=== PATIENT | female | born 1940 | race Caucasian/White ===

== ENCOUNTER 2021-10-11 12:22 | Outpatient (CLI) | payer MEDICARE, BC, SELFPAY ==
--- NOTE | 2021-10-11 | CRLHL7_ITS ---
For Patients: As a result of the Century Cures Act, medical imaging exams and procedure reports are released immediately into your electronic medical record. You may view this report before your referring provider. If you have questions, please contact your health care provider. DATE: 10/11/2021. CLINICAL HISTORY: Concern for cerebral aneurysm. TECHNIQUE: Standard helical CT image acquisition through the neck was performed after intravenous contrast bolus enhancement. Multiplanar reconstructed images were performed and interpreted. COMPARISON: None available. FINDINGS: The origins of the great vessels from the aortic arch are patent. The origins of the right and left vertebral arteries are patent. The common carotid arteries are patent. Mild (<50%) atherosclerotic stenoses at the origin of and just distal to the bulb of the proximal right ICA, by NASCET criteria. Atherosclerotic plaque involves the left carotid bifurcation and extends into the carotid bulb but without resulting luminal stenosis by NASCET criteria. The more distal cervical segments of the internal carotid arteries are patent. The cervical segments of the vertebral arteries are patent. IMPRESSION: Mild (<50%) atherosclerotic stenoses at the origin of and just distal to the bulb of the proximal right ICA, by NASCET criteria. Please note that all CT scans at this facility use dose modulation, iterative reconstruction, and/or weight-based dosing when appropriate to reduce radiation dose to as low as reasonably achievable. Dictated by Byron Gutiérrez MD @ 10/12/2021 11:32:38 AM (Electronically Signed)
[2021-10-11 12:58] LABS: Creatinine* 1.5 mg/dL (0.5-1.5); Estimated Glomerular Filt Rate 34 ml/min
== END 2021-10-11 12:23 | disposition home or self-care (01) ==
LOC: CT 12:23
PROVIDERS: PCP Family Medicine; Visit Provider Radiology Neuroradiology
DX: I67.1 Cerebral aneurysm, nonruptured (principal); I66.3 Occlusion and stenosis of cerebellar arteries
CPT/HCPCS: 36415; 70496; 82565; Q9967

== ENCOUNTER 2021-11-15 09:30 | Observation (INO) | payer MEDICARE, BC, SELFPAY ==
[2021-11-15] VITALS (15 sets, daily range): BP systolic 71–151; BP diastolic 46–99; PULSE 49–147; RESP 12–20; TEMP 36.5–36.8; O2SAT 95–98; BMI 27.6; BMI 27.7
--- NOTE | 2021-11-15 10:00 | ED.GENADULT ---
HPI - General Adult General Time Seen by Provider: 10:00 Date Seen: 11/15/21 Chief complaint: Arrhythmia/Palpitations Stated complaint: Afib Time Seen by Provider: 11/15/21 10:00 Source: patient, RN notes reviewed and other (Received phone call prior to patient arrival from Dr. Malave) Mode of arrival: ambulatory Limitations: no limitations History of Present Illness HPI narrative: Patient is an 81-year-old female accompanied by her daughter to the ER for referral from clinic for atrial fibrillation with rapid ventricular response. Dr. Malave was seen this patient in followup today., a routine follow-up of chronic disease management. She was found to be in atrial fibrillation with RVR, pulse in the 140s, EKG sent with showing atrial fibrillation with RVR, 140 beats per minute. Also showed nonspecific ST segment changes. Patient felt a little dizzy this morning but did not feel a fast heart rate. She has chronic shortness of breath but there is nothing new or worse with this. She has not been sick. She is not feeling worsening shortness of breath, no chest pain, no sense of palpitations. She has suffered from chronic dizziness and chronic dyspnea on exertion. She did have a ZIO patch monitor about a month ago per report, actual report is here in dated 08/20/2021. It was 13 day monitor, sinus rhythm 37-115 beats per minute. PSVT, multiple brief 2 short runs longest 15-1/2 seconds. There was no atrial fibrillation seen. She also had a chest CT in March 2021 showing COPD/emphysema, normal PFTs in June of 2021. She has reportedly had a recent negative stress echo. She had an MRA/MRI related to her dizziness and was found to have an aneurysm versus infundibulum, head CT angio with vascular and they are monitoring. Further details not known. She is not feeling dizzy right now. Her daughter wants to know if we were going to cardiovert her and have reviewed with her that it would be contraindicated unless it is emergent and she is not emergent right now. We reviewed that since she has no idea how long she has been in this rhythm it increases the risk for thromboembolic events with stroke with cardioversion. 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 Ascending aortic aneurysm Carotid artery aneurysm Chronic kidney disease, stage 3 COPD (chronic obstructive pulmonary disease) Diastolic congestive heart failure Emphysema lung History of bladder cancer History of breast cancer History of colon cancer History of small bowel obstruction History of smoking 30 or more pack years Mild cognitive impairment Paroxysmal supraventricular tachycardia Pulmonary nodules Surgical History H/O total cystectomy History of colectomy History of ileal conduit History of urostomy Family History Daughter Diabetes High blood pressure Sister Stroke Social History (Updated 11/15/21 @ 15:26 by Eladio Hardin MD) Smoking Status: Former smoker What tobacco products do you use: cigarettes Years smoked: 30 Smoking quit date/years: >15 years ago Do you use any of these nicotine containing products: None Second hand tobacco smoke exposure: Yes How often do you have a drink containing alcohol: 4 or more times a week How many standard drinks containing alcohol do you have on a typical day: 1 or 2 How often do you have six or more drinks on one occasion: Never AUDIT-C Alcohol total score: 4 Non-prescribed substance use: denies use service: No Exam Const: Vital Signs, click to edit/add: Vital Signs - 24 hr 11/15/21 09:50 Pulse Rate [Right Apical] 147 H Respiratory Rate 20 Blood Pressure [Ri ght Upper Arm] 113/99 H Pulse Oximetry 96 Oxygen Delivery Me thod Room Air Documenting provider has reviewed patient's vital signs: yes Common normals: no apparent distress, average body habitus, oriented x3, no limitations, healthy appearing and alert General appearance: cooperative, comfortable and well kempt HENMT: Common normals: normocephalic, head/scalp atraumatic, hearing grossly normal bilaterally, external ears normal, nasal mucous membranes and turbinates normal, moist oral mucous membranes, oropharynx normal, dentition normal and gingiva normal Head and scalp: normocephalic and atraumatic Nose: nasal mucous membranes and turbinates normal External ear: external ears normal Eye: Common normals: PERRL, EOMs intact bilaterally, conjunctivae normal and no scleral icterus Conjunctiva: conjunctiva(e) normal Pupil: PERRL Neck & C-Spine: Common normals: full ROM, no lymphadenopathy, supple, no meningeal signs, no JVD and thyroid normal Thyroid: thyroid normal Chest: Common normals: inspection of chest normal and palpation of chest normal Resp: Common normals: normal respiratory effort, no retractions, no use of accessory muscles and clear to auscultation bilaterally Auscultation: clear to auscultation bilaterally Cardio: Common normals: no JVD Rate: tachycardic Rhythm: abnormal rhythm irregularly irregular GI: Common normals: Normal to inspection, nondistended, normoactive bowel sounds present (Does have urostomy), soft to palpation, non-tender, no hepatosplenomegaly and no masses Palpation: soft and no hepatosplenomegaly Extremity: Common normals: normal to inspection, full ROM, normal capillary refill, no joint enlargement, no clubbing, cyanosis or edema, no calf tenderness and no pedal edema Neuro: Common normals: oriented x3 Sensorium/orientation: alert Meningeal signs: no meningeal signs Psych: Appearance: well kempt Course Course Hospital Course: Will have her on cardiac monitoring, pulse oximetry. Will initiate a 250 mL normal saline bolus and see how she responds to 2.5 mg IV metoprolol. We will be getting a portable chest x-ray, do COVID screening as she is likely going to need hospitalization. We have reviewed the need for rate control as well as likely anticoagulation. Will do her chads calculation. We discuss complications of untreated atrial fibrillation with tachycardia induced cardiomyopathy, congestive heart failure, other complications of stroke risk and and the need for possible anticoagulation. First we need to work on rate control. She is currently asymptomatic. We will see how she tolerates the rate control medicines IV with her blood pressure. Reevaluation(s) Reevaluation #1: Nursing staff reported to me that patient converted on her own. They will be getting an update EKG. I would still like labs to be drawn, portable chest x-ray. Still need to calculate her chads Vasc score, review anticoagulation need for her. Need to consider low-dose suppressive beta mayuri as well. Time: 10:17 Consultations Consultation #1: Spoke with Dr. Carpio the on-call Cardiology through [facility]. He shares my concerns with her low resting heart tone and the low rate of 37 noted on her recent cardiac monitoring. He did recommend starting Eliquis 5 mg b.i.d.. Note her chads Vasc score is 3. She had a recent creatinine in their records that was 1.4. Note are chemistry analyzer is currently down. He did agree with starting a rate control with metoprolol XL 25 mg and titrating up as tolerated. He also wanted her started on antiarrhythmic as he felt she had had a recent enough ischemic evaluation. He recommended the flecainide be started at 50 mg twice a day. She would need to monitor her pulse. Have an EKG rechecked in 3 days. If her pulse dropped below 50 year she felt dizzy or lightheaded the medicine would need to be stopped and alternate things such as consideration for pacemaker, possibly consideration for ablation could be entertained. He states her last echo was a year ago and he did 1 and updated echo as well. He favored her coming into the hospital for initiation of these medications. I am waiting to hear from her hospitalist if they will consider her. Time: 11:26 Vital Signs Vital signs: Initial Vital Signs Temperature Source Temporal Artery Scan 11/15/21 09:50 Pulse Rate 147 H 11/15/21 09:50 Pulse Rhythm 11/15/21 09:50 Respiratory Rate 20 11/15/21 09:50 Blood Pressure 113/99 H 11/15/21 09:50 Blood Pressure Mean 103 11/15/21 09:50 Blood Pressure Position Supine 11/15/21 09:50 Pulse Oximetry 96 11/15/21 09:50 Oxygen Delivery Method 11/15/21 09:50 Vital Signs Pulse Rate 147 H 11/15/21 09:50 Respiratory Rate 20 11/15/21 09:50 Blood Pressure 113/99 H 11/15/21 09:50 Pulse Oximetry 96 11/15/21 09:50 Oxygen Delivery Method 11/15/21 09:50 Temperature 97.7 F 11/15/21 13:45 Pulse Rate 50 L 11/15/21 14:50 Respiratory Rate 16 11/15/21 13:45 Blood Pressure 113/99 H 11/15/21 09:50 Pulse Oximetry 98 11/15/21 13:45 Oxygen Delivery Method 11/15/21 13:45 Medical Decision Making Lab Data Lab results reviewed: Yes I reviewed the patient's lab results Labs: Lab Results 11/15/21 11/15/21 Range/Units 10:35 11:50 WBC 8.14 (4.50-11.00) K/uL RBC 4.10 (4.00-5.20) m/uL Hgb 12.9 (12.0-16.0) gm/dL Hct 39.8 (33.0-51.0) % MCV 97 (80-100) fL MCH 32 (26-34) pg MCHC 32 (32-36) gm/dL RDW Coeff of Gayle 12.9 (11.5-15.5) % Plt Count 220 (140-440) K/uL Neut % (Auto) 81.2 H (42.0-72.0) % Lymph % (Auto) 6.6 L (20-44) % [place] % (Auto) 11.8 H (0.0-11.0) % Eos % (Auto) 0.2 (0.0-7.0) % Baso % (Auto) 0.1 (0.0-3.0) % Neut # (Auto) 6.60 (1.7-7.0) K/uL Lymph # (Auto) 0.50 L (0.90-2.90) K/uL [place] # (Auto) 1.00 H (0.00-0.90) K/UL Eos # (Auto) 0.02 (0.00-0.50) K/uL Baso # (Auto) 0.01 (0.00-0.30) K/uL Abs Immat Gran (auto) 0.01 (0.00-0.30) K/uL SARS-CoV-2 (PCR) Negative SARS-CoV-2 (Negative) Imaging Data Chest x-ray: Attestation: I have reviewed the pertinent imaging results. Radiologist's impression: Patient: WILD HAY Facility:[facility] Patient ID:?[id number] Site Patient ID:?[id number] Site :?[id number] Study:?XRay Chest PORTABLE 1 VIEW-11/15/2021 11:11:05 AM Ordering Physician:YADIEL Final Report: Indication: AFib with rapid ventricular rate Comparison: Single view chest 05/05/2021 Technique: Single AP view chest Findings: There is hyperinflation and chronic interstitial change. There are mildly increased interstitial markings likely representing minimal pulmonary vascular congestion. There is no dense consolidation, effusion or pneumothorax. The cardiac silhouette is mildly prominent with a tortuous thoracic aorta. The bony thorax is grossly intact. Impression: Hyperinflation and chronic interstitial changes with mildly increased interstitial markings likely representing minimal pulmonary vascular congestion. Dictated by Chucho Penn MD @ 11/15/2021 11:49:34 AM (Electronic Signature) ECG Data Attestation: I personally reviewed and interpreted this ECG as follows: (Atrial fibrillation with rapid ventricular response, 136 beats per minute. Nonspecific ST segment abnormality.) Prior ECG tracings: available for review (From clinic today) Interpretation: Follow-up EKG at 10:20 a.m. showing sinus rhythm, 60 beats per minute, no acute pathology. Critical Care Time Critical Care Time Critical Care Time: No Discharge Plan Discharge Clinical Impression: Paroxysmal atrial fibrillation with rapid ventricular response
--- NOTE | 2021-11-15 10:11 | XR_ITS ---
Final Report Patient: WILD HAY Facility:?[facility] Patient ID:?[id number] Site Patient ID:?[id number] Site :?[id number] Study:?XRay Chest PORTABLE 1 VIEW-11/15/2021 11:11:05 AM Ordering Physician:YADIEL Final Report: Indication: AFib with rapid ventricular rate Comparison: Single view chest 05/05/2021 Technique: Single AP view chest Findings: There is hyperinflation and chronic interstitial change. There are mildly increased interstitial markings likely representing minimal pulmonary vascular congestion. There is no dense consolidation, effusion or pneumothorax. The cardiac silhouette is mildly prominent with a tortuous thoracic aorta. The bony thorax is grossly intact. Impression: Hyperinflation and chronic interstitial changes with mildly increased interstitial markings likely representing minimal pulmonary vascular congestion. Dictated by Chucho Penn MD @ 11/15/2021 11:49:34 AM (Electronic Signature)
--- NOTE | 2021-11-15 10:25 | ED.NURSE ---
converted to nsr on monitor. is feeling better. 12 lead was repeated.
[2021-11-15 10:49] LABS: Basophils Absolute Auto 0.01 K/uL (0.00-0.30); Basophils Percent Auto 0.1 % (0.0-3.0); Eosinophils Absolute Auto 0.02 K/uL (0.00-0.50); Eosinophils Percent Auto 0.2 % (0.0-7.0); Hematocrit 39.8 % (33.0-51.0); Hemoglobin* 12.9 gm/dL (12.0-16.0); Immature Granulocytes Abs Auto 0.01 K/uL (0.00-0.30); Lymphocytes Percent Auto 6.6 % (20-44); Mean Corpuscular HGB Conc 32 gm/dL (32-36); Mean Corpuscular Hemoglobin 32 pg (26-34); Mean Corpuscular Volume 97 fL (80-100); Monocytes Percent Auto 11.8 % (0.0-11.0); Neutrophils Percent Auto 81.2 % (42.0-72.0); Platelet Count* 220 K/uL (140-440); RDW Coefficient of Variation % 12.9 % (11.5-15.5); White Blood Count* 8.14 K/uL (4.50-11.00)
[2021-11-15 10:52] LABS: Slide Review Reflex No
[2021-11-15] MEDS: APIXABAN 5 MG TABLET PO ×2 (12:49→21:02)
[2021-11-15] MEDS: FLECAINIDE ACETATE 50 MG TABLET PO ×2 (12:49→21:02)
[2021-11-15 13:00] LABS: SARS PCR* Negative SARS-CoV-2 (Negative)
[2021-11-15] MEDS: METOPROLOL SUCCINATE (XL) 25 MG TAB PO (13:01)
--- NOTE | 2021-11-15 13:10 | ED.NURSE ---
report was given to bull garcia.
--- NOTE | 2021-11-15 14:54 | P.IMHP_ITS ---
Hospitalist- H&P: HPI History of Present Illness Time Seen by Provider: 12:15 Date Seen: 11/15/21 Chief complaint: Elevated heartrate Narrative: Rosa M Jones is a 81 year old woman referred to the [facility] Emergency Department when she was found to have atrial fibrillation with rapid ventricular response without symptoms when she was in the outpatient clinic today for routine follow-up. Not on a negative chronotropic agent. Not anticoagulated. Is on a baby aspirin once daily. Currently denies any chest heaviness, pressure, tightness, or pain. Denies cough, dyspnea at rest, paroxysmal nocturnal dyspnea, orthopnea. Has baseline dyspnea with exertion. Denies orthostasis, lightheadedness, syncope, near- syncope, presyncope. Denies palpitations or fluttering. Denies lower extremity edema. Stress echo done this past spring was negative. Stress Lexiscan test this past September was negative. Normal pulmonary function tests June 2021. CT scan of chest March 2021 demonstrating COPD and emphysema. Zio patch August 2021 demonstrated sinus rhythm with multiple brief short runs of paroxysmal supraventricular tachycardia, longest of 15 seconds at 108 beats. Patient spontaneously converted to sinus rhythm in the emergency department. D iscussion by emergency department physician and infrastructure manager undertaken. Supervising Law Enforcement Analyst recommended admission to observation, initiation of metoprolol succinate extended release 25 mg daily, initiation of apixaban anticoagulation 5 mg twice daily, initiation of flecainide 50 mg twice daily, monitor in hospital overnight, telemetry cardiac monitoring, repeat electrocardiogram in the morning to assess QT prolongation possibility, and if doing well discharge tomorrow with follow-up in the outpatient setting early next week with the electrocardiogram to again assess for possible QT prolongation. Review of Systems Status of ROS: Reports: 10 or more systems reviewed and unremarkable except as noted in History and below Narrative: Lives independently. Has children or supportive. Requiring more support from children due to cognitive impairment. No recent illness. Denies fevers, rigors, diaphoresis. Manages her ileal conduit. No diarrhea or constipation. Denies any rashes of any sort. No recent trauma or injury. No recent travel. To the best of her knowledge she has not had COVID recently. Has received a total of 4 Pfizer COVID vaccinations. Up-to-date on other immunizations as well. Has not had any recent focal motor neurologic deficits. Denies myalgias a rthralgias or swollen joints. Denies any weight gain or weight loss. Denies night sweats. Denies polyuria, polydipsia, polyphagia. Denies cold intolerance. Drinks up to 1 beer daily. No prior alcohol withdrawals. No other street or recreational drugs. Thirty-four pack-year history of smoking, quit 1991. 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 Ascending aortic aneurysm Carotid artery aneurysm Chronic kidney disease, stage 3 COPD (chronic obstructive pulmonary disease) Diastolic congestive heart failure Emphysema lung History of bladder cancer History of breast cancer History of colon cancer History of small bowel obstruction History of smoking 30 or more pack years Mild cognitive impairment Paroxysmal supraventricular tachycardia Pulmonary nodules Surgical History H/O total cystectomy History of colectomy History of ileal conduit History of urostomy Family History Daughter Diabetes High blood pressure Sister Stroke Social History Smoking Status: Former smoker What tobacco products do you use: cigarettes Years smoked: 30 Smoking quit date/years: >15 years ago Do you use any of these nicotine containing products: None Second hand tobacco smoke exposure: Yes How often do you have a drink containing alcohol: 4 or more times a week How many standard drinks containing alcohol do you have on a typical day: 1 or 2 How often do you have six or more drinks on one occasion: Never AUDIT-C Alcohol total score: 4 Non-prescribed substance use: denies use service: No Meds Home Medications and Allergies Home Medications Medication Instructions Recorded Confirmed Type escitalopram oxalate 10 mg tablet 10 mg PO DAILY 11/15/21 11/15/21 History rosuvastatin 10 mg tablet 10 mg PO HS 11/15/21 11/15/21 History Home Medication Comments: Aspirin 81 mg daily. Allergies Allergy/AdvReac Type Severity Reaction Status Date / Time No Known Drug Allergies Allergy Verified 11/15/21 09:50 Exam Narrative: Exam Narrative: No acute distress. Appears comfortable. Normal sinus rhythm, rate of 60 beats per minute. Systolic blood pressures in the 110's. Respirations comfortable, 12-16 breaths per minute. Alert, oriented to self, place, time. In part oriented to situation. Does require multiple explanations. Cooperative, friendly. No JVD, hepatojugular reflux, or carotid bruits. Lungs are clear to auscultation, without wheezing, rhonchi, or rales. Chest wall excursions are full. Heart tones with regular rhythm, normal S1-S2, no murmur, gallop, or rub. Abdomen with active bowel sounds, soft, nontender. Extremities without edema. Cranial nerves 3-12 grossly intact. No focal motor neurologic deficits. Independent transfer, station, and gait. No tremor, asterixis, or ataxia. When visiting with patient and her daughter, Kelsea, it is apparent that the patient does not recall some recent details. This is not new. Const: Vital Signs, click to edit/add: Vital Signs - 24 hr 11/15/21 09:50 11/15/21 13:44 11/15/21 13:45 Temperature 97.7 F Pulse Rate 60 Pulse Rate [Right Apical] 147 H Respiratory Rate 20 16 Blood Pressure [Ri ght Upper Arm] 113/99 H Pulse Oximetry 96 98 Oxygen Delivery Me thod Room Air Room Air Documenting provider has reviewed patient's vital signs: yes Hospitalist - H&P: Result Labs Labs: Short CBC 11/15/21 Range/Units 10:35 WBC 8.14 (4.50-11.00) K/uL Hgb 12.9 (12.0-16.0) gm/dL Hct 39.8 (33.0-51.0) % Plt Count 220 (140-440) K/uL ECG Attestation: I personally reviewed and interpreted this ECG as follows: ECG interpretation date: 11/15/21 ECG interpretation time: 12:30 Prior ECG tracings: not available for review Interpretation: Atrial fibrillation with rapid ventricular response, rate 140 bpm, no ischemic changes. Imaging Chest x-ray: Attestation: I have reviewed the pertinent imaging results. Radiologist's impression: My interpretation is that the lungs are super inflated, without obvious infiltrates. Mild cardiomegaly without evidence of active heart failure. Assessment and Plan Assessment and plan (1) Paroxysmal atrial fibrillation with rapid ventricular response: Problem comment: CHADSVASC score 3 Status: Acute (2) Diastolic congestive heart failure: Problem comment: asymptomatic L to R shunt, ECHO 2019 Status: Acute (3) COPD (chronic obstructive pulmonary disease): Problem comment: Per CT scan of the chest March 2021. Normal pulmonary function studies June 2021. Status: Acute (4) Paroxysmal supraventricular tachycardia: Problem comment: Zio patch, 08/20/2021 Status: Acute (5) Mild cognitive impairment: Status: Acute Plan 1. Reviewed impression with patient and her daughter, Kelsea. Answered their questions to their satisfaction, including risks and benefits of new medications. 2. They are agreeable to above stated recommendations per cardiology: start apixaban, start low dose metoprolol succinate, start flecainide 50 mg po bid, monitor on telemetry overnight, reassess QT interval tomorrow morning, recheck ECHO, if stable tomorrow then discharge home with outpatient follow-up sakina next week with pre-visit ECG to assess for QT prolongation, and follow-up with cardiology. 3. Reduce dose of escitalopram due to increased risk of QT prolongation with flecainide. 4. Stop her daily use of aspirin while initiating apixaban anticoagulation therapy. 5. Patient and family are agreeable to above stated plans and recommendations.
--- NOTE | 2021-11-15 15:22 | W.PC.EDHO ---
Primary Language: Yoruba Preferred Language: Yoruba Orientation Status: [] Alert & Oriented [] Slight Confusion [] Known Dx Dementia Transfers By: [] Assist of 1 [] Assist of 2 [] Lift Active Medications Generic Name Dose Route Start Last Admin Trade Name Freq PRN Reason Stop Dose Admin Apixaban 5 mg 11/15/21 11:55 11/15/21 12:49 Apixaban 5 Mg Tablet PO 5 mg BID WILLIAM Administration Flecainide Acetate 50 mg 11/15/21 11:55 11/15/21 12:49 Flecainide Acetate 50 Mg Tablet PO 50 mg BID WILLIAM Administration Discontinued Medications Generic Name Dose Route Start Last Admin Trade Name Freq PRN Reason Stop Dose Admin Sodium Chloride 250 mls @ 250 mls/hr 11/15/21 10:11 11/15/21 14:04 0.9 % Sodium Chloride 250 Ml IV 11/15/21 11:10 Not Given .Q1H ONE Metoprolol Succinate 25 mg 11/15/21 11:50 11/15/21 13:01 Metoprolol Succinate (Xl) 25 Mg Tab PO 11/15/21 11:51 25 mg ONCE ONE Administration Metoprolol Tartrate 2.5 mg 11/15/21 10:11 11/15/21 14:05 Metoprolol Tartrate 1 Mg/Ml Inj IVP 11/15/21 10:12 Not Given ONCE ONE Description of Symptoms ED Triage Present Problem was at the clinic for follow up and was noted to Description have a fib with rvr. she does admit to having an incident last night before she retired to bed. I noticed a little something in my chest. went to bed and then this am noticed that she felt dizzy. was sent here from [facility]. was able to ambulate to ed room. is here with her [id number]- radha bauer. ED Triage Date of Onset of 11/14/21 Symptoms Female History Patient No IV Insertion/Site Date of IV Line Insertion [ 11/15/21 Left Wrist] IV Catheter Gauge [Left Wrist] 24 Oxygen Administration Pulse Oximetry 98 Pulse Oximetry 96 Oxygen Delivery Method Room Air Oxygen Delivery Method Room Air Cardiac Monitoring EKG Rhythm Sinus Bradycardia EKG Rhythm Normal Sinus Rhythm
[2021-11-15 16:32] LABS: Albumin* 4.1 g/dL (3.3-5.0); Chloride* 100 mmol/L (96-114); Potassium* 5.1 mmol/L (3.6-5.1); Sodium* 135 mmol/L (135-149)
[2021-11-15 16:34] LABS: Aspartate Amino Transferase* 34 U/L (12-35); Bilirubin Total* 0.7 mg/dL (0.1-1.5); Carbon Dioxide* 29 mmol/L (20-32); Creatinine* 1.6 mg/dL (0.5-1.5); Est. Creatinine Clearance* 21.07; Estimated Glomerular Filt Rate 32 ml/min
[2021-11-15 16:35] LABS: Alanine Aminotransferase* 20 U/L (4-35); Alkaline Phosphatase* 70 U/L (40-150); Blood Urea Nitrogen* 26 mg/dL (7-30); Calcium* 9.1 mg/dL (8.4-10.6); Glucose* 110 mg/dL (60-115); Total Protein* 6.9 g/dL (6.0-8.3)
[2021-11-15 16:36] LABS: Magnesium* 2.1 mg/dL (1.5-2.6); NT Pro B Type NatriureticPept* 3680 PG/mL (0-450)
[2021-11-15 16:39] LABS: Troponin I* 0.05 ng/mL (0.01-0.04)
[2021-11-15 17:40] LABS: TSH With Reflex to FT4* 0.127 uIU/mL (0.270-4.200)
--- NOTE | 2021-11-15 19:18 | PC.NURSE ---
End of shift-- Very pleasant and cooperative, alert and oriented patient. Pt is bradycardic and at times hypotensive this shift with HR 49-50 and B/P as low as 79/46 and MD was notified. Eupneic and afebrile. SPO2 maintained >90% on RA. She denied any pain. Telemetry shows sinus bradycardia. LS CTA. BS+ x4 and pt denied nausea. Urostomy is patent and pt has voided 300ml since her arrival. Daughters at bedside and appear loving and supportive.
[2021-11-15] MEDS: ROSUVASTATIN CALCIUM 10 MG TABLET PO (21:02)
[2021-11-15 23:31] LABS: Free T4 Free Thyroxine* 1.15 ng/dL (0.70-1.85)
[2021-11-16] VITALS (7 sets, daily range): BP systolic 126–148; BP diastolic 62–88; PULSE 45–54; RESP 14–18; TEMP 36.6–36.8; O2SAT 95–96
--- NOTE | 2021-11-16 05:05 | PC.NURSE ---
SHIFT NOTE -: Pt A&O. Pt denies pain, SOB, CP, and N/V. Up SBA to BR. HR 40's to 50's NSR to SA. Afebrile. Oxygen saturations >90% on room air. Pt's BP's on the softer side last evening, but improved this AM, pt denies dizziness or lightheadedness with ambulation. Urostomy bag patent, pt independent with ostomy cares. Pt's daughter stayed the night.
[2021-11-16 07:19] LABS: Creatinine* 1.6 mg/dL (0.5-1.5); Est. Creatinine Clearance* 21.07; Estimated Glomerular Filt Rate 32 ml/min
[2021-11-16] MEDS: METOPROLOL SUCCINATE (XL) 25 MG TAB 12.5 MG PO (09:37)
[2021-11-16] MEDS: APIXABAN 5 MG TABLET PO (09:37)
[2021-11-16] MEDS: FLECAINIDE ACETATE 50 MG TABLET PO (09:37)
[2021-11-16] MEDS: ESCITALOPRAM 10 MG TABLET 5 MG PO (09:38)
--- NOTE | 2021-11-16 14:51 | PC.NURSE ---
Discharge: Patient pleasant and cooperative. Up independently in room, tolerating regular diet. Vitals stable, HR in 50's, denies chest pain or SOB. Discharge instructions given to patient and daughter, new medications and follow ups reviewed, questions answered as needed. Patient discharged @ 1448, ambulated to front entrance with daughter, discharged to own home.
--- NOTE | 2021-11-16 15:34 | PM.DS1 ---
DS: Providers Provider Time Seen by Provider: 12:00 Date Seen: 11/16/21 Date of admission: 11/15/21 13:11 Primary care physician: Teressa Malave DO Admitting Clinician: Eladio Hardin MD Attending Physician on discharge: Eladio Hardin MD Date of Discharge: 11/16/21 DS: Diagnosis Discharge Diagnosis (1) Paroxysmal atrial fibrillation with rapid ventricular response: Status: Acute Problem details: CHADSVASC score 3 (2) Paroxysmal supraventricular tachycardia: Status: Acute Problem details: Zio patch, 08/20/2021 (3) Tricuspid valve insufficiency: Status: Acute Problem details: mild-moderate, ECHO 11/15/2021 (4) COPD (chronic obstructive pulmonary disease): Status: Acute Problem details: Per CT scan of the chest March 2021. Normal pulmonary function studies June 2021. (5) Diastolic congestive heart failure: Status: Acute Problem details: asymptomatic L to R shunt, ECHO 2019 (6) Mild cognitive impairment: Status: Acute (7) Chronic kidney disease, stage 3b: Status: Acute Problem details: Creatinine 1.6, EGFR 30, 11/16/2021 DS: Summary Hospital Course Hospital Course: Rosa M Jones is a 81 year old woman referred to the [facility] Emergency Department when she was found to have atrial fibrillation with rapid ventricular response without symptoms when she was in the outpatient clinic today for routine follow-up.? Not on a negative chronotropic agent.? Not anticoagulated.? Is on a baby aspirin once daily. Currently denies any chest heaviness, pressure, tightness, or pain.? Denies cough, dyspnea at rest, paroxysmal nocturnal dyspnea, orthopnea.? Has baseline dyspnea with exertion.? Denies orthostasis, lightheadedness, syncope, near-syncope, presyncope.? Denies palpitations or fluttering.? Denies lower extremity edema. Stress echo done this past spring was negative.? Stress Lexiscan test this past September was negative.? Normal pulmonary function tests June 2021.? CT scan of chest March 2021 demonstrating COPD and emphysema.? Zio patch August 2021 demonstrated sinus rhythm with multiple brief short runs of paroxysmal supraventricular tachycardia, longest of 15 seconds at 108 beats. Patient spontaneously converted to sinus rhythm in the emergency department, after 250 mL of normal saline plus 2.5 mg of IV metoprolol administered.? Discussion by emergency department physician and information technology consultant undertaken.? Beading Machine Operator recommended admission to observation, initiation of metoprolol succinate extended release 25 mg daily, initiation of apixaban anticoagulation 5 mg twice daily, initiation of flecainide 50 mg twice daily, monitor in hospital overnight, telemetry cardiac monitoring, repeat electrocardiogram in the morning to assess QT prolongation possibility, and if doing well discharge tomorrow with follow-up in the outpatient setting early next week with the electrocardiogram to again assess for possible QT prolongation. When patient 1st arrived on the floor, after the metoprolol succinate 25 mg plus the flecainide 50 mg were administered, orthostatic blood pressures and pulses were obtained. In supine position blood pressure 90/54, heart rate 49. In sitting position blood pressure 82/52 with a heart rate of 50. Upon standing blood pressure 71/46 with heart rate of 53. She had no complaints of orthostasis. Patient's blood pressure improved throughout hospital stay. Patient's heart rate remained around 50 throughout the remainder of the hospital stay. On telemetry assessment patient had no additional paroxysms of atrial fibrillation, supraventricular tachycardia, or any other dysrhythmia. Electrocardiogram on date of discharge demonstrated a QTC of 440 milliseconds. Admission QTC was 420 milliseconds. Patient tolerating increased activities. Prior to discharge we repeated orthostatic blood pressures and pulses. In supine position blood pressure 134/72, heart rate 49. On sitting blood pressure 131/74 with a heart rate of 51. Upon standing blood pressure 126/62 with a heart rate of 54. No complaints of orthostasis. Upon discharge metoprolol succinate dose was decreased to 12.5 mg daily given patient's relative hypotension when she was administered 25 mg the day prior. We continue with the flecainide 50 mg twice daily, dosed appropriately for her decreased renal function with an EGFR of 30.. Patient is appropriately on apixaban at a dose to reflect her kidney function, 2.5 mg twice daily. Status at Discharge Overall status at discharge: patient is back to baseline Time Spent with Patient Time attestation: Total time spent providing and/or coordinating discharge services: Time spent: Greater than 30 minutes Exam Narrative: Exam Narrative: No acute distress.? Appears comfortable. Normal sinus rhythm, rate of 50 beats per minute.? Systolic blood pressures in the 110's.? Respirations comfortable, 12-16 breaths per minute. Alert, oriented to self, place, time.? In part oriented to situation.? Does require multiple explanations. Cooperative, friendly. No JVD, hepatojugular reflux, or carotid bruits. Lungs are clear to auscultation, without wheezing, rhonchi, or rales.? Chest wall excursions are full. Heart tones with regular rhythm, normal S1-S2, no murmur, gallop, or rub.? Abdomen with active bowel sounds, soft, nontender.? Extremities without edema.? Cranial nerves 3-12 grossly intact.? No focal motor neurologic deficits. Independent transfer, station, and gait.? No tremor, asterixis, or ataxia. When visiting with patient and her daughter, Dora, it is apparent that the patient does not recall some recent details.? This is not new. Const: Vital Signs, click to edit/add: Vital Signs - 24 hr 11/15/21 16:37 11/15/21 17:03 11/15/21 19:00 Temperature 98 F Pulse Rate Pulse Rate [Right Radial] Pulse Rate [orthos tatic lying Right Brachial] 49 L Pulse Rate [orthos tatic sitting Righ t Radial] 50 L Pulse Rate [orthos tatic standing Rig ht Radial] 53 L Respiratory Rate 16 18 Blood Pressure [Ri ght Arm] 94/68 Blood Pressure [or thostatic lying Ri ght Arm] 90/54 L Blood Pressure [or thostatic sitting Right Arm] 82/52 L Blood Pressure [or thostatic standing Right Arm] 71/46 L Pulse Oximetry 98 95 Oxygen Delivery Me thod Room Air Room Air 11/15/21 23:00 11/15/21 23:00 11/16/21 00:46 Temperature 98.3 F Pulse Rate 45 L Pulse Rate [Right Radial] 52 L Pulse Rate [orthos tatic lying Right Brachial] Pulse Rate [orthos tatic sitting Righ t Radial] Pulse Rate [orthos tatic standing Rig ht Radial] Respiratory Rate 18 18 Blood Pressure [Ri ght Arm] 89/56 L Blood Pressure [or thostatic lying Ri ght Arm] Blood Pressure [or thostatic sitting Right Arm] Blood Pressure [or thostatic standing Right Arm] Pulse Oximetry 96 Oxygen Delivery Me thod Room Air 11/16/21 04:45 11/16/21 07:44 11/16/21 07:46 Temperature 97.9 F 98.2 F Pulse Rate Pulse Rate [Right Radial] 52 L 50 L 50 L Pulse Rate [orthos tatic lying Right Brachial] Pulse Rate [orthos tatic sitting Righ t Radial] Pulse Rate [orthos tatic standing Rig ht Radial] Respiratory Rate 18 14 Blood Pressure [Ri ght Arm] 136/88 148/77 H Blood Pressure [or thostatic lying Ri ght Arm] Blood Pressure [or thostatic sitting Right Arm] Blood Pressure [or thostatic standing Right Arm] Pulse Oximetry 95 95 Oxygen Delivery Me thod Room Air Room Air 11/16/21 08:01 11/16/21 11:00 11/16/21 11:28 Temperature 97.8 F Pulse Rate 50 L Pulse Rate [Right Radial] 49 L Pulse Rate [orthos tatic lying Right Brachial] 54 L Pulse Rate [orthos tatic sitting Righ t Radial] 51 L Pulse Rate [orthos tatic standing Rig ht Radial] 49 L Respiratory Rate 16 Blood Pressure [Ri ght Arm] 131/74 Blood Pressure [or thostatic lying Ri ght Arm] 126/62 Blood Pressure [or thostatic sitting Right Arm] 131/74 Blood Pressure [or thostatic standing Right Arm] 134/72 Pulse Oximetry 96 Oxygen Delivery Me thod Room Air Documenting provider has reviewed patient's vital signs: yes DS: Data Data Completed and Pending Labs on day of discharge: Labs from last 24 hours 11/16/21 11/15/21 11/15/21 05:50 10:35 10:35 Sodium Potassium Chloride Carbon Dioxide BUN Creatinine 1.6 H Estimated Creat Clear 21.07 Estimated GFR 32 Glucose Calcium Magnesium Total Bilirubin AST ALT Alkaline Phosphatase Troponin I NT-Pro-B Natriuret Pep Total Protein Albumin TSH 0.127 L Free T4 1.15 11/15/21 10:35 Sodium 135 Potassium 5.1 Chloride 100 Carbon Dioxide 29 BUN 26 Creatinine 1.6 H Estimated Creat Clear 21.07 Estimated GFR 32 Glucose 110 Calcium 9.1 Magnesium 2.1 Total Bilirubin 0.7 AST 34 ALT 20 Alkaline Phosphatase 70 Troponin I 0.05 H NT-Pro-B Natriuret Pep 3680 H Total Protein 6.9 Albumin 4.1 TSH Free T4 Imaging Echo: Radiologist's impression: Normal left ventricular chamber size, moderately increased left ventricular wall thickness, normal global systolic function, calculated ejection fraction of 68%. Right ventricular chamber size not well visualized, with global systolic right ventricular function normal. Estimated right ventricular systolic pressure is 22 mmHg plus the right atrial pressure. Normal left atrial size. No aortic stenosis and trivial aortic regurgitation. Trace mitral regurgitation without mitral stenosis. Normal tricuspid valve, but with mild to moderate tricuspid regurgitation. Trace pulmonary regurgitation. Dilated inferior vena cava with respiratory variation less than 50%. Ascending aorta is dilated at a maximum diameter of 3.9 cm. No pericardial effusion. Discharge Plan Discharge Disposition: Home, Self-Care Date of Admission: 11/15/21 13:11 Attending Provider on Discharge: Eladio Hardin Primary Care Provider: Teressa Malave Condition: Improved Anticipated Discharge Date/Time: 11/16/21 15:00 Discharge Medications: New escitalopram oxalate 10 mg Tablet 5 mg PO DAILY 30 Days Qty: 15 1RF apixaban 2.5 mg tablet 2.5 mg PO BID Qty: 60 2RF flecainide 50 mg Tablet 50 mg PO BID Qty: 60 0RF metoprolol succinate 25 mg Tablet Extended Release 24 Hr 12.5 mg PO DAILY Qty: 15 1RF Continued rosuvastatin 10 mg tablet 10 mg PO HS Label Comments: TAKE ONE TABLET BY MOUTH ONE TIME DAILY AT BEDTIME Discontinued escitalopram oxalate 10 mg tablet 10 mg PO DAILY Label Comments: TAKE ONE TABLET BY MOUTH EVERY DAY IN THE MORNING. Discharge Orders: Discharge Order (Routine); Ordered 11/16/21 Ordered By: Eladio Hardin Patient Education: Metoprolol (By mouth), Flecainide (By mouth), Escitalopram (By mouth), Apixaban (By mouth), A-fib (Atrial Fibrillation) (GEN), Safe Use of Anticoagulants (GEN) Activity Restrictions/Additional Instructions: 1. Obtain medical alert bracelet or necklace indicating you take the anti-coagulant medication Apixaban (Eliquis); 2. Follow-up with Dr. Malave on Friday, 20 November 2021, with pre-visit electrocardiogram (ECG), renal function panel, and Flecainide trough level; 3. Cardiology appointment in 1-2 weeks, regarding paroxysmal atrial fibrillation. Activity Level: Activity as Tolerated Activity Detail: Minimize high risk fall or impact activities. Discharge Diet: Regular Follow Up Appointments: Teressa Malave DO [Primary Care Provider] - 11/20/21 8:45 am (Paroxysmal atrial fibrillation, newly started on metoprolol succinate 12.5 mg daily, apixaban 2.5 mg twice daily, and flecainide 50 mg twice daily. Also, reduced dose of escitalopran from 10 mg daily to 5 mg daily (to reduce risk of QT prolongation with flecainide). Needs pre-visit ECG to assess QTc interval (QTc 440 msec on discharge from hospital), renal function panel, and flecainide trough level. Patient overwhelmed by medication adjustments, but family supportive.) Forms: [employer] Info Instructions
== END 2021-11-16 14:48 | disposition home or self-care (01) ==
LOC: ED 10:29 → MEDSURG 13:12
PROVIDERS: Admitting Provider Internal Medicine; Emergency Provider Family Medicine; PCP Family Medicine; Visit Provider Internal Medicine
DX: I48.0 Paroxysmal atrial fibrillation (principal); J44.9 Chronic obstructive pulmonary disease, unspecified; I50.30 Unspecified diastolic (congestive) heart failure; I47.1 Supraventricular tachycardia; I07.1 Rheumatic tricuspid insufficiency; G31.84 Mild cognitive impairment of uncertain or unknown etiology; N18.32 Chronic kidney disease, stage 3b; R06.02 Shortness of breath; Z87.891 Personal history of nicotine dependence; Z79.82 Long term (current) use of aspirin; Z85.3 Personal history of malignant neoplasm of breast; Z85.038 Personal history of other malignant neoplasm of large intestine; Z85.51 Personal history of malignant neoplasm of bladder; R06.00 Dyspnea, unspecified
CPT/HCPCS: 36415; 71045; 80053; 82565; 83735; 83880; 84439; 84443; 84484; 85025; 87635; 93005; 93306; 99284; 99285; G0378; A9270

== ENCOUNTER 2021-12-12 12:22 | Emergency (ER) | payer MEDICARE, BC, SELFPAY ==
[2021-12-12 12:35] VITALS: BP 103/58; PULSE 104; RESP 16; TEMP 36.7; O2SAT 99; BMI 26.9
[2021-12-12 13:00] VITALS: BP 136/70; PULSE 48; RESP 16; O2SAT 97
--- NOTE | 2021-12-12 13:01 | CRLHL7_ITS ---
For Patients: As a result of the Cures Act, medical imaging exams and procedure reports are released immediately into your electronic medical record. You may view this report before your referring provider. If you have questions, please contact your health care provider. INDICATION: Shortness of breath. TECHNIQUE: Chest 1 views. COMPARISON: Chest x-ray from 11/15/2021. FINDINGS: Lungs: Clear lungs. No consolidation. Pleura: No pleural effusion or pneumothorax. Heart and Mediastinum: The cardiomediastinal silhouette is enlarged. The vessels are unremarkable. Bones: Unremarkable. IMPRESSION: No acute cardiopulmonary disease. Dictated by Ezequiel Honeycutt MD @ 12/12/2021 1:36:50 PM (Electronically Signed)
--- NOTE | 2021-12-12 13:04 | CRLHL7_ITS ---
For Patients: As a result of the Century Cures Act, medical imaging exams and procedure reports are released immediately into your electronic medical record. You may view this report before your referring provider. If you have questions, please contact your health care provider. INDICATION: Epigastric pain. TECHNIQUE: Ultrasound abdomen limited. Sonographic images of the right upper quadrant were obtained using chopra-scale and color Doppler images. COMPARISON: None. FINDINGS: Liver: Normal in size and echotexture. No suspicious masses. No intrahepatic biliary dilation. Gallbladder: Contracted and not well seen. Normal wall thickness. No pericholecystic fluid. Common bile duct: 5 mm. Pancreas: Unremarkable. Right kidney: Normal in size. Normal echotexture and cortex. No suspicious masses, stones, or hydronephrosis. Simple right renal cyst. Vasculature: Proximal abdominal aorta and IVC are unremarkable. IMPRESSION: Unremarkable right upper quadrant ultrasound. Dictated by Ezequiel Honeycutt MD @ 12/12/2021 1:56:47 PM (Electronically Signed)
[2021-12-12 13:24] LABS: Basophils Absolute Auto 0.02 K/uL (0.00-0.30); Basophils Percent Auto 0.3 % (0.0-3.0); Eosinophils Absolute Auto 0.05 K/uL (0.00-0.50); Eosinophils Percent Auto 0.8 % (0.0-7.0); Hematocrit 36.3 % (33.0-51.0); Hemoglobin* 11.9 gm/dL (12.0-16.0); Immature Granulocytes Abs Auto 0.01 K/uL (0.00-0.30); Lymphocytes Percent Auto 12.9 % (20-44); Mean Corpuscular HGB Conc 33 gm/dL (32-36); Mean Corpuscular Hemoglobin 32 pg (26-34); Mean Corpuscular Volume 98 fL (80-100); Monocytes Percent Auto 13.4 % (0.0-11.0); Neutrophils Percent Auto 72.4 % (42.0-72.0); Platelet Count* 195 K/uL (140-440); Red Blood Count 3.71 m/uL (4.00-5.20); White Blood Count* 6.21 K/uL (4.50-11.00)
[2021-12-12 13:24] LABS: Troponin, Point-of-Care* 0.01 ng/ml (0.01-0.04)
[2021-12-12 13:29] LABS: Slide Review Reflex No
[2021-12-12 13:30] VITALS: BP 147/70; PULSE 47; RESP 16; O2SAT 97
[2021-12-12 13:35] LABS: Albumin* 4.1 g/dL (3.3-5.0); Chloride* 100 mmol/L (96-114); Sodium* 133 mmol/L (135-149)
[2021-12-12 13:36] LABS: Potassium* 4.6 mmol/L (3.6-5.1)
[2021-12-12 13:38] LABS: Alanine Aminotransferase* 18 U/L (4-35); Alkaline Phosphatase* 60 U/L (40-150); Aspartate Amino Transferase* 28 U/L (12-35); Bilirubin Direct* 0.1 mg/dL (0.0-0.5); Bilirubin Total* 0.5 mg/dL (0.1-1.5); Blood Urea Nitrogen* 32 mg/dL (7-30); Carbon Dioxide* 26 mmol/L (20-32); Glucose* 106 mg/dL (60-115); Lipase* 279 U/L (23-300); Total Protein* 6.7 g/dL (6.0-8.3)
[2021-12-12 13:39] LABS: Calcium* 9.2 mg/dL (8.4-10.6)
[2021-12-12 13:41] LABS: D Dimer Quantitative* 0.47 ug/ml (0.00-0.50)
[2021-12-12 13:53] LABS: C Reactive Protein* < 0.5 mg/dL (0.5-1.0)
[2021-12-12 13:54] LABS: Creatinine* 1.7 mg/dL (0.5-1.5); Est. Creatinine Clearance* 19.83; Estimated Glomerular Filt Rate 30 ml/min
--- NOTE | 2021-12-12 13:57 | ED.NURSE ---
Emptied urostomy for 200cc.
--- NOTE | 2021-12-12 13:57 | ED.GENADULT ---
HPI - General Adult General Date Seen: 12/12/21 Chief complaint: Chest Pain Stated complaint: chest pain Time Seen by Provider: 12/12/21 12:36 Source: patient History of Present Illness HPI narrative: Patient is an 81 year old woman here for evaluation of chest pain. She tells me she had chest pain earlier this month, and was admitted to the hospital. Review of her records shows that was actually an admission for AFib with rapid ventricular response and according to the records she actually denied chest pain at that time. She did have an echo which was relatively unremarkable. I also note her records that she had 2 stress tests earlier this year the most recent in September, which were negative. At any rate, she says that she has had pain like this before, multiple times, but it has never been quite this bad and has never lasted this long. She says previously would last under a minute but today it was lasting several minutes at a time and was persisting over and over for several hours. She says she woke up at 2:00 a.m. and had some pain at that time but it went away. She woke up at her usual time of 5 or 530 in the morning and then had more pain started up. It was burning and across her chest, moderate in intensity, without other radiation. Not associated with shortness of breath, nausea, vomiting, diaphoresis, palpitations, lightheadedness or fainting. She said it would last several minutes, go away and then come back. She called the clinic and was advised to come in which she did at noon or so. By the time she got here pain had completely resolved. She now feels fine. Related Data Home Medications Medication Instructions Recorded Confirmed rosuvastatin 10 mg tablet 10 mg PO HS 11/15/21 12/12/21 Previous Rx's Medication Instructions Recorded apixaban 2.5 mg tablet 2.5 mg PO BID #60 tabs 11/16/21 escitalopram oxalate 10 mg tablet 5 mg PO DAILY 30 days #15 tabs 11/16/21 flecainide 50 mg tablet 50 mg PO BID #60 tabs 11/16/21 metoprolol succinate 25 mg 12.5 mg PO DAILY #15 tabs 11/16/21 tablet,extended release 24 hr Allergies Allergy/AdvReac Type Severity Reaction Status Date / Time No Known Drug Allergies Allergy Verified 12/12/21 12:43 Review of Systems Status of ROS: Reports: 10 or more systems reviewed and unremarkable except as noted in History and below [facility] Medical History 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 Ascending aortic aneurysm Carotid artery aneurysm Chronic kidney disease, stage 3 Chronic kidney disease, stage 3b COPD (chronic obstructive pulmonary disease) Diastolic congestive heart failure Emphysema lung History of bladder cancer History of breast cancer History of colon cancer History of small bowel obstruction History of smoking 30 or more pack years Mild cognitive impairment Paroxysmal supraventricular tachycardia Pulmonary nodules Surgical History H/O total cystectomy History of back surgery History of colectomy History of ileal conduit History of urostomy Family History Daughter Diabetes High blood pressure Sister Stroke Social History Highest level of school completed/degree received: some college, no degree Smoking Status: Former smoker What tobacco products do you use: cigarettes Years smoked: 30 Smoking quit date/years: >15 years ago Do you use any of these nicotine containing products: None Second hand tobacco smoke exposure: No How often do you have a drink containing alcohol: 4 or more times a week Alcohol type: beer How many standard drinks containing alcohol do you have on a typical day: 1 or 2 How often do you have six or more drinks on one occasion: Never AUDIT-C Alcohol total score: 4 Non-prescribed substance use: denies use Caffeine: Yes (6 cups) service: No Exam Narrative: Exam Narrative: Vital signs as noted above. In general, an alert, well-appearing patient. Head: Normocephalic, atraumatic. Eyes: Pupils are equal reactive. Extraocular movements are full. Conjunctivae are normal. ENT: Mucous membranes are moist. Throat is normal. Neck: Supple without lymphadenopathy. Heart: Regular rate and rhythm. No murmur or rub. Lungs: Clear bilaterally. No increased work of breathing, crackles or wheezes. Abdomen: Soft and nontender. No organomegaly. Extremities: Well perfused. No edema. No calf tenderness. Pulses intact. Neurologic: Patient is alert and oriented to person and place. Speech is fluent. Face is symmetric. Moves all extremities equally. Affect: Normal. Skin: Warm and dry. Well perfused. Const: Vital Signs, click to edit/add: Vital Signs - 24 hr 12/12/21 12:35 12/12/21 14:00 12/12/21 13:30 Temperature 98.1 F Pulse Rate [Right Pulse Oximeter] 104 H 49 L 47 L Respiratory Rate 16 16 16 Blood Pressure [Ri ght Upper Arm] 103/58 L 156/80 H 147/70 H Pulse Oximetry 99 97 97 Oxygen Delivery Me thod Room Air Room Air Room Air 12/12/21 13:00 12/12/21 15:00 12/12/21 15:30 Temperature Pulse Rate [Right Pulse Oximeter] 48 L 43 L 49 L Respiratory Rate 16 16 16 Blood Pressure [Ri ght Upper Arm] 136/70 163/79 H 172/84 H Pulse Oximetry 97 99 98 Oxygen Delivery Me thod Room Air Room Air Course Course Hospital Course: On arrival, her 1st EKG shows normal sinus rhythm ventricular rate of 49, but I note that her initial pulse was 104. We did have an EKG at that time but I wonder she was in atrial fibrillation when she got here. Her medical records say that she did not have any chest pain when she was here with atrial fibrillation earlier in the month, but perhaps that was not entirely accurate. It does seem that her memory is a little bit fuzzy. I wonder she was having atrial fibrillation and some chest pain this morning. An initial troponin is negative. I did do a right upper quadrant ultrasound just to make sure that none of this was related to possible biliary colic and this is read by Radiology as negative. A chest x-ray by my review is normal, final radiology report is likewise normal. She does have a known ascending aortic aneurysm at 3.9 cm, so not particularly large. Vasculature look stable on chest x-ray. D-dimer is normal. LFTs are normal, lipase is 279. CBC shows a normal white blood cell count, hemoglobin is 11.9. BUN is 32, creatinine is 1.7. This is in line with previous. Currently there is no evidence of acute coronary syndrome. D-dimer is negative, I think likelihood of PE is quite low given absence of pleuritic pain, shortness of breath, or other pulmonary complaints. I think dissection is also quite low particularly given absence of hypertension or persistent symptoms. Her lungs sound clear today, she does not complain of anything that makes me suspicious of a COPD exacerbation. She does not have signs or symptoms of pneumonia, chest x-ray is negative for pneumothorax or other acute pulmonary findings. I am going to do a 2nd troponin but my suspicion for coronary artery disease as a cause of this is relatively low given to negative stress test this year. Gastritis or peptic ulcer disease is a possibility, but given that her symptoms ended at the same time as her tachycardia abruptly ended, again I do wonder about atrial fibrillation. She is appropriately anticoagulated. Will recommend primary care follow-up assuming 2nd troponin is negative. Second troponin is negative. We talked about the possibility of this pain being related to about of atrial fibrillation, and discussed checking for possible atrial fibrillation either with checking her pulse or using a device such as a Fitbit or Apple watch in the future if she has chest pain again. Recommend primary care follow-up as outlined above. Return at any time to the emergency department for severe pain, lightheadedness or fainting, fast heart rate, or other new symptoms. Vital Signs Vital signs: Initial Vital Signs Temperature 98.1 F 12/12/21 12:35 Temperature Source Temporal Artery Scan 12/12/21 12:35 Pulse Rate 104 H 12/12/21 12:35 Pulse Rhythm 12/12/21 12:35 Respiratory Rate 16 12/12/21 12:35 Blood Pressure 103/58 L 12/12/21 12:35 Blood Pressure Mean 73 12/12/21 12:35 Blood Pressure Position Sitting 12/12/21 12:35 Pulse Oximetry 99 12/12/21 12:35 Oxygen Delivery Method 12/12/21 12:35 Vital Signs Temperature 98.1 F 12/12/21 12:35 Pulse Rate 104 H 12/12/21 12:35 Respiratory Rate 16 12/12/21 12:35 Blood Pressure 103/58 L 12/12/21 12:35 Pulse Oximetry 99 12/12/21 12:35 Oxygen Delivery Method 12/12/21 12:35 Temperature 98.1 F 12/12/21 12:35 Pulse Rate 49 L 12/12/21 15:30 Respiratory Rate 16 12/12/21 15:30 Blood Pressure 172/84 H 12/12/21 15:30 Pulse Oximetry 98 12/12/21 15:30 Oxygen Delivery Method 12/12/21 15:30 Medical Decision Making Lab Data Labs: Lab Results 12/12/21 12/12/21 12/12/21 Range/Units 12:50 13:12 13:12 WBC 6.21 (4.50-11.00) K/uL RBC 3.71 L (4.00-5.20) m/uL Hgb 11.9 L (12.0-16.0) gm/dL Hct 36.3 (33.0-51.0) % MCV 98 (80-100) fL MCH 32 (26-34) pg MCHC 33 (32-36) gm/dL RDW Coeff of Gayle 13.0 (11.5-15.5) % Plt Count 195 (140-440) K/uL Neut % (Auto) 72.4 H (42.0-72.0) % Lymph % (Auto) 12.9 L (20-44) % Waldo % (Auto) 13.4 H (0.0-11.0) % Eos % (Auto) 0.8 (0.0-7.0) % Baso % (Auto) 0.3 (0.0-3.0) % Neut # (Auto) 4.50 (1.7-7.0) K/uL Lymph # (Auto) 0.80 L (0.90-2.90) K/uL Waldo # (Auto) 0.80 (0.00-0.90) K/UL Eos # (Auto) 0.05 (0.00-0.50) K/uL Baso # (Auto) 0.02 (0.00-0.30) K/uL Abs Immat Gran (auto) 0.01 (0.00-0.30) K/uL D-Dimer Quant (PE/DVT) 0.47 (0.00-0.50) ug/ml Sodium (135-149) mmol/L Potassium (3.6-5.1) mmol/L Chloride (96-114) mmol/L Carbon Dioxide (20-32) mmol/L BUN (7-30) mg/dL Creatinine (0.5-1.5) mg/dL Estimated Creat Clear Estimated GFR ml/min Glucose (60-115) mg/dL Calcium (8.4-10.6) mg/dL Total Bilirubin (0.1-1.5) mg/dL Direct Bilirubin (0.0-0.5) mg/dL AST (12-35) U/L ALT (4-35) U/L Alkaline Phosphatase (40-150) U/L C-Reactive Protein (0.5-1.0) mg/dL Total Protein (6.0-8.3) g/dL Albumin (3.3-5.0) g/dL Lipase (23-300) U/L POC Troponin I 0.01 (0.01-0.04) ng/ml 12/12/21 12/12/21 Range/Units 13:12 15:15 WBC (4.50-11.00) K/uL RBC (4.00-5.20) m/uL Hgb (12.0-16.0) gm/dL Hct (33.0-51.0) % MCV (80-100) fL MCH (26-34) pg MCHC (32-36) gm/dL RDW Coeff of Gayle (11.5-15.5) % Plt Count (140-440) K/uL Neut % (Auto) (42.0-72.0) % Lymph % (Auto) (20-44) % Waldo % (Auto) (0.0-11.0) % Eos % (Auto) (0.0-7.0) % Baso % (Auto) (0.0-3.0) % Neut # (Auto) (1.7-7.0) K/uL Lymph # (Auto) (0.90-2.90) K/uL Waldo # (Auto) (0.00-0.90) K/UL Eos # (Auto) (0.00-0.50) K/uL Baso # (Auto) (0.00-0.30) K/uL Abs Immat Gran (auto) (0.00-0.30) K/uL D-Dimer Quant (PE/DVT) (0.00-0.50) ug/ml Sodium 133 L (135-149) mmol/L Potassium 4.6 (3.6-5.1) mmol/L Chloride 100 (96-114) mmol/L Carbon Dioxide 26 (20-32) mmol/L BUN 32 H (7-30) mg/dL Creatinine 1.7 H (0.5-1.5) mg/dL Estimated Creat Clear 19.83 Estimated GFR 30 ml/min Glucose 106 (60-115) mg/dL Calcium 9.2 (8.4-10.6) mg/dL Total Bilirubin 0.5 (0.1-1.5) mg/dL Direct Bilirubin 0.1 (0.0-0.5) mg/dL AST 28 (12-35) U/L ALT 18 (4-35) U/L Alkaline Phosphatase 60 (40-150) U/L C-Reactive Protein < 0.5 L (0.5-1.0) mg/dL Total Protein 6.7 (6.0-8.3) g/dL Albumin 4.1 (3.3-5.0) g/dL Lipase 279 (23-300) U/L POC Troponin I 0.01 (0.01-0.04) ng/ml Discharge Plan Discharge Clinical Impression: History of atrial fibrillation, Chest pain Patient Disposition: Home, Self-Care Condition: Improved Instructions: Chest Pain (DC) Additional Instructions: Follow-up with Dr. Malave in the next week. If you have further chest pain, check to see if your an atrial fibrillation at the time. If you have rapid heartbeat, severe pain, fainting or other new symptoms, return to the ER. Prescriptions: No Action rosuvastatin 10 mg tablet 10 mg PO HS Label Comments: TAKE ONE TABLET BY MOUTH ONE TIME DAILY AT BEDTIME escitalopram oxalate 10 mg Tablet 5 mg PO DAILY 30 Days Qty: 15 1RF apixaban 2.5 mg tablet 2.5 mg PO BID Qty: 60 2RF flecainide 50 mg Tablet 50 mg PO BID Qty: 60 0RF metoprolol succinate 25 mg Tablet Extended Release 24 Hr 12.5 mg PO DAILY Qty: 15 1RF Follow Up/Referrals: Teressa Malave DO [Primary Care Provider] - Stand Alone Forms: [employer] Info Instructions
[2021-12-12 14:00] VITALS: BP 156/80; PULSE 49; RESP 16; O2SAT 97
[2021-12-12 15:00] VITALS: BP 163/79; PULSE 43; RESP 16; O2SAT 99
[2021-12-12 15:30] VITALS: BP 172/84; PULSE 49; RESP 16; O2SAT 98
[2021-12-12 15:33] LABS: Troponin, Point-of-Care* 0.01 ng/ml (0.01-0.04)
--- NOTE | 2021-12-12 15:50 | ED.NURSE ---
Patient was discharged. Discharge instructions reviewed and understood by patient. Left ambulatory.
== END 2021-12-12 15:51 | disposition home or self-care (01) ==
PROVIDERS: Emergency Provider Emergency Medicine; PCP Family Medicine
DX: R07.9 Chest pain, unspecified (principal)
CPT/HCPCS: 36415; 71045; 76705; 80048; 80076; 83690; 84484; 85025; 85379; 86140; 93005; 99284; 99285

== ENCOUNTER 2022-05-22 11:00 | Emergency (ER) | payer MEDICARE, BC, SELFPAY ==
[2022-05-22] VITALS (24 sets, daily range): BP systolic 157–176; BP diastolic 72–86; PULSE 45–51; RESP 20; TEMP 36.2; O2SAT 94–99; BMI 27.9
--- NOTE | 2022-05-22 11:20 | ED.GENADULT ---
HPI - General Adult General Time Seen by Provider: 11:20 Date Seen: 05/22/22 Chief complaint: Arrhythmia/Palpitations Stated complaint: chest pain Time Seen by Provider: 05/22/22 11:10 Source: patient, family (Here with her sister) and RN notes reviewed Mode of arrival: ambulatory Limitations: no limitations History of Present Illness HPI narrative: Patient is an 81-year-old female coming into the ER with episodic anterior chest pain. She has had 3 episodes this morning. The 1st 1 was after she got out of the car at the grocery store, about 830 this morning, ended up stopping to rest by the grocery store entrance and went away. She had 2 subsequent spells at home while sitting. It is a sharp type chest pain, she feels it anteriorly in the chest between her breasts, does not radiate into the neck or back. There is no sense of palpitations, arrhythmia or change in breathing. Baseline she does have some shortness of breath and occasional cough and sneeze but has not been ill. No fevers chills. She states the hairspring assembler put her on a water pill recently. She does have known chronic kidney disease, tricuspid valve insufficiency, history of paroxysmal atrial fibrillation with rapid ventricular response and I believe an ascending aortic aneurysm. She does not think that that is due to be checked until August. She is asymptomatic at this time, has no pain. Baseline she states her heart rate is usually around 49 when she goes to the hairspring assembler, at home she feels it is often in the 60s. She has never had a prior heart attack, there is no family history of heart attacks but her mom and a sister both have had strokes. Related Data Home Medications Medication Instructions Recorded Confirmed rosuvastatin 10 mg tablet 10 mg PO HS 11/15/21 05/22/22 furosemide 20 mg tablet 20 mg PO DAILY 05/22/22 05/22/22 warfarin 2 mg tablet 2 mg PO DAILY 05/22/22 05/22/22 Previous Rx's Medication Instructions Recorded escitalopram oxalate 10 mg tablet 5 mg PO DAILY 30 days #15 tabs 11/16/21 flecainide 50 mg tablet 50 mg PO BID #60 tabs 11/16/21 metoprolol succinate 25 mg 12.5 mg PO DAILY #15 tabs 11/16/21 tablet,extended release 24 hr Allergies Allergy/AdvReac Type Severity Reaction Status Date / Time No Known Drug Allergies Allergy Verified 12/12/21 12:43 Review of Systems Status of ROS: Reports: 10 or more systems reviewed and unremarkable except as noted in History and below [facility] Medical History 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 Ascending aortic aneurysm Carotid artery aneurysm Chronic kidney disease, stage 3 Chronic kidney disease, stage 3b COPD (chronic obstructive pulmonary disease) Diastolic congestive heart failure Emphysema lung History of bladder cancer History of breast cancer History of colon cancer History of small bowel obstruction History of smoking 30 or more pack years Mild cognitive impairment Paroxysmal supraventricular tachycardia Pulmonary nodules Surgical History H/O total cystectomy History of back surgery History of colectomy History of ileal conduit History of urostomy Family History Daughter Diabetes High blood pressure Sister Stroke Social History Highest level of school completed/degree received: some college, no degree Smoking Status: Former smoker What tobacco products do you use: cigarettes Years smoked: 30 Smoking quit date/years: >15 years ago Do you use any of these nicotine containing products: None Second hand tobacco smoke exposure: No How often do you have a drink containing alcohol: 4 or more times a week Alcohol type: beer How many standard drinks containing alcohol do you have on a typical day: 1 or 2 How often do you have six or more drinks on one occasion: Never AUDIT-C Alcohol total score: 4 Non-prescribed substance use: denies use Caffeine: Yes (6 cups) service: No Exam Const: Vital Signs, click to edit/add: Vital Signs - 24 hr 05/22/22 11:04 05/22/22 11:09 05/22/22 11:10 Temperature 97.1 F L Pulse Rate 51 L 49 L Pulse Rate [Pulse Oximeter] 50 L Respiratory Rate 20 Blood Pressure 176/86 H Blood Pressure [Le ft Upper Arm] 176/86 H Pulse Oximetry 98 96 97 Oxygen Delivery Me thod Room Air 05/22/22 11:13 05/22/22 11:15 05/22/22 11:30 Temperature Pulse Rate 48 L 47 L 46 L Pulse Rate [Pulse Oximeter] Respiratory Rate Blood Pressure 176/80 H Blood Pressure [Le ft Upper Arm] Pulse Oximetry 97 98 97 Oxygen Delivery Me thod 05/22/22 11:32 05/22/22 11:48 05/22/22 12:00 Temperature Pulse Rate 46 L 47 L 46 L Pulse Rate [Pulse Oximeter] Respiratory Rate Blood Pressure 159/72 H Blood Pressure [Le ft Upper Arm] Pulse Oximetry 96 99 99 Oxygen Delivery Me thod 05/22/22 12:02 05/22/22 12:03 05/22/22 12:15 Temperature Pulse Rate 47 L 47 L 47 L Pulse Rate [Pulse Oximeter] Respiratory Rate Blood Pressure 157/76 H Blood Pressure [Le ft Upper Arm] Pulse Oximetry 99 99 98 Oxygen Delivery Me thod 05/22/22 12:30 05/22/22 12:32 05/22/22 12:45 Temperature Pulse Rate 45 L 45 L 48 L Pulse Rate [Pulse Oximeter] Respiratory Rate Blood Pressure 166/74 H Blood Pressure [Le ft Upper Arm] Pulse Oximetry 98 96 99 Oxygen Delivery Me thod 05/22/22 13:00 05/22/22 13:02 Temperature Pulse Rate 50 L 47 L Pulse Rate [Pulse Oximeter] Respiratory Rate Blood Pressure 174/75 H Blood Pressure [Le ft Upper Arm] Pulse Oximetry 96 98 Oxygen Delivery Me thod Documenting provider has reviewed patient's vital signs: yes Common normals: no apparent distress, average body habitus, oriented x3, no limitations, healthy appearing, alert and well nourished General appearance: cooperative, comfortable, well kempt and well developed HENMT: Common normals: normocephalic, head/scalp atraumatic, hearing grossly normal bilaterally, external ears normal, nasal mucous membranes and turbinates normal, moist oral mucous membranes, oropharynx normal and dentition normal Head and scalp: normocephalic and atraumatic Nose: nasal mucous membranes and turbinates normal External ear: external ears normal Eye: Common normals: PERRL, EOMs intact bilaterally, conjunctivae normal and no scleral icterus Conjunctiva: conjunctiva(e) normal Pupil: PERRL Neck & C-Spine: Common normals: full ROM, no lymphadenopathy, supple, no meningeal signs, no JVD and thyroid normal Thyroid: thyroid normal Chest: Common normals: inspection of chest normal and palpation of chest normal Resp: Common normals: normal respiratory effort, no retractions, no use of accessory muscles and clear to auscultation bilaterally Effort & inspection: able to speak in complete sentences Auscultation: clear to auscultation bilaterally Cardio: Common normals: no JVD, regular rhythm, S1 normal heart sound, S2 normal heart sound, no gallops, no clicks, no murmurs and no rub Rate: bradycardic Rhythm: regular rhythm Heart sounds: S1 normal and S2 normal GI: Common normals: Normal to inspection, nondistended, normoactive bowel sounds present, soft to palpation, non-tender, no hepatosplenomegaly and no masses Palpation: soft and no hepatosplenomegaly Extremity: Common normals: normal to inspection, full ROM, no calf tenderness and no pedal edema Neuro: Common normals: oriented x3, moves all extremities and no focal motor deficits Sensorium/orientation: alert Meningeal signs: no meningeal signs Speech: speech normal Psych: Appearance: well kempt Course Course Hospital Course: Will have patient on cardiac monitoring and pulse oximetry. Will start with a portable chest x-ray and a full complement of labs. Her initial EKG showing no ischemia but is bradycardic. Need to consider complications of her aortic aneurysm, ischemic heart disease. This does not sound like it is pulmonary in nature but she does have some underlying lung disease. She understands we may need to image with chest CT. She will let us know if the pain returns, at this time she is asymptomatic. Will see if I can get her last cardiology note review as well. Reevaluation(s) Reevaluation #1: Patient had return of pain, by the time EKG obtained at 12:22, pain gone. This EKG shows sinus bradycardia, 46 beats per minute. No acute ischemic change, unchanged from prior EKG. Time: 12:18 Reevaluation #2: Patient's granddaughter is now present, reviewed with both patient and her granddaughter my conversation with the hairspring assembler and her normal 2nd cardiac enzyme. She is wondering if her symptoms might be anxiety. Reviewed with her that it is always a possibility but do advise her to follow up in clinic with both her primary and her hairspring assembler. Time: 13:58 Consultations Consultation #1: Have spoken with Dr. Aaron from cardiology at [facility]. He agrees with follow-up 2nd troponin. He believes this to be non anginal, no concern for PE or dissection with her normal D-dimer. If her 2nd troponin is negative, he would not recommend any further cardiac studies, did not recommend doing stress testing. He stated that she could follow-up with Dr. Brunner her hairspring assembler at a later date. She had called in on May 09 talking about sharp chest pain and he had re-initiated her metoprolol. Time: 13:11 Vital Signs Vital signs: Initial Vital Signs Temperature 97.1 F L 05/22/22 11:04 Temperature Source Temporal Artery Scan 05/22/22 11:04 Pulse Rate 50 L 05/22/22 11:04 Respiratory Rate 20 05/22/22 11:04 Blood Pressure 176/86 H 05/22/22 11:04 Blood Pressure Mean 116 05/22/22 11:04 Blood Pressure Position Semi-Fowlers 05/22/22 11:04 Pulse Oximetry 98 05/22/22 11:04 Oxygen Delivery Method 05/22/22 11:04 Vital Signs Temperature 97.1 F L 05/22/22 11:04 Pulse Rate 50 L 05/22/22 11:04 Respiratory Rate 20 05/22/22 11:04 Blood Pressure 176/86 H 05/22/22 11:04 Pulse Oximetry 98 05/22/22 11:04 Oxygen Delivery Method 05/22/22 11:04 Temperature 97.1 F L 05/22/22 11:04 Pulse Rate 47 L 05/22/22 13:02 Respiratory Rate 20 05/22/22 11:04 Blood Pressure 174/75 H 05/22/22 13:02 Pulse Oximetry 98 05/22/22 13:02 Oxygen Delivery Method 05/22/22 11:04 Medical Decision Making Lab Data Lab results reviewed: Yes I reviewed the patient's lab results Labs: Lab Results 05/22/22 05/22/22 05/22/22 Range/Units 11:35 11:35 11:35 WBC 4.99 (4.50-11.00) K/uL RBC 3.57 L (4.00-5.20) m/uL Hgb 11.3 L (12.0-16.0) gm/dL Hct 35.3 (33.0-51.0) % MCV 99 (80-100) fL MCH 32 (26-34) pg MCHC 32 (32-36) gm/dL RDW Coeff of Gayle 13.0 (11.5-15.5) % Plt Count 172 (140-440) K/uL Neut % (Auto) 68.4 (42.0-72.0) % Lymph % (Auto) 14.6 L (20-44) % [place] % (Auto) 16.0 H (0.0-11.0) % Eos % (Auto) 0.6 (0.0-7.0) % Baso % (Auto) 0.2 (0.0-3.0) % Neut # (Auto) 3.41 (1.7-7.0) K/uL Lymph # (Auto) 0.70 L (0.90-2.90) K/uL [place] # (Auto) 0.80 (0.00-0.90) K/UL Eos # (Auto) 0.03 (0.00-0.50) K/uL Baso # (Auto) 0.01 (0.00-0.30) K/uL INR 1.42 H (0.91-1.10) D-Dimer Quant (PE/DVT) 0.27 (0.00-0.50) ug/ml Sodium 133 L (135-149) mmol/L Potassium 4.6 (3.6-5.1) mmol/L Chloride 103 (96-114) mmol/L Carbon Dioxide 27 (20-32) mmol/L BUN 29 (7-30) mg/dL Creatinine 1.7 H (0.5-1.5) mg/dL Estimated Creat Clear 19.83 Estimated GFR 30 ml/min Glucose 106 (60-115) mg/dL Calcium 8.8 (8.4-10.6) mg/dL Magnesium 2.1 (1.5-2.6) mg/dL Total Bilirubin 0.6 (0.1-1.5) mg/dL AST 31 (12-35) U/L ALT 22 (4-35) U/L Alkaline Phosphatase 53 (40-150) U/L C-Reactive Protein < 0.5 L (0.5-1.0) mg/dL NT-Pro-B Natriuret Pep 1540 pg/mL Total Protein 6.7 (6.0-8.3) g/dL Albumin 3.9 (3.3-5.0) g/dL Lipase 256 (23-300) U/L POC Troponin I (0.01-0.04) ng/ml 05/22/22 05/22/22 Range/Units 11:35 13:35 WBC (4.50-11.00) K/uL RBC (4.00-5.20) m/uL Hgb (12.0-16.0) gm/dL Hct (33.0-51.0) % MCV (80-100) fL MCH (26-34) pg MCHC (32-36) gm/dL RDW Coeff of Gayle (11.5-15.5) % Plt Count (140-440) K/uL Neut % (Auto) (42.0-72.0) % Lymph % (Auto) (20-44) % [place] % (Auto) (0.0-11.0) % Eos % (Auto) (0.0-7.0) % Baso % (Auto) (0.0-3.0) % Neut # (Auto) (1.7-7.0) K/uL Lymph # (Auto) (0.90-2.90) K/uL [place] # (Auto) (0.00-0.90) K/UL Eos # (Auto) (0.00-0.50) K/uL Baso # (Auto) (0.00-0.30) K/uL INR (0.91-1.10) D-Dimer Quant (PE/DVT) (0.00-0.50) ug/ml Sodium (135-149) mmol/L Potassium (3.6-5.1) mmol/L Chloride (96-114) mmol/L Carbon Dioxide (20-32) mmol/L BUN (7-30) mg/dL Creatinine (0.5-1.5) mg/dL Estimated Creat Clear Estimated GFR ml/min Glucose (60-115) mg/dL Calcium (8.4-10.6) mg/dL Magnesium (1.5-2.6) mg/dL Total Bilirubin (0.1-1.5) mg/dL AST (12-35) U/L ALT (4-35) U/L Alkaline Phosphatase (40-150) U/L C-Reactive Protein (0.5-1.0) mg/dL NT-Pro-B Natriuret Pep pg/mL Total Protein (6.0-8.3) g/dL Albumin (3.3-5.0) g/dL Lipase (23-300) U/L POC Troponin I 0.01 0.01 (0.01-0.04) ng/ml Imaging Data Chest x-ray: Attestation: I have reviewed the pertinent imaging results. Radiologist's impression: Patient: WILD HAY Facility:?[facility] Patient ID:?[id number] Site Patient ID:?[id number]. Site :?[id number] Study:?XRay Chest Portable-05/22/2022 11:55:33 AM Ordering Physician:Samra Pabon Final Report: INDICATION: Episodic chest pain TECHNIQUE: Chest radiograph 1 view COMPARISON: 04/13/2021, 11/15/2021 FINDINGS: The sensitivity and specificity of the exam are moderately limited by the patient`s body habitus. Mediastinum: The central pulmonary arteries are enlarged and likely due to pulmonary hypertension. Moderate cardiomegaly is noted without interval change. Lung: Both lungs are unremarkable in appearance. No sign of pleural effusion seen. No pneumothorax is identified. Bone and Soft tissue: Unremarkable for age. IMPRESSIONS: 1. Moderate cardiomegaly is noted without interval change. 2. The central pulmonary arteries are enlarged and likely due to pulmonary hypertension. Dictated by William Reeder MD @ 05/22/2022 12:29:37 PM Dictated by: William Reeder MD @ 05/22/2022 12:29:39 (Electronic Signature) ECG Data Attestation: I personally reviewed and interpreted this ECG as follows: (Sinus bradycardia, 49 beats per minute. QT corrected 449 milliseconds. No ischemic change.) Interpretation: Follow-up EKG at 1:22 p.m. showing sinus bradycardia, 45 beats per minute, no ischemia, no change. Critical Care Time Critical Care Time Critical Care Time: No Discharge Plan Discharge Clinical Impression: Intermittent chest pain Patient Disposition: Home, Self-Care Condition: Stable Instructions: Chest Pain (ED), Noncardiac Chest Pain (ED) Additional Instructions: INR was 1.42 today, call your clinic to discuss recommendations for Coumadin dosing. Do recommend contacting your hairspring assembler's office Dr. Brunner and get scheduled for a follow-up visit with him. It is unclear what this chest pain is but it is not felt to be your heart, your aneurysm or any concern for blood clots in your lungs. I would also recommend that you get scheduled with your primary care provider to see if they have any additional inside her recommendations into further workup of this. If you have further concerns, have worsening shortness of breath, failure heart is racing, are becoming significantly dizzy or lightheaded, have other concerns, do recommend re-evaluation in the interim. Activity Level: Activity as Tolerated Prescriptions: No Action rosuvastatin 10 mg tablet 10 mg PO HS Label Comments: TAKE ONE TABLET BY MOUTH ONE TIME DAILY AT BEDTIME escitalopram oxalate 10 mg Tablet 5 mg PO DAILY 30 Days Qty: 15 1RF flecainide 50 mg Tablet 50 mg PO BID Qty: 60 0RF metoprolol succinate 25 mg Tablet Extended Release 24 Hr 12.5 mg PO DAILY Qty: 15 1RF warfarin 2 mg tablet 2 mg PO DAILY furosemide 20 mg tablet 20 mg PO DAILY Follow Up/Referrals: Teressa Malave DO [Primary Care Provider] - Stand Alone Forms: [employer] Medical Info Instructions
--- NOTE | 2022-05-22 11:28 | CRLHL7_ITS ---
For Patients: As a result of the Century Cures Act, medical imaging exams and procedure reports are released immediately into your electronic medical record. You may view this report before your referring provider. If you have questions, please contact your health care provider. INDICATION: Episodic chest pain TECHNIQUE: Chest radiograph 1 view COMPARISON: 04/13/2021, 11/15/2021 FINDINGS: The sensitivity and specificity of the exam are moderately limited by the patient`s body habitus. Mediastinum: The central pulmonary arteries are enlarged and likely due to pulmonary hypertension. Moderate cardiomegaly is noted without interval change. Lung: Both lungs are unremarkable in appearance. No sign of pleural effusion seen. No pneumothorax is identified. Bone and Soft tissue: Unremarkable for age. IMPRESSIONS: 1. Moderate cardiomegaly is noted without interval change. 2. The central pulmonary arteries are enlarged and likely due to pulmonary hypertension. Dictated by William Reeder MD @ 05/22/2022 12:29:37 PM Dictated by: William Reeder MD @ 05/22/2022 12:29:39 (Electronically Signed)
[2022-05-22 11:51] LABS: Basophils Absolute Auto 0.01 K/uL (0.00-0.30); Basophils Percent Auto 0.2 % (0.0-3.0); Eosinophils Absolute Auto 0.03 K/uL (0.00-0.50); Eosinophils Percent Auto 0.6 % (0.0-7.0); Hematocrit 35.3 % (33.0-51.0); Hemoglobin* 11.3 gm/dL (12.0-16.0); Immature Granulocytes Abs Auto 0.01 K/uL (0.00-0.30); Immature Granulocytes Pct Auto 0.2 %; Lymphocytes Percent Auto 14.6 % (20-44); Mean Corpuscular HGB Conc 32 gm/dL (32-36); Mean Corpuscular Hemoglobin 32 pg (26-34); Mean Corpuscular Volume 99 fL (80-100); Neutrophils Absolute Auto 3.41 K/uL (1.7-7.0); Neutrophils Percent Auto 68.4 % (42.0-72.0); Platelet Count* 172 K/uL (140-440); Red Blood Count 3.57 m/uL (4.00-5.20); White Blood Count* 4.99 K/uL (4.50-11.00)
[2022-05-22 11:52] LABS: Slide Review Reflex No
[2022-05-22 11:53] LABS: Troponin, Point-of-Care* 0.01 ng/ml (0.01-0.04)
[2022-05-22 12:07] LABS: INR 1.42 (0.91-1.10); Prothrombin Time 18.1 Seconds
[2022-05-22 12:09] LABS: D Dimer Quantitative* 0.27 ug/ml (0.00-0.50)
[2022-05-22 12:18] LABS: Albumin* 3.9 g/dL (3.3-5.0); Chloride* 103 mmol/L (96-114); Potassium* 4.6 mmol/L (3.6-5.1); Sodium* 133 mmol/L (135-149)
[2022-05-22 12:20] LABS: Bilirubin Total* 0.6 mg/dL (0.1-1.5); Creatinine* 1.7 mg/dL (0.5-1.5); Est. Creatinine Clearance* 19.83; Estimated Glomerular Filt Rate 30 ml/min
[2022-05-22 12:21] LABS: Alanine Aminotransferase* 22 U/L (4-35); Alkaline Phosphatase* 53 U/L (40-150); Aspartate Amino Transferase* 31 U/L (12-35); Blood Urea Nitrogen* 29 mg/dL (7-30); Carbon Dioxide* 27 mmol/L (20-32); Glucose* 106 mg/dL (60-115); Lipase* 256 U/L (23-300); Total Protein* 6.7 g/dL (6.0-8.3)
[2022-05-22 12:22] LABS: Calcium* 8.8 mg/dL (8.4-10.6); Magnesium* 2.1 mg/dL (1.5-2.6)
--- NOTE | 2022-05-22 12:29 | ED.NURSE ---
Pt pushed call button at 1218 stating her chest pain had returned. Repeat EKG performed per Dr. Javier. As this junior copywriter was placing EKG leads back on, pt stated the pain was no longer present. EKG given to Dr. Javier @ approximately 1223.
[2022-05-22 12:31] LABS: C Reactive Protein* < 0.5 mg/dL (0.5-1.0); NT Pro B Type NatriureticPept* 1540 pg/mL
[2022-05-22 13:42] LABS: Troponin, Point-of-Care* 0.01 ng/ml (0.01-0.04)
== END 2022-05-22 14:17 | disposition home or self-care (01) ==
PROVIDERS: Emergency Provider Family Medicine; PCP Family Medicine
DX: R07.9 Chest pain, unspecified (principal)
CPT/HCPCS: 36415; 71045; 80053; 83690; 83735; 83880; 84484; 85025; 85379; 85610; 86140; 93005; 94761; 99284; 99285

== ENCOUNTER 2022-06-05 06:24 | Inpatient (IN) | payer MEDICARE, BC, SELFPAY ==
[2022-06-05] VITALS (21 sets, daily range): BP systolic 108–148; BP diastolic 58–87; PULSE 50–60; RESP 16–18; TEMP 36.1–37.2; O2SAT 94–98
--- NOTE | 2022-06-05 07:01 | CRLHL7_ITS ---
For Patients: As a result of the Century Cures Act, medical imaging exams and procedure reports are released immediately into your electronic medical record. You may view this report before your referring provider. If you have questions, please contact your health care provider. INDICATION: Weakness. TECHNIQUE: Chest 2 views. COMPARISON: 05/22/2022. FINDINGS: Cardiovascular and mediastinum: Heart size and vasculature are normal in caliber and appearance. Lungs and pleural spaces: Lungs are clear. No sign of infiltrate or mass. No sign of pleural effusion. No pneumothorax. Bones and soft tissues: No significant findings. IMPRESSION: No acute findings and no significant changes from the prior exam. Dictated by Brian Webb MD @ 06/05/2022 7:45:02 AM (Electronically Signed)
--- NOTE | 2022-06-05 07:03 | ED_ITS ---
HPI - General Adult General Chief complaint: Weakness <Mahi Santos MD - Last Filed: 06/05/22 08:01> Stated complaint: Fell,leg weakness <Mahi Santos MD - Last Filed: 06/05/22 08:01> Time Seen by Provider: 06/05/22 06:25 <Mahi Santos MD - Last Filed: 06/05/22 08:01> Source: patient and family <Mahi Santos MD - Last Filed: 06/05/22 08:01> Mode of arrival: ambulatory <Mahi Santos MD - Last Filed: 06/05/22 08:01> History of Present Illness HPI narrative: 82-year-old female with notable history of chronic kidney disease, AFib, COPD presents to the emergency department with weakness for the past day and a half. Symptoms started Friday night, legs feel weak. Has continued to take her medications as usual. No chest pain. She does have COPD at baseline but reports no increased shortness of breath. Has fallen twice, no loss of consciousness just legs buckling under her. Denies any back pain, hip pain or leg pain or injury associated with the falls. No fevers, no known illness exposures. She is anticoagulated on Coumadin. No dysuria, no signs of skin infection. The most recent adjustment in her meds was back in March when she reports that the nurse office started her on a water pill. She reports good compliance with her medicines. No pertinent travel. No prior history of similar symptoms. Past medical history notable for AFib, mild cognitive impairment, chronic kidney disease. Home meds reviewed from EMR, confirmed with patient. No known drug allergies. Multiple prior surgeries including colectomy with right-sided colostomy. ROS notable for the generalized symptoms as above, otherwise denies times 12 systems with no localizing symptoms of infection. <Mahi Santos MD - Last Filed: 06/05/22 08:01> Related Data Home medications: Home Medications Medication Instructions Recorded Confirmed rosuvastatin 10 mg tablet 10 mg PO HS 11/15/21 05/22/22 furosemide 20 mg tablet 20 mg PO DAILY 05/22/22 05/22/22 warfarin 2 mg tablet 2 mg PO DAILY 05/22/22 05/22/22 Previous Rx's Medication Instructions Recorded escitalopram oxalate 10 mg tablet 5 mg PO DAILY 30 days #15 tabs 11/16/21 flecainide 50 mg tablet 50 mg PO BID #60 tabs 11/16/21 metoprolol succinate 25 mg 12.5 mg PO DAILY #15 tabs 11/16/21 tablet,extended release 24 hr <Mahi Santos MD - Last Filed: 06/05/22 08:01> Allergies/adverse reactions: Allergies Allergy/AdvReac Type Severity Reaction Status Date / Time No Known Drug Allergies Allergy Verified 12/12/21 12:43 <Mahi Santos MD - Last Filed: 06/05/22 08:01> [facility] Medical History: Medical History 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 Ascending aortic aneurysm Carotid artery aneurysm Chronic kidney disease, stage 3 Chronic kidney disease, stage 3b COPD (chronic obstructive pulmonary disease) Diastolic congestive heart failure Emphysema lung History of bladder cancer History of breast cancer History of colon cancer History of small bowel obstruction History of smoking 30 or more pack years Mild cognitive impairment Paroxysmal supraventricular tachycardia Pulmonary nodules <Mahi Santos MD - Last Filed: 06/05/22 08:01> Surgical History: Surgical History H/O total cystectomy History of back surgery History of colectomy History of ileal conduit History of urostomy <Mahi Santos MD - Last Filed: 06/05/22 08:01> Family History: Family History Daughter Diabetes High blood pressure Sister Stroke <Mahi Santos MD - Last Filed: 06/05/22 08:01> Social History: Social History Highest level of school completed/degree received: some college, no degree Smoking Status: Former smoker What tobacco products do you use: cigarettes Years smoked: 30 Smoking quit date/years: >15 years ago Do you use any of these nicotine containing products: None Second hand tobacco smoke exposure: No How often do you have a drink containing alcohol: 4 or more times a week Alcohol type: beer How many standard drinks containing alcohol do you have on a typical day: 1 or 2 How often do you have six or more drinks on one occasion: Never AUDIT-C Alcohol total score: 4 Non-prescribed substance use: denies use Caffeine: Yes (6 cups) service: No <Mahi Santos MD - Last Filed: 06/05/22 08:01> Exam Const: Vital Signs, click to edit/add: Vital Signs - 24 hr 06/05/22 06:40 06/05/22 07:05 06/05/22 07:06 Temperature 97.0 F L Pulse Rate 55 L 57 L Pulse Rate [Right Pulse Oximeter] 58 L Respiratory Rate 16 Blood Pressure 119/71 Blood Pressure [Le ft Upper Arm] 108/72 Pulse Oximetry 96 95 95 Oxygen Delivery Me thod Room Air 06/05/22 07:17 06/05/22 07:18 06/05/22 07:30 Temperature Pulse Rate 58 L 57 L 55 L Pulse Rate [Right Pulse Oximeter] Respiratory Rate Blood Pressure 146/87 H Blood Pressure [Le ft Upper Arm] Pulse Oximetry 96 95 96 Oxygen Delivery Me thod 06/05/22 07:36 06/05/22 07:45 06/05/22 07:50 Temperature Pulse Rate 53 L 53 L 51 L Pulse Rate [Right Pulse Oximeter] Respiratory Rate Blood Pressure Blood Pressure [Le ft Upper Arm] Pulse Oximetry 98 96 97 Oxygen Delivery Me thod 06/05/22 07:52 06/05/22 08:00 06/05/22 08:02 Temperature Pulse Rate 51 L 52 L 55 L Pulse Rate [Right Pulse Oximeter] Respiratory Rate Blood Pressure 135/69 145/66 H Blood Pressure [Le ft Upper Arm] Pulse Oximetry 96 98 95 Oxygen Delivery Me thod 06/05/22 08:17 Temperature Pulse Rate Pulse Rate [Right Pulse Oximeter] Respiratory Rate Blood Pressure 123/58 L Blood Pressure [Le ft Upper Arm] Pulse Oximetry Oxygen Delivery Me thod <Mahi Santos MD - Last Filed: 06/05/22 08:01> Vital Signs, click to edit/add: Vital Signs - 24 hr 06/05/22 06:40 06/05/22 07:05 06/05/22 07:06 Temperature 97.0 F L Pulse Rate 55 L 57 L Pulse Rate [Right Pulse Oximeter] 58 L Respiratory Rate 16 Blood Pressure 119/71 Blood Pressure [Le ft Upper Arm] 108/72 Pulse Oximetry 96 95 95 Oxygen Delivery Me thod Room Air 06/05/22 07:17 06/05/22 07:18 06/05/22 07:30 Temperature Pulse Rate 58 L 57 L 55 L Pulse Rate [Right Pulse Oximeter] Respiratory Rate Blood Pressure 146/87 H Blood Pressure [Le ft Upper Arm] Pulse Oximetry 96 95 96 Oxygen Delivery Me thod 06/05/22 07:36 06/05/22 07:45 06/05/22 07:50 Temperature Pulse Rate 53 L 53 L 51 L Pulse Rate [Right Pulse Oximeter] Respiratory Rate Blood Pressure Blood Pressure [Le ft Upper Arm] Pulse Oximetry 98 96 97 Oxygen Delivery Me thod 06/05/22 07:52 06/05/22 08:00 06/05/22 08:02 Temperature Pulse Rate 51 L 52 L 55 L Pulse Rate [Right Pulse Oximeter] Respiratory Rate Blood Pressure 135/69 145/66 H Blood Pressure [Le ft Upper Arm] Pulse Oximetry 96 98 95 Oxygen Delivery Me thod 06/05/22 08:17 Temperature Pulse Rate Pulse Rate [Right Pulse Oximeter] Respiratory Rate Blood Pressure 123/58 L Blood Pressure [Le ft Upper Arm] Pulse Oximetry Oxygen Delivery Me thod <Uziel Escobar MD - Last Filed: 06/05/22 08:52> Documenting provider has reviewed patient's vital signs: yes <Mahi Santos MD - Last Filed: 06/05/22 08:01> Common normals: no apparent distress <Mahi Santos MD - Last Filed: 06/05/22 08:01> General appearance: cooperative and well kempt <Mahi Santos MD - Last Filed: 06/05/22 08:01> Other: Fairly good historian but does not know her medications. Appears well nourished and well hydrated. <Mahi Santos MD - Last Filed: 06/05/22 08:01> HENMT: Common normals: normocephalic <Mahi Santos MD - Last Filed: 06/05/22 08:01> Head and scalp: normocephalic <MD Edil Ragland Last Filed: 06/05/22 08:01> Face and sinus: normal facial exam <MD Edil Ragland Last Filed: 06/05/22 08:01> Mouth: oral and palatal mucosa normal <MD Edil Ragland Last Filed: 06/05/22 08:01> Throat: posterior oropharynx normal <MD Edil Ragland Last Filed: 06/05/22 08:01> Eye: General eye: normal appearance of both eyes <MD Edil Ragland Last Filed: 06/05/22 08:01> Neck & C-Spine: Common normals: full ROM and no lymphadenopathy <MD Edil Ragland Last Filed: 06/05/22 08:01> Resp: Common normals: normal respiratory effort, no use of accessory muscles and clear to auscultation bilaterally <MD Edil Ragland Last Filed: 06/05/22 08:01> Effort & inspection: able to speak in complete sentences <MD Edil Ragland Last Filed: 06/05/22 08:01> Auscultation: clear to auscultation bilaterally <MD Edil Ragland Last Filed: 06/05/22 08:01> Cardio: Common normals: regular rate, regular rhythm and peripheral pulses 2+ throughout <MD Edil Ragland Last Filed: 06/05/22 08:01> Rate: regular rate <MD Edil Ragland Last Filed: 06/05/22 08:01> Rhythm: regular rhythm <MD Edil Ragland Last Filed: 06/05/22 08:01> Peripheral pulses: pulses 2+ throughout <MD Edil Ragland Last Filed: 06/05/22 08:01> Other: Systolic murmur noted, 3/6. <MD Edil Ragland Last Filed: 06/05/22 08:01> GI: Common normals: Normal to inspection, nondistended, normoactive bowel sounds present, soft to palpation, non-tender, no hepatosplenomegaly and no masses <Mahi Santos MD - Last Filed: 06/05/22 08:01> Palpation: soft and no hepatosplenomegaly <Mahi Santos MD - Last Filed: 06/05/22 08:01> Back & Pelvis: Common normals: thoracic and lumbar spine normal to inspection <Mahi Santos MD - Last Filed: 06/05/22 08:01> Extremity: Common normals: normal capillary refill and no pedal edema <Mahi Santos MD - Last Filed: 06/05/22 08:01> Neuro: Other: Generalized weakness, nonfocal. Unable to pull herself up from recumbent pos ition to supine with bed rails. <Mahi Santos MD - Last Filed: 06/05/22 08:01> Psych: Appearance: well kempt <Mahi Santos MD - Last Filed: 06/05/22 08:01> Attitude: engaged <MD Edil Ragland Last Filed: 06/05/22 08:01> Activity/motor behavior: appropriate eye contact <MD Edil Ragland Last Filed: 06/05/22 08:01> Insight: fair <MD Edil Ragland Last Filed: 06/05/22 08:01> Judgement: judgment good <Mahi Santos MD - Last Filed: 06/05/22 0 8:01> Skin: Common normals: no rashes or lesions noted <MD Eidl Ragland Last Filed: 06/05/22 08:01> General skin exam: no rashes or lesions noted <MD Edil Ragland Last Filed: 06/05/22 08:01> Course Vital Signs Vital signs: Initial Vital Signs Temperature 97.0 F L 06/05/22 06:40 Temperature Source Temporal Artery Scan 06/05/22 06:40 Pulse Rate 58 L 06/05/22 06:40 Pulse Rhythm 06/05/22 06:40 Respiratory Rate 16 06/05/22 06:40 Blood Pressure 108/72 06/05/22 06:40 Blood Pressure Mean 84 06/05/22 06:40 Blood Pressure Position Semi-Fowlers 06/05/22 06:40 Pulse Oximetry 96 06/05/22 06:40 Oxygen Delivery Method 06/05/22 06:40 Vital Signs Temperature 97.0 F L 06/05/22 06:40 Pulse Rate 58 L 06/05/22 06:40 Respiratory Rate 16 06/05/22 06:40 Blood Pressure 108/72 06/05/22 06:40 Pulse Oximetry 96 06/05/22 06:40 Oxygen Delivery Method 06/05/22 06:40 Temperature 97.0 F L 06/05/22 06:40 Pulse Rate 55 L 06/05/22 08:02 Respiratory Rate 16 06/05/22 06:40 Blood Pressure 123/58 L 06/05/22 08:17 Pulse Oximetry 95 06/05/22 08:02 Oxygen Delivery Method 06/05/22 06:40 <Mahi Santos MD - Last Filed: 06/05/22 08:01> Initial Vital Signs Temperature 97.0 F L 06/05/22 06:40 Temperature Source Temporal Artery Scan 06/05/22 06:40 Pulse Rate 58 L 06/05/22 06:40 Pulse Rhythm 06/05/22 06:40 Respiratory Rate 16 06/05/22 06:40 Blood Pressure 108/72 06/05/22 06:40 Blood Pressure Mean 84 06/05/22 06:40 Blood Pressure Position Semi-Fowlers 06/05/22 06:40 Pulse Oximetry 96 06/05/22 06:40 Oxygen Delivery Method 06/05/22 06:40 Vital Signs Temperature 97.0 F L 06/05/22 06:40 Pulse Rate 58 L 06/05/22 06:40 Respiratory Rate 16 06/05/22 06:40 Blood Pressure 108/72 06/05/22 06:40 Pulse Oximetry 96 06/05/22 06:40 Oxygen Delivery Method 06/05/22 06:40 Temperature 97.0 F L 06/05/22 06:40 Pulse Rate 55 L 06/05/22 08:02 Respiratory Rate 16 06/05/22 06:40 Blood Pressure 123/58 L 06/05/22 08:17 Pulse Oximetry 95 06/05/22 08:02 Oxygen Delivery Method 06/05/22 06:40 <Uziel Escobar MD - Last Filed: 06/05/22 08:52> Medical Decision Making MDM Narrative Medical decision making narrative: Wide differential diagnosis including viral infection, urine infection, sepsis, cardiac abnormality, electrolyte abnormality, dehydration or renal failure. Recommend chest x-ray, EKG, basic labs and swabs. Awaiting results. Update: We continue to await results. Handing over care to my partner, Dr. Escobar. <Mahi Santos MD - Last Filed: 06/05/22 08:01> Wide differential diagnosis including viral infection, urine infection, sepsis, cardiac abnormality, electrolyte abnormality, dehydration or renal failure. Recommend chest x-ray, EKG, basic labs and swabs. Awaiting results. Update: We continue to await results. Handing over care to my partner, Dr. Escobar. Addendum: Please see Sterilely as noted above. Patient's EKG by her report as well as chest x-ray were unremarkable. Patient reports she started water pill for heart failure about 2 months ago, she has had a mild which she feels is a ?viral in a ?type illness. She has not drink much water the last few days or eaten much. Her son is with her and feels she is very ?dehydrated?. Patient does have a dry mouth. The we will give her 500 mL of saline, have a PT assessment. She I know she has had a history of heart failure, but at this point I think she is mildly volume down. Hopefully rehydration and physical therapy assessment be reasonable. Will check lab studies as they return. Patient also has a significant elevated CK at 4000 Plus, as well as a urinary tract infection with many bacteria. She has an elevated procalcitonin. A give her IV Rocephin. I suspect with her chronic kidney failure she should have IV fluids and serial CKs and creatinine levels assessed, will discuss with hospitalist. Hospital team agrees to admit on likely observation status, serial creatinine and CK. Hydration. Await urine culture. Perhaps repeat a procalcitonin. Family is aware and comfortable plan <Uziel Escobar MD - Last Filed: 06/05/22 08:52> Lab Data Lab results reviewed: Yes I reviewed the patient's lab results <Mahi Santos MD - Last Filed: 06/05/22 08:01> Labs: Lab Results 06/05/22 06/05/22 06/05/22 Range/Units 07:01 07:01 07:30 WBC 4.40 L (4.50-11.00) K/uL RBC 3.95 L (4.00-5.20) m/uL Hgb 12.3 (12.0-16.0) gm/dL Hct 37.2 (33.0-51.0) % MCV 94 (80-100) fL MCH 31 (26-34) pg MCHC 33 (32-36) gm/dL RDW Coeff of Gayle 12.7 (11.5-15.5) % Plt Count 111 L (140-440) K/uL Neut % (Auto) 70.3 (42.0-72.0) % Lymph % (Auto) 5.2 L (20-44) % [place] % (Auto) 24.1 H (0.0-11.0) % Eos % (Auto) 0.0 (0.0-7.0) % Baso % (Auto) 0.2 (0.0-3.0) % Neut # (Auto) 3.10 (1.7-7.0) K/uL Lymph # (Auto) 0.20 L (0.90-2.90) K/uL [place] # (Auto) 1.10 H (0.00-0.90) K/UL Eos # (Auto) 0.00 (0.00-0.50) K/uL Baso # (Auto) 0.00 (0.00-0.30) K/uL INR (0.91-1.10) Sodium (135-149) mmol/L Potassium (3.6-5.1) mmol/L Chloride (96-114) mmol/L Carbon Dioxide (20-32) mmol/L BUN (7-30) mg/dL Creatinine (0.5-1.5) mg/dL Estimated GFR ml/min Glucose (60-115) mg/dL Lactate (0.5-1.9) mmol/L Calcium (8.4-10.6) mg/dL Magnesium (1.5-2.6) mg/dL Total Bilirubin (0.1-1.5) mg/dL AST (12-35) U/L ALT (4-35) U/L Alkaline Phosphatase (40-150) U/L Total Creatine Kinase (41-117) U/L Troponin I (0.01-0.04) ng/mL C-Reactive Protein (0.5-1.0) mg/dL NT-Pro-B Natriuret Pep pg/mL Total Protein (6.0-8.3) g/dL Albumin (3.3-5.0) g/dL Procalcitonin (<0.50) ng/mL Urine Color (Yellow) Urine Appearance (Clear) Urine pH (5.0-8.5) Ur Specific [place] (1.000-1.030) Urine Protein (Negative) Urine Glucose (UA) (Negative) Urine Ketones (Negative) Urine Blood (Negative) Urine Nitrite (Negative) Urine Bilirubin (Negative) Urine Urobilinogen (0.2-1.0) Ur Leukocyte Esterase (Negative) Urine RBC (0-2) Urine WBC (0-5) Ur Squamous Epith Cells (None-Few) Urine Bacteria (None) SARS-CoV-2 (PCR) Negative SARS-CoV-2 (Negative) Influenza Type A (PCR) Negative PCR FLU A (Negative) Influenza Type B (PCR) Negative PCR FLU B (Negative) RSV (PCR) Negative PCR RSV (Negative) POC Troponin I 0.04 (0.01-0.04) ng/ml 06/05/22 06/05/22 06/05/22 Range/Units 07:30 07:30 07:30 WBC (4.50-11.00) K/uL RBC (4.00-5.20) m/uL Hgb (12.0-16.0) gm/dL Hct (33.0-51.0) % MCV (80-100) fL MCH (26-34) pg MCHC (32-36) gm/dL RDW Coeff of Gayle (11.5-15.5) % Plt Count (140-440) K/uL Neut % (Auto) (42.0-72.0) % Lymph % (Auto) (20-44) % [place] % (Auto) (0.0-11.0) % Eos % (Auto) (0.0-7.0) % Baso % (Auto) (0.0-3.0) % Neut # (Auto) (1.7-7.0) K/uL Lymph # (Auto) (0.90-2.90) K/uL [place] # (Auto) (0.00-0.90) K/UL Eos # (Auto) (0.00-0.50) K/uL Baso # (Auto) (0.00-0.30) K/uL INR 3.16 H (0.91-1.10) Sodium 128 L (135-149) mmol/L Potassium 3.7 (3.6-5.1) mmol/L Chloride 97 (96-114) mmol/L Carbon Dioxide 23 (20-32) mmol/L BUN 52 H (7-30) mg/dL Creatinine 2.2 H (0.5-1.5) mg/dL Estimated GFR 22 ml/min Glucose 115 (60-115) mg/dL Lactate 1.5 (0.5-1.9) mmol/L Calcium 8.5 (8.4-10.6) mg/dL Magnesium 2.2 (1.5-2.6) mg/dL Total Bilirubin 1.0 (0.1-1.5) mg/dL AST 158 H (12-35) U/L ALT 67 H (4-35) U/L Alkaline Phosphatase 59 (40-150) U/L Total Creatine Kinase 4964 H (41-117) U/L Troponin I 0.03 (0.01-0.04) ng/mL C-Reactive Protein 4.6 H (0.5-1.0) mg/dL NT-Pro-B Natriuret Pep 1070 pg/mL Total Protein 7.0 (6.0-8.3) g/dL Albumin 4.0 (3.3-5.0) g/dL Procalcitonin 2.40 H (<0.50) ng/mL Urine Color (Yellow) Urine Appearance (Clear) Urine pH (5.0-8.5) Ur Specific [place] (1.000-1.030) Urine Protein (Negative) Urine Glucose (UA) (Negative) Urine Ketones (Negative) Urine Blood (Negative) Urine Nitrite (Negative) Urine Bilirubin (Negative) Urine Urobilinogen (0.2-1.0) Ur Leukocyte Esterase (Negative) Urine RBC (0-2) Urine WBC (0-5) Ur Squamous Epith Cells (None-Few) Urine Bacteria (None) SARS-CoV-2 (PCR) (Negative) Influenza Type A (PCR) (Negative) Influenza Type B (PCR) (Negative) RSV (PCR) (Negative) POC Troponin I (0.01-0.04) ng/ml 06/05/22 Range/Units 08:10 WBC (4.50-11.00) K/uL RBC (4.00-5.20) m/uL Hgb (12.0-16.0) gm/dL Hct (33.0-51.0) % MCV (80-100) fL MCH (26-34) pg MCHC (32-36) gm/dL RDW Coeff of Gayle (11.5-15.5) % Plt Count (140-440) K/uL Neut % (Auto) (42.0-72.0) % Lymph % (Auto) (20-44) % [place] % (Auto) (0.0-11.0) % Eos % (Auto) (0.0-7.0) % Baso % (Auto) (0.0-3.0) % Neut # (Auto) (1.7-7.0) K/uL Lymph # (Auto) (0.90-2.90) K/uL [place] # (Auto) (0.00-0.90) K/UL Eos # (Auto) (0.00-0.50) K/uL Baso # (Auto) (0.00-0.30) K/uL INR (0.91-1.10) Sodium (135-149) mmol/L Potassium (3.6-5.1) mmol/L Chloride (96-114) mmol/L Carbon Dioxide (20-32) mmol/L BUN (7-30) mg/dL Creatinine (0.5-1.5) mg/dL Estimated GFR ml/min Glucose (60-115) mg/dL Lactate (0.5-1.9) mmol/L Calcium (8.4-10.6) mg/dL Magnesium (1.5-2.6) mg/dL Total Bilirubin (0.1-1.5) mg/dL AST (12-35) U/L ALT (4-35) U/L Alkaline Phosphatase (40-150) U/L Total Creatine Kinase (41-117) U/L Troponin I (0.01-0.04) ng/mL C-Reactive Protein (0.5-1.0) mg/dL NT-Pro-B Natriuret Pep pg/mL Total Protein (6.0-8.3) g/dL Albumin (3.3-5.0) g/dL Procalcitonin (<0.50) ng/mL Urine Color Yellow (Yellow) Urine Appearance Cloudy A (Clear) Urine pH >= 9.0 H (5.0-8.5) Ur Specific [place] 1.010 (1.000-1.030) Urine Protein 3+ A (Negative) Urine Glucose (UA) Negative (Negative) Urine Ketones Negative (Negative) Urine Blood Trace-intact A (Negative) Urine Nitrite Negative (Negative) Urine Bilirubin Negative (Negative) Urine Urobilinogen 0.2 (0.2-1.0) Ur Leukocyte Esterase 1+ A (Negative) Urine RBC 0-2 (0-2) Urine WBC 0-2 (0-5) Ur Squamous Epith Cells None (None-Few) Urine Bacteria Many A (None) SARS-CoV-2 (PCR) (Negative) Influenza Type A (PCR) (Negative) Influenza Type B (PCR) (Negative) RSV (PCR) (Negative) POC Troponin I (0.01-0.04) ng/ml <Mahi Santos MD - Last Filed: 06/05/22 08:01> Lab Results 06/05/22 06/05/22 06/05/22 Range/Units 07:01 07:01 07:30 WBC 4.40 L (4.50-11.00) K/uL RBC 3.95 L (4.00-5.20) m/uL Hgb 12.3 (12.0-16.0) gm/dL Hct 37.2 (33.0-51.0) % MCV 94 (80-100) fL MCH 31 (26-34) pg MCHC 33 (32-36) gm/dL RDW Coeff of Gayle 12.7 (11.5-15.5) % Plt Count 111 L (140-440) K/uL Neut % (Auto) 70.3 (42.0-72.0) % Lymph % (Auto) 5.2 L (20-44) % [place] % (Auto) 24.1 H (0.0-11.0) % Eos % (Auto) 0.0 (0.0-7.0) % Baso % (Auto) 0.2 (0.0-3.0) % Neut # (Auto) 3.10 (1.7-7.0) K/uL Lymph # (Auto) 0.20 L (0.90-2.90) K/uL [place] # (Auto) 1.10 H (0.00-0.90) K/UL Eos # (Auto) 0.00 (0.00-0.50) K/uL Baso # (Auto) 0.00 (0.00-0.30) K/uL INR (0.91-1.10) Sodium (135-149) mmol/L Potassium (3.6-5.1) mmol/L Chloride (96-114) mmol/L Carbon Dioxide (20-32) mmol/L BUN (7-30) mg/dL Creatinine (0.5-1.5) mg/dL Estimated GFR ml/min Glucose (60-115) mg/dL Lactate (0.5-1.9) mmol/L Calcium (8.4-10.6) mg/dL Magnesium (1.5-2.6) mg/dL Total Bilirubin (0.1-1.5) mg/dL AST (12-35) U/L ALT (4-35) U/L Alkaline Phosphatase (40-150) U/L Total Creatine Kinase (41-117) U/L Troponin I (0.01-0.04) ng/mL C-Reactive Protein (0.5-1.0) mg/dL NT-Pro-B Natriuret Pep pg/mL Total Protein (6.0-8.3) g/dL Albumin (3.3-5.0) g/dL Procalcitonin (<0.50) ng/mL Urine Color (Yellow) Urine Appearance (Clear) Urine pH (5.0-8.5) Ur Specific [place] (1.000-1.030) Urine Protein (Negative) Urine Glucose (UA) (Negative) Urine Ketones (Negative) Urine Blood (Negative) Urine Nitrite (Negative) Urine Bilirubin (Negative) Urine Urobilinogen (0.2-1.0) Ur Leukocyte Esterase (Negative) Urine RBC (0-2) Urine WBC (0-5) Ur Squamous Epith Cells (None-Few) Urine Bacteria (None) SARS-CoV-2 (PCR) Negative SARS-CoV-2 (Negative) Influenza Type A (PCR) Negative PCR FLU A (Negative) Influenza Type B (PCR) Negative PCR FLU B (Negative) RSV (PCR) Negative PCR RSV (Negative) POC Troponin I 0.04 (0.01-0.04) ng/ml 06/05/22 06/05/22 06/05/22 Range/Units 07:30 07:30 07:30 WBC (4.50-11.00) K/uL RBC (4.00-5.20) m/uL Hgb (12.0-16.0) gm/dL Hct (33.0-51.0) % MCV (80-100) fL MCH (26-34) pg MCHC (32-36) gm/dL RDW Coeff of Gayle (11.5-15.5) % Plt Count (140-440) K/uL Neut % (Auto) (42.0-72.0) % Lymph % (Auto) (20-44) % [place] % (Auto) (0.0-11.0) % Eos % (Auto) (0.0-7.0) % Baso % (Auto) (0.0-3.0) % Neut # (Auto) (1.7-7.0) K/uL Lymph # (Auto) (0.90-2.90) K/uL [place] # (Auto) (0.00-0.90) K/UL Eos # (Auto) (0.00-0.50) K/uL Baso # (Auto) (0.00-0.30) K/uL INR 3.16 H (0.91-1.10) Sodium 128 L (135-149) mmol/L Potassium 3.7 (3.6-5.1) mmol/L Chloride 97 (96-114) mmol/L Carbon Dioxide 23 (20-32) mmol/L BUN 52 H (7-30) mg/dL Creatinine 2.2 H (0.5-1.5) mg/dL Estimated GFR 22 ml/min Glucose 115 (60-115) mg/dL Lactate 1.5 (0.5-1.9) mmol/L Calcium 8.5 (8.4-10.6) mg/dL Magnesium 2.2 (1.5-2.6) mg/dL Total Bilirubin 1.0 (0.1-1.5) mg/dL AST 158 H (12-35) U/L ALT 67 H (4-35) U/L Alkaline Phosphatase 59 (40-150) U/L Total Creatine Kinase 4964 H (41-117) U/L Troponin I 0.03 (0.01-0.04) ng/mL C-Reactive Protein 4.6 H (0.5-1.0) mg/dL NT-Pro-B Natriuret Pep 1070 pg/mL Total Protein 7.0 (6.0-8.3) g/dL Albumin 4.0 (3.3-5.0) g/dL Procalcitonin 2.40 H (<0.50) ng/mL Urine Color (Yellow) Urine Appearance (Clear) Urine pH (5.0-8.5) Ur Specific [place] (1.000-1.030) Urine Protein (Negative) Urine Glucose (UA) (Negative) Urine Ketones (Negative) Urine Blood (Negative) Urine Nitrite (Negative) Urine Bilirubin (Negative) Urine Urobilinogen (0.2-1.0) Ur Leukocyte Esterase (Negative) Urine RBC (0-2) Urine WBC (0-5) Ur Squamous Epith Cells (None-Few) Urine Bacteria (None) SARS-CoV-2 (PCR) (Negative) Influenza Type A (PCR) (Negative) Influenza Type B (PCR) (Negative) RSV (PCR) (Negative) POC Troponin I (0.01-0.04) ng/ml 06/05/22 Range/Units 08:10 WBC (4.50-11.00) K/uL RBC (4.00-5.20) m/uL Hgb (12.0-16.0) gm/dL Hct (33.0-51.0) % MCV (80-100) fL MCH (26-34) pg MCHC (32-36) gm/dL RDW Coeff of Gayle (11.5-15.5) % Plt Count (140-440) K/uL Neut % (Auto) (42.0-72.0) % Lymph % (Auto) (20-44) % [place] % (Auto) (0.0-11.0) % Eos % (Auto) (0.0-7.0) % Baso % (Auto) (0.0-3.0) % Neut # (Auto) (1.7-7.0) K/uL Lymph # (Auto) (0.90-2.90) K/uL [place] # (Auto) (0.00-0.90) K/UL Eos # (Auto) (0.00-0.50) K/uL Baso # (Auto) (0.00-0.30) K/uL INR (0.91-1.10) Sodium (135-149) mmol/L Potassium (3.6-5.1) mmol/L Chloride (96-114) mmol/L Carbon Dioxide (20-32) mmol/L BUN (7-30) mg/dL Creatinine (0.5-1.5) mg/dL Estimated GFR ml/min Glucose (60-115) mg/dL Lactate (0.5-1.9) mmol/L Calcium (8.4-10.6) mg/dL Magnesium (1.5-2.6) mg/dL Total Bilirubin (0.1-1.5) mg/dL AST (12-35) U/L ALT (4-35) U/L Alkaline Phosphatase (40-150) U/L Total Creatine Kinase (41-117) U/L Troponin I (0.01-0.04) ng/mL C-Reactive Protein (0.5-1.0) mg/dL NT-Pro-B Natriuret Pep pg/mL Total Protein (6.0-8.3) g/dL Albumin (3.3-5.0) g/dL Procalcitonin (<0.50) ng/mL Urine Color Yellow (Yellow) Urine Appearance Cloudy A (Clear) Urine pH >= 9.0 H (5.0-8.5) Ur Specific [place] 1.010 (1.000-1.030) Urine Protein 3+ A (Negative) Urine Glucose (UA) Negative (Negative) Urine Ketones Negative (Negative) Urine Blood Trace-intact A (Negative) Urine Nitrite Negative (Negative) Urine Bilirubin Negative (Negative) Urine Urobilinogen 0.2 (0.2-1.0) Ur Leukocyte Esterase 1+ A (Negative) Urine RBC 0-2 (0-2) Urine WBC 0-2 (0-5) Ur Squamous Epith Cells None (None-Few) Urine Bacteria Many A (None) SARS-CoV-2 (PCR) (Negative) Influenza Type A (PCR) (Negative) Influenza Type B (PCR) (Negative) RSV (PCR) (Negative) POC Troponin I (0.01-0.04) ng/ml <Uziel Escobar MD - Last Filed: 06/05/22 08:52> ECG Data Attestation: I personally reviewed and interpreted this ECG as follows: <Mahi Santos MD - Last Filed: 06/05/22 08:01> Prior ECG tracings: available for review <Mahi Santos MD - Last Filed: 06/05/22 08:01> Interpretation: Sinus bradycardia, rate [address] or T-wave abnormalities. Normal axis. <Mahi Santos MD - Last Filed: 06/05/22 08:01> Discharge Plan Discharge Clinical Impression: Chronic kidney disease, stage 3b, Rhabdomyolysis, Dehydration <Mahi Santos MD - Last Filed: 06/05/22 08:01> Patient Disposition: Admitted As Inpatient <Mahi Santos MD - Last Filed: 06/05/22 08:01>
[2022-06-05 07:36] LABS: Lactate* 1.5 mmol/L (0.5-1.9)
[2022-06-05 07:38] LABS: Basophils Percent Auto 0.2 % (0.0-3.0); Hematocrit 37.2 % (33.0-51.0); Hemoglobin* 12.3 gm/dL (12.0-16.0); Immature Granulocytes Pct Auto 0.2 %; Lymphocytes Percent Auto 5.2 % (20-44); Mean Corpuscular HGB Conc 33 gm/dL (32-36); Mean Corpuscular Hemoglobin 31 pg (26-34); Mean Corpuscular Volume 94 fL (80-100); Monocytes Percent Auto 24.1 % (0.0-11.0); Neutrophils Percent Auto 70.3 % (42.0-72.0); Platelet Count* 111 K/uL (140-440); RDW Coefficient of Variation % 12.7 % (11.5-15.5); Red Blood Count 3.95 m/uL (4.00-5.20)
[2022-06-05 07:39] LABS: Slide Review Reflex No
[2022-06-05 07:52] LABS: Troponin, Point-of-Care* 0.04 ng/ml (0.01-0.04)
[2022-06-05 07:57] LABS: Appearance Urine Cloudy (Clear); Bilirubin Urine Negative (Negative); Blood Urine Trace-intact (Negative); Color Urine Yellow (Yellow); Glucose Urine Negative (Negative); Ketones Urine Negative (Negative); Leukocyte Esterase Urine 1+ (Negative); Nitrite Urine Negative (Negative); Protein Urine 3+ (Negative); Urobilinogen Urine 0.2 (0.2-1.0)
[2022-06-05 07:59] LABS: Chloride* 97 mmol/L (96-114); Sodium* 128 mmol/L (135-149)
[2022-06-05 08:00] LABS: INR 3.16 (0.91-1.10); Potassium* 3.7 mmol/L (3.6-5.1); Prothrombin Time 33.9 Seconds
[2022-06-05 08:01] LABS: Creatinine* 2.2 mg/dL (0.5-1.5); Estimated Glomerular Filt Rate 22 ml/min
[2022-06-05 08:02] LABS: Alanine Aminotransferase* 67 U/L (4-35); Alkaline Phosphatase* 59 U/L (40-150); Aspartate Amino Transferase* 158 U/L (12-35); Blood Urea Nitrogen* 52 mg/dL (7-30); Carbon Dioxide* 23 mmol/L (20-32)
[2022-06-05 08:03] LABS: Calcium* 8.5 mg/dL (8.4-10.6); Glucose* 115 mg/dL (60-115); Magnesium* 2.2 mg/dL (1.5-2.6)
[2022-06-05 08:05] LABS: C Reactive Protein* 4.6 mg/dL (0.5-1.0)
[2022-06-05 08:16] LABS: PCR FLU A Negative PCR FLU A (Negative); PCR FLU B Negative PCR FLU B (Negative); PCR RSV Negative PCR RSV (Negative)
[2022-06-05 08:16] LABS: Troponin I* 0.03 ng/mL (0.01-0.04)
[2022-06-05 08:18] LABS: NT Pro B Type NatriureticPept* 1070 pg/mL
[2022-06-05 08:21] LABS: SARS PCR* Negative SARS-CoV-2 (Negative)
[2022-06-05 08:21] LABS: pH Urine >= 9.0 (5.0-8.5)
[2022-06-05 08:22] LABS: Bacteria Urine Many; RBC Urine 0-2 (0-2); WBC Urine 0-2 (0-5)
[2022-06-05] MEDS: 0.9 % SODIUM CHLORIDE 500 ML 500 ML IV (08:29)
[2022-06-05 08:35] LABS: Creatine Kinase* 4964 U/L (41-117)
[2022-06-05] MEDS: cefTRIAXone 1 GM in 0.9 % SODIUM CHLORIDE Mini-bag 100 ML IVPB (08:55)
--- NOTE | 2022-06-05 09:12 | ED.NURSE ---
Report given to
--- NOTE | 2022-06-05 09:24 | P.IMHP_ITS ---
Hospitalist- H&P: HPI History of Present Illness Date Seen: 06/05/22 Chief complaint: Fell,leg weakness Narrative: Rosa M Jones is a 82 year old female who presented to the ED this morning after having 2 falls at home in the past 2 days. She fell at home Friday (2 days ago) and again this morning, onto her bottom. Denies palpitations, dizziness, or chest pain prior to the falls; believes they were both mechanical. This morning she was able to get up and call her son to bring her to the ER. ER course and findings: - chest x-ray without acute findings, sinus bradycardia (rate in 50s) on EKG - sodium of 128 (outpatient baseline 135) - creatinine of 2.2 (outpatient baseline 1.4) - AST 158, ALT 67, CK 4900, procalcitonin 2.4 - platelets 111 (210 08/2021) - given dose of Rocephin Rosa M sees Dr. Malave for primary care; Dr. Brunner is [employer] wireman. She recently saw cardiology (March 2022) for symptomatic bradycardia and intermittent exertional dyspnea; at that time, her metoprolol was discontinued and she started 20 mg of Lasix daily. One week after that appointment, she continued to have intermittent chest pain, so her metoprolol was restarted. Past medical history otherwise updated below. 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 Quit smoking in the , drinks 1 beer per day but has not for the past 3-4 days. She has 3 adult children, daughter Shira would be medical decision maker if needed. Requests full code status, has no desire to be on a machine for any period of time. 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 Ascending aortic aneurysm Carotid artery aneurysm Chronic kidney disease, stage 3 Chronic kidney disease, stage 3b COPD (chronic obstructive pulmonary disease) Diastolic congestive heart failure Emphysema lung History of bladder cancer History of breast cancer History of colon cancer History of small bowel obstruction History of smoking 30 or more pack years Mild cognitive impairment Paroxysmal supraventricular tachycardia Pulmonary nodules Surgical History H/O total cystectomy History of back surgery History of colectomy History of ileal conduit History of urostomy Family History Daughter Diabetes High blood pressure Sister Stroke Social History Highest level of school completed/degree received: some college, no degree Smoking Status: Former smoker What tobacco products do you use: cigarettes Years smoked: 30 Smoking quit date/years: >15 years ago Do you use any of these nicotine containing products: None Second hand tobacco smoke exposure: No How often do you have a drink containing alcohol: 4 or more times a week Alcohol type: beer How many standard drinks containing alcohol do you have on a typical day: 1 or 2 How often do you have six or more drinks on one occasion: Never AUDIT-C Alcohol total score: 4 Non-prescribed substance use: denies use Caffeine: Yes (6 cups) service: No Meds Home Medications and Allergies Home Medications Medication Instructions Recorded Confirmed Type rosuvastatin 10 mg tablet 10 mg PO HS 11/15/21 06/05/22 History furosemide 20 mg tablet 20 mg PO DAILY 05/22/22 06/05/22 History warfarin 2 mg tablet 2 mg PO DAILY 05/22/22 06/05/22 History escitalopram oxalate 5 mg tablet 5 mg PO DAILY 06/05/22 06/05/22 History Home Medication Comments: The above list is incomplete, also includes Lexapro 5mg, metoprolol 12.5 mg daily, and flecainide 50 mg b.i.d. Allergies Allergy/AdvReac Type Severity Reaction Status Date / Time No Known Drug Allergies Allergy Verified 12/12/21 12:43 Exam Narrative: Exam Narrative: GEN: Alert and oriented, appears dehydrated but nontoxic. Answering questions appropriately HEENT: Dry mucous membranes, EOMIs bilaterally, no scleral icterus CV: RRR (heart rate in the 50s during my exam), No concerning murmurs, rubs, or gallops R: LCTA bilaterally without concerning wheezing, air movement adequate Ab: no ttp Ext: wwp, no concerning edema Skin: Appears dry, no concerning skin lesions or rashes on exposed skin Neuro: Nonfocal Psych: Appropriate Const: Vital Signs, click to edit/add: Vital Signs - 24 hr 06/05/22 06:40 06/05/22 07:05 06/05/22 07:06 Temperature 97.0 F L Pulse Rate 55 L 57 L Pulse Rate [Right Pulse Oximeter] 58 L Respiratory Rate 16 Blood Pressure 119/71 Blood Pressure [Le ft Upper Arm] 108/72 Pulse Oximetry 96 95 95 [facility] 06/05/22 07:17 06/05/22 07:18 06/05/22 07:30 Temperature Pulse Rate 58 L 57 L 55 L Pulse Rate [Right Pulse Oximeter] Respiratory Rate Blood Pressure 146/87 H Blood Pressure [Le ft Upper Arm] Pulse Oximetry 96 95 96 [facility] 06/05/22 07:36 06/05/22 07:45 06/05/22 07:50 Temperature Pulse Rate 53 L 53 L 51 L Pulse Rate [Right Pulse Oximeter] Respiratory Rate Blood Pressure Blood Pressure [Le ft Upper Arm] Pulse Oximetry 98 96 97 [facility] 06/05/22 07:52 06/05/22 08:00 06/05/22 08:02 Temperature Pulse Rate 51 L 52 L 55 L Pulse Rate [Right Pulse Oximeter] Respiratory Rate Blood Pressure 135/69 145/66 H Blood Pressure [Le ft Upper Arm] Pulse Oximetry 96 98 95 [facility] 06/05/22 08:17 06/05/22 08:34 Temperature Pulse Rate Pulse Rate [Right Pulse Oximeter] Respiratory Rate Blood Pressure 123/58 L 148/65 H Blood Pressure [Le ft Upper Arm] Pulse Oximetry [facility] - H&P: Result Labs Labs: Short CBC 06/05/22 Range/Units 07:30 WBC 4.40 L (4.50-11.00) K/uL Hgb 12.3 (12.0-16.0) gm/dL Hct 37.2 (33.0-51.0) % Plt Count 111 L (140-440) K/uL BMP 06/05/22 07:30 Sodium 128 L Potassium 3.7 Chloride 97 Carbon Dioxide 23 BUN 52 H Creatinine 2.2 H Glucose 115 Calcium 8.5 Cardiac Enzymes 06/05/22 Range/Units 07:30 Total Creatine Kinase 4964 H (41-117) U/L Troponin I 0.03 (0.01-0.04) ng/mL Liver Function 06/05/22 Range/Units 07:30 Total Bilirubin 1.0 (0.1-1.5) mg/dL AST 158 H (12-35) U/L ALT 67 H (4-35) U/L Alkaline Phosphatase 59 (40-150) U/L Albumin 4.0 (3.3-5.0) g/dL Urine 06/05/22 Range/Units 08:10 Urine Color Yellow (Yellow) Urine Appearance Cloudy A (Clear) Urine pH >= 9.0 H (5.0-8.5) Ur Specific [place] 1.010 (1.000-1.030) Urine Protein 3+ A (Negative) Urine Glucose (UA) Negative (Negative) Assessment and Plan Assessment and plan (1) Falls: Problem comment: - mechanical vs related to acute illness (hasn't been feeling well with decreased appetite for a few days prior to admission) - fell onto bottom prior to admission; will obtain CT of pelvis to evaluate for any acute fractures - PT/OT referrals Status: Acute (2) Hyponatremia: Problem comment: - likely related to acute illness, in addition to increased free water intake and poor po intake over the past 3-4 days - IVFs, follow sodium; may need fluid restriction pending sodium trend (not initiating on admission given evidence of dehydration) Status: Acute (3) Acute kidney injury: Problem comment: - possibly iatrogenic vs prerenal from illness Status: Acute (4) Paroxysmal atrial fibrillation with rapid ventricular response: Problem comment: - currently sinus bradycardia, CHADSVASC score 3, anticoagulated on Coumadin Status: Acute (5) Tricuspid valve insufficiency: Problem comment: - repeat TTE 06/05 TTE 11/15/2021: Final Impressions: 1. Normal left ventricular size, moderately increased wall thickness, normal global systolic function, calculated EF of 68 %. 2. Right ventricular cavity size is not well visualized, global systolic RV function is normal. 3. Normal left atrium size. 4. The aortic valve is sclerotic, no stenosis and trivial regurgitation. 5. The mitral valve is thickened, trace mitral regurgitation. 6. Tricuspid valve is normal. 7. Mild-moderate tricuspid regurgitation. 8. The inferior vena cava is dilated, respiratory size variation less than 50%. 9. The ascending aorta is dilated with a maximal diameter of 3.9 cm. 10. No pericardial effusion. Status: Acute (6) Chronic kidney disease, stage 3b: Problem comment: Creatinine 1.6, EGFR 30, 11/16/2021 Status: Acute (7) Rhabdomyolysis: Problem comment: - CK 4900 on 06/05, + MELVI and elevated LFTs Status: Acute (8) Dehydration: Problem comment: - low dose IVFs, follow electrolytes and renal function, hold Lasix Status: Acute (9) Elevated LFTs: Problem comment: - related to falls, recent illlness vs other underlying process/atypical biliary colic - will obtain CT ab/pelvis to evaluate Status: Acute Plan - per above, plan pending imaging results - Coumadin for ppx
[2022-06-05] MEDS: 0.9 % SODIUM CHLORIDE 1000 ml 1,000 ML 500 ML IV (10:11)
--- NOTE | 2022-06-05 10:30 | CRLHL7_ITS ---
For Patients: As a result of the Century Cures Act, medical imaging exams and procedure reports are released immediately into your electronic medical record. You may view this report before your referring provider. If you have questions, please contact your health care provider. INDICATION: Elevated liver function tests and decreased appetite TECHNIQUE: Axial images were obtained from the diaphragm to the pubic symphysis. Reformats were obtained in the coronal and sagittal plane. IV Contrast: None Oral Contrast: None COMPARISON: Abdomen and pelvis CT 02/15/2019 FINDINGS: Lower chest: Left lower lobe pulmonary nodule measuring 7 millimeters (series 3, image 11). Scattered areas of discoid atelectasis. Prominent coronary atherosclerosis. Liver: Unremarkable. Normal in size and attenuation. No masses. Gallbladder and bile ducts: Contracted gallbladder without pericholecystic inflammation. Spleen: Unremarkable. Normal in size without mass. Pancreas: Unremarkable. No mass or inflammation. Adrenal glands: Unremarkable. No nodules. Kidneys: Bilateral renal scarring with exophytic renal cysts. Largest measures 4.3 centimeters on the right. Vasculature: Atherosclerosis without abdominal aortic aneurysm. GI tract: The stomach is decompressed. The patient is status post right colonic surgery. Small-bowel of is decompressed with a mildly prominent loop at a suture line in the left abdomen which appears similar to the prior exam and is more likely postsurgical. 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 Bones: Mild degenerative disc disease lumbar spine. IMPRESSION: 1. Status post colonic surgery without evidence of obstruction. 2. New left lower lobe pulmonary nodule measuring 7 millimeters. This is indeterminate. 3. 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 Please note that all CT scans at this facility use dose modulation, iterative reconstruction, and/or weight-based dosing when appropriate to reduce radiation dose to as low as reasonably achievable. Dictated by Maximus Somers MD @ 06/05/2022 1:23:51 PM (Electronically Signed)
[2022-06-05 14:27] LABS: Chloride* 101 mmol/L (96-114)
[2022-06-05 14:28] LABS: Potassium* 3.5 mmol/L (3.6-5.1); Sodium* 128 mmol/L (135-149)
[2022-06-05 14:30] LABS: Creatinine* 1.9 mg/dL (0.5-1.5); Estimated Glomerular Filt Rate 26 ml/min
[2022-06-05 14:31] LABS: Blood Urea Nitrogen* 48 mg/dL (7-30); Calcium* 7.8 mg/dL (8.4-10.6); Carbon Dioxide* 24 mmol/L (20-32); Glucose* 118 mg/dL (60-115)
[2022-06-05 14:32] LABS: Prothrombin Time 38.4 Seconds
[2022-06-05 14:43] LABS: Troponin I* 0.03 ng/mL (0.01-0.04)
[2022-06-05 14:49] LABS: Procalcitonin* 1.61 ng/mL (<0.50)
[2022-06-05] MEDS: 0.9 % SODIUM CHLORIDE 1000 ml 1,000 ML 125 ML IV ×2 (16:49→23:53)
[2022-06-05] MEDS: POTASSIUM CHLORIDE 10 MEQ/100 ML PIGGYBACK 100 MEQ IVPB (16:49)
[2022-06-05 18:04] LABS: Creatine Kinase* 3149 U/L (41-117)
--- NOTE | 2022-06-05 19:03 | PC.NURSE ---
Patient admitted to med surge floor today. Patient SBA with transfers. Patient had some urgency incontinence of stool this am and order for cdiff placed. collection pending. Patient vitally stable and on room air. Patient had no c/o pain throughout shift. Patient placed on maintenance fluids and potassium replaced. Patient able to voice concerns. Patient granddaughter came this evening and changed urostomy appliance for patient. Patient lives at home alone with her dog. Patient educated on meds and safety protocols to prevent falls.
[2022-06-05] MEDS: FLECAINIDE ACETATE 50 MG TABLET PO (20:07)
[2022-06-05] MEDS: ROSUVASTATIN CALCIUM 10 MG TABLET PO (20:07)
[2022-06-05 21:27] LABS: C.Difficile Negative (Negative); CDIFFEPI 027 PRESUMPTIVE NEGATIVE (Negative)
[2022-06-06] VITALS (9 sets, daily range): BP systolic 99–138; BP diastolic 59–66; PULSE 51–66; RESP 16–21; TEMP 36.7–37.3; O2SAT 92–95
--- NOTE | 2022-06-06 05:58 | PC.NURSE ---
[id number]: Patient cooperative with cares. A&Ox3. Urostomy draining cloudy urine. SBA. Denies pain. Denies N/V. Afebrile.
[2022-06-06 07:32] LABS: Basophils Percent Auto 0.2 % (0.0-3.0); Hemoglobin* 10.4 gm/dL (12.0-16.0); Immature Granulocytes Pct Auto 0.5 %; Lymphocytes Percent Auto 7.6 % (20-44); Mean Corpuscular HGB Conc 34 gm/dL (32-36); Mean Corpuscular Hemoglobin 32 pg (26-34); Mean Corpuscular Volume 95 fL (80-100); Monocytes Percent Auto 22.1 % (0.0-11.0); Neutrophils Percent Auto 69.6 % (42.0-72.0); Platelet Count* 98 K/uL (140-440); RDW Coefficient of Variation % 12.7 % (11.5-15.5); Red Blood Count 3.28 m/uL (4.00-5.20); White Blood Count* 4.21 K/uL (4.50-11.00)
[2022-06-06 07:46] LABS: Albumin* 2.9 g/dL (3.3-5.0)
[2022-06-06 07:47] LABS: Chloride* 106 mmol/L (96-114); Potassium* 3.2 mmol/L (3.6-5.1); Sodium* 130 mmol/L (135-149)
[2022-06-06 07:49] LABS: Aspartate Amino Transferase* 108 U/L (12-35); Bilirubin Total* 0.6 mg/dL (0.1-1.5); Carbon Dioxide* 20 mmol/L (20-32); Creatinine* 1.5 mg/dL (0.5-1.5); Estimated Glomerular Filt Rate 34 ml/min; Slide Review Reflex No
[2022-06-06 07:50] LABS: Alanine Aminotransferase* 54 U/L (4-35); Alkaline Phosphatase* 48 U/L (40-150); Blood Urea Nitrogen* 32 mg/dL (7-30); Calcium* 7.3 mg/dL (8.4-10.6); Glucose* 99 mg/dL (60-115); Total Protein* 5.5 g/dL (6.0-8.3)
[2022-06-06 08:03] LABS: Procalcitonin* 1.01 ng/mL (<0.50)
[2022-06-06] MEDS: 0.9 % SODIUM CHLORIDE 1000 ml 1,000 ML 125 ML IV (08:22)
[2022-06-06 08:25] LABS: Gamma Glutamyl Transpeptidase* 22 U/L (8-55)
[2022-06-06 08:27] LABS: Acetaminophen* < 10.0 ug/mL (10.0-30.0); Ethanol* < 0.01 % (0.01-0.03)
[2022-06-06] MEDS: METOPROLOL SUCCINATE (XL) 25 MG TAB 12.5 MG PO (09:06)
[2022-06-06] MEDS: FLECAINIDE ACETATE 50 MG TABLET PO ×2 (09:06→20:36)
[2022-06-06 09:19] LABS: Creatine Kinase* 2145 U/L (41-117)
[2022-06-06] MEDS: ESCITALOPRAM 10 MG TABLET 5 MG PO (10:13)
[2022-06-06] MEDS: cefTRIAXone 1 GM in 0.9 % SODIUM CHLORIDE Mini-bag 100 ML IVPB (12:09)
--- NOTE | 2022-06-06 13:09 | PM.IMPN1 ---
Progress Note: A&P Assessment and plan (1) Falls: Problem details: - mechanical vs related to acute illness (hasn't been feeling well with decreased appetite for a few days prior to admission) - fell onto bottom prior to admission; will obtain CT of pelvis to evaluate for any acute fractures - PT/OT referrals Uncertain whether alcohol is contributing factor. I recommended abstinence for now Status: Acute (2) Hyponatremia: Problem details: - likely related to acute illness, in addition to increased free water intake and poor po intake over the past 3-4 days - IVFs, follow sodium; may need fluid restriction pending sodium trend (not initiating on admission given evidence of dehydration) Status: Acute (3) Acute kidney injury: Problem details: Due to dehydration? Rhabdomyolysis? Status: Acute (4) Paroxysmal atrial fibrillation with rapid ventricular response: Problem details: - currently sinus bradycardia, CHADSVASC score 3, anticoagulated on Coumadin Status: Acute (5) Tricuspid valve insufficiency: Problem details: - repeat TTE 06/05 TTE 11/15/2021: Final Impressions: 1. Normal left ventricular size, moderately increased wall thickness, normal global systolic function, calculated EF of 68 %. 2. Right ventricular cavity size is not well visualized, global systolic RV function is normal. 3. Normal left atrium size. 4. The aortic valve is sclerotic, no stenosis and trivial regurgitation. 5. The mitral valve is thickened, trace mitral regurgitation. 6. Tricuspid valve is normal. 7. Mild-moderate tricuspid regurgitation. 8. The inferior vena cava is dilated, respiratory size variation less than 50%. 9. The ascending aorta is dilated with a maximal diameter of 3.9 cm. 10. No pericardial effusion. Status: Acute (6) Chronic kidney disease, stage 3b: Problem details: Creatinine 1.6, EGFR 30, 11/16/2021. Continue IV fluids, monitoring renal function. Status: Acute (7) Rhabdomyolysis: Problem details: - CK 4900 on 06/05, + MELVI and elevated LFTs continue IV fluids. Status: Acute (8) Dehydration: Problem details: - low dose IVFs, follow electrolytes and renal function, hold Lasix Status: Acute (9) Elevated LFTs: Problem details: Concern for alcohol contributing to elevated transaminases. No evidence for biliary disease. Recommend abstinence from alcohol pending resolution of abnormal enzymes. Acetaminophen level is negative on admission Status: Acute (10) Cognitive impairment: Problem details: Attempted to perform [place] today, 06/06/2022. Patient struggled with the very beginning questions and then refused to complete it. May have at least moderate cognitive impairment. Recommend lifter/driver safety evaluation before returning to drive an automobile Status: Acute (11) Alcohol use: Problem details: Patient reports 1 beer per day alcohol consumption. She has several problems that may be worsened by alcohol including cognitive impairment, recurrent falls with impaired balance, elevated transaminases with AST greater than ALT, hyponatremia. Recommend abstinence while these problems are addressed. Status: Acute Plan Continue in hospital for management of abnormal laboratory studies, acute kidney injury, elevated transaminases, elevated inflammatory markers, rhabdomyolysis. For now will continue antibiotics that she received on admission for possible UTI. Pending cultures will make further decisions. Laboratory studies suggest an inflammatory or infectious process going on. Continue to monitor. Time Spent With Patient Total time spent: Total time spent today is 50 minutes, 30 minutes in coordination of care and discussing with other providers and patient ongoing evaluation management of these multiple issues. Subjective Date Seen: 06/06/22 Interval history: 82-year-old female seen in followup of hospitalization for recurrent falls, acute kidney injury, rhabdomyolysis, elevated transaminases, hyponatremia. Cause of these multiple problems was uncertain. Cause of the falls is unclear but patient describes basically acute onset of weakness causing her to falls recently. No apparent syncope or seizure and no injury other than a bruise on her right elbow. Cause the acute kidney injury may be due to rhabdomyolysis. She denies being down on the ground for a long time though acknowledges it may have been up to an hour before someone game to get her. Rhabdomyolysis plus dehydration may be the cause of her acute kidney injury. Uncertain why she has elevated transaminases, AST greater than ALT. No previous history of liver disease. She tells me she does have 1 beer a day. I recommended she stop drinking as this could be a cause of her abnormal liver tests and even if there is another cause for her liver disease alcohol will make her liver disease as well as her recurrent falling down worse. Exam Narrative: Exam Narrative: She is alert and oriented to her circumstances. She tells me she is frustrated because she has not seen a doctor since she was admitted to the hospital. She is unable to give me much detail of recent events. Head is normal. Respirations are clear to auscultation. Cardiovascular: S1, S2, regular rate and rhythm. 1/6 systolic murmur with no gallop or rub. Abdomen: Bowel sounds active. Abdomen is soft without tenderness or mass. Urostomy. Bruise on her right elbow noted. She moves all 4 extremities fairly well. Good peripheral pulses. Const: Vital Signs, click to edit/add: Vital Signs - 24 hr 06/05/22 15:00 06/05/22 15:00 06/05/22 15:00 Temperature Pulse Rate 60 Pulse Rate [Left R adial] 54 L Respiratory Rate 16 16 Blood Pressure [Le ft Arm] Pulse Oximetry 96 Oxygen Delivery Me thod Room Air 06/05/22 15:00 06/05/22 19:45 06/05/22 23:49 Temperature 98.2 F 98.9 F 98.7 F Pulse Rate Pulse Rate [Left R adial] 54 L 59 L 50 L Respiratory Rate 18 18 18 Blood Pressure [Le ft Arm] 142/82 H 124/61 126/66 Pulse Oximetry 97 96 94 Oxygen Delivery Sd thod Room Air Room Air Room Air 06/05/22 23:00 06/05/22 23:00 06/05/22 23:00 Temperature Pulse Rate 58 L Pulse Rate [Left R adial] 50 L Respiratory Rate 18 Blood Pressure [Le ft Arm] Pulse Oximetry 94 Oxygen Delivery Sd thod Room Air 06/06/22 02:20 06/06/22 07:00 06/06/22 07:00 Temperature 98.0 F 99.0 F Pulse Rate Pulse Rate [Left R adial] 59 L 61 Respiratory Rate 20 21 21 Blood Pressure [Le ft Arm] 138/64 99/59 L Pulse Oximetry 95 94 94 [facility] Room Air Room Air 06/06/22 07:00 06/06/22 07:00 06/06/22 11:00 Temperature 99.1 F Pulse Rate 66 Pulse Rate [Left R adial] 61 60 Respiratory Rate 21 21 Blood Pressure [Le ft Arm] 127/66 Pulse Oximetry 94 [facility] Documenting provider has reviewed patient's vital signs: yes Labs Labs: Laboratory Results - last 24 hr 06/05/22 06/05/22 06/05/22 07:30 14:02 20:19 WBC RBC Hgb Hct MCV MCH MCHC RDW Coeff of Gayle Plt Count Neut % (Auto) Lymph % (Auto) [place] % (Auto) Eos % (Auto) Baso % (Auto) Neut # (Auto) Lymph # (Auto) [place] # (Auto) Eos # (Auto) Baso # (Auto) INR 3.70 H Sodium 128 L Potassium 3.5 L Chloride 101 Carbon Dioxide 24 BUN 48 H Creatinine 1.9 H Estimated GFR 26 Glucose 118 H Calcium 7.8 L Total Bilirubin GGT 22 AST ALT Alkaline Phosphatase Total Creatine Kinase 3149 H Troponin I 0.03 Total Protein Albumin Procalcitonin 1.61 H Stl C.difficile Tox PCR Negative Acetaminophen < 10.0 L Ethyl Alcohol < 0.[address] C. diff Tox Epid 027 PRESUMPTIVE NEGATIVE 06/06/22 05:45 WBC 4.21 L RBC 3.28 L Hgb 10.4 L Hct 31.0 L MCV 95 MCH 32 MCHC 34 RDW Coeff of Gayle 12.7 Plt Count 98 L Neut % (Auto) 69.6 Lymph % (Auto) 7.6 L [place] % (Auto) 22.1 H Eos % (Auto) 0.0 Baso % (Auto) 0.2 Neut # (Auto) 2.90 Lymph # (Auto) 0.30 L [place] # (Auto) 0.90 Eos # (Auto) 0.00 Baso # (Auto) 0.00 INR Sodium 130 L Potassium 3.2 L Chloride 106 Carbon Dioxide 20 BUN 32 H Creatinine 1.5 Estimated GFR 34 Glucose 99 Calcium 7.3 L Total Bilirubin 0.6 GGT AST 108 H ALT 54 H Alkaline Phosphatase 48 Total Creatine Kinase 2145 H Troponin I Total Protein 5.5 L Albumin 2.9 L Procalcitonin 1.01 H Stl C.difficile Tox PCR Acetaminophen Ethyl Alcohol St C. diff Tox Epid 027
[2022-06-06] MEDS: POTASSIUM BICARB 25 MEQ EFFERVESCENT TAB PO (14:06)
--- NOTE | 2022-06-06 14:46 | PC.NURSE ---
Nursing Care Hours: [id number] Pt this shift calm and cooperative. Somewhat agitated with POC, pt states Thats what frustrates me! when talking about labs and new medications ordered. Pt believes the numbers in labs have always been elevated and that the medications she is getting are not really needed. pt states sounds like they are just playing guessing games. [employer] Supervisor and pt granddaughter attempt to explain reasons but pt not receptive. When discussing quitting drinking, pt states well that is not going to happen. Pt also suspicious of MOCHA test, stating that how they get you. They just want to give you more pills. Pt alert and oriented otherwise, SB assist. Encouraged to use walker for safety d/t recent fall from weakness, pt refuses. Pt steady and touches wall and counter for extra support. Urostomy draining, pt empties into toilet independently. 1 BM, semi loose. C/o pain on the tailbone where bruise is present. Decreased appetite, refused breakfast and took an Ensure for lunch. Pt refusing SCD but agreeable to TEDS. TEDs not supplied at this time.
[2022-06-06] MEDS: 0.9 % SODIUM CH + KCL 20 mEq/L 1,000 ML 125 ML IV ×2 (16:09→20:35)
--- NOTE | 2022-06-06 19:23 | PC.NURSE ---
Pt calm and cooperative with nsg interventions. She is forgetful. IV site infiltrated Right AC and site discontinued. IV attempts per Erika tavarez RN and Adelita casting house worker w/o success. Jc 75% of her dinner. Pt has many questions about her medications and plan of care here in the hospital. I thought I was going home today. Pt's tele indicates sinus bradycardia with PACs. Report to oncoming shift MADHURI Hanna.
[2022-06-06] MEDS: ROSUVASTATIN CALCIUM 10 MG TABLET PO (20:35)
[2022-06-07 02:30] VITALS: BP 100/55; PULSE 55; RESP 22; TEMP 36.8; O2SAT 90
[2022-06-07] MEDS: 0.9 % SODIUM CH + KCL 20 mEq/L 1,000 ML 125 ML IV (02:50)
--- NOTE | 2022-06-07 05:53 | PC.NURSE ---
[id number]: A&O x3 with confusion. A1/walker/GB. Sinus [place] all shift. Denies pain. Denies N/V. Reports a slight increase in appetite. Snacks offered but refused. Urostomy patent. Afebrile.
[2022-06-07 06:40] LABS: Basophils Percent Auto 0.3 % (0.0-3.0); Hematocrit 28.3 % (33.0-51.0); Hemoglobin* 9.5 gm/dL (12.0-16.0); Immature Granulocytes Pct Auto 0.5 %; Lymphocytes Percent Auto 11.4 % (20-44); Mean Corpuscular HGB Conc 34 gm/dL (32-36); Mean Corpuscular Hemoglobin 32 pg (26-34); Mean Corpuscular Volume 95 fL (80-100); Monocytes Percent Auto 24.9 % (0.0-11.0); Neutrophils Percent Auto 62.9 % (42.0-72.0); Platelet Count* 101 K/uL (140-440); RDW Coefficient of Variation % 12.9 % (11.5-15.5); Red Blood Count 2.99 m/uL (4.00-5.20)
[2022-06-07 06:49] LABS: Slide Review Reflex No
[2022-06-07 07:00] VITALS: BP 137/72; PULSE 52; PULSE 59; RESP 16; TEMP 36.8; O2SAT 91
[2022-06-07 07:09] LABS: Chloride* 111 mmol/L (96-114)
[2022-06-07 07:10] LABS: Albumin* 2.6 g/dL (3.3-5.0); Potassium* 3.9 mmol/L (3.6-5.1); Sodium* 131 mmol/L (135-149)
[2022-06-07 07:12] LABS: Creatinine* 1.4 mg/dL (0.5-1.5); Estimated Glomerular Filt Rate 37 ml/min
[2022-06-07 07:13] LABS: Alanine Aminotransferase* 53 U/L (4-35); Alkaline Phosphatase* 50 U/L (40-150); Aspartate Amino Transferase* 85 U/L (12-35); Bilirubin Direct* 0.3 mg/dL (0.0-0.5); Bilirubin Total* 0.5 mg/dL (0.1-1.5); Blood Urea Nitrogen* 22 mg/dL (7-30); Calcium* 7.2 mg/dL (8.4-10.6); Carbon Dioxide* 18 mmol/L (20-32); Creatine Kinase* 851 U/L (41-117); Glucose* 103 mg/dL (60-115); Total Protein* 5.2 g/dL (6.0-8.3)
[2022-06-07 07:16] LABS: C Reactive Protein* 7.1 mg/dL (0.5-1.0)
[2022-06-07 07:30] VITALS: PULSE 52; RESP 16; O2SAT 91
[2022-06-07] MEDS: METOPROLOL SUCCINATE (XL) 25 MG TAB 12.5 MG PO (08:22)
[2022-06-07] MEDS: FLECAINIDE ACETATE 50 MG TABLET PO (08:22)
[2022-06-07] MEDS: ESCITALOPRAM 10 MG TABLET 5 MG PO (08:23)
[2022-06-07 09:21] LABS: INR 2.03 (0.91-1.10)
[2022-06-07 10:20] VITALS: BP 148/65; PULSE 51; RESP 22; TEMP 36.8
--- NOTE | 2022-06-07 12:15 | PM.DS1 ---
DS: Providers Provider Date Seen: 06/07/22 Date of admission: 06/05/22 09:48 Primary care physician: Teressa Malave DO Admitting Clinician: Chas Montano MD Attending Physician on discharge: Chas Montano MD Date of Discharge: 06/07/22 DS: Diagnosis Discharge Diagnosis (1) Falls: Status: Acute Problem details: Patient had 2 falls prior to admission. These were described as being caused by leg weakness as well as perhaps poor balance. No loss of consciousness. No serious injury. Unable to get up on her own after probable prolonged time on the floor. In the hospital therapy evaluation shows that she is somewhat unsteady on her feet and has some fatigue with activity. She declines consideration of a walker at home. (2) Acute kidney injury: Status: Acute Problem details: Suspected to be due to a combination of rhabdomyolysis and dehydration. Creatinine at discharge is 1.4, baseline. (3) Rhabdomyolysis: Status: Acute Problem details: - CK 4900 on 06/05, MELVI associated with rhabdomyolysis. CK down to 851 on discharge (4) Hyponatremia: Status: Acute Problem details: Hyponatremia thought secondary to acute unspecified illness with decreased oral intake. Resolving with rehydration with normal saline. Sodium 131 at discharge (5) Paroxysmal atrial fibrillation with rapid ventricular response: Status: Acute Problem details: - currently sinus bradycardia, CHADSVASC score 3, anticoagulated on Coumadin. INR 3.7 on admission. No warfarin during hospital stay. INR 2.0 today. Elevated INR secondary to acute unspecified illness and poor oral intake. Resume normal warfarin dose and recheck INR in 4-5 days. (6) Tricuspid valve insufficiency: Status: Acute Problem details: - repeat TTE 06/05 TTE 11/15/2021: Final Impressions: 1. Normal left ventricular size, moderately increased wall thickness, normal global systolic function, calculated EF of 68 %. 2. Right ventricular cavity size is not well visualized, global systolic RV function is normal. 3. Normal left atrium size. 4. The aortic valve is sclerotic, no stenosis and trivial regurgitation. 5. The mitral valve is thickened, trace mitral regurgitation. 6. Tricuspid valve is normal. 7. Mild-moderate tricuspid regurgitation. 8. The inferior vena cava is dilated, respiratory size variation less than 50%. 9. The ascending aorta is dilated with a maximal diameter of 3.9 cm. 10. No pericardial effusion. (7) Dehydration: Status: Acute Problem details: Patient was suspected of having an acute illness causing loss of appetite and dehydration prior to admission. She had no signs or symptoms of acute illness and has had adequate oral intake during her hospital stay. She was treated for a UTI during her hospital stay but urine culture grew mixed Gram-positive kimberly and was thought to be colonization. No other focus of infection was identified or treated during her hospital stay and she reports feeling well on discharge. (8) Elevated LFTs: Status: Acute Problem details: Cause of her elevated transaminases is uncertain. Concern for alcohol contributing to elevated transaminases. She reports drinking only 1 beer per day. No evidence for biliary disease. Recommend abstinence from alcohol pending resolution of abnormal enzymes. Acetaminophen level is negative on admission. (9) Cognitive impairment: Status: Acute Problem details: Attempted to perform Atlantic. Patient struggled with the very beginning questions and then refused to complete it. May have at least moderate cognitive impairment. 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 She is referred to [facility] for outpatient cognitive evaluation and livery car driver safety evaluation. Patient is resistant to any evaluation of cognitive function including livery car driver safety evaluation or cognitive testing. She denies any problem and fears healthcare providers are using these tests as weapons to take away her independence. (10) Alcohol use: Status: Acute Problem details: Patient reports 1 beer per day alcohol consumption. She has several problems that may be worsened by alcohol including cognitive impairment, recurrent falls with impaired balance, elevated transaminases with AST greater than ALT, hyponatremia. Recommend abstinence while these problems are addressed. DS: Summary Hospital Course Hospital Course: 82-year-old female admitted to the hospital after 2 falls at home. Family and patient both indicate that she just was not feeling well that led to weakness and falls. There was not a specific diagnosis of and illness to account for her weakness and she remained clinically without a focus of illness during her hospital stay. On admission however she was found to have acute kidney injury with a creatinine of 2.2 up from a baseline of 1.4. She had an elevated CK and is felt to have rhabdomyolysis from lying on the floor for a long time after her fall. She was treated with IV fluids and her kidney function and CK are returning to normal. She was treated for urinary tract infection but urine culture only showed colonization without a pathogenic bacteria. No other symptoms of illness were identified during hospital stay. She had evaluation by Physical therapy felt she did have some problems with balance. Patient has no interest in assistive device to help with safety in the home. Occupational therapy attempted cognitive assessment with Atlantic but patient refused. She started out the test and struggled to perform and then refused to finish. At the time of discharge she appears to be back to baseline with no symptoms of illness. Ongoing concerns about cognitive function and particularly executive functioning remain. She is recommended to get outpatient cognitive assessment as well as livery car driver safety assessment. These can be done at [facility] with occupational therapy. She indicates she has no interest in this evaluation as she is concerned that these are attempts to restrict her independence. I also advised her to stop drinking alcohol while we reassess her other medical problems. I am concerned that alcohol is making these problems worse if it is not the primary cause for some of these problems such as her transaminitis, falls and poor balance. I discussed our concerns with her son and daughter. Discussed the need for ongoing evaluation to provide the support she needs to maintain maximum independence and safety. Status at Discharge Functional status at discharge: independent ambulation Overall status at discharge: patient is back to baseline Time Spent with Patient Time attestation: Total time spent providing and/or coordinating discharge services: Time spent: Greater than 30 minutes Exam Narrative: Exam Narrative: She is alert and pleasant in no distress. Speech is normal. Breathing is unlabored. She is observed to walk without significant difficulties. Const: Vital Signs, click to edit/add: Vital Signs - 24 hr 06/06/22 15:55 06/06/22 15:55 06/06/22 16:26 Temperature 98.8 F Pulse Rate 53 L Pulse Rate [Left A pical] 51 L Pulse Rate [Left R adial] 51 L Respiratory Rate 16 16 Blood Pressure Blood Pressure [Le ft Arm] 137/63 Pulse Oximetry 92 92 Oxygen Delivery Me thod Room Air Room Air 06/06/22 20:26 06/06/22 22:22 06/06/22 22:25 Temperature 98.9 F Pulse Rate Pulse Rate [Left A pical] 60 Pulse Rate [Left R adial] 51 L Respiratory Rate 20 20 Blood Pressure Blood Pressure [Le ft Arm] 121/65 Pulse Oximetry 95 95 Oxygen Delivery Me thod Room Air Room Air 06/06/22 23:00 06/06/22 23:00 06/07/22 02:30 Temperature 98.3 F Pulse Rate 51 L Pulse Rate [Left A pical] Pulse Rate [Left R adial] 55 L Respiratory Rate 20 22 Blood Pressure Blood Pressure [Le ft Arm] 100/55 L Pulse Oximetry 90 Oxygen Delivery Me thod Room Air 06/07/22 10:20 06/07/22 07:30 06/07/22 07:00 Temperature 98.3 F 98.3 F Pulse Rate 51 L Pulse Rate [Left A pical] Pulse Rate [Left R adial] 59 L Respiratory Rate 22 16 16 Blood Pressure 148/65 H Blood Pressure [Le ft Arm] 137/72 Pulse Oximetry 91 91 Oxygen Delivery Me thod Room Air Room Air 06/07/22 07:00 06/07/22 07:30 Temperature Pulse Rate 52 L Pulse Rate [Left A pical] 52 L Pulse Rate [Left R adial] Respiratory Rate Blood Pressure Blood Pressure [Le ft Arm] Pulse Oximetry Oxygen Delivery Me thod Documenting provider has reviewed patient's vital signs: yes DS: Data Data Completed and Pending Labs on day of discharge: Labs from last 24 hours 06/07/22 06:29 WBC 3.70 L RBC 2.99 L Hgb 9.5 L Hct 28.3 L MCV 95 MCH 32 MCHC 34 RDW Coeff of Gayle 12.9 Plt Count 101 L Neut % (Auto) 62.9 Lymph % (Auto) 11.4 L [place] % (Auto) 24.9 H Eos % (Auto) 0.0 Baso % (Auto) 0.3 Neut # (Auto) 2.30 Lymph # (Auto) 0.40 L [place] # (Auto) 0.90 Eos # (Auto) 0.00 Baso # (Auto) 0.00 INR 2.03 H Sodium 131 L Potassium 3.9 Chloride 111 Carbon Dioxide 18 L BUN 22 Creatinine 1.4 Estimated GFR 37 Glucose 103 Calcium 7.2 L Total Bilirubin 0.5 Direct Bilirubin 0.3 AST 85 H ALT 53 H Alkaline Phosphatase 50 Total Creatine Kinase 851 H C-Reactive Protein 7.1 H Total Protein 5.2 L Albumin 2.6 L Preliminary micro results at discharge 06/05/22 Unknown Urine Culture - Preliminary Urine,Clean Catch > 100,000 COL/ML MIXED GRAM POSITIVE KIMBERLY ISOLATED NO FURTHER WORKUP Imaging CT scan - abdomen: Radiologist's impression: INDICATION: Elevated liver function tests and decreased appetite TECHNIQUE: Axial images were obtained from the diaphragm to the pubic symphysis. Reformats were obtained in the coronal and sagittal plane. IV Contrast: None Oral Contrast: None COMPARISON: Abdomen and pelvis CT 02/15/2019 FINDINGS: Lower chest: Left lower lobe pulmonary nodule measuring 7 millimeters (series 3, image 11). Scattered areas of discoid atelectasis. Prominent coronary atherosclerosis. Liver: Unremarkable. Normal in size and attenuation. No masses. Gallbladder and bile ducts: Contracted gallbladder without pericholecystic inflammation. Spleen: Unremarkable. Normal in size without mass. Pancreas: Unremarkable. No mass or inflammation. Adrenal glands: Unremarkable. No nodules. Kidneys: Bilateral renal scarring with exophytic renal cysts. Largest measures 4.3 centimeters on the right. Vasculature: Atherosclerosis without abdominal aortic aneurysm. GI tract: The stomach is decompressed. The patient is status post right colonic surgery. Small-bowel of is decompressed with a mildly prominent loop at a suture line in the left abdomen which appears similar to the prior exam and is more likely postsurgical. 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 Bones: Mild degenerative disc disease lumbar spine. IMPRESSION: 1. Status post colonic surgery without evidence of obstruction. 2. New left lower lobe pulmonary nodule measuring 7 millimeters. This is indeterminate. 3. 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 Chest x-ray: Radiologist's impression: INDICATION: Weakness. TECHNIQUE: Chest 2 views. COMPARISON: 05/22/2022. FINDINGS: Cardiovascular and mediastinum:? Heart size and vasculature are normal in caliber and appearance.? Lungs and pleural spaces:? Lungs are clear.? No sign of infiltrate or mass. ?No sign of pleural effusion.? No pneumothorax.? Bones and soft tissues:? No significant findings. IMPRESSION: No acute findings and no significant changes from the prior exam. Discharge Plan Discharge Disposition: Home, Self-Care Date of Admission: 06/05/22 09:48 Attending Provider on Discharge: Chas Montano Primary Care Provider: Teressa Malave Condition: Improved Anticipated Discharge Date/Time: 06/07/22 09:39 Discharge Medications: Continued rosuvastatin 10 mg tablet 10 mg PO HS Patient Comments: TAKE ONE TABLET BY MOUTH ONE TIME DAILY AT BEDTIME flecainide 50 mg Tablet 50 mg PO BID Qty: 60 0RF metoprolol succinate 25 mg Tablet Extended Release 24 Hr 12.5 mg PO DAILY Qty: 15 1RF escitalopram oxalate 5 mg tablet 5 mg PO DAILY warfarin 2 mg tablet 2 mg PO DAILY furosemide 20 mg tablet 20 mg PO DAILY Discharge Orders: Discharge Order (Routine); Ordered 06/07/22 Ordered By: Chas Montano Patient Education: Acute Kidney Injury (DC), Hyponatremia (DC), Rhabdomyolysis (DC), Abdominal Pain (DC), Fall Prevention (DC) Additional Instructions: Continue taking warfarin as you did prior to this admission. 2 mg on Friday and 4 mg on Friday. I recommend you go to [facility], occupational therapy for evaluation of livery car driver safety and cognition. I recommend you stop drinking alcohol until you see your doctor next week. Activity Level: Activity as Tolerated and Use Walker Discharge Diet: Regular Follow Up Appointments: Teressa Malave DO [Primary Care Provider] - 06/13/22 1:00 pm (See your doctor in 4-5 days for recheck. He will need lab tests, INR and basic metabolic panel and liver panel in 4 or 5 days) Forms: [employer] Info Instructions
--- NOTE | 2022-06-07 13:58 | PC.NURSE ---
Pt cooperative during shift. Pt one assist with walker. Pt p to chair during shift. Pt to discharge home at 11am. Discharge instructions gone over with Pt and Son.
== END 2022-06-07 11:10 | disposition home or self-care (01) | DRG 683 ==
LOC: ED 08:50 → MEDSURG 09:13
PROVIDERS: Family Medicine; Admitting Provider Family Medicine; Emergency Provider Family Medicine; PCP Family Medicine; Visit Provider Family Medicine
DX: N17.9 Acute kidney failure, unspecified (principal); E87.1 Hypo-osmolality and hyponatremia; M62.82 Rhabdomyolysis; I50.30 Unspecified diastolic (congestive) heart failure; I48.0 Paroxysmal atrial fibrillation; I08.3 Combined rheumatic disorders of mitral, aortic and tricuspid valves; E86.0 Dehydration; G31.84 Mild cognitive impairment of uncertain or unknown etiology; R74.01 Elevation of levels of liver transaminase levels; J44.9 Chronic obstructive pulmonary disease, unspecified; Z79.01 Long term (current) use of anticoagulants; I71.21 Aneurysm of the ascending aorta, without rupture; W19.XXXA Unspecified fall, initial encounter; Z91.81 History of falling; Z85.038 Personal history of other malignant neoplasm of large intestine; Z87.891 Personal history of nicotine dependence; Z85.51 Personal history of malignant neoplasm of bladder; Z85.3 Personal history of malignant neoplasm of breast; N18.32 Chronic kidney disease, stage 3b
CPT/HCPCS: 36415; 71046; 74176; 80048; 80053; 80076; 80143; 81003; 81015; 82077; 82550; 82977; 83605; 83735; 83880; 84145; 84484; 85025; 85610; 86140; 87086; 87186; 87493; 87502; 87634; 87635; 93005; 93306; 97112; 97116; 97161; 97165; 97535; 99285; A9270; J0696; J3480; J7030; J7120

== ENCOUNTER 2022-09-24 15:00 | Outpatient (RCR) | payer MEDICARE, BC, SELFPAY | END 2023-01-22 23:59 | disposition home or self-care (01) | PROVIDERS: PCP Family Medicine; Visit Provider Family Medicine | DX: Z02.4 Encounter for examination for driving license (principal); R29.6 Repeated falls; Z51.89 Encounter for other specified aftercare | CPT/HCPCS: 97165; 97535 ==

== ENCOUNTER 2023-01-23 09:47 | Emergency (ER) | payer MEDICARE, BC, SELFPAY ==
[2023-01-23] VITALS (8 sets, daily range): BP systolic 97–156; BP diastolic 66–77; PULSE 53–57; RESP 12–14; TEMP 36.7; O2SAT 91–100; BMI 28.2
--- NOTE | 2023-01-23 10:18 | CRLHL7_ITS ---
For Patients: As a result of the Cures Act, medical imaging exams and procedure reports are released immediately into your electronic medical record. You may view this report before your referring provider. If you have questions, please contact your health care provider. INDICATION: Syncope, left rib pain TECHNIQUE: Single view chest with AP and oblique views of the left chest COMPARISON: Two view chest June 05, 2022 FINDINGS: There is left basilar airspace opacity likely representing atelectasis, a subtle infiltrate may be difficult to exclude. There is no obvious pneumothorax. The cardiac silhouette is mildly prominent with minimal aortic tortuosity. There [id number] displaced fractures of the lateral 7th, 8th and 9th ribs. The bony thorax is otherwise intact. IMPRESSION: Mild to moderately displaced fractures of the lateral 7th, 8th, and 9th ribs with minimal left basilar atelectasis. No evidence of pneumothorax. No displaced rib fracture is appreciated. If pain and clinical symptoms persist, subtle, non-displaced injuries are not entirely excluded. Dictated by Chucho Penn MD @ 01/23/2023 11:22:58 AM (Electronically Signed)
--- NOTE | 2023-01-23 10:31 | ED.GENADULT ---
HPI - General Adult General Date Seen: 01/23/23 Chief complaint: Rib Pain Stated complaint: Fainted, fell this am--L rib pain Time Seen by Provider: 01/23/23 09:50 Source: patient Mode of arrival: ambulatory Limitations: no limitations History of Present Illness HPI narrative: Patient is an 82-year-old female with a history of AFib on warfarin, high blood pressure presenting to the emergency department for an syncopal episode. She states she was going to the bathroom when she stood up and causing her to pass out. She states she felt lightheaded shortly before this occurred. She does not know if she hit her head but does state her left lateral mid ribs are hurting. Denies any other injuries that she is aware of. Pain is only there when she moves. She sits still she has no pain. This fall was unwitnessed. She does not think she was on the ground very long. She has been able to ambulate since then. She did have a similar symptom a Win 8 months ago. This has been the only 2 times he has passed out in her life she states. She notes she had a brain tumor diagnosed little over a year ago which she has seen Neurology for. Is not on any current chemotherapy. Family is in the room with her in the states she is acting normally. Denies lightheadedness, dizziness, fevers, chills, chest pain, shortness of breath, abdominal pain, headache, vision changes. Related Data Home Medications Medication Instructions Recorded Confirmed rosuvastatin 10 mg tablet 10 mg PO HS 11/15/21 06/05/22 furosemide 20 mg tablet 20 mg PO DAILY 05/22/22 06/05/22 warfarin 2 mg tablet 2 mg PO DAILY 05/22/22 06/05/22 escitalopram oxalate 5 mg tablet 5 mg PO DAILY 06/05/22 06/05/22 Previous Rx's Medication Instructions Recorded flecainide 50 mg tablet 50 mg PO BID #60 tabs 11/16/21 metoprolol succinate 25 mg 12.5 mg (1/2 x 25 mg) PO DAILY #15 11/16/21 tablet,extended release 24 hr tabs Allergies Allergy/AdvReac Type Severity Reaction Status Date / Time No Known Drug Allergies Allergy Verified 12/12/21 12:43 Review of Systems Status of ROS: Reports: 10 or more systems reviewed and unremarkable except as noted in History and below [facility] Medical History Alcohol use ?Z78.9 - Other specified health status (ICD-10) Cognitive impairment ?R41.89 - Other symptoms and signs involving cognitive functions and awareness (ICD-10) Chronic kidney disease, stage 3b ?N18.32 - Chronic kidney disease, stage 3b (ICD-10) 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 - Rheumatic tricuspid insufficiency (ICD-10) Paroxysmal atrial fibrillation with rapid ventricular response ?I48.0 - Paroxysmal atrial fibrillation (ICD-10) Emphysema lung ?J43.9 - Emphysema, unspecified (ICD-10) COPD (chronic obstructive pulmonary disease) ?J44.9 - Chronic obstructive pulmonary disease, unspecified (ICD-10) History of smoking 30 or more pack years ?Z87.891 - Personal history of nicotine dependence (ICD-10) Carotid artery aneurysm ?I72.0 - Aneurysm of carotid artery (ICD-10) Paroxysmal supraventricular tachycardia ?I47.1 - Supraventricular tachycardia (ICD-10) 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.528 - Other complication of incontinent external stoma of urinary tract (ICD-10) Chronic kidney disease, stage 3 ?N18.30 - Chronic kidney disease, stage 3 unspecified (ICD-10) Mild cognitive impairment ?G31.84 - Mild cognitive impairment, so stated (ICD-10) Ascending aortic aneurysm ?I71.2 - Thoracic aortic aneurysm, without rupture (ICD-10) Diastolic congestive heart failure ?I50.30 - Unspecified diastolic (congestive) heart failure (ICD-10) Pulmonary nodules ?R91.8 - Other nonspecific abnormal finding of lung field (ICD-10) History of small bowel obstruction ?Z87.19 - Personal history of other diseases of the digestive system (ICD-10) History of bladder cancer ?Z85.51 - Personal history of malignant neoplasm of bladder (ICD-10) History of breast cancer ?Z85.3 - Personal history of malignant neoplasm of breast (ICD-10) History of colon cancer ?Z85.038 - Personal history of other malignant neoplasm of large intestine (ICD-10) Surgical History History of back surgery ?Z98.890 - Other specified postprocedural states (ICD-10) History of urostomy ?Z98.890 - Other specified postprocedural states (ICD-10) History of ileal conduit ?Z98.890 - Other specified postprocedural states (ICD-10) H/O total cystectomy ?Z90.6 - Acquired absence of other parts of urinary tract (ICD-10) History of colectomy ?Z90.49 - Acquired absence of other specified parts of digestive tract (ICD-10) Family History Daughter Diabetes High blood pressure Sister Stroke Social History Highest level of school completed/degree received: some college, no degree Smoking Status: Former smoker What tobacco products do you use: cigarettes Years smoked: 30 Smoking quit date/years: >15 years ago Do you use any of these nicotine containing products: None Second hand tobacco smoke exposure: No How often do you have a drink containing alcohol: 4 or more times a week Alcohol type: beer How many standard drinks containing alcohol do you have on a typical day: 1 or 2 How often do you have six or more drinks on one occasion: Never AUDIT-C Alcohol total score: 4 Non-prescribed substance use: denies use Caffeine: Yes (6 cups) service: No Exam Narrative: Exam Narrative: Const: Well-nourished, Well-developed, in mild distress Eyes: PERRL, no conjunctival injection, and symmetrical lids HENT: Atraumatic external nose and ears. Moist mucous membranes. Neck: Symmetric, trachea midline, No thyromegaly. CVS: RRR, No murmurs or gallops. Peripheral pulses 2+ and equal in all extremities RESP: Unlabored respiratory effort. Clear to auscultation bilaterally. GI: Nontender/Nondistended, No rebound or guarding. MSK:Extremities w/o deformity, Normal Active ROM, tenderness to palpation noted left lateral ribs around ribs 4 or 5. Skin: Warm, Dry. No rashes or lesions. Neuro: Normal Muscle tone, No focal neurological deficits. Psych: Awake, Alert, & Oriented x3. Appropriate mood and affect. Const: Vital Signs, click to edit/add: Vital Signs - 24 hr 01/23/23 09:55 01/23/23 11:19 Temperature 98.1 F Pulse Rate [Pulse Oximeter] 56 L Pulse Rate [orthos tatic sitting Puls e Oximeter] 54 L Pulse Rate [orthos tatic standing Pul se Oximeter] 57 L Respiratory Rate 14 Blood Pressure [Ri ght Upper Arm] 138/74 Blood Pressure [or thostatic sitting Left Arm] 131/68 Blood Pressure [or thostatic standing Left Arm] 97/77 Pulse Oximetry 98 Oxygen Delivery Me thod Room Air Course Vital Signs Vital signs: Initial Vital Signs Temperature 98.1 F 01/23/23 09:55 Temperature Source Temporal Artery Scan 01/23/23 09:55 Pulse Rate 56 L 01/23/23 09:55 Pulse Rhythm Regular 01/23/23 09:55 Respiratory Rate 14 01/23/23 09:55 Blood Pressure 138/74 01/23/23 09:55 Blood Pressure Mean 95 01/23/23 09:55 Blood Pressure Position Sitting 01/23/23 09:55 Pulse Oximetry 98 01/23/23 09:55 Oxygen Delivery Method Room Air 01/23/23 09:55 Vital Signs Temperature 98.1 F 01/23/23 09:55 Pulse Rate 56 L 01/23/23 09:55 Respiratory Rate 14 01/23/23 09:55 Blood Pressure 138/74 01/23/23 09:55 Pulse Oximetry 98 01/23/23 09:55 Oxygen Delivery Method Room Air 01/23/23 09:55 Temperature 98.1 F 01/23/23 09:55 Pulse Rate 54 L 01/23/23 11:19 Respiratory Rate 14 01/23/23 09:55 Blood Pressure 131/68 01/23/23 11:19 Pulse Oximetry 98 01/23/23 09:55 Oxygen Delivery Method Room Air 01/23/23 09:55 Medications Administered Medications: Discontinued Medications Generic Name Dose Route Start Last Admin Trade Name Freq PRN Reason Stop Dose Admin Sodium Chloride 1,000 mls @ 1,000 mls/hr 01/23/23 11:30 01/23/23 12:23 0.9 % Sodium Chloride 1000 Ml IV 01/23/23 12:29 Infused .Q1H WILLIAM Infusion Medical Decision Making MDM Narrative Medical decision making narrative: Patient is an 82-year-old female presenting to the emergency department after a fall. Patient stood up after using the felt lightheaded and passed out. She states she believes she was on the ground for only a short amount time. Is complaining about left-sided rib pain. Is painful to move at this time. She has not want any pain medications though. Of note she had a similar episode happened a few months ago and last time she had acute kidney injury was admitted. She has not had any other falls since then. She states she previously has been diagnosed with a brain tumor in his seen Neurology. Head CT without contrast was ordered. Did not want to do it with contrast because point of care troponin was elevated. Lab work returns showing no concerning abnormalities. Creatinine kinase some heme mildly elevated 143 this could be normal for her. COVID and flu were negative. INR is at 2.66. I did speak to the patient's [id number] who is an ER nurse and she states that the patient had a brain abnormality seen on imaging 2 years ago. At that time of the not know if it was a mass or aneurysm cannot say exactly what was going on. She had multiple MRIs has been seen Neurology. At this point only way to definitively diagnose her is with 2 invasive procedure and considering her age in not having any symptoms from it and not find it necessary to do this. Chest x-ray returned showing 3 mild to moderately displaced fractures at 7, 8, and 9 on the left consistent with her pain. Initial orthostatic blood pressures were positive but she was asymptomatic throughout this. She was given a L of normal saline. After this her orthostatic blood pressures were recheck. After this she was still mildly positive but not nearly as much as prior. She continues to be asymptomatic. Still has not wanted any pain medication. Her kidney function on the BMP was 1.6 at baseline is 1.4. She is not currently have an MELVI. I spoke to her and her [id number] about admission versus discharge. I explained that if she will need to be admitted via transfer her due to her 3 rib fractures as we are not allowed to keep patient started hurt because we are not a trauma center. Patient is feeling comfortable at this time and they both agreed a few safe for discharge. Patient does note that she only drinks 2 bottles of water a day and some her symptoms might be related to dehydration. I informed her she needs to drink more fluids. I will give her oxycodone for pain management. I informed after close follow-up with the primary care provider. Patient and daughter and are agreeable to this plan. Lab Data Labs: Lab Results 01/23/23 01/23/23 Range/Units 10:50 11:03 WBC 11.12 H (4.50-11.00) K/uL RBC 4.07 (4.00-5.20) m/uL Hgb 12.7 (12.0-16.0) gm/dL Hct 38.9 (33.0-51.0) % MCV 96 (80-100) fL MCH 31 (26-34) pg MCHC 33 (32-36) gm/dL RDW Coeff of Gayle 12.9 (11.5-15.5) % Plt Count 191 (140-440) K/uL Neut % (Auto) 83.0 H (42.0-72.0) % Lymph % (Auto) 4.5 L (20-44) % Morrison % (Auto) 12.1 H (0.0-11.0) % Eos % (Auto) 0.1 (0.0-7.0) % Baso % (Auto) 0.1 (0.0-3.0) % Neut # (Auto) 9.20 H (1.7-7.0) K/uL Lymph # (Auto) 0.50 L (0.90-2.90) K/uL Morrison # (Auto) 1.30 H (0.00-0.90) K/UL Eos # (Auto) 0.00 (0.00-0.50) K/uL Baso # (Auto) 0.00 (0.00-0.30) K/uL Abs Immat Gran (auto) 0.00 (0.00-0.30) K/uL Imm/Tot Granulo (auto) 0.2 % INR 2.66 H (0.91-1.10) Sodium 134 L (135-149) mmol/L Potassium 4.5 (3.6-5.1) mmol/L Chloride 102 (96-114) mmol/L Carbon Dioxide 22 (20-32) mmol/L Anion Gap 10 (7-15) mEq/L BUN 33 H (7-30) mg/dL Creatinine 1.6 H (0.5-1.5) mg/dL Estimated Creat Clear 20.70 Estimated GFR 32 ml/min Glucose 109 (60-115) mg/dL Calcium 9.1 (8.4-10.6) mg/dL Total Bilirubin 1.1 (0.1-1.5) mg/dL AST 42 H (12-35) U/L ALT 24 (4-35) U/L Alkaline Phosphatase 80 (40-150) U/L Total Creatine Kinase 143 H (41-117) U/L Troponin I < 0.01 L (0.01-0.04) ng/mL Total Protein 7.9 (6.0-8.3) g/dL Albumin 4.5 (3.3-5.0) g/dL SARS-CoV-2 (PCR) Negative SARS-CoV-2 (Negative) Influenza Type A (PCR) Negative PCR FLU A (Negative) Influenza Type B (PCR) Negative PCR FLU B (Negative) Lab Acknowledgement Test Added Imaging Data Chest x-ray: Radiologist's impression: Mild to moderately displaced fractures of the lateral 7th, 8th, and 9th ribs with minimal left basilar atelectasis. No evidence of pneumothorax. No displaced rib fracture is appreciated. If pain and clinical symptoms persist, subtle, non-displaced injuries are not entirely excluded. Dictated by Chucho Penn MD @ 01/23/2023 11:22:[address] scan - head: Radiologist's impression: 1. No intracranial bleed or mass effect. 2. Nonspecific white matter disease, likely microangiopathy. Please note that all CT scans at this facility use dose modulation, iterative reconstruction, and/or weight-based dosing when appropriate to reduce radiation dose to as low as reasonably achievable. Dictated by Maximus Somers MD @ 01/23/2023 12:41:01 PM ECG Data Attestation: I personally reviewed and interpreted this ECG as follows: Prior ECG tracings: available for review (06/05/2022) Interpretation: Sinus bradycardia rate 55 beats per minute, normal intervals, normal axis, no ST or T-wave abnormalities. Appears similar to previous EKG on file Discharge Plan Discharge Clinical Impression: Fracture of rib Qualifiers: Encounter type: initial encounter Rib fracture type: multiple ribs Fracture type: closed Laterality: left Qualified Code(s): S22.42XA - Multiple fractures of ribs, left side, initial encounter for closed fracture Syncope Qualifiers: Syncope type: unspecified Qualified Code(s): R55 - Syncope and collapse Patient Disposition: Home, Self-Care Condition: Stable Instructions: Rib Fracture (ED), Syncope (DC) Additional Instructions: Have close follow-up with your primary care provider constitution party rib fractures and syncope. Syncope might be related to dehydration as he did not drink enough water. Also will be given a prescription for oxycodone. Take Tylenol and ibuprofen for pain in use the oxycodone if that is not helping. If you are concerned he can start with half a tablet of oxycodone. Prescriptions: No Action rosuvastatin 10 mg tablet 10 mg PO HS Patient Comments: TAKE ONE TABLET BY MOUTH ONE TIME DAILY AT BEDTIME flecainide 50 mg Tablet 50 mg PO BID Qty: 60 0RF metoprolol succinate 25 mg Tablet Extended Release 24 Hr 12.5 mg PO DAILY Qty: 15 1RF escitalopram oxalate 5 mg tablet 5 mg PO DAILY warfarin 2 mg tablet 2 mg PO DAILY furosemide 20 mg tablet 20 mg PO DAILY Follow Up/Referrals: Teressa Malave DO [Staff Physician] - Stand Alone Forms: View[employer] Info Instructions
[2023-01-23 11:04] LABS: Basophils Percent Auto 0.1 % (0.0-3.0); Eosinophils Percent Auto 0.1 % (0.0-7.0); Hematocrit 38.9 % (33.0-51.0); Hemoglobin* 12.7 gm/dL (12.0-16.0); Immature Granulocytes Pct Auto 0.2 %; Lymphocytes Percent Auto 4.5 % (20-44); Mean Corpuscular HGB Conc 33 gm/dL (32-36); Mean Corpuscular Hemoglobin 31 pg (26-34); Mean Corpuscular Volume 96 fL (80-100); Monocytes Percent Auto 12.1 % (0.0-11.0); Platelet Count* 191 K/uL (140-440); RDW Coefficient of Variation % 12.9 % (11.5-15.5); Red Blood Count 4.07 m/uL (4.00-5.20); White Blood Count* 11.12 K/uL (4.50-11.00)
[2023-01-23 11:09] LABS: Slide Review Reflex No
--- NOTE | 2023-01-23 11:10 | CRLHL7_ITS ---
For Patients: As a result of the Century Cures Act, medical imaging exams and procedure reports are released immediately into your electronic medical record. You may view this report before your referring provider. If you have questions, please contact your health care provider. INDICATION: Syncope, prior brain tumor TECHNIQUE: CT head without contrast. COMPARISON: Head CT 04/29/2021 FINDINGS: CSF spaces: Within normal limits for age. Brain parenchyma: No intracranial bleed or mass effect. Moderate low density in the deep white matter. Calcification in the left caudate nucleus re- demonstrated. Skull base and calvarium: The visualized paranasal sinuses and mastoid air cells demonstrate no acute or significant findings. The visualized orbits are grossly unremarkable. No skull fractures. Atherosclerosis. IMPRESSION: 1. No intracranial bleed or mass effect. 2. Nonspecific white matter disease, likely microangiopathy. Please note that all CT scans at this facility use dose modulation, iterative reconstruction, and/or weight-based dosing when appropriate to reduce radiation dose to as low as reasonably achievable. Dictated by Maximus Somers MD @ 01/23/2023 12:41:01 PM (Electronically Signed)
[2023-01-23 11:20] LABS: Albumin* 4.5 g/dL (3.3-5.0); Chloride* 102 mmol/L (96-114); Potassium* 4.5 mmol/L (3.6-5.1); Sodium* 134 mmol/L (135-149)
[2023-01-23 11:22] LABS: Bilirubin Total* 1.1 mg/dL (0.1-1.5); Creatinine* 1.6 mg/dL (0.5-1.5); Estimated Glomerular Filt Rate 32 ml/min
[2023-01-23 11:23] LABS: Alanine Aminotransferase* 24 U/L (4-35); Alkaline Phosphatase* 80 U/L (40-150); Anion Gap 10 mEq/L (7-15); Aspartate Amino Transferase* 42 U/L (12-35); Blood Urea Nitrogen* 33 mg/dL (7-30); Carbon Dioxide* 22 mmol/L (20-32); Creatine Kinase* 143 U/L (41-117); Glucose* 109 mg/dL (60-115); INR 2.66 (0.91-1.10); Prothrombin Time 30.4 Seconds; Total Protein* 7.9 g/dL (6.0-8.3)
[2023-01-23 11:24] LABS: Calcium* 9.1 mg/dL (8.4-10.6)
[2023-01-23] MEDS: 0.9 % SODIUM CHLORIDE 1000 ml 1,000 ML IV (11:35)
[2023-01-23 11:38] LABS: Troponin I* < 0.01 ng/mL (0.01-0.04)
[2023-01-23 11:41] LABS: PCR FLU A Negative PCR FLU A (Negative); PCR FLU B Negative PCR FLU B (Negative)
[2023-01-23 11:52] LABS: SARS PCR* Negative SARS-CoV-2 (Negative)
--- NOTE | 2023-01-23 13:18 | ED.NURSE ---
Repeat Ortho VS after IVF, obtained by EDT: Sitting BP 143/66 P 53 Standing BP 121/67 P 57
== END 2023-01-23 13:15 | disposition home or self-care (01) ==
PROVIDERS: Emergency Provider Student in an Organized Health Care Education/Training Program
DX: R55 Syncope and collapse (principal); S22.42XA Multiple fractures of ribs, left side, initial encounter for closed fracture; W19.XXXA Unspecified fall, initial encounter
CPT/HCPCS: 36415; 70450; 71101; 80053; 81001; 82550; 84484; 85025; 85610; 87631; 93005; 99283; 99284; 99285; J7030

== ENCOUNTER 2023-03-24 10:28 | Outpatient (CLI) | payer MEDICARE, BC, SELFPAY ==
--- NOTE | 2023-03-24 10:45 | CRLHL7_ITS ---
For Patients: As a result of the Century Cures Act, medical imaging exams and procedure reports are released immediately into your electronic medical record. You may view this report before your referring provider. If you have questions, please contact your health care provider. BILATERAL SCREENING MAMMOGRAM WITH COMPUTER-AIDED DETECTION AND TOMOSYNTHESIS TECHNIQUE: CC and MLO views were obtained. These mammographic images have been obtained using full-field digital technique. These mammographic images were interpreted with the benefit of computer-aided detection. Breast Tomosynthesis was used in this interpretation. COMPARISON FILM: 10/25/20, 10/25/19, 09/15/18. FINDINGS: The breasts are heterogeneously dense, which may obscure small masses IMPRESSION: There is no radiographic evidence for malignancy. ASSESSMENT: BI-RADS Category 2: Benign RECOMMENDATION: Routine screening mammogram in 1 year. A lay language report of this examination will be provided to the patient. Yanick Cortez M.D. Diagnostic/Nuclear Medicine Radiologist [email or web address] CINTIA/Dictated by: Yanick Cortez MD @ 03/25/2023 8:43:00 AM (Electronically Signed)
== END 2023-03-24 10:29 | disposition home or self-care (01) ==
LOC: MAMMO 10:30
PROVIDERS: Visit Provider Family Medicine
DX: Z12.31 Encounter for screening mammogram for malignant neoplasm of breast (principal); R92.2 Inconclusive mammogram
CPT/HCPCS: 77063; 77067

== ENCOUNTER 2024-02-15 14:45 | Emergency (ER) | payer MEDICARE, BC, SELFPAY ==
[2024-02-15 14:49] VITALS: BP 186/94; PULSE 57; RESP 18; TEMP 37; O2SAT 98; BMI 28.7
--- NOTE | 2024-02-15 15:12 | CRLHL7_ITS ---
For Patients: As a result of the Century Cures Act, medical imaging exams and procedure reports are released immediately into your electronic medical record. You may view this report before your referring provider. If you have questions, please contact your health care provider. INDICATION: Shortness of breath. COMPARISON: 06/05/2022. FINDINGS: There is moderate to severe cardiomegaly increased since the prior study. The lungs are essentially clear. The pulmonary vasculature and pleural surfaces appear normal. The bony thorax appears intact. IMPRESSION: Increased cardiomegaly. Dictated by Rohith Baker MD @ 02/15/2024 4:09:25 PM (Electronically Signed)
--- NOTE | 2024-02-15 15:15 | ED.GENADULT ---
HPI - General Adult General Chief complaint: Chest Pain Stated complaint: chest pain on and off Time Seen by Provider: 02/15/24 14:49 Source: patient Mode of arrival: ambulatory Limitations: no limitations History of Present Illness HPI narrative: 83-year-old female presenting today with chest pain and dizziness. Patient states that she was at home getting ready to watch the [employer] game when she was walking from her kitchen to the living room and she felt lightheaded as if she would soon pass out. She therefore sat down on her couch and the symptoms passed within a couple of minutes. She denies any vertiginous symptoms, room was not spinning. She did not feel like she had to throw up. Less than an hour or so later she got up to take her dog outside to use the bathroom. She was standing outside talking to her neighbor when all of a sudden she felt lightheaded again. She then stated that she was going to go back in the house and she felt a central chest pain. She got back in the house step back on the couch and symptoms passed within a few minutes. She states that since then she has felt a chest discomfort that lasted 1-2 minutes 1 other time. When this occurs she does not feel diaphoretic or short of breath. She denies any recent illness. No coughing, fevers or chills. No changes in her appetite. She has been eating normally. She denies any abdominal discomfort. She denies any urinary symptoms. No diarrhea. Patient is currently asymptomatic. She does have history of atrial fibrillation and she is anticoagulated. Looking through patient's chart, it appears that she has had more than 1 syncopal episodes in the past. Latest 1 was about 1 year ago and resulted in rib fractures. Related Data Home Medications ?Medication ?Instructions ?Recorded ?Confirmed rosuvastatin 10 mg tablet 10 mg PO HS 11/15/21 02/15/24 warfarin 2 mg tablet 2 mg PO DAILY 05/22/22 02/15/24 escitalopram oxalate 5 mg tablet 5 mg PO DAILY 06/05/22 02/15/24 Previous Rx's ?Medication ?Instructions ?Recorded flecainide 50 mg tablet 50 mg PO BID #60 tabs 11/16/21 Allergies Allergy/AdvReac Type Severity Reaction Status Date / Time No Known Drug Allergies Allergy Verified 02/15/24 14:55 Review of Systems Status of ROS: Reports: 10 or more systems reviewed and unremarkable except as noted in History and below [facility] Medical History Alcohol use ?Z78.9 - Other specified health status (ICD-10) Cognitive impairment ?R41.89 - Other symptoms and signs involving cognitive functions and awareness (ICD-10) Chronic kidney disease, stage 3b ?N18.32 - Chronic kidney disease, stage 3b (ICD-10) 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 - Rheumatic tricuspid insufficiency (ICD-10) Paroxysmal atrial fibrillation with rapid ventricular response ?I48.0 - Paroxysmal atrial fibrillation (ICD-10) Emphysema lung ?J43.9 - Emphysema, unspecified (ICD-10) COPD (chronic obstructive pulmonary disease) ?J44.9 - Chronic obstructive pulmonary disease, unspecified (ICD-10) History of smoking 30 or more pack years ?Z87.891 - Personal history of nicotine dependence (ICD-10) Carotid artery aneurysm ?I72.0 - Aneurysm of carotid artery (ICD-10) Paroxysmal supraventricular tachycardia ?I47.1 - Supraventricular tachycardia (ICD-10) 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.528 - Other complication of incontinent external stoma of urinary tract (ICD-10) Chronic kidney disease, stage 3 ?N18.30 - Chronic kidney disease, stage 3 unspecified (ICD-10) Mild cognitive impairment ?G31.84 - Mild cognitive impairment, so stated (ICD-10) Ascending aortic aneurysm ?I71.2 - Thoracic aortic aneurysm, without rupture (ICD-10) Diastolic congestive heart failure ?I50.30 - Unspecified diastolic (congestive) heart failure (ICD-10) Pulmonary nodules ?R91.8 - Other nonspecific abnormal finding of lung field (ICD-10) History of small bowel obstruction ?Z87.19 - Personal history of other diseases of the digestive system (ICD-10) History of bladder cancer ?Z85.51 - Personal history of malignant neoplasm of bladder (ICD-10) History of breast cancer ?Z85.3 - Personal history of malignant neoplasm of breast (ICD-10) History of colon cancer ?Z85.038 - Personal history of other malignant neoplasm of large intestine (ICD-10) Surgical History History of back surgery ?Z98.890 - Other specified postprocedural states (ICD-10) History of urostomy ?Z98.890 - Other specified postprocedural states (ICD-10) History of ileal conduit ?Z98.890 - Other specified postprocedural states (ICD-10) H/O total cystectomy ?Z90.6 - Acquired absence of other parts of urinary tract (ICD-10) History of colectomy ?Z90.49 - Acquired absence of other specified parts of digestive tract (ICD-10) Family History Daughter Diabetes High blood pressure Sister Stroke Social History Highest level of school completed/degree received: some college, no degree Smoking Status: Former smoker What tobacco products do you use: cigarettes Years smoked: 30 Smoking quit date/years: >15 years ago Do you use any of these nicotine containing products: None Second hand tobacco smoke exposure: No How often do you have a drink containing alcohol: 4 or more times a week Alcohol type: beer How many standard drinks containing alcohol do you have on a typical day: 1 or 2 How often do you have six or more drinks on one occasion: Never AUDIT-C Alcohol total score: 4 Non-prescribed substance use: denies use Caffeine: Yes (6 cups) service: No Exam Narrative: Exam Narrative: Well-nourished well-developed patient in no acute distress. Alert and oriented x3. Answers questions appropriately but does need to be guided as she is somewhat of a difficult historian. Mood and affect are appropriate. Thoughts are goal oriented and rational. No tangential or magical thinking noted. Patient speaks in full sentences without needing to catch her breath. HEENT: Normocephalic atraumatic. Pupils are equally round reactive to light. Extraocular muscles are intact. Conjunctivae are moist without any icterus noted. Moist mucous membranes. Neck is soft. Cardiovascular: Heart is regular rate and rhythm S1 and S2 are present without any murmurs. Lungs: Clear to auscultation bilaterally no wheezes rhonchi or rales are appreciated. Patient takes deep breaths without any discomfort. Abdomen: Soft and nontender nondistended with normal bowel sounds. No guarding or rebound. Extremities: Bilateral lower extremities are without edema. Skin: Well perfused without any obvious rashes. Scattered ecchymosis of the upper extremities. Const: Vital Signs, click to edit/add: Vital Signs - 24 hr 02/15/24 14:49 02/15/24 18:18 02/15/24 18:20 Temperature 98.6 F Pulse Rate [Right Pulse Oximeter] 57 L 62 60 Respiratory Rate 18 Blood Pressure [Ri ght Upper Arm] 186/94 H 170/72 H 175/84 H Pulse Oximetry 98 Oxygen Delivery Me thod Room Air Course Course ED Course: EKG, read by me, shows sinus bradycardia with a pulse of 56. Chest x-ray, read by me, shows cardiomegaly. CBC shows mild anemia with a hemoglobin of 11.6, normal white cell count. INR is mildly subtherapeutic at 1.77. Normal chemistries and LFTs. Troponin was less than 0.01. CRP is normal. Lipase is minimally elevated at 315. I did request the patient be placed on a manager cardiac, however she did not want await in the exam room and shows instead to spend her time in the waiting room where there were windows. Repeat EKG was unchanged. Repeat troponin was normal. Patient remained asymptomatic while she was in the ER. No evidence of orthostatic hypotension or abnormality. Vital Signs Vital signs: Initial Vital Signs Temperature 98.6 F 02/15/24 14:49 Temperature Source Temporal Artery Scan 02/15/24 14:49 Pulse Rate 57 L 02/15/24 14:49 Pulse Rhythm Regular 02/15/24 14:49 Pulse Strength 3+ Normal 02/15/24 14:49 Respiratory Rate 18 02/15/24 14:49 Blood Pressure 186/94 H 02/15/24 14:49 Blood Pressure Mean 124 H 02/15/24 14:49 Blood Pressure Position Sitting 02/15/24 14:49 Pulse Oximetry 98 02/15/24 14:49 Oxygen Delivery Method Room Air 02/15/24 14:49 Vital Signs Temperature 98.6 F 02/15/24 14:49 Pulse Rate 57 L 02/15/24 14:49 Respiratory Rate 18 02/15/24 14:49 Blood Pressure 186/94 H 02/15/24 14:49 Pulse Oximetry 98 02/15/24 14:49 Oxygen Delivery Method Room Air 02/15/24 14:49 Temperature 98.6 F 02/15/24 14:49 Pulse Rate 60 02/15/24 18:20 Respiratory Rate 18 02/15/24 14:49 Blood Pressure 175/84 H 02/15/24 18:20 Pulse Oximetry 98 02/15/24 14:49 Oxygen Delivery Method Room Air 02/15/24 14:49 Medical Decision Making MDM Narrative Medical decision making narrative: 83-year-old female with episodes of feeling lightheaded, brief, less than 2 minute long episodes of chest pain. Workup today was unremarkable and she remained asymptomatic. Patient does have a history of syncope in the past. We discussed being very careful over the next few days, increasing fluid intake and making sure she is getting plenty of rest. Follow-up with her primary care provider this coming week for recheck. Medical Records Medical records reviewed: Yes I reviewed the patient's medical records Lab Data Labs: Lab Results 02/15/24 02/15/24 02/15/24 Range/Units 15:12 15:25 17:30 WBC 4.95 (4.50-11.00) K/uL RBC 3.67 L (4.00-5.20) m/uL Hgb 11.6 L (12.0-16.0) gm/dL Hct 36.4 (33.0-51.0) % MCV 99 (80-100) fL MCH 32 (26-34) pg MCHC 32 (32-36) gm/dL RDW Coeff of Gayle 12.9 (11.5-15.5) % Plt Count 163 (140-440) K/uL Neut % (Auto) 63.4 (42.0-72.0) % Lymph % (Auto) 17.0 L (20-44) % Haskell % (Auto) 17.0 H (0.0-11.0) % Eos % (Auto) 2.2 (0.0-7.0) % Baso % (Auto) 0.4 (0.0-3.0) % Neut # (Auto) 3.14 (1.7-7.0) K/uL Lymph # (Auto) 0.80 L (0.90-2.90) K/uL Haskell # (Auto) 0.80 (0.00-0.90) K/UL Eos # (Auto) 0.11 (0.00-0.50) K/uL Baso # (Auto) 0.02 (0.00-0.30) K/uL Abs Immat Gran (auto) 0.00 (0.00-0.30) K/uL Imm/Tot Granulo (auto) 0.0 % INR 1.77 H (0.91-1.10) Sodium 135 (135-149) mmol/L Potassium 4.5 (3.6-5.1) mmol/L Chloride 105 (96-114) mmol/L Carbon Dioxide 23 (20-32) mmol/L Anion Gap 7 (7-15) mEq/L BUN 28 (7-30) mg/dL Creatinine 1.4 (0.5-1.5) mg/dL Estimated Creat Clear 23.24 Estimated GFR 37 ml/min Glucose 113 (60-115) mg/dL Lactate 0.9 (0.5-1.9) mmol/L Calcium 9.2 (8.4-10.6) mg/dL Total Bilirubin 0.4 (0.1-1.5) mg/dL Direct Bilirubin 0.1 (0.0-0.5) mg/dL AST 33 (12-35) U/L ALT 19 (4-35) U/L Alkaline Phosphatase 54 (40-150) U/L Troponin I < 0.01 L (0.01-0.04) ng/mL C-Reactive Protein < 0.5 L (0.5-1.0) mg/dL Total Protein 7.0 (6.0-8.3) g/dL Albumin 4.1 (3.3-5.0) g/dL Lipase 315 H (23-300) U/L Ethyl Alcohol < 0.01 L (0.01-0.03) % POC Troponin I 0.01 0.01 (0.01-0.04) ng/ml Imaging Data Chest x-ray: Attestation: I have reviewed the pertinent imaging results. Radiologist's impression: Shortness of breath. COMPARISON: 06/05/2022. FINDINGS: There is moderate to severe cardiomegaly increased since the prior study. The lungs are essentially clear. The pulmonary vasculature and pleural surfaces appear normal. The bony thorax appears intact. IMPRESSION: Increased cardiomegaly. ECG Data Attestation: I personally reviewed and interpreted this ECG as follows: Discharge Plan Discharge Clinical Impression: Dizziness, Atypical chest pain Patient Disposition: Home, Self-Care Condition: Stable Instructions: Chest Pain (ED) Additional Instructions: Your workup today did not reveal any acute cause of your symptoms. Because you do have a history of fainting, I recommend you be very careful over the next few days. Get up from a sitting position very slowly. Make sure you are drinking lots of water, juice or tea. Make sure you are getting plenty of rest and eating nutritious meals. Recommend you follow-up with your primary care provider this coming week for a recheck. Prescriptions: No Action rosuvastatin 10 mg tablet 10 mg PO HS Patient Comments: TAKE ONE TABLET BY MOUTH ONE TIME DAILY AT BEDTIME flecainide 50 mg Tablet 50 mg PO BID Qty: 60 0RF escitalopram oxalate 5 mg tablet 5 mg PO DAILY warfarin 2 mg tablet 2 mg PO DAILY Follow Up/Referrals: Provider,Not a Local [Non-Staff] - Stand Alone Forms: E.M.A.R.[facility]. Info Instructions
[2024-02-15 15:35] LABS: Lactate* 0.9 mmol/L (0.5-1.9)
[2024-02-15 15:38] LABS: Basophils Absolute Auto 0.02 K/uL (0.00-0.30); Basophils Percent Auto 0.4 % (0.0-3.0); Eosinophils Absolute Auto 0.11 K/uL (0.00-0.50); Eosinophils Percent Auto 2.2 % (0.0-7.0); Hematocrit 36.4 % (33.0-51.0); Hemoglobin* 11.6 gm/dL (12.0-16.0); Mean Corpuscular HGB Conc 32 gm/dL (32-36); Mean Corpuscular Hemoglobin 32 pg (26-34); Mean Corpuscular Volume 99 fL (80-100); Neutrophils Absolute Auto 3.14 K/uL (1.7-7.0); Neutrophils Percent Auto 63.4 % (42.0-72.0); Platelet Count* 163 K/uL (140-440); RDW Coefficient of Variation % 12.9 % (11.5-15.5); Red Blood Count 3.67 m/uL (4.00-5.20); White Blood Count* 4.95 K/uL (4.50-11.00)
[2024-02-15 15:39] LABS: Slide Review Reflex No
[2024-02-15 15:44] LABS: Troponin, Point-of-Care* 0.01 ng/ml (0.01-0.04)
[2024-02-15 15:52] LABS: Albumin* 4.1 g/dL (3.3-5.0); Chloride* 105 mmol/L (96-114)
[2024-02-15 15:53] LABS: Potassium* 4.5 mmol/L (3.6-5.1); Sodium* 135 mmol/L (135-149)
[2024-02-15 15:54] LABS: Creatinine* 1.4 mg/dL (0.5-1.5); Est. Creatinine Clearance* 23.24; Estimated Glomerular Filt Rate 37 ml/min
[2024-02-15 15:55] LABS: Alkaline Phosphatase* 54 U/L (40-150); Anion Gap 7 mEq/L (7-15); Aspartate Amino Transferase* 33 U/L (12-35); Bilirubin Direct* 0.1 mg/dL (0.0-0.5); Bilirubin Total* 0.4 mg/dL (0.1-1.5); Blood Urea Nitrogen* 28 mg/dL (7-30); Carbon Dioxide* 23 mmol/L (20-32); Lipase* 315 U/L (23-300)
[2024-02-15 15:56] LABS: Alanine Aminotransferase* 19 U/L (4-35); Calcium* 9.2 mg/dL (8.4-10.6); Glucose* 113 mg/dL (60-115); INR 1.77 (0.91-1.10); Prothrombin Time 21.9 Seconds
[2024-02-15 15:57] LABS: Ethanol* < 0.01 % (0.01-0.03)
[2024-02-15 16:04] LABS: C Reactive Protein* < 0.5 mg/dL (0.5-1.0)
[2024-02-15 16:08] LABS: Troponin I* < 0.01 ng/mL (0.01-0.04)
[2024-02-15 18:10] LABS: Troponin, Point-of-Care* 0.01 ng/ml (0.01-0.04)
[2024-02-15 18:18] VITALS: BP 170/72; PULSE 62
[2024-02-15 18:20] VITALS: BP 175/84; PULSE 60
== END 2024-02-15 18:22 | disposition home or self-care (01) ==
PROVIDERS: Emergency Provider Family Medicine; PCP Family Medicine
DX: R07.9 Chest pain, unspecified (principal)
CPT/HCPCS: 36415; 71046; 80048; 80076; 82077; 83605; 83690; 84484; 85025; 85610; 86140; 93005; 99284

== ENCOUNTER 2024-07-23 10:29 | Emergency (ER) | payer MEDICARE, BC, SELFPAY ==
--- OUTSIDE RECORDS SUMMARY | 2024-07-23 10:31 | XMS_ITS | Clinical Summary ---
Author Organization [facility] Address [address] [place] [id number] Care Team Providers Care Cable Television Installer Name Role Phone Teressa Malave DO Primary Care Provider [phone] Allergies No known active allergies Medications biotin 1 mg cap Take 1 capsule by mouth. 0 9 Active cholecalciferol (VITAMIN D-3) 2,000 unit capsule Take 1 capsule by mouth once daily. 0 0 Active cyanocobalamin (Vitamin B-12) 1,000 mcg tablet Take 1 Tablet (1,000 mcg) by mouth once daily. 90 Tablet 3 2 Active Cizjs-9-SFN-EPA-Fi sh Oil 1,000 mg (120 mg-180 mg) cap Take 1 Capsule (1,000 mg) by mouth. 0 3 Active calcium carb-D3-mag ox-zinc ox (Gabe Mag Zinc Plus D3) 333 mg-133 unit -133 mg-5 mg tab Take by mouth. 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 10 Each 3 3 Active Ostomy Supplies 1 03/24 miscIndications:Ca rcinoma in situ of bladder,Urinary tract artificial opening in place (HC) As directed. Skin barrier CPL E/W 1-03/24 B5 30 Each 3 3 Active ostomy supplies powdIndications:Ca rcinoma in situ of bladder,Urinary tract artificial opening in place (HC) Apply topically to affected area(s). 28.3 g 3 3 Active Urostomy Pouch 2 03/20 (9) miscIndications:Ca rcinoma in situ of bladder,Urinary tract artificial opening in place (HC) As directed. 30 Each 3 3 Active Colostomy Washer (Adapt Barrier Ring) 1 05/30 miscIndications:Ca rcinoma in situ of bladder,Urinary tract artificial opening in place (HC) As directed. Skin barrier ring 03/20-1 05/30 30 Each 3 3 Active miscellaneous medical supply (Blood Pressure Cuff) miscIndications:HT N (hypertension) As directed. Home BP cuff 1 Each 4 Active rosuvastatin (CRESTOR) 10 mg tabletIndications: Hyperlipidemia, unspecified hyperlipidemia type Take 1 Tablet (10 mg) by mouth at bedtime. 90 Tablet 2 4 Active warfarin (COUMADIN) 2 mg tabletIndications: Paroxysmal atrial fibrillation (HC),Anticoagulati on monitoring, INR range 2-3 Take by mouth 3 mg (2 mg x 1.5) every Fri, Lexi, Sat; 2 mg (2 mg x 1) all other days in the evening OR as directed 115 Tablet 5 Active escitalopram oxalate 5 mg tabletIndications: Anxiety Take 1 Tablet (5 mg) by mouth once daily in the morning. 90 Tablet 1 5 Active Active Problems Problem Noted Date Diagnosed Date Prediabetes 04/09/2024 Sinus pause 12/23/2023 Sinus bradycardia 12/23/2023 PAF (paroxysmal atrial fibrillation) 12/23/2023 Pulmonary emphysema 10/09/2023 Overview (10/09/2023): On CT 2021, PFT's 2021 Normal. 2023: no symptoms Brain aneurysm 10/06/2023 Overview (10/06/2023): Follow up MRA brain due September 2026 per last MRA 09/2023 Chronic diastolic heart failure 05/21/2023 Paroxysmal atrial fibrillation 12/17/2021 Anticoagulation monitoring, INR range 2-3 2021 History of creation of ostomy 04/02/2021 CKD (chronic kidney disease) stage 3, GFR 30-59 ml/min 03/01/2019 Overview (03/01/2019): Has seen nephrology - recommended repeat creatinine in August 2019 History of ileal conduit 02/25/2019 Ascending aortic aneurysm 10/15/2018 Overview (10/19/2019): 2018 3.9cm 2019 4.2cm. repeat echocardiogram in 1 year Echocardiogram 2019 = 4.2cm with newly mentioned L to right shunt: referred to cardiology who noted below plan: Mild ascending aortic aneurysm--stable from last year. Recommend annual echo (Cardiology mentioned they will order) L to R atrial shunt--this was mentioned on her echocardiogram this year and has not been mentioned prior. Given she is asymptomatic and has good L and R CV function, there is not a critical need to further evaluate at this time and her age Mild cognitive impairment with memory loss 09/01 Overview (09/23/2022): Evaluation Occupational Therapy evaluation 07/10/2022 John cognitive assessment score is 17/30 Badger Making Test 61 seconds average score 29 when greater than 78 indicates need for further evaluation Part B score 275 seconds with errors deficit indicated when greater than 273 seconds M EDYTA test 1 minute and 52 seconds with 5 errors if 61 seconds or longer then consider cognitive impairment Road long road crash test score 17/3 7 Cognitive performance test score 4.5 normal function 5.6 May be able to speak better then can perform Recommended home assistance with meal planning preparation and driving not recommended arranging alternative transport [facility] Diastolic dysfunction without heart failure 10/2015 Overview (11/23/2015): Echocardiogram 10/2015 Pulmonary nodules 04/25/2015 Overview (04/25/2015): CT 05/11/14 with 2 pulmonary nodules 7.6mm and 4.1mm, per radiology report compared with CT from 10/31/11 and 'no further work up needed' Ileitis 10/31/2011 Small bowel obstruction 10/31/2011 ACP (advance care planning) 10/31/2011 Overview (10/31/2011): Patient has identified Health Care Agent(s): Yes Add Health Care Agents: No Patient has Advance Care Plan Documents (Health Care Directive, POLST): Yes Advance Care Plan Documents: Health Care Directive Patient has identified Specific Treatment Preferences: Yes Specific Treatment Preferences: a.) Code Status: CPR/Attempt Resuscitation Resolved Problems Problem Noted Date Diagnosed Date Resolved Date Chronic obstructive pulmonar y disease, unspecified COPD type 06/13/2022 10/09/2023 Injury of right knee 09/30/2014 017 Hyponatremia 10/31/2011 03/30/2012 Diarrhea 10/31/2011 08/30/2016 Hypokalemia 10/31/2011 03/30/2012 s/p cystectomy/urostomy for bladder ca 06/13/2022 Colon cancer 08/30/2021 Overview (05/19/2014): Colonoscopy 12/2011 polyp repeat in 5 years Colonoscopy 05/2014 normal repeat in 5 years Breast cancer 08/30/2021 Encounters Date Type Department Care Team Description 07/14/2024 8:30 AM CDT Orders Only [facility] [address] [place] [address] [place] 07/14/2024 Anticoagulation (warfarin) [facility] [address] [facility] [place] [address] 1, [place] [facility] Anticoagulation 07/14/2024 Travel 06/16/2024 8:30 AM CDT Orders Only [facility] [address] [facility] [place] [address] Lab, [place] [facility] 06/16/2024 Anticoagulation (warfarin) [facility] [address] [facility] [place] [address] 1, [place] [facility] Anticoagulation 06/16/2024 Travel 05/30/2024 Refill [facility] [address] [place] [address] Teressa Malave, Refill Request (Escitalopram Oxalate) 05/25/2024 Telephone [facility] [address] [place] [address] Teressa Malave DO Anticoagulation (Annual re-enrollment /) 05/19/2024 1:30 PM CONSTRUCTION SUPERVISOR/CARPENTER Orders Only [facility] [address] [facility] [address] Lab[place] [facility] 05/19/2024 Anticoagulation (warfarin) [facility] [address] [place] [address] 1, [place] [facility] Anticoagulation 05/19/2024 Travel 04/28/2024 Refill [facility] [address] [facility] [address] Teressa Malave DO Refill Request (Warfarin) from Last 3 Months Immunizations Immunization Administration Dates Next Due AMB INFLUENZA IIV3 (AGE 65+ YRS) PF (Flu Clinic Only) 12/27/2016 AMB Influenza, IIV3 (Age >=3 years)(Flu Clinic Only) 12/03/2012,01/07/2008 Amb Influenza, Inactivated A IIV4 (Age 65+ Years) Preserv Free 12/02/2019 COVID-19 VACCINE (PFIZER-BIO NTECH 3MCG/0.3ML) 6MO-4YO PF, MDV 07/04/2021 COVID-19 VACCINE SPIKEVAX (M ODERNA 50MCG/0.5ML) 12YO+ PFS 12/08/2023,02/13/2023 COVID-19 vaccine (Pfizer-Bio NTech 30mcg/0.3mL) 12YO+ BIVALENT PF, MDV 02/04/2022 COVID-19 vaccine (Pfizer-Bio NTech 30mcg/0.3mL) 12YO+ MEGAN-SUCROSE PF, MDV 07/04/2021 COVID-19 vaccine (Pfizer-Bio NTech 30mcg/0.3mL) PF, MDV 05/20/2020,04/29/2020 Influenza A (H1N1), Inactivated 03/21/2009 Influenza A (H1N1), Inactiva medina (Age >=3 Years) 03/21/2009 Influenza, High-dose Inactivated 11/23/2015,10/0 03/2014,11/29/2013 Influenza, IIV3 (Age 6-35 mos) 11/28/2010,2009 Influenza, IIV3 (Age >=3 years) 12/17/19 12,11/28/2010,12/07/2009,12/13,01/01/2005,12/29/2003 Influenza, Inactivated AIIV4 (Age 65+ Years) Preserv Free 02/13/2023,11/20/2021,11/27/2020 Influenza, Inactivated IIV3 (Age 65+ Years) Preserv Free 12/08/2023,11/27/2018 Pneumococcal Poly,23-Valent (Pneumovax) 08/29/2015 Pneumococcal conj 13-Valent (Prevnar 13) 08/26/2014 RSV, Recombinant ADJ Reconst ituted (Arexvy 120MCG/0.5mL) 12/14/2023 Td, Preservative Free (age >= 7 Years) 5 Tdap 08/26/2014 Zoster (Zostavax-ZVL, live) 06/16/2011 Family History Medical History Relation Name Comments Diabetes Daughter 1 Hypertension Daughter 2 Stroke Sister 1 Aleshia Relation Name Status Comments Daughter 1 Daughter 2 Sister 1 Aleshia sister Aleshia was 82, of massive stroke per pt Sister 2 Mickie Alive Social History Tobacco Use Types Packs/Day Years Used Date Smoking Tobacco: Former Cigarettes 1 34 0 03/17/1957 - 03/30/1991 Smokeless Tobacco: Never Tobacco Cessation:Counseling Given: Yes Alcohol Use Standard Drinks/Week Comments Yes 7 (1 standard drink = 0.6 oz pur e alcohol) 1 beer per at 3pm PHQ-2 Answer Date Recorded PHQ-2 TOTAL SCORE 1 05/21/2023 Social Connections Answer Date Recorded Do you often feel lonely or isolated from those around you? 0 04/07/2024 Financial Resource Strain Answer Date R ecorded Difficulty of Paying Living Expenses 3 04/07/2024 Difficulty of Paying Living Expenses Not on file 04/07/2024 Food Insecurity Answer Date Recorded Do you worry your food will run out before you are able to buy more? 1 04/07/2024 Transportation Needs Answer Date Record ed Does lack of transportation keep you from medica l appointments? 1 04/07/2024 Does lack of transportation keep you from work, meetings or getting things that you need? 1 04/07/2024 Housing Stability Answer Date Recorded What is your housing situation today? 1 04/07/2024 Utilities Answer Date Recorded Do you have trouble paying f or utilities (for example, heat, electricity, water, phone)? 1 04/07/2024 Comments No Sex and Gender Information Value Date Recorded Sex Assigned at Not on file Legal Sex Female 6:05 AM CONSTRUCTION SUPERVISOR/CARPENTER Gender Identity Not on file Sexual Orientation Not on file Occupation Industry Job Start Date Job End Date retired Not on file Not on file Not on file Obstetrics History Para Term AB IAB SAB Ectopic Multiple Livin g Live Births 3 3 3 0 3 3 Date Outcome GA Total Labor Labor/2nd/3rd Weight Sex Type Anes PTL Loretta A1 A5 Name Clin Term Living Term Living Term Living Last Filed Vital Signs Vital Sign Reading Time Taken Comments Blood Pressure 157/82 04/07/2024 11:38 AM CONSTRUCTION SUPERVISOR/CARPENTER Pulse 57 04/07/2024 11:38 AM CONSTRUCTION SUPERVISOR/CARPENTER Temperature 36.7 C (98.1 F) 09/26/2022 1:48 PM CDT Respiratory Rate 16 01/05/2018 10:06 AM CDT Oxygen Saturation 100% 04/07/2024 11:38 AM CONSTRUCTION SUPERVISOR/CARPENTER Inhaled Oxygen Concentration - - Weight 72 kg (158 lb 12.8 oz) 04/07/2024 11:38 A M CONSTRUCTION SUPERVISOR/CARPENTER Height 157.5 cm (5' 2) 09/12/2023 10:02 AM CDT Body Mass Index 29.04 09/12/2023 10:02 AM CDT Plan of Treatment Upcoming Encounters Date Type Department Care Team (Late st Contact Info) Description 09/08/2024 9:15 AM CDT Orders Only [facility] [address] [place] [address] [place] 10/05/2024 9:00 AM CDT Office Visit [facility] [place] [facility] [address] [place] [address] [place] [address] [address] [facility] [address] [place] [address] Health Maintenance Due Date Last Done Comments Zoster (shingles) series for age 50+ (2 of 3) 08/11/2011 06/16/2011 Medicare Wellness for age 65+ 05/21/2024, 09/14/2019, 09/07/2018, Additional history exists Depression screening for age 12+ 05/22/2024 05/23/2023, 05/22/2023, 05/21/2023, Additional history exists COVID-19 vaccine series ( season) 2024 12/08/2023, 02/13/2023, 02/04/2022, Additional history exists Tetanus booster 08/26/2024 08/26/2014, 08/26/2014 BMI (ht and wt on same day) for age 18+ 09/11/2024 09/12/2023, 05/21/2023, 09/23/2022, Additional history exists Tdap Completed 08/26/2014 Pneumococcal series for age 50+ Completed 6, 08/26/2014 DEXA/DXA scan for age 65+ Completed 06/23/2023, Influenza Vaccine Completed 12/08/2023, , 11/20/2021, Additional history exists RSV vaccine for adults or Completed 12/14/2023 Goals Goal Patient Goal Type Associated Problems Recent Progress Patient-Stated? Author BLOOD PRESSURE - Maintains BP less than 130/80 Blood Pressure No Aditya Durand BLOOD PRESSURE - Maintains BP less than 140/90 Blood Pressure No Aditya Durand Procedures Procedure Name Priority Date/Time Associated Diagnosis Comments INR,POCT Routine 07/14/2024 8:26 AM CDT Paroxysmal atrial fibrillation (HC) Anticoagulation monitoring, INR range 2-3 INR,POCT Routine 06/16/2024 8:30 AM CDT Paroxysmal atrial fibrillation (HC) Anticoagulation monitoring, INR range 2-3 INR,POCT Routine 05/19/2024 1:03 PM CONSTRUCTION SUPERVISOR/CARPENTER Paroxysmal atrial fibrillation (HC) Anticoagulation monitoring, INR range 2-3 XR DXA BONE DENSITY 2 SITES AXIAL AND 1 SITE PERIPHERAL Routine 06/23/2023 11:39 AM CDT Osteopenia, unspecified location Other specified disorders of bone density and structure, other site from Last 3 Months or Most Recently Relevant to Health Maintenance Results * (ABNORMAL) INR - POCT [09850.2] - Standing Order (07/14/2024 8:26 AM CDT) Only the most recent of3 resultswithin the time period is included. INR 2.0(H) ratio [facility] Comment: INRs >2.9 may be falsely elevated in patients receiving either unfractionated Heparin or Low Molecular Weight Heparin. Follow up testing in a hospital laboratory may be helpful if clinically indicated. INR results of > or = 5.0 should be verified using the standard venipuncture procedure. Reference Range 0.9-1.1 Moderate-intensity Warfarin Therapy 2.0-3.0 Higher-intensity Warfarin Therapy 3.0-4.0 PROTHROMBIN TIMEP 23.7(H) 10.5 - 13.1 sec [facility] Comment: Point of care fingerstick Prothrombin Time/INR results may vary from venous Prothrombin Time/INR methodologies. Any results exhibiting inconsistency with the patient's clinical status should be repeated using a venous Prothrombin Time/INR method. Blood BLOOD SPECIMEN / Unknown 07/14/2024 8:26 AM CDT 07/14/2024 8:27 AM CDT Teressa Malave DO LABORATORY Final Resu lt [facility] [address] [place] [address], [facility] [address] [place] [address] * (ABNORMAL) XR DXA BONE DENSITY 2 SITES AXIAL AND 1 SITE PERIPHERAL (06/23/2023 11:39 AM CDT) Anatomical Region Laterality Modality LUMBAR SPINE Other Impressions 06/24/2023 1:57 PM CDT Osteopenia. RECOMMENDATIONS: The National Osteoporosis Foundation recommends pharmacologic treatment for patients with T-scores of -2.5 or less, patients with prior history of fragility fractures, or patients with 10-year probability of greater than 3% at hips or greater than 20% of suffering major osteoporotic fractures. Recommend continued optimization of calcium and vitamin D intake through dietary means and/or supplementation and regular exercise. Consider pharmacologic therapy for osteopenia with increased fracture risk. Follow-up bone density reading in 2 years if therapy initiated to assess therapeutic efficacy. Tere March PA-C [facility] 06/24/2023 Narrative 06/24/2023 1:57 PM CDT For Patients: Results are automatically released to your [facility] (judo) account once available, in compliance with federal regulations. This means that you may see your results before your provider has had a chance to review them. Please allow 2-3 business days for your provider to comment on the results. XR DXA Bone Mineral Density (BMD) EXAM LOCATION: [address] [address] PATIENT NAME: Rosa M Jones DATE OF : 1940 EXAM DATE: 06/23/2023 REQUESTING PROVIDER: Teressa Malave DO GENDER AT : female HEIGHT: 5' 2.6 (05/21/2023) WEIGHT: 155 lb (05/21/2023) MENOPAUSAL STATUS: Postmenopausal RACE/ETHNICITY: White RISK FACTORS: Smoking (prior) and White Race CURRENT MEDICATION FOR BONE LOSS: NONE INDICATION: Follow-up of existing osteopenia and Post-Menopause COMPARISON DATE(S): 2016 DXA scans are compared to prior studies for a patient only when the two (or more) studies were performed on the same scanner. It is not possible to compare data generated on one scanner to data from another because there are not standards in DXA equipment. This applies even if the two scanners are made by the same car checker. PROCEDURE: Dual-energy x-ray absorptiometry performed with routine technique. Reporting is completed in the form of a T-score. The T-score represents the standard deviation from peak bone mass based on young healthy adult. A Z-score is used for diagnosis in premenopausal women, and for men under the age of 50. FINDINGS: RESULT LUMBAR SPINE L1 - L4 BMD: 0.991 g/cm2 T-Score: - 1.6 Z-Score: + 0.1 Change from prior in 2017: Increase 0.8%. RESULTS FEMUR Left femoral neck BMD: 0.822 g/cm2 T-Score: - 1.6 Z-Score: + 0.7 Change from prior in 2017: Decrease 6.4%. Right femoral neck BMD: 0.853 g/cm2 T-Score: - 1.3 Z-Score: + 0.9 Change from prior in 2017: Decrease 0.5%. Left hip BMD: 0.856 g/cm2 T-Score: - 1.2 Z-Score: + 0.9 Change from prior in 2017: Decrease 7.6%. Right hip BMD: 0.820 g/cm2 T-Score: - 1.5 Z-Score: + 0.7 Change from prior in 2017: Decrease 7.2%. RESULT FOREARM Left Forearm distal radius BMD: 0.557 g/cm2 T-Score: - 1.9 Z-Score: + 1.2 Change from prior: None WHO criteria: Normal: T-score at or above -1 SD Osteopenia: T-score between -1.1 and -2.4 SD Osteoporosis: T-score at or below -2.5 SD FRAX RISK CALCULATION (USED FOR OSTEOPENIA ONLY): 10-year probability of major osteoporotic fracture: 13.8%. 10-year probability of hip fracture: 3.7%. Teressa Malave DO DEXA Final Resu lt from Last 3 Months or Most Recently Relevant to Health Maintenance Insurance MEDICARE PART B HB ONLY [place] MR PB ONLY [place] BL[place] HB ONLY Advance Directives * Full Code (Latest Code Status on File) Date Activated Date Inactivated Comments 10/31/2011 8:03 PM 11/03/2011 1:04 PM Care Teams Cable Television Installer Relationship Specialty Start Date End Date Teressa [place]ave [place] [address] PCP - General Family Practice 03/02/19
[2024-07-23 10:32] VITALS: BP 125/73; PULSE 59; RESP 18; TEMP -12.3; TEMP 9.8; O2SAT 97; BMI 28.7
--- NOTE | 2024-07-23 11:08 | CRLHL7_ITS ---
For Patients: As a result of the Century Cures Act, medical imaging exams and procedure reports are released immediately into your electronic medical record. You may view this report before your referring provider. If you have questions, please contact your health care provider. INDICATION: Paresthesias. TECHNIQUE: CT head without contrast. COMPARISON: CT brain January 23, 2023 FINDINGS: No acute intracranial infarct or hemorrhage. No abnormal extra-axial fluid collection. Redemonstration of calcification in the basal ganglia. No midline shift. Moderate chronic microvascular angiopathy. Generalized parenchymal atrophy. Skull base and calvarium: The visualized paranasal sinuses and mastoid air cells demonstrate no acute or significant findings. The visualized orbits are grossly unremarkable. No skull fractures. IMPRESSION: Chronic changes without acute intracranial abnormality. Please note that all CT scans at this facility use dose modulation, iterative reconstruction, and/or weight-based dosing when appropriate to reduce radiation dose to as low as reasonably achievable. Dictated by Santos Olguin MD @ 07/23/2024 12:05:42 PM (Electronically Signed)
--- NOTE | 2024-07-23 11:08 | ED.CHESTPAIN ---
HPI - Chest Pain General Chief Complaint: Chest Pain Stated Complaint: chest pain- numbness on fingers Time Seen by Provider: 07/23/24 10:50 History of Present Illness HPI narrative: This 84-year-old female comes in reporting a brief episode of tingling in her right hand and foot and also some chest pain. This occurred while she was sitting in a chair prior to arrival today. The symptoms lasted for few minutes. She states that she came back from a normal walk that she takes and while sitting there these symptoms happened refill E. they completely resolved and she states that she now feels normal in every way. She does have a history of atrial fibrillation and is taking Coumadin. She arrives here with normal vital signs. Related Data Home Medications ?Medication ?Instructions ?Recorded ?Confirmed rosuvastatin 10 mg tablet 10 mg PO HS 11/15/21 07/23/24 warfarin 2 mg tablet 2 mg PO DAILY 05/22/22 07/23/24 escitalopram oxalate 5 mg tablet 5 mg PO DAILY 06/05/22 07/23/24 Previous Rx's ?Medication ?Instructions ?Recorded flecainide 50 mg tablet 50 mg PO BID #60 tabs 11/16/21 Allergies Allergy/AdvReac Type Severity Reaction Status Date / Time No Known Drug Allergies Allergy Verified 07/23/24 10:39 Review of Systems Status of ROS Reports: 10 or more systems reviewed and unremarkable except as noted in History and below Narrative Constitutional: No fevers, no weight gain or loss. Eyes: No discharge. No vision changes. HENT: No congestion, no sore throat, no ear pain. Cardiovascular: No chest pain, no palpitations. Respiratory: No shortness of breath, no wheezes, no cough. Gastrointestinal: No abdominal pain, no vomiting, no diarrhea. Genitourinary: No dysuria, no hematuria. Musculoskeletal: Normal range of motion. Skin: No rashes, no pruritis. Neurological: No dizziness, weakness, speech change. Tingling sensation briefly in her right hand and leg. Endo/Heme/Allergies: No bruising or bleeding. No polydipsia. Pysch: no suicidality, no anxiety, no insomnia. All other systems reviewed and are negative. 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 - Rheumatic tricuspid insufficiency (ICD-10) Paroxysmal atrial fibrillation with rapid ventricular response ?I48.0 - Paroxysmal atrial fibrillation (ICD-10) Emphysema lung ?J43.9 - Emphysema, unspecified (ICD-10) COPD (chronic obstructive pulmonary disease) ?J44.9 - Chronic obstructive pulmonary disease, unspecified (ICD-10) History of smoking 30 or more pack years ?Z87.891 - Personal history of nicotine dependence (ICD-10) Carotid artery aneurysm ?I72.0 - Aneurysm of carotid artery (ICD-10) Paroxysmal supraventricular tachycardia ?I47.1 - Supraventricular tachycardia (ICD-10) 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.528 - Other complication of incontinent external stoma of urinary tract (ICD-10) Chronic kidney disease, stage 3 ?N18.30 - Chronic kidney disease, stage 3 unspecified (ICD-10) Mild cognitive impairment ?G31.84 - Mild cognitive impairment, so stated (ICD-10) Ascending aortic aneurysm ?I71.2 - Thoracic aortic aneurysm, without rupture (ICD-10) Diastolic congestive heart failure ?I50.30 - Unspecified diastolic (congestive) heart failure (ICD-10) Pulmonary nodules ?R91.8 - Other nonspecific abnormal finding of lung field (ICD-10) History of small bowel obstruction ?Z87.19 - Personal history of other diseases of the digestive system (ICD-10) History of bladder cancer ?Z85.51 - Personal history of malignant neoplasm of bladder (ICD-10) History of breast cancer ?Z85.3 - Personal history of malignant neoplasm of breast (ICD-10) History of colon cancer ?Z85.038 - Personal history of other malignant neoplasm of large intestine (ICD-10) Surgical History History of back surgery ?Z98.890 - Other specified postprocedural states (ICD-10) History of urostomy ?Z98.890 - Other specified postprocedural states (ICD-10) History of ileal conduit ?Z98.890 - Other specified postprocedural states (ICD-10) H/O total cystectomy ?Z90.6 - Acquired absence of other parts of urinary tract (ICD-10) History of colectomy ?Z90.49 - Acquired absence of other specified parts of digestive tract (ICD-10) Family History Daughter Diabetes High blood pressure Sister Stroke Social History Highest level of school completed/degree received: some college, no degree Smoking Status: Former smoker What tobacco products do you use: cigarettes Years smoked: 30 Smoking quit date/years: >15 years ago Do you use any of these nicotine containing products: None Second hand tobacco smoke exposure: No How often do you have a drink containing alcohol: 4 or more times a week Alcohol type: beer How many standard drinks containing alcohol do you have on a typical day: 1 or 2 How often do you have six or more drinks on one occasion: Never AUDIT-C Alcohol total score: 4 Non-prescribed substance use: denies use Caffeine: Yes (6 cups) service: No Exam Narrative Exam Narrative: Constitutional: Well-developed, well-nourished, no acute distress. HEENT: Normocephalic, atraumatic. Neck: Normal range of motion. Nontender. Supple. Heart: Regular. No murmurs. Normal rate. Intact distal pulses. Lungs: Clear to auscultation. No chest discomfort. No wheezes, rhonchi, or rales. Abdomen: Normal bowel sounds. Nontender. No rebound tenderness. Genitalia: Deferred. Back: No midline tenderness. Normal range of motion. Extremities: Normal range of motion. No injury. Skin: Intact. No rash. Warm. No erythema or pallor. Neurologic: No altered sensation. No weakness. Alert and oriented. No facial asymmetry. Tongue is midline. [id number] is normal. No pronator drift. Transverse Abdominal Muscle Surgeon strength is equal bilaterally. Able to raise each leg from the bed. Psychiatric: No suicidality. No anxiety or depression. No insomnia. Nursing notes and vitals signs are reviewed. Const Vital Signs, click to edit/add: Vital Signs - 24 hr 07/23/24 10:32 Temperature 9.8 F L Pulse Rate [Pulse Oximeter] 59 L Respiratory Rate 18 Blood Pressure [Right Upper Arm] 125/73 Pulse Oximetry 97 Oxygen Delivery Method Room Air Course Vital Signs Vital signs: Initial Vital Signs Temperature 9.8 F L 07/23/24 10:32 Temperature Source Temporal Artery Scan 07/23/24 10:32 Pulse Rate 59 L 07/23/24 10:32 Respiratory Rate 18 07/23/24 10:32 Blood Pressure 125/73 07/23/24 10:32 Blood Pressure Mean 90 07/23/24 10:32 Blood Pressure Position Sitting 07/23/24 10:32 Pulse Oximetry 97 07/23/24 10:32 Oxygen Delivery Method Room Air 07/23/24 10:32 Vital Signs Temperature 9.8 F L 07/23/24 10:32 Pulse Rate 59 L 07/23/24 10:32 Respiratory Rate 18 07/23/24 10:32 Blood Pressure 125/73 07/23/24 10:32 Pulse Oximetry 97 07/23/24 10:32 Oxygen Delivery Method Room Air 07/23/24 10:32 Temperature 9.8 F L 07/23/24 10:32 Pulse Rate 59 L 07/23/24 10:32 Respiratory Rate 18 07/23/24 10:32 Blood Pressure 125/73 07/23/24 10:32 Pulse Oximetry 97 07/23/24 10:32 Oxygen Delivery Method Room Air 07/23/24 10:32 MDM - Chest Pain MDM Narrative Medical decision making narrative: This patient comes in reporting a brief episode of tingling in her right hand and right leg and also a bit in her right lip. This resolved rather quickly. She also had some chest discomfort at that time. Her EKG and labs returned with normal findings. Troponin is 0. Her INR today is a bit subtherapeutic at 1.56. However she is in normal sinus rhythm at this time. She does have a rather strong family history of blood clots. Her symptoms today may have been due to a transient ischemic attack. I advised her to take an extra dose of her warfarin 2 mg today and to follow-up with INR clinic for ongoing management. She is okay to be discharged home. I instructed her regarding signs and symptoms that would indicate a need for return and re-evaluation. Lab Data Labs: Lab Results 07/23/24 07/23/24 Range/Units 11:07 11:19 WBC 5.14 (4.50-11.00) K/uL RBC 3.47 L (4.00-5.20) m/uL Hgb 11.0 L (12.0-16.0) gm/dL Hct 34.4 (33.0-51.0) % MCV 99 (80-100) fL MCH 32 (26-34) pg MCHC 32 (32-36) gm/dL RDW Coeff of Gayle 12.7 (11.5-15.5) % Plt Count 151 (140-440) K/uL Neut % (Auto) 67.5 (42.0-72.0) % Lymph % (Auto) 14.4 L (20-44) % [place] % (Auto) 16.1 H (0.0-11.0) % Eos % (Auto) 1.4 (0.0-7.0) % Baso % (Auto) 0.4 (0.0-3.0) % Neut # (Auto) 3.47 (1.7-7.0) K/uL Lymph # (Auto) 0.70 L (0.90-2.90) K/uL [place] # (Auto) 0.80 (0.00-0.90) K/UL Eos # (Auto) 0.07 (0.00-0.50) K/uL Baso # (Auto) 0.02 (0.00-0.30) K/uL Abs Immat Gran (auto) 0.01 (0.00-0.30) K/uL Imm/Tot Granulo (auto) 0.2 % INR 1.56 H (0.91-1.10) Sodium 135 (135-149) mmol/L Potassium 4.5 (3.6-5.1) mmol/L Chloride 99 (96-114) mmol/L Carbon Dioxide 29 (20-32) mmol/L Anion Gap 7 (7-15) mEq/L BUN 30 (7-30) mg/dL Creatinine 1.5 (0.5-1.5) mg/dL Estimated Creat Clear 21.29 Estimated GFR 34 ml/min Glucose 146 H (60-115) mg/dL Calcium 9.0 (8.4-10.6) mg/dL POC Troponin I 0.01 (0.01-0.04) ng/ml Imaging Data CT scan - head: Radiologist's impression: Chronic changes without acute intracranial abnormality. ECG Data Attestation: I personally reviewed and interpreted this ECG as follows: Interpretation: Sinus bradycardia, rate 51 beats per minute. There are no specific ST or T-wave abnormalities. Discharge Plan Discharge Clinical Impression: TIA (transient ischemic attack) Patient Disposition: Home, Self-Care Condition: Stable Additional Instructions: Take an extra a warfarin tablet this evening. Follow up with INR clinic for ongoing management. Return if symptoms are recurrent or worsening. Prescriptions: No Action rosuvastatin 10 mg tablet 10 mg PO HS Patient Comments: TAKE ONE TABLET BY MOUTH ONE TIME DAILY AT BEDTIME flecainide 50 mg Tablet 50 mg PO BID Qty: 60 0RF escitalopram oxalate 5 mg tablet 5 mg PO DAILY warfarin 2 mg tablet 2 mg PO DAILY Follow Up/Referrals: Teressa Malave DO [Primary Care Provider] - Stand Alone Forms: [facility] Info Instructions
[2024-07-23 11:28] LABS: Basophils Absolute Auto 0.02 K/uL (0.00-0.30); Basophils Percent Auto 0.4 % (0.0-3.0); Eosinophils Absolute Auto 0.07 K/uL (0.00-0.50); Eosinophils Percent Auto 1.4 % (0.0-7.0); Hematocrit 34.4 % (33.0-51.0); Immature Granulocytes Abs Auto 0.01 K/uL (0.00-0.30); Immature Granulocytes Pct Auto 0.2 %; Lymphocytes Percent Auto 14.4 % (20-44); Mean Corpuscular HGB Conc 32 gm/dL (32-36); Mean Corpuscular Hemoglobin 32 pg (26-34); Mean Corpuscular Volume 99 fL (80-100); Monocytes Percent Auto 16.1 % (0.0-11.0); Neutrophils Absolute Auto 3.47 K/uL (1.7-7.0); Neutrophils Percent Auto 67.5 % (42.0-72.0); Platelet Count* 151 K/uL (140-440); RDW Coefficient of Variation % 12.7 % (11.5-15.5); Red Blood Count 3.47 m/uL (4.00-5.20); White Blood Count* 5.14 K/uL (4.50-11.00)
[2024-07-23 11:36] LABS: Troponin, Point-of-Care* 0.01 ng/ml (0.01-0.04)
[2024-07-23 11:37] LABS: Slide Review Reflex No
--- OUTSIDE RECORDS SUMMARY | 2024-07-23 11:39 | XMS_ITS | Clinical Summary ---
Author Organization [facility] Address [address] [place] [id number] Care Team Providers Care Community Worker Name Role Phone Teressa Malave DO Primary Care Provider [phone] Allergies No known active allergies Medications biotin 1 mg cap Take 1 capsule by mouth. 0 9 Active cholecalciferol (VITAMIN D-3) 2,000 unit capsule Take 1 capsule by mouth once daily. 0 0 Active cyanocobalamin (Vitamin B-12) 1,000 mcg tablet Take 1 Tablet (1,000 mcg) by mouth once daily. 90 Tablet 3 2 Active Fkrec-3-[id number]-Fi sh Oil 1,000 mg (120 mg-180 mg) [...] 07/10/2022 John cognitive assessment score is 17/30 [place] Making Test 61 seconds average score 29 [...] Description 07/14/2024 8:30 AM CDT Orders Only [facility] [address] [facility] [place] [address] [place] Lab 07/14/2024 Anticoagulation (warfarin) [facility] [address] [place] [address] 1[facility] [place] [facility] Anticoagulation 07/14/2024 Travel 06/16/2024 8:30 AM CDT Orders Only [facility] [address] [place] [address] [place] 06/16/2024 Anticoagulation (warfarin) [facility] [address] [place] [address] 1[place] [facility] Anticoagulation 06/16/2024 Travel 05/30/2024 Refill [facility] [address] [facility] [place] [address] Teressa Malave, Refill Request (Escitalopram Oxalate) 05/25/2024 Telephone [facility] [address] [place] [facility] [place] [address] Teressa Malave DO Anticoagulation (Annual re-enrollment /) 05/19/2024 1:30 PM INSTRUCTIONAL TECHNOLOGY COORDINATOR Orders Only [facility] [address] [facility] [address] [place] 05/19/2024 Anticoagulation (warfarin) [facility] [address] [place] [address] 1, [place] [facility] Anticoagulation 05/19/2024 Travel 04/28/2024 Refill [facility] [address] [facility] [address] Teressa Malave DO Refill Request (Warfarin) from [...] on file Legal Sex Female 6:05 AM INSTRUCTIONAL TECHNOLOGY COORDINATOR Gender Identity Not on file Sexual Orientation [...] Comments Blood Pressure 157/82 04/07/2024 11:38 AM INSTRUCTIONAL TECHNOLOGY COORDINATOR Pulse 57 04/07/2024 11:38 AM INSTRUCTIONAL TECHNOLOGY COORDINATOR Temperature 36.7 C (98.1 F) 09/26/2022 1:48 PM CDT Respiratory Rate 16 01/05/2018 10:06 AM CDT Oxygen Saturation 100% 04/07/2024 11:38 AM INSTRUCTIONAL TECHNOLOGY COORDINATOR Inhaled Oxygen Concentration - - Weight 72 kg (158 lb 12.8 oz) 04/07/2024 11:38 A M INSTRUCTIONAL TECHNOLOGY COORDINATOR Height 157.5 cm (5' 2) 09/12/2023 10:02 AM CDT Body Mass Index 29.04 09/12/2023 10:02 AM CDT Plan of Treatment Upcoming Encounters Date Type Department Care Team (Late st Contact Info) Description 09/08/2024 9:15 AM CDT Orders Only [facility] [address] [place] [address] [place] 10/05/2024 9:00 AM CDT Office Visit [facility] [place] [facility] [address] [place] [address] [place] [address] [address] [facility] [address] [place] [address] Health Maintenance Due Date Last Done Comments [...] range 2-3 INR,POCT Routine 05/19/2024 1:03 PM INSTRUCTIONAL TECHNOLOGY COORDINATOR Paroxysmal atrial fibrillation (HC) Anticoagulation monitoring, INR range 2-3 XR DXA BONE DENSITY 2 SITES AXIAL AND 1 SITE PERIPHERAL Routine 06/23/2023 11:39 AM CDT Osteopenia, unspecified location Other specified disorders of bone density and structure, other site from Last 3 Months or Most Recently Relevant to Health Maintenance Results * (ABNORMAL) INR - POCT [05580.2] - Standing Order (07/14/2024 8:26 AM CDT) Only the most recent of3 resultswithin the time period is included. INR 2.0(H) ratio [facility] Comment: INRs >2.9 may be falsely elevated [...] PROTHROMBIN TIMEP 23.7(H) 10.5 - 13.1 sec [facility] Comment: Point of care fingerstick Prothrombin Time/INR results may vary from venous Prothrombin Time/INR methodologies. Any results exhibiting inconsistency with the patient's clinical status should be repeated using a venous Prothrombin Time/INR method. Blood BLOOD SPECIMEN / Unknown 07/14/2024 8:26 AM CDT 07/14/2024 8:27 AM CDT Teressa Malave DO LABORATORY Final Resu lt [facility] [address] [place] [address], [facility] [address] [place] [address] * (ABNORMAL) XR DXA BONE DENSITY 2 [...] to assess therapeutic efficacy. Tere March PA-C [facility] 06/24/2023 Narrative 06/24/2023 1:57 PM CDT For Patients: Results are automatically released to your [facility] ([employer]) account once available, in compliance with federal regulations. This means that you may see your results before your provider has had a chance to review them. Please allow 2-3 business days for your provider to comment on the results. XR DXA Bone Mineral Density (BMD) EXAM LOCATION: [address] [address] PATIENT NAME: Rosa M Jones DATE OF [...] two scanners are made by the same warp dresser. PROCEDURE: Dual-energy x-ray absorptiometry performed with routine [...] MEDICARE PART B HB ONLY [place]UE [place]OSS [place] BLUE MR PB ONLY [place] BLUE HB ONLY Advance Directives * Full Code (Latest Code Status on File) Date Activated Date Inactivated Comments 10/31/2011 8:03 PM 11/03/2011 1:04 PM Care Teams Community Worker Relationship Specialty Start Date End Date Teressa Malave [place] [address] PCP - General Family Practice 03/02/19
[2024-07-23 11:41] LABS: Chloride* 99 mmol/L (96-114); Potassium* 4.5 mmol/L (3.6-5.1); Sodium* 135 mmol/L (135-149)
[2024-07-23 11:44] LABS: Blood Urea Nitrogen* 30 mg/dL (7-30); Creatinine* 1.5 mg/dL (0.5-1.5); Est. Creatinine Clearance* 21.29; Estimated Glomerular Filt Rate 34 ml/min
[2024-07-23 11:45] LABS: Anion Gap 7 mEq/L (7-15); Carbon Dioxide* 29 mmol/L (20-32); Glucose* 146 mg/dL (60-115); INR 1.56 (0.91-1.10); Prothrombin Time 19.7 Seconds
== END 2024-07-23 12:38 | disposition home or self-care (01) ==
PROVIDERS: Emergency Provider Emergency Medicine Emergency Medical Services; PCP Family Medicine
DX: G45.9 Transient cerebral ischemic attack, unspecified (principal)
CPT/HCPCS: 36415; 70450; 80048; 84484; 85025; 85610; 93005; 99284

== ENCOUNTER 2024-10-20 08:46 | Emergency (ER) | payer MEDICARE, BC, SELFPAY ==
--- OUTSIDE RECORDS SUMMARY | 2024-09-20 09:30 | XMS_ITS | Encounter Summary ---
Author Organization [facility] Address [address] [facility] [address] [place] [address] Care Team Providers Care Front End Developer Name Role Phone Chantale Malaveher Primary Care Provider [phone] Reason for Visit * Reason Comments Follow-up Encounter Details Date Type Department Care Team (Latest Contact Info) Description 09/20/2024 9:30 AM CDT Office Visit [facility] [address] [place] [address] Arturo Riggins MD [address] [place] [address] Chronic kidney disease stage 3B (HCC) (Primary Dx); Paroxysmal atrial fibrillation (HCC); Personal history of bladder cancer Social History Tobacco Use Types Packs/Day Years Used Date Smoking Tobacco: Former Cigarettes 1 34 1 958 - 1991 Smokeless Tobacco: Never Alcohol Use Standard Drinks/Week Comments Yes 7 (1 standard drink = 0.6 oz pur e alcohol) Comments Unknown Sex and Gender Information Value Date Recorded Sex Assigned at Not on file Legal Sex Female 12:53 PM EST Gender Identity Not on file Sexual Orientation Not on file documented as of this encounter Last Filed Vital Signs Vital Sign Reading Time Taken Comments Blood Pressure 158/62 09/20/2024 9:07 AM CDT Pulse 61 09/20/2024 9:07 AM CDT Temperature - - Respiratory Rate - - Oxygen Saturation 93% 09/20/2024 9:07 AM CDT Inhaled Oxygen Concentration - - Weight 71.2 kg (157 lb) 09/20/2024 9:07 AM CDT Height 158.8 cm (5' 2.5) 09/20/2024 9:07 AM CDT Body Mass Index 28.26 09/20/2024 9:07 AM CDT documented in this encounter Patient Instructions * Patient Instructions* Amelia Avila - 09/20/2024 9:30 AM CDT Olimpia, Your kidney function is stable. Just like last year, we will have you back in 1 year with labs before the visit. Dharmesh Riggins MD We will contact you to schedule your 1 year follow up when the schedule becomes available. Labs should be completed 1-2 weeks prior. They will be faxed to [facility] documented in this encounter Progress Notes * Arturo Riggins MD - 09/20/2024 9:30 AM CDT Images from the original note were not included. Patient: Rosa M Jones Date of : 1940 Chart: [id number] PCP: Teressa Malave DO Date of Service: 09/20/2024 Chief Complaint: CKD Stage 3b Subjective: Olimpia is here for follow-up. She is doing well and has no new symptoms. She has stable mild edema in her ankles, thought 2/2 venous insufficiency, likely also CKD contributes. She does not eat out and tries not to use much salt in her cooking. She has edema in her anklesespecially if she is on her feet all day but it is always gone in the morning. She has white coat HTN and she monitors closely at home and is consistently 105- 120/70's by home monitoring with very consistent readings in this range. She is off flecainide and on warfarin for a-fib. She is tolerating this well. 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 Taking? Provider cholecalciferol (VITAMIN D-3 SUPER STRENGTH) 50 MCG (2000 UT) tablet Rajan oRdriguez MD Take 2,000 Units by mouth in the morning. cyanocobalamin (VITAMIN B-12) 1000 MCG tablet Rajan Rodriguez MD Take 1,000 mcg by mouth in the morning. escitalopram (LEXAPRO) 5 MG tablet Rajan Rodriguez MD Take 5 mg by mouth in the morning. Multiple Minerals-Vitamins (Pdidrtr-Uvbzuzbcn-Jmbq-D3) tablet Rajan Rodriguez MD Take 1 tablet by mouth 1 (one) time each day Mclaughlin-3 Fatty Acids (Super Mclaughlin 3 EPA/DHA) 1000 MG capsule Rajan Rodriguez MD Take 1,000 mg by mouth 1 (one) time each day rosuvastatin (CRESTOR) 10 MG tablet Rajan Rodriguez MD Take 10 mg by mouth in the morning. warfarin (COUMADIN) 2 MG tablet Rajan Rodriguez MD Take by mouth 2 mg (2 mg x 1) every Mon, Wed, Fri; 3 mg (2 mg x 1.5) all other days in the evening OR as directed No Known Allergies Physical Exam BP 158/62 (BP Location: Right upper arm, Patient Position: Sitting, BP Cuff Size: Adult) Pulse 61 Ht 5' 2.5 (1.588 m) Wt 157 lb (71.2 kg) SpO2 93% BMI 28.26 kg/m?? CONSTITUTIONAL: appears well today EYES: pupils equal, sclerae not icteric. RESPIRATORY: Clear to auscultation bilaterally, nl effort CARDIOVASCULAR: Regular rate and rhythm, no murmurs. Trace ankle edema only GASTROINTESTINAL: bowel sounds active, not distended PSYCHIATRIC: Alert and pleasant INTEGUMENT: No visible rash on exposed skin MUSCULOSKELETAL: four limbs, no contractures Chemistry and Bone Mineral Lab Units 09/08/24 0810 08/05/23 0908 02/13/23 0938 02/13/23 0000 SODIUM mmol/L 134* 134* 134* 134* POTASSIUM mmol/L 4.2 4.3 4.5 4.5 CHLORIDE mmol/L 104 98 99 99 CO2 mmol/L 22 27 24 24 ANION GAP -- 9 11 -- CALCIUM mg/dL 8.7 9.0 9.2 9.2 PHOSPHORUS mg/dL 3.2 3.5 -- -- GLUCOSE mg/dL 117* 123* 94 94 ALBUMIN g/dL 3.9 4.1 -- -- BUN mg/dL 20 21 25* 25* CREATININE mg/dL 1.59* 1.48* 1.69* 1.69* EGFR mL/min/1.73m2 31* 35* 30* 30* CBC and Iron Studies Lab Units 09/08/24 0810 HEMOGLOBIN g/dL 11.1* Urine Lab Units 02/13/23 0000 PROT/CREAT RATIO UR mg/g creat 0.3* Imaging: CT Urogram 2018, radiology read: IMPRESSION: 1. Postoperative changes from cystectomy with ileal loop diversion. 2. Cortical thinning of both kidneys with bilateral renal cysts. 3. The prominence of right renal pelvis is decreased from the examination of 12/07/2017. 4. Stable 6 mm cyst left lung base seen show Ian. Lasix Renogram 2018, radiology read: IMPRESSION: 1. There are postsurgical changes from the previous cystectomy and ileal diversion. 2. While there is mild prominence of both renal pelves, there is a good response to Lasix administration and there is no evidence of significant obstruction of either kidney. 3. Approximately 52.7 percent of function is in the right kidney and 47.3 percent in the left kidney. Assessment and Plan: 1. CKD Stage 3b: suspect CKD 2/2 chronic reflux from ileal conduit and/or renovascular disease. Cr stable in the 1.5 range at this time with eGFR in the low 30's. -She should avoid NSAID's, which she is -Continue home BP monitoring given elevated in clinic but normal by home monitoring without BP therapy. Her BP cuff was checked previously. Home BP's are controlled. -She prefers only annual labs and visit with me 2. Hx of bladder cancer with cystectomy and ileal conduit in 1998. No frequent UTI's. No obstruction by renogram done [place] [address] Rea. 3. A-fib, on warfarin, off beta mayuri and flecainide as above but rate controlled without. Return in about 1 year (around 09/20/2025) for follow-up with MD. Arturo Riggins MD [facility] documented in this encounter Plan of Treatment Scheduled Orders Name Type Priority Associated Diagnoses Orde r Schedule Renal function panel Lab Routine Chronic kidney disease stage 3B (HCC) Expected: 08/15/2025 (Approximate), Expires: 09/20/2025 Hemoglobin Lab Routine Chronic kidney disease stage 3B (HCC) Expected: 08/15/2025 (Approximate), Expires: 09/20/2025 documented as of this encounter Visit Diagnoses Diagnosis Chronic kidney disease stage 3B (HCC)- Primary Paroxysmal atrial fibrillation (HCC) Personal history of bladder cancer documented in this encounter Care Teams Front End Developer Relationship Specialty Start Date End Date Teressa Malave DO [address] [place] [address] PCP - General Family Medicine 02/13/23 documented as of this encounter
--- OUTSIDE RECORDS SUMMARY | 2024-10-20 08:48 | XMS_ITS | Clinical Summary ---
Author Organization [facility] Address [address] [place] [address] Phone Care Team Providers Care Enterprise Analyst Name Role Phone Frieda Teressa Primary Care Provider [phone] Allergies No known active allergies Medications [place]-3 Fatty Acids (Super [place] 3 EPA/DHA) 1000 MG capsule Take 1,000 mg by mouth 1 (one) time each day 07/23/2022 Active warfarin (COUMADIN) 2 MG tablet Take by mouth 2 mg (2 mg x 1) every Mon, Wed, Fri; 3 mg (2 mg x 1.5) all other days in the evening OR as directed 06/17/2023 Active rosuvastatin (CRESTOR) 10 MG tablet Take 10 mg by mouth in the morning. 06/09/2023 Active cholecalciferol (VITAMIN D-3 SUPER STRENGTH) 50 MCG (2000 UT) tablet Take 2,000 Units by mouth in the morning. 05/06/2019 Active Multiple Minerals-Vitami ns (Calcium-Magnes ium-Zinc-D3) tablet Take 1 tablet by mouth 1 (one) time each day 07/23/2022 Active escitalopram (LEXAPRO) 5 MG tablet Take 5 mg by mouth in the morning. 06/09/2023 Active cyanocobalamin (VITAMIN B-12) 1000 MCG tablet Take 1,000 mcg by mouth in the morning. 07/19/2021 Active Active Problems Problem Noted Date Diagnosed Date Paroxysmal atrial fibrillation 08/21/2023 Personal history of bladder cancer 08/21/2023 Chronic kidney disease stage 3B 03/01/2019 Overview (08/20/2023): Has seen nephrology - recommended repeat creatinine in August 2019 Encounters Date Type Department Care Team Description 09/20/2024 9:30 AM CDT Office Visit [facility] [place] [address] Arturo Riggins MD Chronic kidney disease stage 3B (HCC) (Primary Dx); Paroxysmal atrial fibrillation (HCC); Personal history of bladder cancer 09/13/2024 Office Communication [facility] [place] [address] [place] [phone] Abbie Lemus 09/09/2024 Results Follow-Up [facility] [place] [address] [place] [phone] Joellen Vaughan RN 08/20/2024 Telephone [facility] [place] [address] [place] [address] Kaitlin Wheeler RN 08/20/2024 Orders Only [facility] [place] [address] Arturo Riggins MD Chronic kidney disease stage 3B (HCC) from Last 3 Months Immunizations Immunization Administration Dates Next Due Covid-19, Mrna, Lnp-s, Pf, T ris-sucrose, 3 Mcg/0.3 Ml 07/04/2021 Influenza Vaccine, Quadrivalent, Adjuvanted 01/17,11/20/2021,11/27/2020 Influenza, Trivalent, Adjuvanted 12/08/2023 Moderna Sars-cov-2 (Covid-19 ) Vaccine, Mrna, Clay Protein 12/08/2023,02/13/2023 Pfizer SARS-CoV-2 Bivalent 30 mcg/0.3 mL 022 RSV RECOMBINANT 12/14/2023 Family History Medical History Relation Comments Diabetes Daughter Hypertension Daughter Stroke Sister Relation Status Comments Daughter Sister Social History Tobacco Use Types Packs/Day Years Used Date Smoking Tobacco: Former Cigarettes 1 34 1 958 - 1992 Smokeless Tobacco: Never Tobacco Cessation:Counseling Given: Not Answered Alcohol Use Standard Drinks/Week Comments Yes 7 (1 standard drink = 0.6 oz pur e alcohol) Comments Unknown Sex and Gender Information Value Date Recorded Sex Assigned at Not on file Legal Sex Female 12:53 PM EST Gender Identity Not on file Sexual Orientation Not on file Last Filed Vital Signs Vital Sign Reading [...] Mass Index 28.26 09/20/2024 9:07 AM CDT Plan of Treatment Health Maintenance Due Date Last Done Comments Pneumococcal Vaccine: 50+ Years (1 of 2 - PCV) 1959 Influenza Vaccine (#1) 2024 4, 02/13/2023, 11/20/2021, Additional history exists Hepatitis B Vaccine Aged Out No longe r eligible based on patient's age to complete this topic Procedures Procedure Name Priority Date/Time Associated Diagnosis Comments HEMOGLOBIN Routine 09/08/2024 8:10 AM CDT Chronic kidney disease stage 3B (HCC) RENAL FUNCTION PANEL Routine 09/08/2024 8:10 AM CDT Chronic kidney disease stage 3B (HCC) from Last 3 Months Results * (ABNORMAL) Hemoglobin (09/08/2024 8:10 AM CDT) Hemoglobin 11.1(L) 11.7 - 15.5 g/dL [facility] Blood specimen (specimen) Venous blood / Unknown 09/08/2024 8:10 AM CDT 09/08/2024 8:13 AM CDT Narrative Resulting Agency Comment Performing Organization Information: Site ID: CB Name: Khloe Aparicio Address: [address] [place] [address] Director: Aramis Doherty us Arturo Riggins MD LAB BLOOD ORDERABLES Final Re sult [facility] Khloe Aparicio [address] [place] [address] * (ABNORMAL) Renal function panel (09/08/2024 8:10 AM CDT) Glucose 117(H) 65 - 99 mg/dL [facility] Comment: Fasting reference interval For someone without known diabetes, a glucose value between 100 and 125 mg/dL is consistent with prediabetes and should be confirmed with a follow-up test. BUN 20 7 - 25 mg/dL [facility] Creatinine 1.59(H) 0.60 - 0.95 mg/dL [facility] eGFR CKD-EPI CR 2020 31(L) > OR = 60 mL/min/1.7 3m2 [facility] BUN/Creatinine Ratio 13 6 - 22 (calc) [facility] Sodium 134(L) 135 - 146 mmol/L [facility] Potassium 4.2 3.5 - 5.3 mmol/L [facility] Chloride 104 98 - 110 mmol/L [facility] Bicarbonate (CO2) 22 20 - 32 mmol/L [facility] Calcium 8.7 8.6 - 10.4 mg/dL [facility] Phosphorus 3.2 2.1 - 4.3 mg/dL [facility] Albumin 3.9 3.6 - 5.1 g/dL [facility] Blood specimen (specimen) Venous blood / Unknown 09/08/2024 8:10 AM CDT 09/08/2024 8:13 AM CDT Narrative Resulting Agency Comment Performing Organization Information: Site ID: CB Name: [facility] Apar[facility] Address: [address] [place] [phone] Director: Aramis Doherty us Arturo Riggins MD LAB BLOOD ORDERABLES Final Re sult [facility] [address] [place] [address] from Last 3 Months Insurance [facility] [place] [address] Care Teams Enterprise Analyst Relationship Specialty Start Date End Date Teressa Malave DO [address] [place], [place] [id number] PCP - General Family Medicine 02/13/23
--- OUTSIDE RECORDS SUMMARY | 2024-10-20 08:48 | XMS_ITS | Encounter Summary ---
Author Organization [facility] Address [address] [place] [address] Care Team Providers Care Rn Psych Name Role Phone Teressa Malave DO Primary Care Provider [phone] Encounter Details Date Type Department Care Team (Late st Contact Info) Description 09/09/2024 Results Follow-Up [facility] [place] [address] [place] [address] Joellen Vaughan, MADHURI [address] [place] [address] Social History Tobacco Use Types Packs/Day Years Used Date Smoking Tobacco: Former Cigarettes 1 34 1 958 - 1992 Smokeless Tobacco: Never Alcohol Use Standard Drinks/Week Comments Yes 7 (1 standard drink = 0.6 oz pur e alcohol) Comments Unknown Sex and Gender Information Value Date Recorded Sex Assigned at Not on file Legal Sex Female 12:53 PM EST Gender Identity Not on file Sexual Orientation Not on file documented as of this encounter Plan of Treatment Not on file documented as of this encounter Visit Diagnoses Not on filedocumented in this encounter Care Teams Rn Psych Relationship Specialty Start Date End Date Teress[place] [address] PCP - General Family Medicine 02/13/23 documented as of this encounter
--- OUTSIDE RECORDS SUMMARY | 2024-10-20 08:48 | XMS_ITS | Encounter Summary ---
Author Organization [facility] [place] Address [address] [place] [address] Care Team Providers Care Broadcast Maintenance Technician Name Role Phone Teressa Malave Primary Care Provider [phone] Encounter Details Date Type Department Care Team (Late st Contact Info) Description 09/13/2024 Office Communication [facility] [place] [address] [place] [address] Abbie Lemus [address] [place] [address] Social History Tobacco Use Types Packs/Day Years [...] on file documented as of this encounter Miscellaneous Notes * Telephone Encounter - Abbie Lemus - 09/13/2024 10:09 AM CDT Pt. is aware of appt. time and has had labs done, requests no further confirmation texts please documented in this encounter Plan of Treatment Not on file documented as of this encounter Visit Diagnoses Not on filedocumented in this encounter Care Teams Broadcast Maintenance Technician Relationship Specialty Start Date End Date Teressa Malave DO [address] [place] [address] PCP - General Family Medicine 02/13/23 documented as of this encounter
--- OUTSIDE RECORDS SUMMARY | 2024-10-20 08:49 | XMS_ITS | Clinical Summary ---
Author Organization [facility] Address [address] [place] [address] Care Team Providers Care Human Performance Technologist Name Role Phone Teressa Malave DO Primary Care Provider [phone] Allergies No known active allergies Medications biotin 1 mg cap Take 1 capsule by mouth. 0 9 Active cholecalciferol (VITAMIN D-3) 2,000 unit capsule Take 1 capsule by mouth once daily. 0 0 Active cyanocobalamin (Vitamin B-12) 1,000 mcg tablet Take 1 Tablet (1,000 mcg) by mouth once daily. 90 Tablet 3 2 Active Drapj-4-CVQ-EPA-Fi sh Oil 1,000 mg (120 mg-180 mg) [...] Home BP cuff 1 Each 4 Active escitalopram oxalate 5 mg tabletIndications: Anxiety Take 1 Tablet (5 mg) by mouth once daily in the morning. 90 Tablet 1 5 Active warfarin 2 mg tabletIndications: Paroxysmal atrial fibrillation (HC),Anticoagulati on monitoring, INR range 2-3 Take by mouth 2 mg (2 mg x 1) every Mon, Wed, Fri; 3 mg (2 mg x 1.5) all other days in the evening OR as directed 120 Tablet 5 Active rosuvastatin 10 mg tabletIndications: Hyperlipidemia, unspecified hyperlipidemia type TAKE ONE TABLET BY MOUTH ONE TIME DAILY AT BEDTIME 90 Tablet 3 5 Active Active Problems Problem Noted Date [...] Overview (09/23/2022): Evaluation Occupational Therapy evaluation 07/10/2022 [place] cognitive assessment score is 17/30 [place] Making Test 61 seconds average score 29 [...] Encounters Date Type Department Care Team Description 10/20/2024 Nurse Triage [facility] [address] [place] [address] Teressa Malave, Blood In Urine 10/05/2024 9:00 AM CDT Office Visit [facility] [address] [place] [address] Carissa Moran PA Follow Up (Follow up PAF ) 10/05/2024 Travel 09/20/2024 Telephone [facility] [address] [place] [address] Teressa Malave DO Mouth/Lip Problem (Canker sores) 09/12/2024 Refill [facility] [address] [place] [address] Mariano Brunner MD Refill Request (Rosuvastatin) 09/08/2024 9:15 AM CDT Orders Only [address] [address] Lab, [place] [facility] 09/08/2024 Anticoagulation (warfarin) [facility] [address] [place] [address] Nurse, [facility] Anticoag Anticoagulation (Lab only/) 09/08/2024 Travel 08/15/2024 Refill [facility] [address] [place] [address] Teressa Malave DO Refill Request (Warfarin) 08/04/2024 10:15 AM CDT Orders Only [facility] [address] [place] [address] [facility] [place] [facility] 08/04/2024 Anticoagulation (warfarin) [facility] [address] [place] [address] 1, [facility] Anticoagulation 08/04/2024 Travel 07/23/2024 Orders Only [facility] Scanner 1 scan: (1-Ord) [facility], CT HEAD/BRAIN, 07/23/2024 07/23/2024 Anticoagulation (warfarin) [facility] [address] [place] [address] 1, [place] [facility] Anticoagulation (Outside Result ) from Last 3 Months Immunizations Immunization Administration [...] on file Legal Sex Female 6:05 AM FREIGHT COORDINATOR Gender Identity Not on file Sexual [...] Sign Reading Time Taken Comments Blood Pressure 139/65 10/05/2024 9:09 AM CDT Pulse 57 10/05/2024 9:09 AM CDT Temperature 36.7 C (98.1 F) 09/26/2022 1:48 PM CDT Respiratory Rate 16 01/05/2018 10:06 AM CDT Oxygen Saturation 96% 10/05/2024 9:09 AM CDT Inhaled Oxygen Concentration - - Weight 72.3 kg (159 lb 6.4 oz) 10/05/2024 9:09 A M CDT Height 157.5 cm (5' 2) 09/12/2023 10:02 AM CDT Body Mass Index 29.15 09/12/2023 10:02 AM CDT Plan of Treatment Health Maintenance Due Date Last Done Comments Zoster (shingles) series for age 50+ (2 of 3) 08/11/2011 06/16/2011 Medicare Wellness for age 65+ 05/21/2024 05/21/2023, 09/14/2019, 09/07/2018, Additional history exists Depression screening for age 12+ 05/22/2024 05/23/2023, 05/22/2023, 05/21/2023, Additional history exists COVID-19 vaccine series ( season) 2024 12/08/2023, 02/13/2023, 02/04/2022, Additional history exists Tetanus booster 08/26/2024 08/26/2014, 08/26/2014 BMI (ht and wt on same day) for age 18+ 09/11/2024 09/12/2023, 05/21/2023, 09/23/2022, Additional history exists Influenza Vaccine (#1) 2024 , 02/13/2023, 11/20/2021, Additional history exists Pneumococcal series for age 50+ Completed 08/29/2015, 08/26/2014 DEXA/DXA scan for age 65+ Completed 06/23/2023, RSV vaccine for adults or Completed 12/14/2023 Hepatitis B series for 19+ Aged Out N o longer eligible based on patient's age to complete this topic Goals Goal Patient Goal Type Associated Problems Recent Progress Patient-Stated? Author BLOOD PRESSURE - Maintains BP less than 130/80 Blood Pressure No Aditya Durand BLOOD PRESSURE - Maintains BP less than 140/90 Blood Pressure No Aditya Durand Procedures Procedure Name Priority Date/Time Associated Diagnosis Comments PROTIME-INR Routine 09/08/2024 9:12 AM CDT Paroxysmal atrial fibrillation (HC) Anticoagulation monitoring, INR range 2-3 INR,POCT Routine 08/04/2024 10:32 AM CDT Paroxysmal atrial fibrillation (HC) Anticoagulation monitoring, INR range 2-3 INR,POCT Routine 07/23/2024 SCAN-CT INTERPRETATION 12:00 AM CDT XR DXA BONE DENSITY 2 SITES AXIAL AND 1 SITE PERIPHERAL Routine 06/23/2023 11:39 AM CDT Osteopenia, unspecified location Other specified disorders of bone density and structure, other site from Last 3 Months or Most Recently Relevant to Health Maintenance Results * (ABNORMAL) PROTIME-INR [79723.0] - Standing Order (09/08/2024 9:12 AM CDT) INR 2.1(H) <1.3 09/08/2024 1:28 PM CDT [facility] PROTIME 23.8(H) 10.6 - 12.4 sec 09/08/2024 1:28 PM CDT [facility] Blood BLOOD SPECIMEN / Unknown [facility] / Unknown 09/08/2024 9:12 AM CDT 09/08/2024 9:12 AM CDT Narrative [facility] - 09/08/2024 1:28 PM CDT Therapeutic Range 2.0-3.0 for most anticoagulated patients 2.5-3.5 or 4.0 for high risk patients The INR is only used for patients on stable oral anticoagulant therapy. It makes no significant contribution to the diagnosis or treatment of patients whose Protime is prolonged for other reasons. INR results are increased when heparin levels exceed 1.0 U/mL, which corresponds to an aPTT >125 seconds if the patient is on UFH. us Teressa Malave DO HEMATOLOGY Final Resu lt [facility] [address] [place] [address], [place] * (ABNORMAL) INR - POCT [[id number]] - Standing Order (08/04/2024 10:32 AM CDT) Only the most recent of2 resultswithin the time period is included. INR 2.0(H) ratio [facility] Comment: INRs >2.9 may be falsely elevated in patients receiving either unfractionated Heparin or Low Molecular Weight Heparin. Follow up testing in a hospital laboratory may be helpful if clinically indicated. INR results of > or = 5.0 should be verified using the standard venipuncture procedure. Reference Range 0.9-1.1 Moderate-intensity Warfarin Therapy 2.0-3.0 Higher-intensity Warfarin Therapy 3.0-4.0 PROTHROMBIN TIMEP 23.4(H) 10.5 - 13.1 sec [facility] Comment: Point of care fingerstick Prothrombin Time/INR results may vary from venous Prothrombin Time/INR methodologies. Any results exhibiting inconsistency with the patient's clinical status should be repeated using a venous Prothrombin Time/INR method. Blood BLOOD SPECIMEN / Unknown 08/04/2024 10:32 AM CDT 08/04/2024 10:32 AM CDT Teressa Malave DO LABORATORY Final Resu lt [facility] [address] [place] [address], [facility] [address] [place] [address] * SCAN-CT INTERPRETATION (07/23/2024 12:00 AM CDT) Anatomical Region Laterality Modality Other us Scanner OTHER Final Result * (ABNORMAL) XR DXA BONE DENSITY 2 [...] to assess therapeutic efficacy. Tere March PA-C [facility] 06/24/2023 Narrative 06/24/2023 1:57 PM CDT For Patients: Results are automatically released to your [employer] account once available, in compliance with federal regulations. This means that you may see your results before your provider has had a chance to review them. Please allow 2-3 business days for your provider to comment on the results. XR DXA Bone Mineral Density (BMD) EXAM LOCATION: [facility] [address] [facility] [address] PATIENT NAME: Rosa M Jones DATE OF [...] two scanners are made by the same insurance agent. PROCEDURE: Dual-energy x-ray absorptiometry performed with routine [...] MEDICARE PART B [place] ONLY [place] [id number] Advance Directives * Full Code (Latest Code Status on File) Date Activated Date Inactivated Comments 10/31/2011 8:03 PM 11/03/2011 1:04 PM Care Teams Human Performance Technologist Relationship Specialty Start Date End Date Teressa Malave DO [address] [place] [address] PCP - General Family Practice 03/02/19
--- OUTSIDE RECORDS SUMMARY | 2024-10-20 08:49 | XMS_ITS | Encounter Summary ---
Author Organization [facility] Address [address] [place] [address] Care Team Providers Care Reforestation Worker Name Role Phone Teressa Malave Primary Care Provider [phone] Encounter Details Date Type Department Care Team (Late st Contact Info) Description 08/20/2024 Orders Only [facility] [address] [place], [place] [address] [place] [address] Arturo Riggins MD [address] [place] [address] Chronic kidney disease stage 3B (HCC) Social History Tobacco Use Types Packs/Day Years [...] on file documented as of this encounter Procedures Procedure Name Priority Date/Time Associated Diagnosis Comments HEMOGLOBIN Routine 09/08/2024 8:10 AM CDT Chronic kidney disease stage 3B (HCC) RENAL FUNCTION PANEL Routine 09/08/2024 8:10 AM CDT Chronic kidney disease stage 3B (HCC) documented in this encounter Results * (ABNORMAL) Hemoglobin (09/08/2024 8:10 AM CDT) Hemoglobin 11.1(L) 11.7 - 15.5 g/dL [facility] Blood specimen (specimen) Venous blood / Unknown 09/08/2024 8:10 AM CDT 09/08/2024 8:13 AM CDT Narrative Resulting Agency Comment Performing Organization Information: Site ID: CB Name: Lenka Aparicio Address: [address] [place] [phone] Director: Aramis Doherty us Arturo Riggins MD LAB BLOOD ORDERABLES Final Re sult [facility] Lenka Aparicio [address] [place] [phone] * (ABNORMAL) Renal function panel (09/08/2024 8:10 AM CDT) Pathologist [facility] Glucose 117(H) 65 - 99 mg/dL [facility] [...] Performing Organization Information: Site ID: CB Name: [facility] Address: [address] [place] [phone] Director: Aramis Doherty us Arturo Riggins MD LAB BLOOD ORDERABLES Final Re sult [facility] [address] documented in this encounter Visit Diagnoses Diagnosis Chronic kidney disease stage 3B (HCC) documented in this encounter Care Teams Reforestation Worker Relationship Specialty Start Date End Date Teressa [place] [address] PCP - General Family Medicine 02/13/23 documented as of this encounter
[2024-10-20 09:09] VITALS: BP 123/69; PULSE 55; RESP 16; TEMP 36.7; O2SAT 94; BMI 29.3
--- NOTE | 2024-10-20 09:13 | ED.FEMALEGU ---
HPI - Female Genitourinary General Time Seen by Provider: 09:13 Date Seen: 10/20/24 Chief complaint: Urogenital Problems, Female Stated complaint: bleeding in urine Time Seen by Provider: 10/20/24 09:13 Source: patient and RN notes reviewed Mode of arrival: ambulatory Limitations: no limitations History of Present Illness HPI Narrative: This 84-year-old female is coming in with hematuria noted in her urostomy bag this morning. She notes before bed when she emptied her urostomy bag there was no blood in it. It is bloody this morning. She is not aware of any trauma. She does have history of bladder cancer for which she has the urostomy. She has also had a history of breast cancer and colon cancer. She is anticoagulated with Coumadin for atrial fibrillation. She was due for an INR today. She notes no abdominal pain, no fevers or chills. She has a history of cognitive impairment, chronic kidney disease stage IIIB. She has a remote history of smoking. She has not had a history of kidney stones nor are they aware of any family history of kidney stones. Related Data Home Medications ?Medication ?Instructions ?Recorded ?Confirmed rosuvastatin 10 mg tablet 10 mg PO HS 11/15/21 07/23/24 warfarin 2 mg tablet 2 mg PO DAILY 05/22/22 07/23/24 escitalopram oxalate 5 mg tablet 5 mg PO DAILY 06/05/22 07/23/24 Previous Rx's ?Medication ?Instructions ?Recorded flecainide 50 mg tablet 50 mg PO BID #60 tabs 11/16/21 cefdinir 300 mg capsule 300 mg PO BID #14 caps 10/20/24 Allergies Allergy/AdvReac Type Severity Reaction Status Date / Time No Known Drug Allergies Allergy Verified 07/23/24 10:39 Review of Systems Status of ROS: Reports: 6 or more systems reviewed and unremarkable except as noted in History and below [facility] Medical History Alcohol use ?Z78.9 - Other specified health status (ICD-10) Cognitive impairment ?R41.89 - Other symptoms and signs involving cognitive functions and awareness (ICD-10) Chronic kidney disease, stage 3b ?N18.32 - Chronic kidney disease, stage 3b (ICD-10) 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 - Rheumatic tricuspid insufficiency (ICD-10) Paroxysmal atrial fibrillation with rapid ventricular response ?I48.0 - Paroxysmal atrial fibrillation (ICD-10) Emphysema lung ?J43.9 - Emphysema, unspecified (ICD-10) COPD (chronic obstructive pulmonary disease) ?J44.9 - Chronic obstructive pulmonary disease, unspecified (ICD-10) History of smoking 30 or more pack years ?Z87.891 - Personal history of nicotine dependence (ICD-10) Carotid artery aneurysm ?I72.0 - Aneurysm of carotid artery (ICD-10) Paroxysmal supraventricular tachycardia ?I47.1 - Supraventricular tachycardia (ICD-10) 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.528 - Other complication of incontinent external stoma of urinary tract (ICD-10) Chronic kidney disease, stage 3 ?N18.30 - Chronic kidney disease, stage 3 unspecified (ICD-10) Mild cognitive impairment ?G31.84 - Mild cognitive impairment, so stated (ICD-10) Ascending aortic aneurysm ?I71.2 - Thoracic aortic aneurysm, without rupture (ICD-10) Diastolic congestive heart failure ?I50.30 - Unspecified diastolic (congestive) heart failure (ICD-10) Pulmonary nodules ?R91.8 - Other nonspecific abnormal finding of lung field (ICD-10) History of small bowel obstruction ?Z87.19 - Personal history of other diseases of the digestive system (ICD-10) History of bladder cancer ?Z85.51 - Personal history of malignant neoplasm of bladder (ICD-10) History of breast cancer ?Z85.3 - Personal history of malignant neoplasm of breast (ICD-10) History of colon cancer ?Z85.038 - Personal history of other malignant neoplasm of large intestine (ICD-10) Surgical History History of back surgery ?Z98.890 - Other specified postprocedural states (ICD-10) History of urostomy ?Z98.890 - Other specified postprocedural states (ICD-10) History of ileal conduit ?Z98.890 - Other specified postprocedural states (ICD-10) H/O total cystectomy ?Z90.6 - Acquired absence of other parts of urinary tract (ICD-10) History of colectomy ?Z90.49 - Acquired absence of other specified parts of digestive tract (ICD-10) Family History Daughter Diabetes High blood pressure Sister Stroke Social History Highest level of school completed/degree received: some college, no degree Smoking Status: Former smoker What tobacco products do you use: cigarettes Years smoked: 30 Smoking quit date/years: >15 years ago Do you use any of these nicotine containing products: None Second hand tobacco smoke exposure: No How often do you have a drink containing alcohol: 4 or more times a week Alcohol type: beer How many standard drinks containing alcohol do you have on a typical day: 1 or 2 How often do you have six or more drinks on one occasion: Never AUDIT-C Alcohol total score: 4 Non-prescribed substance use: denies use Caffeine: Yes (6 cups) service: No Exam Const: Vital Signs, click to edit/add: Vital Signs - 24 hr 10/20/24 09:09 Temperature 98.1 F Pulse Rate [Pulse Oximeter] 55 L Respiratory Rate 16 Blood Pressure [Ri ght Upper Arm] 123/69 Pulse Oximetry 94 Oxygen Delivery Me thod Room Air This 84-year-old female is alert, interactive, no apparent distress. She is well-kept, speech is normal. She has no CVA tenderness, lungs are clear, good air entry, no wheeze or crackles, no tachypnea, no accessory muscle use. CV is somewhat irregular but not fast, do not hear any murmur. Normal S1-S2. Abdomen has a suazo urostomy bag right abdomen, no drainage around it, bag is currently Jaime. Her abdomen is soft, nontender, nondistended, do not feel any organomegaly or masses at this time. No lower extremity edema. Patient is ambulatory into the ED of her own accord. Did see the urine collected by nursing staff from her urostomy bag, grossly bloody. Documenting provider has reviewed patient's vital signs: yes Course Course ED Course: We will look at a noncontrast CT of this patient. She may need to have imaging done with contrast but given her chronic kidney disease, do not want to give her IV contrast if we do not need to. Will look for obstructive uropathy or irritative uropathy such as kidney stones. Given her history of bladder cancer, may need to consider the IV imaging or the three-phase urologic CT scan. The noncontrast imaging wall obviously be done. Will get baseline labs, will include an INR. It is possible she could be supratherapeutic with her INR. Need to consider recurrent urologic lesions as well. Reevaluation(s) Time of Reevaluation #1: 10:30 Reevaluation #1: Reviewed CT findings with patient. She does have a copy of the report to take to discuss with her primary. We reviewed that is recommended for follow-up CT in [address] now. She understands that this is not something I can order out of the ER, her primary can order this if this is the route they decide to go. I certainly would consider the PET CT with her history but will leave them to follow this up outpatient, non emergently. We did discuss that she has got a urinary tract infection. Have sent cefdinir an antibiotic to her pharmacy. If it does come back that she is not covered with this antibiotic based on urine culture, we will make appropriate changes. Given the urinalysis is definitely looking positive for infection, I am not going to do any contrast studies or triple phase urologic workup. That could be considered if she has ongoing issues. Vital Signs Vital signs: Initial Vital Signs Temperature 98.1 F 10/20/24 09:09 Temperature Source Temporal Artery Scan 10/20/24 09:09 Pulse Rate 55 L 10/20/24 09:09 Respiratory Rate 16 10/20/24 09:09 Blood Pressure 123/69 10/20/24 09:09 Blood Pressure Mean 87 10/20/24 09:09 Blood Pressure Position Sitting 10/20/24 09:09 Pulse Oximetry 94 10/20/24 09:09 Oxygen Delivery Method Room Air 10/20/24 09:09 Vital Signs Temperature 98.1 F 10/20/24 09:09 Pulse Rate 55 L 10/20/24 09:09 Respiratory Rate 16 10/20/24 09:09 Blood Pressure 123/69 10/20/24 09:09 Pulse Oximetry 94 10/20/24 09:09 Oxygen Delivery Method Room Air 10/20/24 09:09 Temperature 98.1 F 10/20/24 09:09 Pulse Rate 55 L 10/20/24 09:09 Respiratory Rate 16 08/06/25 09:09 Blood Pressure 123/69 10/20/24 09:09 Pulse Oximetry 94 10/20/24 09:09 Oxygen Delivery Method Room Air 10/20/24 09:09 MDM - Female Genitourinary Lab Data Attestation: I reviewed the patient's lab results. Lab results narrative: In review of prior urine cultures, there is 1 from May of 2022 with pansensitive E coli. Labs: Lab Results 10/20/24 10/20/24 Range/Units 09:15 09:33 WBC 4.99 (4.50-11.00) K/uL RBC 3.61 L (4.00-5.20) m/uL Hgb 11.5 L (12.0-16.0) gm/dL Hct 36.1 (33.0-51.0) % MCV 100 (80-100) fL MCH 32 (26-34) pg MCHC 32 (32-36) gm/dL RDW Coeff of Gayle 12.8 (11.5-15.5) % Plt Count 164 (140-440) K/uL Neut % (Auto) 75.2 H (42.0-72.0) % Lymph % (Auto) 11.6 L (20-44) % Stokes % (Auto) 12.2 H (0.0-11.0) % Eos % (Auto) 0.6 (0.0-7.0) % Baso % (Auto) 0.4 (0.0-3.0) % Neut # (Auto) 3.80 (1.7-7.0) K/uL Lymph # (Auto) 0.60 L (0.90-2.90) K/uL Stokes # (Auto) 0.60 (0.00-0.90) K/UL Eos # (Auto) 0.03 (0.00-0.50) K/uL Baso # (Auto) 0.02 (0.00-0.30) K/uL Abs Immat Gran (auto) 0.00 (0.00-0.30) K/uL Imm/Tot Granulo (auto) 0.0 % INR 1.89 H (0.91-1.10) Sodium 135 (135-149) mmol/L Potassium 3.9 (3.6-5.1) mmol/L Chloride 102 (96-114) mmol/L Carbon Dioxide 27 (20-32) mmol/L Anion Gap 6 L (7-15) mEq/L BUN 23 (7-30) mg/dL Creatinine 1.4 (0.5-1.5) mg/dL Estimated Creat Clear 22.81 Estimated GFR 37 ml/min Glucose 137 H (60-115) mg/dL Calcium 9.0 (8.4-10.6) mg/dL Urine Color Red A (Yellow) Urine Appearance Cloudy A (Clear) Urine pH >= 9.0 H (5.0-8.5) Ur Specific [place] 1.015 (1.000-1.030) Urine Protein 3+ A (Negative) Urine Glucose (UA) Trace A (Negative) Urine Ketones 1+ A (Negative) Urine Blood 3+ A (Negative) Urine Nitrite Positive A (Negative) Urine Bilirubin 3+ A (Negative) Urine Urobilinogen 4.0 A (0.2-1.0) Ur Leukocyte Esterase 3+ A (Negative) Urine RBC >100 A (0-2) Urine WBC 0-2 (0-5) Ur Squamous Epith Cells Few (None-Few) Triple Phos Crystals Moderate A (None) Urine Bacteria Moderate A (None) Imaging Data CT scan - abdomen: Attestation: I have reviewed the pertinent imaging results. Radiologist's impression: Patient: WILD HAY Facility:?[facility] Patient ID:?[id number] Site Patient ID:?[id number]. Site :?[id number] Study:?CT-Abdomen/Pelvis WITHOUT-10/20/2024 9:55:33 AM Ordering Physician:?Jackson Pabon Final Report: INDICATION: Hematuria. History of breast, colon and bladder cancer. TECHNIQUE: Axial images were obtained from the diaphragm to the pubic symphysis. Reformats were obtained in the coronal and sagittal plane. IV Contrast: None Oral Contrast: None COMPARISON: Abdomen and pelvis CT 06/05/2022 FINDINGS: Lower chest: Severe coronary atherosclerosis. 7 millimeter pulmonary nodule left lower lobe appears stable. Area of bronchiectasis in the right lower lobe with new amorphous density measuring 14 millimeters (series 3, image 20). Liver: Unremarkable. Normal in size and attenuation. No masses. Gallbladder and bile ducts: Unremarkable. No stones or inflammation. No biliary dilatation. Spleen: Unremarkable. Normal in size without mass. Pancreas: Unremarkable. No mass or inflammation. Adrenal glands: Unremarkable. No nodules. Kidneys: Bilateral renal cortical thinning with areas of parenchymal scarring with bilateral renal cysts, largest measuring 4.2 centimeters on the right. No hydronephrosis or nephrolithiasis. Vasculature: Atherosclerosis without abdominal aortic aneurysm. GI tract: The stomach is decompressed. Small bowel decompressed. Status post right hemicolectomy. Pelvis: Status post hysterectomy and cystectomy with a right lower quadrant ostomy. Surgical clips in the right inguinal region. Bones: Bilateral hip osteoarthritis. IMPRESSION: 1. No evidence of nephrolithiasis or hydronephrosis. No definite findings to explain the patient`s hematuria for the noncontrast CT technique. 2. Status post right lower quadrant urostomy. 3. Bilateral renal cortical atrophy and renal scarring. Bilateral renal cysts. 4. Status post right hemicolectomy. 5. Stable pulmonary nodule within the left lower lobe with new rounded lesion in the right lower lobe measuring 14 millimeters. This is adjacent to an area of bronchiectasis that was linear scar on the prior examination, however the differential includes progressive scarring/fibrosis versus mass. Consider three-month follow-up chest CT or PET-CT for further evaluation. Please note that all CT scans at this facility use dose modulation, iterative reconstruction, and/or weight-based dosing when appropriate to reduce radiation dose to as low as reasonably achievable. Dictated by Maximus Somers MD @ 10/20/2024 10:04:59 AM (Electronic Signature) Discharge Plan Discharge Clinical Impression: UTI (urinary tract infection) Patient Disposition: Home, Self-Care Condition: Stable Instructions: Urinary Tract Infection in Older Adults (ED) Additional Instructions: Start oral antibiotic as soon as possible and take as prescribed. It is important to complete the antibiotic. Your INR today was 1.89, please let your clinic know this results. They will guide you further on dosing of your warfarin/Coumadin. We will culture the urine, we will let you know if there is any change in antibiotic needed. In the meantime, if you develop fevers, abdominal pain, vomiting with these symptoms, please return to the ER for further evaluation. The blood in your urine should resolve as the urinary tract infection is treated with the antibiotic. Recommend making a follow-up appointment in clinic with your primary care provider. There is a CT imaging finding in the right lower lung that warrants follow-up non emergently. Take this CT report that was provided to you to this appointment. Activity Level: Activity as Tolerated Prescriptions: New cefdinir 300 mg capsule 300 mg PO BID Qty: 14 0RF No Action rosuvastatin 10 mg tablet 10 mg PO HS Patient Comments: TAKE ONE TABLET BY MOUTH ONE TIME DAILY AT BEDTIME flecainide 50 mg Tablet 50 mg PO BID Qty: 60 0RF escitalopram oxalate 5 mg tablet 5 mg PO DAILY warfarin 2 mg tablet 2 mg PO DAILY Follow Up/Referrals: Teressa Malave DO [Primary Care Provider, Family Practice] Stand Alone Forms: [employer] Info Instructions
--- NOTE | 2024-10-20 09:28 | CRLHL7_ITS ---
For Patients: As a result of the 21st Century Cures Act, medical imaging exams and procedure reports are released immediately into your electronic medical record. You may view this report before your referring provider. If you have questions, please contact your health care provider. INDICATION: Hematuria. History of breast, colon and bladder cancer. TECHNIQUE: Axial images were obtained from the diaphragm to the pubic symphysis. Reformats were obtained in the coronal and sagittal plane. IV Contrast: None Oral Contrast: None COMPARISON: Abdomen and pelvis CT 06/05/2022 FINDINGS: Lower chest: Severe coronary atherosclerosis. 7 millimeter pulmonary nodule left lower lobe appears stable. Area of bronchiectasis in the right lower lobe with new amorphous density measuring 14 millimeters (series 3, image 20). Liver: Unremarkable. Normal in size and attenuation. No masses. Gallbladder and bile ducts: Unremarkable. No stones or inflammation. No biliary dilatation. Spleen: Unremarkable. Normal in size without mass. Pancreas: Unremarkable. No mass or inflammation. Adrenal glands: Unremarkable. No nodules. Kidneys: Bilateral renal cortical thinning with areas of parenchymal scarring with bilateral renal cysts, largest measuring 4.2 centimeters on the right. No hydronephrosis or nephrolithiasis. Vasculature: Atherosclerosis without abdominal aortic aneurysm. GI tract: The stomach is decompressed. Small bowel decompressed. Status post right hemicolectomy. Pelvis: Status post hysterectomy and cystectomy with a right lower quadrant ostomy. Surgical clips in the right inguinal region. Bones: Bilateral hip osteoarthritis. IMPRESSION: 1. No evidence of nephrolithiasis or hydronephrosis. No definite findings to explain the patient`s hematuria for the noncontrast CT technique. 2. Status post right lower quadrant urostomy. 3. Bilateral renal cortical atrophy and renal scarring. Bilateral renal cysts. 4. Status post right hemicolectomy. 5. Stable pulmonary nodule within the left lower lobe with new rounded lesion in the right lower lobe measuring 14 millimeters. This is adjacent to an area of bronchiectasis that was linear scar on the prior examination, however the differential includes progressive scarring/fibrosis versus mass. Consider three-month follow-up chest CT or PET-CT for further evaluation. Please note that all CT scans at this facility use dose modulation, iterative reconstruction, and/or weight-based dosing when appropriate to reduce radiation dose to as low as reasonably achievable. Dictated by Maximus Somers MD @ 10/20/2024 10:04:59 AM (Electronically Signed)
[2024-10-20 09:41] LABS: Hematocrit 36.1 % (33.0-51.0); Hemoglobin* 11.5 gm/dL (12.0-16.0); Immature Granulocytes Abs Auto 0.00 K/uL (0.00-0.30); Immature Granulocytes Pct Auto 0.0 %; Mean Corpuscular HGB Conc 32 gm/dL (32-36); Mean Corpuscular Hemoglobin 32 pg (26-34); Mean Corpuscular Volume 100 fL (80-100); RDW Coefficient of Variation % 12.8 % (11.5-15.5); Red Blood Count 3.61 m/uL (4.00-5.20); White Blood Count* 4.99 K/uL (4.50-11.00)
[2024-10-20 09:46] LABS: Lymphocytes Absolute Auto 0.60 K/uL (0.90-2.90); Slide Review Reflex No
[2024-10-20 09:47] LABS: Appearance Urine Cloudy (Clear)
[2024-10-20 10:02] LABS: Chloride* 102 mmol/L (96-114); Potassium* 3.9 mmol/L (3.6-5.1); Sodium* 135 mmol/L (135-149)
[2024-10-20 10:04] LABS: INR 1.89 (0.91-1.10); Prothrombin Time 22.8 Seconds
[2024-10-20 10:05] LABS: Blood Urea Nitrogen* 23 mg/dL (7-30); Creatinine* 1.4 mg/dL (0.5-1.5); Est. Creatinine Clearance* 22.81; Estimated Glomerular Filt Rate 37 ml/min
[2024-10-20 10:06] LABS: Anion Gap 6 mEq/L (7-15); Calcium* 9.0 mg/dL (8.4-10.6); Carbon Dioxide* 27 mmol/L (20-32); Glucose* 137 mg/dL (60-115)
--- NOTE | 2024-10-25 08:43 | ED.GENADULT ---
HPI - General Adult General Date Seen: 10/20/24 Chief complaint: Urogenital Problems, Female Stated complaint: bleeding in urine Time Seen by Provider: 10/20/24 09:13 Source: patient and RN notes reviewed Mode of arrival: ambulatory Limitations: no limitations History of Present Illness HPI narrative: Addendum 10/25/2024. This patient was seen in the ER on 10/20. She was diagnosed with UTI and prescribed cefdinir. Urine culture grew Klebsiella. This is resistant to 1st generation cephalosporin such as cefazolin but sensitive to other cephalosporins including cefepime, ceftazidime, ceftriaxone. No need to change antibiotics. Related Data Home Medications ?Medication ?Instructions ?Recorded ?Confirmed rosuvastatin 10 mg tablet 10 mg PO HS 11/15/21 07/23/24 warfarin 2 mg tablet 2 mg PO DAILY 05/22/22 07/23/24 escitalopram oxalate 5 mg tablet 5 mg PO DAILY 06/05/22 07/23/24 Previous Rx's ?Medication ?Instructions ?Recorded flecainide 50 mg tablet 50 mg PO BID #60 tabs 11/16/21 cefdinir 300 mg capsule 300 mg PO BID #14 caps 10/20/24 Allergies Allergy/AdvReac Type Severity Reaction Status Date / Time No Known Drug Allergies Allergy Verified 07/23/24 10:39 [facility] Medical History Alcohol use ?Z78.9 - Other specified health status (ICD-10) Cognitive impairment ?R41.89 - Other symptoms and signs involving cognitive functions and awareness (ICD-10) Chronic kidney disease, stage 3b ?N18.32 - Chronic kidney disease, stage 3b (ICD-10) 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 - Rheumatic tricuspid insufficiency (ICD-10) Paroxysmal atrial fibrillation with rapid ventricular response ?I48.0 - Paroxysmal atrial fibrillation (ICD-10) Emphysema lung ?J43.9 - Emphysema, unspecified (ICD-10) COPD (chronic obstructive pulmonary disease) ?J44.9 - Chronic obstructive pulmonary disease, unspecified (ICD-10) History of smoking 30 or more pack years ?Z87.891 - Personal history of nicotine dependence (ICD-10) Carotid artery aneurysm ?I72.0 - Aneurysm of carotid artery (ICD-10) Paroxysmal supraventricular tachycardia ?I47.1 - Supraventricular tachycardia (ICD-10) 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.528 - Other complication of incontinent external stoma of urinary tract (ICD-10) Chronic kidney disease, stage 3 ?N18.30 - Chronic kidney disease, stage 3 unspecified (ICD-10) Mild cognitive impairment ?G31.84 - Mild cognitive impairment, so stated (ICD-10) Ascending aortic aneurysm ?I71.2 - Thoracic aortic aneurysm, without rupture (ICD-10) Diastolic congestive heart failure ?I50.30 - Unspecified diastolic (congestive) heart failure (ICD-10) Pulmonary nodules ?R91.8 - Other nonspecific abnormal finding of lung field (ICD-10) History of small bowel obstruction ?Z87.19 - Personal history of other diseases of the digestive system (ICD-10) History of bladder cancer ?Z85.51 - Personal history of malignant neoplasm of bladder (ICD-10) History of breast cancer ?Z85.3 - Personal history of malignant neoplasm of breast (ICD-10) History of colon cancer ?Z85.038 - Personal history of other malignant neoplasm of large intestine (ICD-10) Surgical History History of back surgery ?Z98.890 - Other specified postprocedural states (ICD-10) History of urostomy ?Z98.890 - Other specified postprocedural states (ICD-10) History of ileal conduit ?Z98.890 - Other specified postprocedural states (ICD-10) H/O total cystectomy ?Z90.6 - Acquired absence of other parts of urinary tract (ICD-10) History of colectomy ?Z90.49 - Acquired absence of other specified parts of digestive tract (ICD-10) Family History Daughter Diabetes High blood pressure Sister Stroke Social History Highest level of school completed/degree received: some college, no degree Smoking Status: Former smoker What tobacco products do you use: cigarettes Years smoked: 30 Smoking quit date/years: >15 years ago Do you use any of these nicotine containing products: None Second hand tobacco smoke exposure: No How often do you have a drink containing alcohol: 4 or more times a week Alcohol type: beer How many standard drinks containing alcohol do you have on a typical day: 1 or 2 How often do you have six or more drinks on one occasion: Never AUDIT-C Alcohol total score: 4 Non-prescribed substance use: denies use Caffeine: Yes (6 cups) service: No Course Vital Signs Vital signs: Initial Vital Signs Temperature 98.1 F 10/20/24 09:09 Temperature Source Temporal Artery Scan 10/20/24 09:09 Pulse Rate 55 L 10/20/24 09:09 Respiratory Rate 16 10/20/24 09:09 Blood Pressure 123/69 10/20/24 09:09 Blood Pressure Mean 87 10/20/24 09:09 Blood Pressure Position Sitting 10/20/24 09:09 Pulse Oximetry 94 10/20/24 09:09 Oxygen Delivery Method Room Air 10/20/24 09:09 Vital Signs Temperature 98.1 F 10/20/24 09:09 Pulse Rate 55 L 10/20/24 09:09 Respiratory Rate 16 10/20/24 09:09 Blood Pressure 123/69 10/20/24 09:09 Pulse Oximetry 94 10/20/24 09:09 Oxygen Delivery Method Room Air 10/20/24 09:09 Temperature 98.1 F 10/20/24 09:09 Pulse Rate 55 L 10/20/24 09:09 Respiratory Rate 16 10/20/24 09:09 Blood Pressure 123/69 10/20/24 09:09 Pulse Oximetry 94 10/20/24 09:09 Oxygen Delivery Method Room Air 10/20/24 09:09 Medical Decision Making Lab Data Labs: Lab Results 10/20/24 10/20/24 Range/Units 09:15 09:33 WBC 4.99 (4.50-11.00) K/uL RBC 3.61 L (4.00-5.20) m/uL Hgb 11.5 L (12.0-16.0) gm/dL Hct 36.1 (33.0-51.0) % MCV 100 (80-100) fL MCH 32 (26-34) pg MCHC 32 (32-36) gm/dL RDW Coeff of Gayle 12.8 (11.5-15.5) % Plt Count 164 (140-440) K/uL Neut % (Auto) 75.2 H (42.0-72.0) % Lymph % (Auto) 11.6 L (20-44) % [place] % (Auto) 12.2 H (0.0-11.0) % Eos % (Auto) 0.6 (0.0-7.0) % Baso % (Auto) 0.4 (0.0-3.0) % Neut # (Auto) 3.80 (1.7-7.0) K/uL Lymph # (Auto) 0.60 L (0.90-2.90) K/uL [place] # (Auto) 0.60 (0.00-0.90) K/UL Eos # (Auto) 0.03 (0.00-0.50) K/uL Baso # (Auto) 0.02 (0.00-0.30) K/uL Abs Immat Gran (auto) 0.00 (0.00-0.30) K/uL Imm/Tot Granulo (auto) 0.0 % INR 1.89 H (0.91-1.10) Sodium 135 (135-149) mmol/L Potassium 3.9 (3.6-5.1) mmol/L Chloride 102 (96-114) mmol/L Carbon Dioxide 27 (20-32) mmol/L Anion Gap 6 L (7-15) mEq/L BUN 23 (7-30) mg/dL Creatinine 1.4 (0.5-1.5) mg/dL Estimated Creat Clear 22.81 Estimated GFR 37 ml/min Glucose 137 H (60-115) mg/dL Calcium 9.0 (8.4-10.6) mg/dL Urine Color Red A (Yellow) Urine Appearance Cloudy A (Clear) Urine pH >= 9.0 H (5.0-8.5) Ur Specific [place] 1.015 (1.000-1.030) Urine Protein 3+ A (Negative) Urine Glucose (UA) Trace A (Negative) Urine Ketones 1+ A (Negative) Urine Blood 3+ A (Negative) Urine Nitrite Positive A (Negative) Urine Bilirubin 3+ A (Negative) Urine Urobilinogen 4.0 A (0.2-1.0) Ur Leukocyte Esterase 3+ A (Negative) Urine RBC >100 A (0-2) Urine WBC 0-2 (0-5) Ur Squamous Epith Cells Few (None-Few) Triple Phos Crystals Moderate A (None) Urine Bacteria Moderate A (None) Discharge Plan Discharge Clinical Impression: UTI (urinary tract infection) Qualifiers: Urinary tract infection type: site unspecified Hematuria presence: with hematuria Qualified Code(s): N39.0 - Urinary tract infection, site not specified Patient Disposition: Home, Self-Care Condition: Stable Instructions: Urinary Tract Infection in Older Adults (ED) Additional Instructions: Start oral antibiotic as soon as possible and take as prescribed. It is important to complete the antibiotic. Your INR today was 1.89, please let your clinic know this results. They will guide you further on dosing of your warfarin/Coumadin. We will culture the urine, we will let you know if there is any change in antibiotic needed. In the meantime, if you develop fevers, abdominal pain, vomiting with these symptoms, please return to the ER for further evaluation. The blood in your urine should resolve as the urinary tract infection is treated with the antibiotic. Recommend making a follow-up appointment in clinic with your primary care provider. There is a CT imaging finding in the right lower lung that warrants follow-up non emergently. Take this CT report that was provided to you to this appointment. Activity Level: Activity as Tolerated Prescriptions: New cefdinir 300 mg capsule 300 mg PO BID Qty: 14 0RF No Action rosuvastatin 10 mg tablet 10 mg PO HS Patient Comments: TAKE ONE TABLET BY MOUTH ONE TIME DAILY AT BEDTIME flecainide 50 mg Tablet 50 mg PO BID Qty: 60 0RF escitalopram oxalate 5 mg tablet 5 mg PO DAILY warfarin 2 mg tablet 2 mg PO DAILY Follow Up/Referrals: Teressa Malave DO [Primary Care Provider, Family Practice] Stand Alone Forms: [employer] Info Instructions
== END 2024-10-20 10:38 | disposition home or self-care (01) ==
PROVIDERS: Emergency Provider Family Medicine; PCP Family Medicine
DX: N39.0 Urinary tract infection, site not specified (principal)
CPT/HCPCS: 36415; 74176; 80048; 81001; 85025; 85610; 87086; 99281; 99284

== ENCOUNTER 2024-11-11 15:41 | Outpatient (CLI) | payer MEDICARE, BC, SELFPAY ==
--- NOTE | 2024-11-11 16:00 | CRLHL7_ITS ---
For Patients: As a result of the 21st Century Cures Act, medical imaging exams and procedure reports are released immediately into your electronic medical record. You may view this report before your referring provider. If you have questions, please contact your health care provider. EXAM: FDG PET-CT Skull Base to Thighs CLINICAL INFORMATION: 84-year-old woman with history of lung nodule. History of bladder cancer, breast cancer and colon cancer. PET CT ordered for additional characterization. TECHNIQUE: Radiopharmaceutical: 18F-fluorodeoxyglucose (18F-FDG) Dose: 15.33 milliCurie. Blood glucose: 92 mg/dL. Image acquisition: At approximately 60 minutes following IV tracer administration via a right antecubital vein, positron emission tomography was performed from the skull base through the mid thigh. Non-contrast low-dose helical CT imaging was performed over the same range without breath-hold for attenuation correction of PET images and anatomic correlation; it is neither sufficient, nor should it be substituted for diagnostic purposes. COMPARISON: CT abdomen pelvis 10/20/2024. FINDINGS: Mediastinal blood pool FDG uptake: SUVMax 2.6 (301:85, 202:86) Liver background parenchymal FDG uptake: SUVMax 3.4 (301:123, 202:124) PET Findings: 2.0 x 1.7 cm subsolid lesion in right lower lobe of the lungs, with a faintly FDG avid 1.6 x 1.1 cm solid nodule SUVMax 2.5 (301:115, 202:116), raises concern for a primary lung adenocarcinoma. No focal FDG uptake at a 0.9 x 0.8 cm lung nodule in the left lower lobe SUVMax 1.4 (301:110, 202:111). Postoperative changes from cystectomy with diverting ileal conduit and right lower quadrant ostomy. Prior right hemicolectomy. No associated abnormal focal increased FDG uptake at suture margins. No abnormal FDG avid lymphadenopathy. No abnormal FDG uptake in the visualized skeleton. Linear FDG uptake in the lower esophagus and focal FDG uptake at the gastroesophageal junction, favored to be inflammatory. Tracer uptake elsewhere is physiologic. Non-PET findings: Bilateral lens replacements. Subcentimeter pulmonary nodules, for example measuring up to 0.8 cm at a nodule in the left lower lobe (301:101, 202:102), too small to characterize. Coronary artery calcifications. Atherosclerotic calcifications of the thoracic and abdominal aorta. Non FDG avid 1.3 cm simple fluid density lesion in the right retroareolar breast likely represents a cyst. Bilateral renal cysts. Hysterectomy. Multilevel degenerative changes in the spine. IMPRESSION: 1. A faintly FDG avid 2.0 x 1.7 cm subsolid lung lesion in the right lower lobe of the lungs, containing a 1.6 x 1.1 cm solid nodule which demonstrates the most prominent FDG uptake, raises concern for a primary lung adenocarcinoma. Correlate with tissue sampling pathology. 2. No evidence of FDG avid xiomy or distant metastatic disease. 3. No focal FDG uptake at a 0.9 x 0.8 cm lung nodule in the left lower lobe. No evidence to support a metabolically active high grade lung neoplasm at this site. 4. Postoperative changes from cystectomy with diverting ileal conduit and right lower quadrant ostomy. No evidence of FDG avid locally recurrent neoplasm. 5. Scattered subcentimeter pulmonary nodules without substantial FDG uptake are too small to characterize. 6. Linear FDG uptake in the lower esophagus and focal FDG uptake at the gastroesophageal junction, favored to be inflammatory. Consider correlation with endoscopy. 7. Non FDG avid 1.3 cm simple fluid density lesion in the right retroareolar breast likely represents a cyst. Correlate with dedicated mammogram and ultrasound. Dictated by Chas Varma MD @ 11/13/2024 1:10:31 AM (Electronically Signed)
== END 2024-11-11 15:42 | disposition home or self-care (01) ==
LOC: RAD 15:42
PROVIDERS: PCP Family Medicine; Visit Provider Family Medicine
DX: R93.89 Abnormal findings on diagnostic imaging of other specified body structures (principal); R91.8 Other nonspecific abnormal finding of lung field; N60.01 Solitary cyst of right breast
CPT/HCPCS: 78815; A9552

== ENCOUNTER 2025-01-18 12:09 | Emergency (ER) | payer MEDICARE, BC, SELFPAY ==
--- OUTSIDE RECORDS SUMMARY | 2011-11-01 18:00 | XMS_ITS | Continuity of Care Document ---
Author Organization [facility] Address [address] [address] [place] [address] Phone Care Team Providers Care Negotiations Director Name Role Phone Liya Hope Unavailable Unavaila ble Procedures Procedure Date Subsqt Hosp-da E&m Minr Compl 2 Init Hosp-da E&m Mod Severity 2 Advance Directives Directive Yes / No Effective Date File Name No Information Encounters Encounter Description Practice Location Reason(s) For Visit Diagnoses Date Provider Providers Copied on Encounter Subsqt Hosp-da E&m Minr Compl [facility], [address] [address], [place], [place], [id number], tel:[phone] [facility] No Information 2 Porfirio Nickerson . [address] [place] [address], [id number] , [place]. tel:[phone] Referring Provider: Poli Garcia, [address] [place] [address], [id number]. tel:[phone] Init Hosp-da E&m Mod Severity [facility], [address] [address], [place], [place], [id number], tel:[phone] [facility] No Information 2 Javon Quintana. [address], [id number] , . tel:[phone] Referring Provider: Poli Garcia, [address] [facility] [address], [address]. tel:[phone] Family History Family Member Type Diagnosis Age At Onset No Information Payers Payer name Insurance type Covered republican ID Authoriza tion(s) No Information Social History Type Description Quantity Date Captured Comments Sex Female Smoking Status No Information Chief Complaint And Reason For Visit No Information Reason For Referral Reason For Referral No Information History Of Present Illness Encounter Date Complaint History Of Prese nt Illness No Information Functional Status Date Functional Assessmen t No Information Instructions Date Instruction Additional Infor mation No Information Assessments Type Assessment Date No Information Patient Care Teams Name Effective Dates (start - stop) Status Members No Information
--- OUTSIDE RECORDS SUMMARY | 2011-11-01 18:00 | XMS_ITS | Continuity of Care Document ---
Author Organization [facility] Address [address] [address] [place] [address] Phone Care Team Providers Care Molecular Pathologist Name Role Phone Liya Hope Unavailable Unavaila ble Procedures Procedure Date Subsqt Hosp-da E&m Minr Compl 2 Init Hosp-da E&m Mod Severity 2 Advance Directives Directive Yes / No Effective Date File Name No Information Encounters Encounter Description Practice Location Reason(s) For Visit Diagnoses Date Provider Providers Copied on Encounter Subsqt Hosp-da E&m Minr Compl [facility], [address] [address], [place], [place], [id number], tel:[phone] [facility] No Information 2 Porfirio Nickerson . [address] [place] [address], [id number] , [place]. tel:[phone] Referring Provider: Ploi Garcia, [address] [place] [address], [address]. tel:[phone] Init Hosp-da E&m Mod Severity [facility], [address] [address], [place], [place], [id number], tel:[phone] [facility] No Information 2 Javon Quintana. [address], [id number] , . tel:[phone] Referring Provider: Poli Garcia, [address] [facility] [address], [place], [address]. tel:[phone] Family History Family Member Type Diagnosis Age [...]
--- OUTSIDE RECORDS SUMMARY | 2024-12-27 08:30 | XMS_ITS | Encounter Summary ---
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 [address] [place] [phone] 03/01/2025 12:30 PM SAMPLE PROCESSOR Appointment Department of Radiation Oncology in [place], [place] [address] [place] [phone] Danilo Garvey M.D. 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 No definite concerning activity associated with the right lower lobe lung base nodule. Differential considerations include rounded atelectasis, primary lung nodule benign or malignant and less likely metastasis. 2. No findings concerning for lung cancer metastasis 3. No other findings concerning for recurrent breast, colon or bladder malignancy. Narrative 12/30/2024 9:44 AM CDT EXAM: INTERPRETATION OF OUTSIDE NM PET SCAN dated 11/11/2024. TECHNIQUE: F-18 Fluorodeoxyglucose (FDG) PET/CT scan was performed from the orbits through the thighs with CT fusion imaging for attenuation correction and anatomic coregistration only. COMPARISON: Outside CTs 11/25/2024 and 08/29/2016. INDICATION: Pulmonary nodules with progression in the right lower lobe. Initial treatment strategy. Prior breast cancer, status post lumpectomy and radiation 1991. Prior colon cancer status post right hemicolectomy 1998. Prior bladder cancer status post cystectomy and ileal conduit 1998. FINDINGS: Between 08/29/2016 and 11/25/2024 a 10 mm nodularity in the right lower lobe lung base posterior laterally has developed, reference series 4 image 196 on 11/25/2024. This corresponds to axial image 117 on PET/CT 11/11/2024. There is some mild activity associated with this nodule which is similar to blood pool. It is not clear if the exam was performed with respiratory gating, and the activity in this location may be artifactually low. Differential considerations include rounded atelectasis and a benign or malignant nodule. Findings long-term stability of a non-FDG avid 9 mm nodule in the left lower lobe, axial image 112. Favor this is benign. No concerning findings for breast cancer recurrence. Right hemicolectomy. Cystectomy with ileal conduit. Right renal cyst. Cardiac enlargement. Severe coronary calcifications. Procedure Note Isrrael Fitzgerald M.D., Ph.D. - 12/30/2024 EXAM: INTERPRETATION OF OUTSIDE NM PET SCAN dated 11/11/2024. TECHNIQUE: F-18 Fluorodeoxyglucose (FDG) PET/CT scan was performed fromthe orbits through the thighs with CT fusion imaging for attenuationcorrection and anatomic coregistration only. COMPARISON: Outside CTs 11/25/2024 and 08/29/2016. INDICATION: Pulmonary nodules with progression in the right lower lobe.Initial treatment strategy. Prior breast cancer, status post lumpectomy and radiation 1991. Priorcolon cancer status post right hemicolectomy 1998. Prior bladder cancerstatus post cystectomy and ileal conduit 1998. FINDINGS: Between 08/29/2016 and 11/25/2024 a 10 mm nodularity in the right lower lobelung base posterior laterally has developed, reference series 4 image 196on 11/25/2024. This corresponds to axial image 117 on PET/CT 11/11/2024.There is some mild activity associated with this nodule which is similarto blood pool. It is not clear if the exam was performed with respiratorygating, and the activity in this location may be artifactually low.Differential considerations include rounded atelectasis and a benign ormalignant nodule. Findings long-term stability of a non-FDG avid 9 mm nodule in the leftlower lobe, axial image 112. Favor this is benign. No concerning findings for breast cancer recurrence. Right hemicolectomy.Cystectomy with ileal conduit. Right renal cyst. Cardiac enlargement.Severe coronary calcifications. IMPRESSION: 1. No definite concerning activity associated with the right lower lobelung base nodule. Differential considerations include rounded atelectasis,primary lung nodule benign or malignant and less likely metastasis. 2. No findings concerning for lung cancer metastasis 3. No other findings concerning for recurrent breast, colon or bladdermalignancy. Dominique Latham APRN C.N.P., D.N.P. 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
--- OUTSIDE RECORDS SUMMARY | 2024-12-31 07:45 | XMS_ITS | Encounter Summary ---
Author Organization [facility] Address [address] [place] [id number] Care Team Providers Care Wellness Coordinator Name Role Phone Unavailable Primary Care Provider Unavailabl e Reason for Referral * Outpatient (Routine) - Authorized Specialty Diagnoses / Procedures Referred By Cristopher camacho Referred To Contact Radiation Oncology Diagnoses 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 (HCC) Dominique Latham APRN, C.N.P., D.N.P. [address] [place] [phone] Phone: tel: fax: Danilo Garvey M.D. [address] [place] [place] [phone] Phone: tel: fax: Referral ID Status Reason Start Date Expiration Date V isits Requested Visits Authorized [id number] Authorized 12/31/2024 07/02/2026 [address] chest at [facility] and PFTs - coordinate with SIM * MRI/CAT/PET Scan (Routine) - Authorized Specialty Diagnoses / Procedures Referred By Cristopher camacho Referred To Contact Radiology Diagnoses 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 (HCC) Procedures CT Chest without IV Contrast Dominique Latham APRN, C.N.P., D.N.P. 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 [address] [place] [address] Phone: tel: fax: Referral ID Status Reason Start Date Expiration Date Visits Re quested Visits Authorized [id number] Closed 12/17/2024 03/19/2026 1 1 Encounter Details Date Type Department Care Team (Latest Contact Info) Description 12/31/2024 8:45 AM CDT - 12/31/2024 4:25 PM CDT Hospital Encounter Department of Radiation Oncology in [place], [place] [address] [place] [address] Danilo Garvey M.D. 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 09/07/2018 cholecalciferol (Vitamin D3) 50 mcg (2,000 Unit) tablet Take 2,000 Units by mouth. 05/06/2019 cyanocobalamin (Vitamin B-12) 1,000 mcg tablet Take 1,000 mcg by mouth daily. 07/19/2021 escitalopram (Lexapro) 5 mg tablet Take 5 mg by mouth every morning. 06/05/2022 flecainide (Tambocor) 50 mg tablet Take 50 mg by mouth. 11/16/2021 rosuvastatin (Crestor) 10 mg tablet Take 10 mg by mouth at bedtime. warfarin (Jantoven) 2 mg tablet Take by mouth 3 mg (2 mg x 1.5) every day in the evening OR as directed 05/22/2022 documented as of this encounter Consult Notes * Dominique Latham APRN, C.N.P., D.N.P. - 12/31/2024 9:00 AM CDT SUBJECTIVE REQUESTING PROVIDER Jeffrey Long M.D. REASON FOR CONSULT 1. 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 ([phone]) HISTORY OF PRESENT ILLNESS Mrs. Rosa M Jones is a 84 y.o. female former smoker with presumed early stage NSCLC of the right lower lobe, biopsy inconclusive but suspicious. She presents today for an opinion regarding therole of radiation therapy in the management of her disease. 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 Morris. Malignant Neoplasm Of Colon (HCC) 1997 Initial Diagnosis Colon cancer status post right hemicolectomy 1997 Personal History Of Malignant Neoplasm Of Bladder 1998 Initial Diagnosis Bladder cancer status post cystectomy with ileal conduit formation in 1998 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 (HCC) 10/20/[address] abdomen pelvis performed for hematuria with history of colon, bladder, and breast cancer. Stable pulmonary nodule within the left lower lobe with new rounded lesion in the right lower lobe measuring 14 mm. This is adjacent to an area of bronchiectasis that was linear scar on the prior examination, however the differential includes progressive scarring/fibrosis versus mass. Consider three- month follow-up chest CT or PET-CT for further evaluation 11/11/2024 Critical Imaging PET/CT IMPRESSION: 1. A faintly FDG avid 2.0 x 1.7 cm subsolid lung lesion in the right lower lobe of the lungs, containing a 1.6 x 1.1 cm solid nodule which demonstrates the most prominent FDG uptake, raises concern for a primary lung adenocarcinoma. Correlate with tissue sampling pathology. 2. No evidence of FDG avid xiomy or distant metastatic disease. 3. No focal FDG uptake at a 0.9 x 0.8 cm lung nodule in the left lower lobe. No evidence to supporta metabolically active high grade lung neoplasm at this site. 4. Postoperative changes from cystectomy with diverting ileal conduit and right lower quadrant ostomy. No evidence of FDG avid locally recurrent neoplasm. 5. Scattered subcentimeter pulmonary nodules without substantial FDG uptake are too small to characterize. 6. Linear FDG uptake in the lower esophagus and focal FDG uptake at the gastroesophageal junction, favored to be inflammatory. Consider correlation with endoscopy. 7. Non FDG avid 1.3 cm simple fluid density lesion in the right retroareolar breast likely represents a cyst. Correlate with dedicated mammogram and ultrasound. 11/25/[address] Chest Lungs and pleura: The nodule in the left lower lobe now measures between 8 and 9 millimeters. Previous between 7 and 8 millimeters. Progressive lower lobe scarring is present with bronchiectasis now identified in both lower lobes. Subsegmental of minimal focal consolidation and adjacent bronchiectasis in the right lower lobe nearthe costophrenic sulcus. This is slightly larger and has a slightly nodular component measuring 11 millimeters. 12/03/2024 Biopsy/Pathology A) RIGHT LUNG, LOWER LOBE NODULE, FINE-NEEDLE ASPIRATION AND FORCEPS BIOPSY: 1. Atypical epithelioid cells present on cytology slides 2. Tissue biopsy comprised of alveolated lung parenchyma with fibrotic scarring and chronic inflammation 3. See comment B) LYMPH NODE, STATION 7, SUBCARINAL, ENDOBRONCHIAL ULTRASOUND-GUIDED FINE- NEEDLE ASPIRATION: 1. Negative for malignancy 2. Lymphocytes consistent with sampled lymph node C) LYMPH NODE, STATION 10R, HILAR, ENDOBRONCHIAL ULTRASOUND-GUIDED FINE-NEEDLE ASPIRATION: 1. Negative for malignancy 2. Lymphocytes and histiocytes with carbonaceous pigment, consistent with sampled anthracotic lymphnode D) LYMPH NODE, STATION 11R, INTERLOBAR, ENDOBRONCHIAL ULTRASOUND-GUIDED FINE- NEEDLE ASPIRATION: 1. Negative for malignancy 2. Lymphocytes and histiocytes with carbonaceous pigment, consistent with sampled anthracotic lymphnode Comment A) Clusters of atypical epithelioid cells characterized by nuclear enlargement and mild nuclear pleomorphism are present on the cytology slides. The pathologic differential diagnosis includes a limited sampling of a neoplasm (favored) and reactive atypia. Clinical and radiologic correlation is necessary to determine if additional tissue sampling is warranted. 12/16/[address] Jeffrey Long, Thoracic Surgery. Case discussed at multidisciplinary tumor board. Recommended radiation over surgery due to age and functional status but surgery was potentially an option. PFTs not obtained yet. 12/27/2024 Critical Imaging [facility] interpretation of outside PET-CT IMPRESSION: 1. No definite concerning activity associated with the right lower lobe lung base nodule. Differential considerations include rounded atelectasis, primary lung nodule benign or malignant and less likely metastasis. 2. No findings concerning for lung cancer metastasis 3. No other findings concerning for recurrent breast, colon or bladder malignancy. 01/05/2025 - Radiation Therapy Radiation Therapy Treatment Details (Noted on 12/30/2024) Site: Right Lung Technique: No technique specified Goal: Curative Planned Treatment Start Date: 01/05/2025 INTERVAL HISTORY The patient was seen and examined today with Dr. Garvey. The patient reports feeling well overall. She does experience mild shortness of breath with walkinglong distances. She used to walk a little over a mile but did experience shortness of breath part way through. She is no longer walking that distance. She does feel she would be able to walk a flightof stairs without any issues as long as she isn't carrying anything. She denies any persistent chest pain, pressure, or tightness. She denies cough or hemoptysis. She has not lost any unanticipated weight and denies any swallowing concerns. The patient does have a history of prior radiation treatment to the right breast. The patient denies a history of connective tissue disorders or inflammatory bowel disease. The patient denies any implanted electronic devices. Her ECOG performance status is 0. REVIEW OF SYSTEMS Review of systems was negative except as documented above. PAST MEDICAL HISTORY Medical History[1] PAST SURGICAL HISTORY Surgical History[2] FAMILY HISTORY Family History[3] SOCIAL HISTORY Social History[4] OBJECTIVE BP (!) 164/72 (BP Location: Right arm, Patient Position: Sitting, Cuff Size: Regular) Pulse 60 Temp 36.4 ??C (Temporal) Wt 68.9 kg PHYSICAL EXAM General: Alert and oriented in no apparent distress. Lymph: No palpable cervical, supraclavicular, infraclavicular, or axillary adenopathy. Lungs: Non-labored breathing. Clear to auscultation bilaterally. Heart: Regular rate and rhythm. Normal S1 and S2. ASSESSMENT / PLAN #1 Presumed early stage (cT1b, cN0, cM0) NSCLC of the right lower lobe, biopsy was inconclusive butsuspicious #2 Hx left breast cancer status post lumpectomy and radiation in 1991 #3 Hx colon cancer status post right hemicolectomy 1997 #4 Hx bladder cancer status post cystectomy with ileal conduit formation in 1998 It was a pleasure to meet with Olimpia on her daughters today. I had a discussion with them regarding her lung cancer diagnosis including the staging. We reviewed the oncologic history as detailed above. We also had a detailed discussion regarding the risks, benefits, and alternatives of radiotherapy in this setting. We discussed the recommendation for radiation treatment to the right lower lung in 3 or 5 fractions. We also discussed continued observation. I discussed the logistics as well as the acute and chronic side effects of radiotherapy. The acute side effects may include, but are not limited to, fatigue, shortness of breath, skin irritation, cough, and pain and/or difficulty with swallowing with a rare need for hospitalization. A delayed side effect could include radiation pneumonitis or chest wall pain. Long-term side effects can be rare and may include, but not limited to, heart damage (with left-sided treatment), ulceration or narrowingof the esophagus, broken rib, hemorrhage of a blood vessel that could be fatal, spinal cord damage,chronic shortness of breath or bronchial collapse, chronic chest wall pain, or secondary malignancy. The patient was provided with a written summary of recommendations. Her questions were answered tohis verbalized satisfaction. After discussion, the patient and her daughters verbally stated that she would like to wait on treatment. We will repeat CT chest imaging in 2 months at [facility] in [place] for continued observation. We will have her complete PFTs in that timeframe as well. We will bring her back to review the results and possibly pursue radiation at that time. Patient seen in collaboration with Dr. Garvey, please review his attestation for additional information. The patient was provided with our contact information. She was asked to contact us with questions or concerns. She verbally expressed her understanding of the plan. EDUCATION Ready to learn, no apparent learning barriers were identified; learning preferences include listening. Explained diagnosis and treatment plan; patient expressed understanding of the content. CONSENT Discussed the risks, benefits, alternatives, and the necessity of other members of the healthcare team participating in the procedure. All questions answered. PRIMARY PROVIDER Teressa Malave, DO I personally spent 55 minutes in care of the patient today. Time includes both non face to face andface to face patient care. Signed by: Dominique Latham APRN, C.N.P., D.N.P. 12/31/2024 11:51 AM CDT [facility] Rad[facility] Center [address] [place] [address] [1] Past Medical History: Diagnosis Date Acute Diastolic (Congestive) Heart Failure (HCC) Aneurysm brain Aneurysm Aortic Ascending Without Rupture Atrial Fibrillation Paroxysmal (HCC) Bradycardia Chronic Kidney Disease Conduit Ileal (HCC) PreDiabetes [2] Past Surgical History: Procedure Laterality Date APPENDECTOMY BACK SURGERY CYSTECTOMY WITH ILEAL CONDUIT LUMPECTOMY OF BREAST N/A 05/30/1991 Breast lumpectomy RIGHT COLECTOMY N/A 1997 Right hemicolectomy [3] Family History Problem Relation Name Age of Onset Colon cancer Sister Non-Hodgkin's lymphoma Son [4] Social History Socioeconomic History Marital status: Tobacco Use Smoking status: Former Current packs/day: 0.00 Types: Cigarettes Quit date: 1991 Years since quittin.8 Smokeless tobacco: Never Social Drivers of Health Food Insecurity: No Food Insecurity (04/07/2024) Received from [facility] Food Insecurity Do you worry your food will run out before you are able to buy more?: 1 Transportation Needs: No Transportation Needs (04/07/2024) Received from [facility] Transportation Needs Does lack of transportation keep you from medical appointments?: 1 Does lack of transportation keep you from work, meetings or getting things that you need?: 1 Housing Stability: Low Risk (04/07/2024) Received from [facility] Housing Stability What is your housing situation today?: 1 Cosigned by Danilo Garvey M.D. at 12/31/2024 4:24 PM CDT Associated attestation - Danilo Garvey M.D. - 12/31/2024 4:24 PM CDT RADIATION ONCOLOGY CONSULTATION I saw and evaluated the patient and participated in the martinez portions of the service. I reviewed thedocumentation of Dominique Latham C.N.P. and agree with the findings and plan. Mrs. Rosa M Jones is an 84 y.o. female with stage IA2 (cT1b, cN0, cM0) right lower lobe lungcancer. We are asked by Dr. Long to evaluate the patient for radiotherapy. Her oncologic history is well-detailed in Gianluca Yeison's note. 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 Morris. More recently she had a CT scan of her abdomen and pelvis on October 20, 2024 because of hematuria that revealed a nodule in the left lower lobe that was stable and a new more solid nodule in the rightlower lobe measuring 14 mm. In retrospect this lesion was present on a CT of her abdomen and pelvisfrom June 05, 2022 but was less coalesced and solid at that time. A PET/CT scan on November 11, 2024revealed a faintly FDG avid (SUV max 2.5) 2.0 x 1.7 cm subsolid right lower lobe lung lesion with regina solid 1.6 cm component concerning for primary lung adenocarcinoma. There was no focal FDG uptake (SUV max 1.4) in a 9 mm left lower lobe lung nodule. There was some linear uptake in the lower esophagus and at the GE junction which was thought to be inflammatory. A chest CT scan on November 25, 2024 showed that the left lower lobe nodule measured 8-9 mm whereas previously it had been 7-8 mm and the right lower lobe nodule had adjacent bronchiectasis with the costophrenic sulcus with a nodular component measuring 11 mm. She underwent an EBUS biopsy on December 03, 2024 which returned atypical epithelioid cells from the right lower lobe nodule and negative biopsies from station 7, 10R and 11R. She saw Dr. Long in consultation on December 16, 2024 and her case was discussed at multidisciplinary tumor board with the recommendation for radiotherapy over surgery given her functional status. INTERVAL HISTORY The patient reports currently feeling well. She has some mild dyspnea on exertion with walking longdistances. She denies any chest pain, pressure, cough, or hemoptysis. Her ECOG performance status is 0. OBJECTIVE BP (!) 164/72 (BP Location: Right arm, Patient Position: Sitting, Cuff Size: Regular) Pulse 60 Temp 36.4 ??C (Temporal) Wt 68.9 kg PHYSICAL EXAM General: Patient is awake, alert, and oriented to person, place, and time. No apparent distress. The patient is here today with her daughter in-law Helen who is an RN at the emergency room at [facility] her daughter Dora. DIAGNOSTICS I independently reviewed her imaging and went over all of her recent scans with her and her daughters. I also reviewed her pathology report. 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 I reviewed the NCCN guidelines in formulating my recommendations. I went over these with the patient. I recommend stereotactic body radiation therapy (SBRT)to the right lower lung tumor to a dose of 50 Gy in 5 fractions. SBRT is indicated so as to spare high radiation dose to the adjacent esophagus, heart, lungs, liver and spinal cord. I reviewed the logistics of treatment with her. Ms. Latham discussed the acute and chronic toxicities of treatment. For a complete listing of these, please see her note. After this discussion, I provided the patient with a written summary of my recommendations. Her questions and those of her daughters were answered to their verbalized satisfaction. The patient is reluctant to proceed with radiotherapy. Alternatively, we discussed repeating a chest CT scan in 2 months which will be 3 months from her last CT scan. I explained that the tumor is quite small, so I think waiting will not be detrimental for her overall outcome. We will obtain a CT chest at [facility] in [place] and see her back to go over the results. We will also obtain pulmonary function tests in the interim. My thanks to Drs. Long and Frieda for the opportunity to participate in this patient's care. I have spent 45 minutes caring for this patient including [id number] and [id number]-face time. Signed by: Danilo Garvey M.D. 12/31/24 4:24 PM CDT [facility] Radiation Therapy Center [place] documented in this encounter Miscellaneous Notes * Addendum Note - Erlinda Lopez - 12/31/2024 9:00 AM CDTEncounter addended by: Erlinda Lopez on: 01/03/2025 9:36 AM Actions taken: Letter saved documented in this encounter Plan of Treatment Upcoming Encounters Date Type Department Care Team (Late st Contact Info) Description 03/01/2025 11:30 AM SPRAY MIXER Appointment Department of Radiation Oncology in [address] [phone] Danilo Garvey M.D. [address] [place] [phone] 03/01/2025 12:30 PM SPRAY MIXER Appointment Department of Radiation Oncology in [address] [phone] Danilo Garvey M.D. [address] [place] [phone] Scheduled Orders Name Type Priority Associated Diagnoses Orde r Schedule Pulmonary Function Tests PFT Routine 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 (HCC) Expected: 12/31/2024, Expires: 04/02/2026 CT Chest without IV Contrast Imaging RAD - Routine (most inpatients and all outpatients) 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 (HCC) Expected: 02/24/2025, Expires: 04/02/2026 Scheduled Referrals Name Type Priority Associated Diagnoses Orde r Schedule Radiation Oncology office visit (clinic) Outpatient Referral Routine 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 (HCC) Expected: 02/28/2025, Expires: 04/02/2026 documented as of this encounter Visit Diagnoses Diagnosis 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 (HCC)- Primary documented in this encounter
--- OUTSIDE RECORDS SUMMARY | 2025-01-18 12:12 | XMS_ITS | Encounter Summary ---
Author Organization [facility] Address [address] [place] [id number] Care Team Providers Care Bottle Dealer Name Role Phone Unavailable Primary Care Provider Unavailabl e Encounter Details Date Type Department Care Team (Late st Contact Info) Description 12/27/2024 Orders Only Department of Radiation Oncology in [place], [place] [address] [place] [phone] Dominique Latham APRN, C.N.P., D.N.P. 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 [address] [place] [phone] 03/01/2025 12:30 PM SPOOLING OPERATOR Appointment Department of Radiation Oncology in [place], [place] [address] [place] [address] Daniol Garvey M.D. [address] [place] [address] documented as of this encounter Results * Interpretation of Outside [...] recurrent breast, colon or bladdermalignancy. Dominique Latham APRN, C.N.P., D.N.P. [facility] NM P ROCEDURES Final Result documented in this encounter Visit Diagnoses Diagnosis 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 (HCC)- Primary 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 (HCC) documented in this encounter
--- OUTSIDE RECORDS SUMMARY | 2025-01-18 12:12 | XMS_ITS | Clinical Summary ---
Author Organization [facility] Address [address] [place] [address] Care Team Providers Care Production Operations Engineer Name Role Phone Unavailable Primary Care Provider Unavailabl e Source Comments Patient records contain information from all sites at [facility]. For routine questions regarding patient records, call [phone] during business hours, M-F 8:00 AM - 5:00 PM Central Time. Record requests for emergency care only can be directed to [phone] at any time.[facility] Allergies No known active allergies Medications escitalopram (Lexapro) 5 mg tablet Take 5 mg by mouth every morning. 06/05/2022 Active rosuvastatin (Crestor) 10 mg tablet Take 10 mg by mouth at bedtime. Active warfarin (Jantoven) 2 mg tablet Take by mouth 3 mg (2 mg x 1.5) every day in the evening OR as directed 05/22/2022 Active cyanocobalamin (Vitamin B-12) 1,000 mcg tablet Take 1,000 mcg by mouth daily. 07/19/2021 Active cholecalciferol (Vitamin D3) 50 mcg (2,000 Unit) tablet Take 2,000 Units by mouth. 05/06/2019 Active biotin 1 mg capsule Take 1,000 mcg by mouth. 09/07/2018 Active flecainide (Tambocor) 50 mg tablet Take 50 mg by mouth. 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 Gender Identity Not on file Sexual Orientation Not on file Last Filed Vital Signs Vital Sign Reading Time Taken Comments Blood Pressure 164/72 12/31/2024 8:49 AM CDT Pulse 60 12/31/2024 8:49 AM CDT Temperature 36.4 C (97.6 F) 12/31/2024 8:49 AM CDT Respiratory Rate 20 09/03/2016 1:18 PM CDT Oxygen Saturation - - Inhaled Oxygen Concentration - - Weight 68.9 kg (151 lb 14.4 oz) 12/31/2024 8:49 AM CDT Height - - Body Mass Index - - Plan of Treatment Upcoming Encounters Date Type Department Care Team (Late st Contact Info) Description 03/01/2025 11:30 AM MOTION PICTURE COMMENTATOR Appointment Department of Radiation Oncology in [address] [phone] Danilo Garvey M.D. [address] [place] [phone] 03/01/2025 12:30 PM MOTION PICTURE COMMENTATOR Appointment Department of Radiation Oncology in [place], [place] [address] [place] [address] Danilo Garvey M.D. [address] [place] [phone] Health Maintenance Due Date Last Done Comments Zoster Vaccines (2 of 3) 08/11/2011 06/16/2011 Depression Screening (Annual PHQ-2) 03/17/2024 Fall Risk Screen (Annual) 03/17/2024 DTaP,Tdap,and Td Vaccines (2 - Td or Tdap) 08/26/2024 08/26/2014, 08/26/2014 COVID-19 Vaccine ( season) 2024 12/08/2023, 02/13/2023, 02/04/2022, Additional history exists Influenza Vaccine (#1) 2024 , 02/13/2023, 11/20/2021, Additional history exists Pneumococcal vaccine (50+ years) Completed 08/29/2015, 08/26/2014 RSV vaccine - (32-36 weeks) or 50+ years Completed 12/14/2023 HPV Vaccines Aged Out No longer eligi ble based on patient's age to complete this topic IPV Vaccines Aged Out No longer eligi ble based on patient's age to complete this topic Procedures Procedure Name Priority Date/Time Associated Diagnosis Comments INTERPRETATION OF OUTSIDE NM PET SCAN RAD - Routine (most inpatients and all outpatients) 12/27/2024 9:36 AM CDT 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 Dominique Latham APRN, C.N.P., D.N.P. [facility] [place] ROCED[facility] Final Result * Outside CT Body (11/25/2024 12:00 AM CDT) Only the most recent of2 resultswithin the time period is included. 11/25/2024 3:28 PM CDT Addenda Addendum by [employer], Outside on 11/25/2024 3:27 PM CDT BELOW REPORT RECEIVED BY [facility] ON 12/20/2024 13:58:58 [id number] For Patients: As a result of the Century Cures Act, medical imaging exams and procedure reports are released immediately into your electronic medical record. You may view this report before your referring provider. If you have questions, please contact your health care provider. INDICATION : Pulmonary nodules. TECHNIQUE : CT scan of the chest performed without contrast COMPARISON : CT scan of the chest March 29, 2021. FINDINGS : Heart/mediastinum: Stable heart size with coronary calcification and no mediastinal adenopathy. Lungs and pleura: The nodule in the left lower lobe now measures between 8 and 9 millimeters. Previous between 7 and 8 millimeters. Currently series 4, image 171. Progressive lower lobe scarring is present with bronchiectasis now identified in both lower lobes. Subsegmental of minimal focal consolidation and adjacent bronchiectasis in the right lower lobe near the costophrenic sulcus. This is slightly larger and has a slightly nodular component measuring 11 millimeters. 4/196. Galina fissural nodule in the right upper lobe is unchanged image 143 mild emphysematous changes in the upper lobes with mild peripheral reticular fibrotic markings. Calcified nodule in the left upper lobe. Upper abdomen: No suspicious abnormality. Stable renal cysts. Skeletal: No suspicious abnormality. IMPRESSION : 1. Since the prior exam patient has developed bilateral symmetric lower lobe bronchiectasis. 2. Minimal slow growth of the left lower lobe nodule by approximately 1 millimeter. 3. No new nodules. 4. Underlying mild emphysematous and fibrotic changes. 5. Infectious process such as infectious bronchiolitis or atypical mycobacterial infection could be considered. Please note that all CT scans at this facility use dose modulation, iterative reconstruction, and/or weight-based dosing when appropriate to reduce radiation dose to as low as reasonably achievable. Dictated by Nikhil Almanza MD @ 11/25/2024 3:27:48 PM (Electronically Signed) READ BY Nikhil Almanza RELEASED BY NIKO Addendum by [employer], Outside on 11/25/2024 3:27 PM CDT BELOW REPORT RECEIVED BY [facility] ON 12/20/2024 13:54:26 [id number] For Patients: As a result of the Century Cures Act, medical imaging exams and procedure reports are released immediately into your electronic medical record. You may view this report before your referring provider. If you have questions, please contact your health care provider. INDICATION : Pulmonary nodules. TECHNIQUE : CT scan of the chest performed without contrast COMPARISON : CT scan of the chest March 29, 2021. FINDINGS : Heart/mediastinum: Stable heart size with coronary calcification and no mediastinal adenopathy. Lungs and pleura: The nodule in the left lower lobe now measures between 8 and 9 millimeters. Previous between 7 and 8 millimeters. Currently series 4, image 171. Progressive lower lobe scarring is present with bronchiectasis now identified in both lower lobes. Subsegmental of minimal focal consolidation and adjacent bronchiectasis in the right lower lobe near the costophrenic sulcus. This is slightly larger and has a slightly nodular component measuring 11 millimeters. 4/196. Galina fissural nodule in the right upper lobe is unchanged image 143 mild emphysematous changes in the upper lobes with mild peripheral reticular fibrotic markings. Calcified nodule in the left upper lobe. Upper abdomen: No suspicious abnormality. Stable renal cysts. Skeletal: No suspicious abnormality. IMPRESSION : 1. Since the prior exam patient has developed bilateral symmetric lower lobe bronchiectasis. 2. Minimal slow growth of the left lower lobe nodule by approximately 1 millimeter. 3. No new nodules. 4. Underlying mild emphysematous and fibrotic changes. 5. Infectious process such as infectious bronchiolitis or atypical mycobacterial infection could be considered. Please note that all CT scans at this facility use dose modulation, iterative reconstruction, and/or weight-based dosing when appropriate to reduce radiation dose to as low as reasonably achievable. Dictated by Nikhil Almanza MD @ 11/25/2024 3:27:48 PM (Electronically Signed) READ BY Nikhil Almanza RELEASED BY NIKO Addendum by [employer], Outside on 11/25/2024 3:27 PM CDT BELOW REPORT RECEIVED BY [facility] ON 12/20/2024 13:52:37 [id number] For Patients: As a result of the Century Cures Act, medical imaging exams and procedure reports are released immediately into your electronic medical record. You may view this report before your referring provider. If you have questions, please contact your health care provider. INDICATION : Pulmonary nodules. TECHNIQUE : CT scan of the chest performed without contrast COMPARISON : CT scan of the chest March 29, 2021. FINDINGS : Heart/mediastinum: Stable heart size with coronary calcification and no mediastinal adenopathy. Lungs and pleura: The nodule in the left lower lobe now measures between 8 and 9 millimeters. Previous between 7 and 8 millimeters. Currently series 4, image 171. Progressive lower lobe scarring is present with bronchiectasis now identified in both lower lobes. Subsegmental of minimal focal consolidation and adjacent bronchiectasis in the right lower lobe near the costophrenic sulcus. This is slightly larger and has a slightly nodular component measuring 11 millimeters. 4/196. Galina fissural nodule in the right upper lobe is unchanged image 143 mild emphysematous changes in the upper lobes with mild peripheral reticular fibrotic markings. Calcified nodule in the left upper lobe. Upper abdomen: No suspicious abnormality. Stable renal cysts. Skeletal: No suspicious abnormality. IMPRESSION : 1. Since the prior exam patient has developed bilateral symmetric lower lobe bronchiectasis. 2. Minimal slow growth of the left lower lobe nodule by approximately 1 millimeter. 3. No new nodules. 4. Underlying mild emphysematous and fibrotic changes. 5. Infectious process such as infectious bronchiolitis or atypical mycobacterial infection could be considered. Please note that all CT scans at this facility use dose modulation, iterative reconstruction, and/or weight-based dosing when appropriate to reduce radiation dose to as low as reasonably achievable. Dictated by Nikhil Almanza MD @ 11/25/2024 3:27:48 PM (Electronically Signed) READ BY Nikhil Almanza RELEASED BY NIKO Narrative IMAGING - 12/20/2024 2:15 PM CDT This order has been created and auto-finalized to support the import of outside images. If available, original interpretation can be found on the Media Tab in Chart Review, in Document Viewer, as an image in InfinityView or as an Addendum. If a re-interpretation or overread is required please follow defined workflow. Procedure Note Digital Media, Outside - 12/20/2024 This order has been created and auto-finalized to support the import ofoutside images. If available, original interpretation can be found on theMedia Tab in Chart Review, in Document Viewer, as an image in InfinityViewor as an Addendum. If a re-interpretation or overread is required please follow definedworkflow. us Provider Not In System IM CT PROCEDURES Edited Result - Final IMAGING NA * PET skull to mid thigh-Outside NM Pet (11/11/2024 5:10 PM CDT) Narrative IIMS - 12/20/2024 1:30 PM CDT This order has been created and auto-finalized to support the import of outside images. If available, original interpretation can be found on the Media Tab in Chart Review, in Document Viewer, as an image in InfinityView or as an Addendum. If a re-interpretation or overread is required please follow defined workflow. us Provider Not In System IM NM PROCEDURES Final R esult IIMS NA from Last 3 Months Insurance [facility] MEDICARE
--- OUTSIDE RECORDS SUMMARY | 2025-01-18 12:12 | XMS_ITS | Clinical Summary ---
Author Organization [facility] Address [address] [place] [address] Phone Care Team Providers Care Investigation Clerk Name Role Phone Frieda Teressa Primary Care Provider [phone] Allergies No known active allergies Medications Middleton-3 Fatty Acids (Super Middleton 3 EPA/DHA) 1000 MG capsule Take 1,000 [...] - recommended repeat creatinine in August 2019 Immunizations Immunization Administration Dates Next Due Covid-19, [...] 1 958 - 1991 Smokeless Tobacco: Never Tobacco Cessation:Counseling Given: [...] - PCV) 1959 Influenza Vaccine (#1) 2024 , 02/13/2023, 11/20/2021, Additional history exists Hepatitis B Vaccine Aged Out No longe r eligible based on patient's age to complete this topic Insurance [facility] Medicare Care Teams Investigation Clerk Relationship Specialty Start Date End Date Teressa Malave DO [address] [place] [address] PCP - General Family Medicine 02/13/23
--- OUTSIDE RECORDS SUMMARY | 2025-01-18 12:12 | XMS_ITS | Clinical Summary ---
Author Organization [employer] [facility] Address [facility] [place] [address] Care Team Providers Care Computing Architect Name Role Phone Teressa Malave DO Primary Care Provider [phone] Isabel Ralph RN, BSN Unavailable Unavailab Jeffrey Clemens MD Unavailable [phone] Allergies No known active allergies Medications biotin 1 mg cap Take 1 capsule by mouth. 0 09/08/19 19 Active cholecalciferol (VITAMIN D-3) 2,000 unit capsule Take 1 capsule by mouth once daily. 0 05/06/19 20 Active cyanocobalamin (Vitamin B-12) 1,000 mcg tablet Take 1 Tablet (1,000 mcg) by mouth once daily. 90 Tablet 3 07/20/19 22 Active Jlqrm-0-CEI-EPA-Fi sh Oil 1,000 mg (120 mg-180 mg) cap Take 1 Capsule (1,000 mg) by mouth. 0 07/24/19 23 Active calcium carb-D3-mag ox-zinc ox (Gabe Mag Zinc Plus D3) 333 mg-133 unit -133 mg-5 mg tab Take by mouth. 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 Skin barrier ring 03/20-05/30 30 Each 09/25/19 Active miscellaneous medical supply (Blood Pressure Cuff) miscIndications:HT N (hypertension) As directed. Home BP cuff 1 Each 05/21/19 24 Active rosuvastatin 10 mg tabletIndications: Hyperlipidemia, unspecified hyperlipidemia type TAKE ONE TABLET BY MOUTH ONE TIME DAILY AT BEDTIME 90 Tablet 3 09/14/19 25 Active escitalopram oxalate (LEXAPRO) 5 mg tabletIndications: Anxiety TAKE ONE TABLET BY MOUTH EVERY DAY IN THE MORNING. 90 Tablet 1 12/07/19 25 Active warfarin (COUMADIN) 2 mg tabletIndications: Paroxysmal atrial fibrillation (HC),Anticoagulati on monitoring, INR range 2-3 Take by mouth 2 mg (2 mg x 1) every Fri, Fri; 3 mg (2 mg x 1.5) all other days in the evening OR as directed 01/12/20 25 Active warfarin (COUMADIN) 2 mg tabletIndications: Paroxysmal atrial fibrillation (HC),Anticoagulati on monitoring, INR range 2-3 Take by mouth 3 mg (2 mg x 1.5) every day in the evening OR as directed 12/14/19 25 025 Discontin ued(Reord er (E-cancel not sent)) Active Problems Problem Noted Date Diagnosed Date [...] 07/10/2022 John cognitive assessment score is 17/30 Parks Making Test 61 seconds average score 29 [...] driving not recommended arranging alternative transport [facility] OCCUPATIONAL [facility]ERAPY Diastolic dysfunction without heart failure [...] Encounters Date Type Department Care Team Description 01/13/2025 Telephone [facility] [place] [address] [place] [address] Teressa Malave, error 01/10/2025 10:15 AM CDT Orders Only [facility] [place] [address] [place] [address] Lab, [place] Lab 01/10/2025 Anticoagulation (warfarin) [facility] [place] [address] [place] [address] Nurse, Freddie Anticoag Anticoagulation 01/10/2025 Travel 12/31/2024 Nurse Triage [facility] [place] [address] [place] [address] Teressa Malave DO Low Blood Pressure 12/31/2024 Telephone [facility] [address] [place] [address] Teressa Malave DO Anticoagulation 12/16/2024 4:20 PM CDT Telemedicine [facility] [address] [place] [address] Jeffrey Long MD Follow Up 12/16/2024 Travel 12/14/2024 Orders Only [facility] [address] [address] Jeffrey Long MD <No scans attached> 12/13/2024 10:00 AM CDT Orders Only [facility] [place] [address] [place] [address] Lab, [place] <No scans attached> 12/13/2024 Telephone [facility] [place] [address] [place] [address] Teressa Malave DO Anticoagulation (Dosing ) 12/13/2024 Anticoagulation (warfarin) [facility] [place] [address] [place] [address] Nurse, [facility] Anticoag Anticoagulation 12/13/2024 Travel 12/07/2024 Telephone [facility] [address] [place] [address] Amanda Ramsay RN Results 12/04/2024 Refill [facility] [place] [address] [place] [address] Teressa Malave DO Refill Request (Escitalopram Oxalate) 12/03/2024 2:04 PM CDT Anesthesia Event [facility] [address] [place] [address] Veda Moran MD Kotz, Victoria, CHANDELIER MAKER Student 12/03/2024 1:40 PM CDT - 12/03/2024 3:00 PM CDT Surgery [facility] [address] [place] [address] Jeffrey Long MD flexible bronchoscopy, robotic bronchoscopy with biopsy, 12/03/2024 10:19 AM CDT - 12/03/2024 8:15 PM CDT Hospital Encounter [facility] [address] [place] [address] Jeffrey Long MD Pulmonary nodules Discharge Disposition: Home Self Care 12/02/2024 Travel 12/01/2024 Telephone [facility] [address] [place] [address] Amanda Ramsay RN Surgery Scheduled 12/01/2024 Anticoagulation (warfarin) [facility] [place] [address] [place] [address] Nurse, Freddie Anticoag Anticoagulation 11/30/2024 1:30 PM CDT Office Visit [facility] [place] [address] [place] [address] Teressa Malave DO Preoperative Exam (12/03/24, [place] flexible bronchoscopy, robotic bronchoscopy with biopsy); Diarrhea (Few times daily, 1 month ) 11/30/2024 Travel 11/26/2024 Anticoagulation (warfarin) [facility] [place] [address] [place] [address] Nurse, Freddie Anticoag Anticoagulation (Chart update- Procedure 12/03/2024) 11/26/2024 Telephone [facility] [place] [address] [place] [address] Teressa Malave DO Anticoagulation (Hold) 11/25/2024 2:40 PM CDT Office Visit [facility] [address] [place] [address] Jeffrey Long MD Consult 11/25/2024 1:38 PM CDT - 11/25/2024 11:59 PM CDT Hospital Encounter [facility] [address] [place] [address] Jeffrey Long MD Pulmonary nodules 11/25/2024 Travel 11/24/2024 Telephone [facility] [address] [place] [address] Jeffrey Long MD Appointment Reminder (Left message to return call ) 11/22/2024 10:40 AM CDT Office Visit [facility] [place] [address] [place] [address] Roxi Agudelo PA Diarrhea (2 weeks, on and off, biopsy on ) 11/22/2024 Travel 11/22/2024 Nurse Triage [facility] Central[facility] Nurse Triage Teressa Malave, Diarrhea 11/22/2024 Nurse Triage [facility] Nurse Triage Teressa Malave DO Diarrhea 11/22/2024 Telephone [facility] [place] [address] [place] [address] Teressa Malave DO Diarrhea 11/19/2024 Anticoagulation (warfarin) [facility] [place] [address] [place] [address] NurseFreddie Anticoag Anticoagulation (Chart Update ) 11/18/2024 Telephone [facility] [place] [address] [place] [address] Teressa Malave DO Anticoagulation (procedure) 11/18/2024 Orders Only [facility] [address] [place] [address] Jeffrey Long MD <No scans attached> 11/17/2024 Telephone [facility] [address] [place] [address] Oncology, [facility] Referral (Lung nodules) 11/16/2024 Orders Only [facility] [place] [address] [place] [address] Teressa Malave DO 1 scan: (1-Ord) YUNI, PET SKULL TO MID THIGH, 11/11/2024 11/16/2024 Telephone [facility] [place] [address] [place] [address] Teressa Malave DO Questions (PET Scan) 11/11/2024 Telephone [facility] [place] [address] [place] [address] Teressa Malave, Appointment 11/05/2024 Telephone [facility] [place] [address] [place] [address] Teressa Malave DO Questions 11/05/2024 Refill [facility] [place] [address] [place] [address] Teressa Malave DO Refill Request (Warfarin) 11/03/2024 Telephone [facility] [place] [address] [place] [address] Teressa Malave DO Follow Up 11/01/2024 1:05 PM CDT Office Visit [facility] [place] [address] [place] [address] Teressa Malave DO ER Follow up 11/01/2024 Anticoagulation (warfarin) [facility] [place] [address] [place] [address] Nurse, ronnie Anticoag Anticoagulation 11/01/2024 Travel 10/26/2024 Telephone [facility] [place] [address] [place] [address] Teressa Malave DO Medication Management 10/25/2024 1:30 PM CDT Orders Only [facility] [place] [address] [place] [address] Lab, [place] Lab 10/25/2024 Anticoagulation (warfarin) [facility] [place] [address] [place] [address] Nurse, g Anticoag Anticoagulation 10/25/2024 Travel 10/25/2024 Telephone [facility] [place] [address] [place] [address] Teressa Malave DO Error-please disregard 10/21/2024 Anticoagulation (warfarin) [facility] [place] [address] [place] [address] Nurse, Ahg Anticoag Anticoagulation (Outside lab) 10/20/2024 Orders Only [facility] Scanner 1 scan: (1-Ord) YUNI, URINE CULTURE, 10/20/2024 10/20/2024 Orders Only [facility] Scanner 1 scan: (1-Ord) [facility], URINE CULTURE, 10/20/2024 10/20/2024 Orders Only [facility] Scanner 1 scan: (1-Ord) [facility], ABDOMEN AND PELVIS WO CONTRAST, 10/20/2024 10/20/2024 Nurse Triage [facility] [place] [address] [place] [address] Teressa Malave, Blood In Urine from Last 3 Months Immunizations Immunization Administration [...] (Age >=3 Years) 03/21/2009 Influenza, High-dose Inactivated 11/23/2015,1003/2014,11/29/2013 Influenza, IIV3 (Age 6-35 mos) 11/28/2010,2009 Influenza, [...] isolated from those around you? 0 04/07/2024 Alcohol Use Answer Date Recorded How often do you have a drink containing alcohol ? 3 12/16/2024 How many drinks containing a lcohol do you have on a typical day when you are drinking? 0 12/16/2024 How often do you have five or more drinks on one occasion? 0 12/16/2024 Financial Resource Strain Answer Date R ecorded [...] on file Legal Sex Female 6:05 AM GUM REMOVER Gender Identity Not on file Sexual Orientation [...] Sign Reading Time Taken Comments Blood Pressure 142/70 12/03/2024 6:00 PM CDT Pulse 58 12/03/2024 6:00 PM CDT Temperature 36.1 C (97 F) 12/03/2024 6:00 PM CDT Respiratory Rate 17 12/03/2024 6:00 PM CDT Oxygen Saturation 96% 12/03/2024 6:00 PM CDT Inhaled Oxygen Concentration - - Weight 68.5 kg (151 lb) 12/03/2024 12:09 PM CDT Height 157.5 cm (5' 2) 12/03/2024 12:09 PM CDT Body Mass Index 27.62 12/03/2024 12:09 PM CDT Plan of Treatment Upcoming Encounters Date Type Department Care Team (Late st Contact Info) Description 01/24/2025 10:30 AM GUM REMOVER Orders Only [facility] [place] [address] [place] [address] Lab, [place] 02/15/2025 9:50 AM GUM REMOVER Ancillary Procedure [facility] [place] [address] [place] [address] Health Maintenance Due Date Last Done Comments Zoster (shingles) series for age 50+ (1 of 2) 08/11/2011 06/16/2011 Medicare Wellness for age 65+ 05/21/2024 05/21/2023, 09/14/2019, 09/07/2018, Additional history exists Depression screening for age 12+ 05/22/2024 05/23/2023, 05/22/2023, 05/21/2023, Additional history exists Tetanus booster 08/26/2024 08/26/2014, 08/26/2014 Influenza Vaccine (#1) 2024 , 02/13/2023, 11/20/2021, Additional history exists BMI (ht and wt on same day) for age 18+ 11/30/2025 11/30/2024, 11/25/2024, 09/12/2023, Additional history exists Pneumococcal series for age [...] Priority Date/Time Associated Diagnosis Comments INR,POCT Routine 01/10/2025 10:07 AM CDT Paroxysmal atrial fibrillation (HC) Anticoagulation monitoring, INR range 2-3 INR,POCT Routine 12/13/2024 9:54 AM CDT Paroxysmal atrial fibrillation (HC) Anticoagulation monitoring, INR range 2-3 XR CHEST 1 VIEW PORTABLE STAT 12/03/2024 4:20 PM CDT XR FLUORO BRONCHOSCOPY Routine 12/03/2024 4:07 PM CDT PATH NON INSERTING OPERATOR CYTOLOGY Today 12/03/2024 2:37 PM CDT ENDOTRACHEAL TUBE Routine 12/03/2024 2:2 7 PM CDT BRONCHOSCOPY ENDOBRONCHIAL ULTRASOUND FINE NEEDLE ASPIRATE Class E Urgent: within 7 days 12/03/2024 1:46 PM CDT Pulmonary nodules Case Notes [facility] ROBOTIC ASSISTED BRONCHOSCOPY ION Class E Urgent: within 7 days 12/03/2024 1:46 PM CDT Pulmonary nodules Case Notes [facility] PROTIME-INR Preop 12/03/2024 11:[address] SURGICAL PLANNING CHEST CRYSTAL 12/03/2024 11:25 AM CDT Pulmonary nodules PROTIME-INR Routine 11/30/2024 2:42 PM CDT Paroxysmal atrial fibrillation (HC) Anticoagulation monitoring, INR range 2-3 POTASSIUM Routine 11/30/2024 2:40 PM CDT Pre-op exam CREATININE Routine 11/30/2024 2:40 PM CDT Pre-op exam CT CHEST WO CRYSTAL 11/25/2024 2:05 PM CDT Pulmonary nodules PET CT WHOLE BODY INITIAL TREAT Routine 11/11/2024 12:[address] of the chest Other nonspecific abnormal finding of lung field INR,POCT Routine 11/01/2024 1:51 PM CDT Paroxysmal atrial fibrillation (HC) Anticoagulation monitoring, INR range 2-3 INR,POCT Routine 10/25/2024 1:19 PM CDT Paroxysmal atrial fibrillation (HC) Anticoagulation monitoring, INR range 2-3 SCAN-PATHOLOGY REPORT 10/20/2024 12:00 AM CDT SCAN-PATHOLOGY REPORT 10/20/2024 12:00 AM CDT SCAN-CT INTERPRETATION 10/20/2024 12:00 AM CDT XR DXA BONE DENSITY 2 SITES AXIAL AND 1 SITE PERIPHERAL Routine 06/23/2023 11:39 AM CDT Osteopenia, unspecified location Other specified disorders of bone density and structure, other site from Last 3 Months or Most Recently Relevant to Health Maintenance Results * (ABNORMAL) INR - POCT [77824.2] - Standing Order (01/10/2025 10:07 AM CDT) Only the most recent of4 resultswithin the time period is included. INR 3.6(H) ratio 01/10/2025 10:18 AM CDT [facility] Comment: INRs >2.9 may be falsely elevated in patients receiving either unfractionated Heparin or Low Molecular Weight Heparin. Follow up testing in a hospital laboratory may be helpful if clinically indicated. INR results of > or = 5.0 should be verified using the standard venipuncture procedure. Reference Range 0.9-1.1 Moderate-intensity Warfarin Therapy 2.0-3.0 Higher-intensity Warfarin Therapy 3.0-4.0 PROTHROMBIN TIMEP 42.7(H) 10.5 - 13.1 sec 01/10/2025 10:18 AM CDT [facility] Comment: Point of care fingerstick Prothrombin Time/INR results may vary from venous Prothrombin Time/INR methodologies. Any results exhibiting inconsistency with the patient's clinical status should be repeated using a venous Prothrombin Time/INR method. Blood BLOOD SPECIMEN / Unknown [facility] / Unknown 01/10/2025 10:07 AM CDT 01/10/2025 10:07 AM CDT Teressa Malave DO LABORATORY Final Resu lt [facility] [address] [place] [address], [place] [phone] [facility] [address] [place] [address], [place] [phone] * XR CHEST 1 VIEW PORTABLE (12/03/2024 4:20 PM CDT) Anatomical Region Laterality Modality HEART, THORAX, CHEST Digital Rad iography 12/03/2024 4:52 PM CDT Impressions 12/03/2024 4:52 PM CDT No pneumothorax status post bronchoscopy and biopsy. Dictated by Yanick Cortez MD @ 12/03/2024 4:52:14 PM (Electronically Signed) Narrative 12/03/2024 4:52 PM CDT For Patients: As a result of the Cures Act, medical imaging exams and procedure reports are released immediately into your electronic medical record. You may view this report before your referring provider. If you have questions, please contact your health care provider. INDICATION: Postprocedure. Flexible bronchoscopy with biopsy of a right lower lobe nodule. TECHNIQUE: AP portable upright chest x-ray. COMPARISON: September 13, 2015. FINDINGS: No pneumothorax status post bronchoscopy and biopsy. Nodular basilar infiltrate or atelectasis at the right lung base. Fibrosis or atelectasis at the left lung base. Overall heart size appears enlarged likely due to the portable technique and degree of inspiration. Procedure Note Yanick Cortez MD - 12/03/2024 For Patients: As a result of the Cures Act, medical imagingexams and procedure reports are released immediately into your electronicmedical record. You may view this report before your referring provider.If you have questions, please contact your health care provider. INDICATION: Postprocedure. Flexible bronchoscopy with biopsy of a right lower lobenodule. TECHNIQUE: AP portable upright chest x-ray. COMPARISON: September 13, 2015. FINDINGS: No pneumothorax status post bronchoscopy and biopsy. Nodular basilarinfiltrate or atelectasis at the right lung base. Fibrosis or atelectasisat the left lung base. Overall heart size appears enlarged likely due tothe portable technique and degree of inspiration. IMPRESSION: No pneumothorax status post bronchoscopy and biopsy. Dictated by Yanick Cortez MD @ 12/03/2024 4:52:14 PM (Electronically Signed) us Chioma Amaya MD GENERAL IMAGING Final Result * XR FLUORO BRONCHOSCOPY (12/03/2024 4:07 PM CDT) Anatomical Region Laterality Modality CHEST Other Narrative 12/03/2024 3:07 PM CDT 5 minutes 21 seconds fluoroscopy time was provided. See operative/procedure report for further information. us Jeffrey Long MD FLUOROSCOPY Final R esult * PATH NON INSERTING OPERATOR CYTOLOGY (12/03/2024 2:37 PM CDT) Case Report Medical Cytology Report Case: [id number] Authorizing Provider: Jeffrey Long MD Collected: 12/03/2024 1437 Ordering Location: [facility] Received: 12/03/2024 1608 [facility] Pathologist: Sweta Baker MD Specimens: A) - Right Lower Lobe Lung, Right lower lobe lung nodule; FNA passes: 5, Forceps: 4 B) - Station 7 Subcarinal Lymph Node, FNA passes: 3 C) - Station 10R Hilar Lymph Node, FNA passes: 2 D) - Station 11R Interlobar Lymph Node, FNA passes: 3 12/06/2024 2:17 PM CDT [facility] Final Diagnosis A) RIGHT LUNG, LOWER LOBE NODULE, FINE-NEEDLE ASPIRATION AND FORCEPS BIOPSY: 1. Atypical epithelioid cells present on cytology slides 2. Tissue biopsy comprised of alveolated lung parenchyma with fibrotic scarring and chronic inflammation 3. See comment B) LYMPH NODE, STATION 7, SUBCARINAL, ENDOBRONCHIAL ULTRASOUND-GUIDED FINE-NEEDLE ASPIRATION: 1. Negative for malignancy 2. Lymphocytes consistent with sampled lymph node C) LYMPH NODE, STATION 10R, HILAR, ENDOBRONCHIAL ULTRASOUND-GUIDED FINE-NEEDLE ASPIRATION: 1. Negative for malignancy 2. Lymphocytes and histiocytes with carbonaceous pigment, consistent with sampled anthracotic lymph node D) LYMPH NODE, STATION 11R, INTERLOBAR, ENDOBRONCHIAL ULTRASOUND-GUIDED FINE-NEEDLE ASPIRATION: 1. Negative for malignancy 2. Lymphocytes and histiocytes with carbonaceous pigment, consistent with sampled anthracotic lymph node 12/06/2024 2:17 PM CDT [facility] at 1417 CDT Comment A) Clusters of atypical epithelioid cells characterized by nuclear enlargement and mild nuclear pleomorphism are present on the cytology slides. The pathologic differential diagnosis includes a limited sampling of a neoplasm (favored) and reactive atypia. Clinical and radiologic correlation is necessary to determine if additional tissue sampling is warranted. Agile Scrum Coach slides from A seen in consultation with Dr. Biggs who agrees with atypica cells. 12/06/2024 2:17 PM CDT [facility] Clinical Information 84-year-old female with an enlarging right lower lobe nodule, bilateral lower lobe bronchiectasis. Remote history of breast cancer (1991), colon cancer (1997), bladder cancer (1998). Former heavy smoker. 12/06/2024 2:17 PM CDT [facility] Gross Description A) Received identified as Right lower lobe lung is a fine needle aspiration and forceps biopsy specimen. A3 The forceps biopsy sampling measures 0.1 cm x 0.2 cm in aggregate. The following were received: -7 Air dried slides -2 Formalin vials -1 CytoLyt vial -0 RPMI vials The following were prepared from the specimen submitted: -7 Diff-Quik stained slides -1 Papanicolaou stained ThinPrep slide -2 H&E stained cell block slides A2 Cell block material was removed from the patient and placed directly in formalin at 1510 on 12/03/24 and fixed in formalin at least 6 hours and no more than 72 hours. A3 Cell block material was removed from the patient and placed directly in formalin at 1515 on 12/03/24 and fixed in formalin at least 6 hours and no more than 72 hours. B) Received identified as Station 7 subcarinal lymph node, is a fine needle aspirate specimen. The specimen consists of: -3 Air dried slides -1 CytoLyt vial -0 RPMI vials -1 Formalin vial The following were prepared from the specimen submitted: -3 Diff-Quik stained slides -1 Papanicolaou stained ThinPrep slide -1 H&E stained cell block slide B2 Cell block material was removed from the patient and placed directly in formalin at 1534 on 12/03/24 and fixed in formalin at least 6 hours and no more than 72 hours. C) Received identified as Station 10R hilar lymph node, is a fine needle aspirate specimen. The specimen consists of: -2 Air dried slides -1 CytoLyt vial -0 RPMI vials -1 Formalin vial The following were prepared from the specimen submitted: -2 Diff-Quik stained slides -1 Papanicolaou stained ThinPrep slide -1 H&E stained cell block slide C2 Cell block material was removed from the patient and placed directly in formalin at 1539 on 12/03/24 and fixed in formalin at least 6 hours and no more than 72 hours. D) Received identified as Station 11R interlobar lymph node, is a fine needle aspirate specimen. The specimen consists of: -3 Air dried slides -1 CytoLyt vial -0 RPMI vials -1 Formalin vial The following were prepared from the specimen submitted: -3 Diff-Quik stained slides -1 Papanicolaou stained ThinPrep slide -1 H&E stained cell block slide D2 Cell block material was removed from the patient and placed directly in formalin at 1545 on 12/03/24 and fixed in formalin at least 6 hours and no more than 72 hours. 12/06/2024 2:[address] [facility] Adequacy Assessment A) C.S. assessed adequacy from the air-dried smears at the time of the procedure with an impression of Adequate. B) C.S. assessed adequacy from the air-dried smears at the time of the procedure with an impression of Not Adequate. C-D) C.S. assessed adequacy from the air-dried smears at the time of the procedure with an impression of Adequate. 12/06/2024 2:[address] [facility] Microscopic Description Specimen adequacy: Adequate for interpretation. All slides were reviewed. The microscopic appearance substantiates the diagnosis. TTF-1 immunohistochemical stain performed on blocks A2 and A3 highlight detached pneumocytes. 12/06/2024 2:17 PM CDT [facility] Additional Information Cytology is screened at [facility] - [address], [place] [address] and [facility] - [address] [place] [address] and [facility] - [address] [place] [address] Interpreted at [facility] - [address], [place] [address] Immunohistochemistry controls were reviewed and approved as appropriate by the pathologist during this examination. 12/06/2024 2:17 PM CDT [facility] Aspirate (Right Lower Lobe Lung) 12/03/2024 2:37 PM CDT 12/03/2024 4:08 PM CDT Specimen obtained by aspiration (specimen) (Station 7 Subcarinal Lymph Node) 12/03/2024 3:24 PM CDT 12/03/2024 4:08 PM CDT Specimen obtained by aspiration (specimen) (Station 10R Hilar Lymph Node) 12/03/2024 3:31 PM CDT 12/03/2024 4:08 PM CDT Specimen obtained by aspiration (specimen) (Station 11R Interlobar Lymph Node) 12/03/2024 3:37 PM CDT 12/03/2024 4:08 PM CDT Jeffrey Long MD PATHOLOGY/CYTOLOGY Ashley benedict Result [facility] [address] [place] [phone], * ETT (12/03/2024 2:27 PM CDT) Narrative Nicole Valdes CRNA Student - 12/03/2024 2:27 PM CDT Nicole Valdes CRNA Student 12/03/2024 2:31 PM Procedure: ETT Patient location during procedure: OR ETT Properties Mask Ventilation: easy Final Technique: direct laryngoscopy Type: straight Location: oral Cuffed: yes Tube Size: 8.0 mm Stylet: yes Laryngoscope Blade: Mac Blade Size: 3 Cormack-Lehane Grade View: 2 Insertion Attempts: 2 Placement Verification: auscultation, end tidal CO2 and symmetrical chest wall movement Assessment: pharynx clear, atraumatic and dentition unchanged Secured at: 20 Measured From: teeth Difficulty: 0 (not difficult) Difficulty Comment: anterior glottis and small mouth Failed Technique: direct laryngoscopy Notes: First attempt by BIGG. Second attempt by CHANDELIER MAKER, Grade two view. Dentition and lips untouched. Felice Choi MD ANESTHESIA PX NOTE OR DERABLES Final Result * (ABNORMAL) Protime - INR (12/03/2024 11:53 AM CDT) Only the most recent of2 resultswithin the time period is included. INR 1.1 <1.3 12/03/2024 12:30 PM CDT [facility] PROTIME 13.0(H) 10.6 - 12.4 sec 12/03/2024 12:30 PM CDT [facility] Blood BLOOD SPECIMEN / Unknown Butterfly / Unknown 12/03/2024 11:53 AM CDT 12/03/2024 12:09 PM CDT Narrative [facility] - 12/03/2024 12:30 PM CDT Therapeutic Range 2.0-3.0 for most [...] if the patient is on UFH. us Suzan ROJAS HEMATOLOGY Final Re sult [facility] [address] [place] [address], [place] * CT SURGICAL PLANNING CHEST (12/03/2024 11:25 AM CDT) Anatomical Region Laterality Modality Computed Tomogra phy 12/03/2024 3:00 PM CDT Impressions 12/03/2024 3:00 PM CDT 1. Stable chest with nodules no change from the recent prior exam, see prior report. 2. NAVIGATIONAL PLANNING CT EXAM PRIOR TO NAVIGATIONAL BRONCHOSCOPIC BIOPSY. Please note that all CT scans at this facility use dose modulation, iterative reconstruction, and/or weight-based dosing when appropriate to reduce radiation dose to as low as reasonably achievable. Dictated by Nikhil Almanza MD @ 12/03/2024 3:00:21 PM (Electronically Signed) Narrative 12/03/2024 3:00 PM CDT For Patients: As a result of the 21st Century Cures Act, medical imaging exams and procedure reports are released immediately into your electronic medical record. You may view this report before your referring provider. If you have questions, please contact your health care provider. INDICATION : Navigational bronchoscopy planning. TECHNIQUE : CT scan of the chest performed without contrast Navigational bronchoscopy protocol, ION. COMPARISON : Diagnostic chest CT scan November 25, 2024. FINDINGS : Lungs and pleura: No new consolidation or nodules. Left lower lobe nodule between 8 and 9 millimeters 4/383. Subsegmental consolidation right lower lobe no change. Subpleural multiple tiny clustered micronodules throughout the peripheral and lateral aspect of the right upper lobe. No pleural fluid. Heart/mediastinum: No change with no new adenopathy. Upper abdomen: No change. Renal cysts. Vascular calcifications. Skeletal:No change. No new suspicious abnormality. Procedure Note Nikhil Almanza MD - 12/03/2024 For Patients: As a result of the Cures Act, medical imagingexams and procedure reports are released immediately into your electronicmedical record. You may view this report before your referring provider.If you have questions, please contact your health care provider. INDICATION : Navigational bronchoscopy planning. TECHNIQUE : CT scan of the chest performed without contrast Navigational bronchoscopy protocol, ION. COMPARISON : Diagnostic chest CT scan November 25, 2024. FINDINGS : Lungs and pleura: No new consolidation or nodules. Left lower lobe nodule between 8 and 9millimeters 4/383. Subsegmental consolidation right lower lobe no change. Subpleural multipletiny clustered micronodules throughout the peripheral and lateral aspectof the right upper lobe. No pleural fluid. Heart/mediastinum: No change with no new adenopathy. Upper abdomen: No change. Renal cysts. Vascular calcifications. Skeletal:No change. No new suspicious abnormality. IMPRESSION: 1. Stable chest with nodules no change from the recent prior exam, seeprior report. 2. NAVIGATIONAL PLANNING CT EXAM PRIOR TO NAVIGATIONAL BRONCHOSCOPICBIOPSY. Please note that all CT scans at this facility use dose modulation,iterative reconstruction, and/or weight-based dosing when appropriate toreduce radiation dose to as low as reasonably achievable. Dictated by Nikhil Almanza MD @ 12/03/2024 3:00:21 PM (Electronically Signed) us Jeffrey Long MD CT Final R esult * POTASSIUM (11/30/2024 2:40 PM CDT) POTASSIUM 4.2 3.5 - 5.3 mmol/L 12/01/2024 4:15 AM CDT [facility] Blood BLOOD SPECIMEN / Unknown [facility] / Unknown 11/30/2024 2:40 PM CDT 11/30/2024 2:40 PM CDT Narrative [facility] - 12/01/2024 4:15 AM CDT FASTING:UNKNOWN FASTING: UNKNOWN [facility] Lashay CLARED [employer] CHEMISTRY Final Resu lt Performing Organization Address [facility] de Phone Number [facility] [address] [phone], * (ABNORMAL) CREATININE (11/30/2024 2:40 PM CDT) CREATININE 1.69(H) 0.60 - 0.95 mg/dL 12/01/2024 4:15 AM CDT [facility] EGFR 29(L) > OR = 60 mL/min/1.7 3m2 12/01/2024 4:15 AM CDT [facility] Blood BLOOD SPECIMEN / Unknown [facility] / Unknown 11/30/2024 2:40 PM CDT 11/30/2024 2:40 PM CDT Narrative [facility] - 12/01/2024 4:15 AM CDT FASTING:UNKNOWN FASTING: UNKNOWN [facility] Final Resu Performing Organization Address [facility] de Phone Number [employer] [address] [phone], * CT CHEST WO (11/25/2024 2:05 PM CDT) Anatomical Region Laterality Modality CHEST, THORAX, HEART Computed To mography 11/25/2024 3:27 PM CDT Narrative 11/25/2024 3:27 PM CDT For Patients: As a result of the Cures Act, medical imaging exams and procedure [...] MD @ 11/25/2024 3:27:48 PM (Electronically Signed) Procedure Note Nikhil Almanza MD - 11/25/2024 For Patients: As a result of the Century Cures Act, medical imagingexams and procedure reports are released immediately into your electronicmedical record. You may view this report before your referring provider.If you have questions, please contact your health care provider. INDICATION : Pulmonary nodules. TECHNIQUE : CT scan of the chest performed without contrast COMPARISON : CT scan of the chest March 29, 2021. FINDINGS : Heart/mediastinum: Stable heart size with coronary calcification and nomediastinal adenopathy. Lungs and pleura: The nodule in the left lower lobe now measures between 8 and 9millimeters. Previous between 7 and 8 millimeters. Currently series 4,image 171. Progressive lower lobe scarring is present with bronchiectasis nowidentified in both lower lobes. Subsegmental of minimal focalconsolidation and adjacent bronchiectasis in the right lower lobe near thecostophrenic sulcus. This is slightly larger and has a slightly nodularcomponent measuring 11 millimeters. 4/196. Galina fissural nodule in the right upper lobe is unchanged image 143 mildemphysematous changes in the upper lobes with mild peripheral reticularfibrotic markings. Calcified nodule in the left upper lobe. Upper abdomen: No suspicious abnormality. Stable renal cysts. Skeletal: No suspicious abnormality. IMPRESSION : 1. Since the prior exam patient has developed bilateral symmetric lowerlobe bronchiectasis. 2. Minimal slow growth of the left lower lobe nodule by approximately 1millimeter. 3. No new nodules. 4. Underlying mild emphysematous and fibrotic changes. 5. Infectious process such as infectious bronchiolitis or atypicalmycobacterial infection could be considered. Please note that all CT scans at this facility use dose modulation,iterative reconstruction, and/or weight-based dosing when appropriate toreduce radiation dose to as low as reasonably achievable. Dictated by Nikhil Almanza MD @ 11/25/2024 3:27:48 PM (Electronically Signed) Jeffrey Long MD CT Final R esult * PET CT WHOLE BODY INITIAL TREAT (11/11/2024 12:00 AM CDT) Anatomical Region Laterality Modality Positron Emissio n Tomography (PET) Teressa Malave DO PET Final Resu lt * SCAN-PATHOLOGY REPORT (10/20/2024 12:00 AM CDT) Only the most recent of2 resultswithin the time period is included. us Scanner OTHER Final Result * SCAN-CT INTERPRETATION (10/20/2024 12:00 AM CDT) Anatomical Region Laterality Modality [...] to assess therapeutic efficacy. Tere March PA-C [facility] 06/24/2023 Narrative 06/24/2023 1:57 PM CDT For Patients: Results are automatically released to your [facility] account once available, in compliance with federal regulations. This means that you may see your results before your provider has had a chance to review them. Please allow 2-3 business days for your provider to comment on the results. XR DXA Bone Mineral Density (BMD) EXAM LOCATION: [address] [address] PATIENT NAME: Rosa M Jones DATE OF [...] two scanners are made by the same dental equipment mechanic. PROCEDURE: Dual-energy x-ray absorptiometry performed with routine [...] MEDICARE PART B HB ONLY BLUE [place]OSS [place] BLUE MR PB ONLY BLUE [place]OSS [place] BLUE HB ONLY Advance Directives * Full Code (Latest Code Status on File) Date Activated Date Inactivated Comments 12/03/2024 11:48 AM 12/03/2024 10:15 PM Question Answer Comments Code Status Discussion: Unable to Assess Preferences, Provider to review later * Full Code Date Activated Date Inactivated Comments 10/31/2011 8:03 PM 11/03/2011 1:04 PM Care Teams Computing Architect Relationship Specialty Start Date End Date Teressa Malave DO [address] [place] [address] PCP - General Family Practice 03/02/19 Isabel Ralph, RN, BSN Nurse Navigator - Oncology Registered Nurse 11/18/24 Jeffrey Long MD [address] [address] Surgery - Cardiothoracic 11/25/24
--- OUTSIDE RECORDS SUMMARY | 2025-01-18 12:12 | XMS_ITS | Encounter Summary ---
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 [address] [place] [phone] Phone: tel: fax: [facility] Referral ID Status Reason Start Date Expiration Date V isits Requested Visits Authorized [id number] Authorized 12/30/2024 04/01/2026 1 1 Encounter Details Date Type Department Care Team (Late Contact Info) Description 12/30/2024 Orders Only Department of Radiation Oncology in [address] [phone] Dominique Latham APRN, C.N.P., D.N.P. 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D. [address] [place] [phone] 03/01/2025 12:30 PM TRAY CHECKER Appointment Department of Radiation Oncology in [address] [phone] Danilo Garvey M.D. 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
--- OUTSIDE RECORDS SUMMARY | 2025-01-18 12:13 | XMS_ITS | Encounter Summary ---
Author Organization [facility] Address [address] [place] [address] Phone Care Team Providers Care Sole Stainer Name Role Phone Teressa Malave DO Primary Care Provider [phone] Encounter Details Date Type Department Care Team (Late st Contact Info) Description 08/20/2024 Orders Only [facility] [address] [place] [address] Arturo Riggins MD [address] [place] [address] Chronic kidney disease stage 3B [...] * (ABNORMAL) Hemoglobin (09/08/2024 8:10 AM CDT) Pathologist [facility] Hemoglobin 11.1(L) 11.7 - 15.5 g/dL [facility] Blood specimen (specimen) Venous blood / Unknown 09/08/2024 8:10 AM CDT 09/08/2024 8:13 AM CDT Narrative Resulting Agency Comment Performing Organization Information: Site ID: CB Name: [facility] Address: [address] [place] [phone] Director: Aramis Doherty us Arturo Riggins MD LAB BLOOD ORDERABLES Final Re sult [facility] Lenka Aparicio [address] [place] [phone] * (ABNORMAL) Renal function panel (09/08/2024 8:10 AM CDT) Pathologist [facility] Glucose 117(H) 65 - 99 mg/dL [facility] Comment: Fasting reference interval For someone without [...] Agency Comment Performing Organization Information: Site ID: Name: [facility] Address: [address] [place] [phone] Director: Aramis Doherty us Arturo Riggins MD LAB BLOOD ORDERABLES Final Re sult [facility] [address] [phone] documented in this encounter Visit Diagnoses Diagnosis Chronic kidney disease stage 3B (HCC) documented in this encounter Care Teams Sole Stainer Relationship Specialty Start Date End Date Teressa Malave [place] [address] PCP - General Family Medicine 02/13/23 documented as of this encounter
[2025-01-18 12:23] VITALS: BP 119/64; PULSE 58; RESP 16; TEMP 36.8; O2SAT 94; BMI 28.2
--- NOTE | 2025-01-18 12:33 | ED.GENADULT ---
HPI - General Adult General Chief complaint: Chest Pain Stated complaint: chest pain, left leg pain Time Seen by Provider: 01/18/25 12:32 History of Present Illness HPI narrative: Patient reports sharp chest in chest in med?chest that lasted about 30 minutes. Pain has now lessened. Does reports a similar episode in the past where she was seen in ED. Denies SOB, nausea, or diaphoresis. Also endorse right leg pain that started yesterday. 84-year-old woman presenting to the emergency department with concern of chest pain. He was just sitting there watching TV when had sudden onset of sharp mid low chest pain. Not associated with any shortness of breath or nausea or diaphoresis. Chest pain. Did radiate anywhere although she did seem to have some pain behind her right knee she thinks. Although this has started maybe yesterday. Exacerbated during this chest pain and lingered for a while afterwards. She is now pain-free. She does not recall anything that in the 30 minutes for she is experiencing this chest pain that she could do to make it better or worse. She assumes that it is her atrial fibrillation although no heart rate or sense of palpitations was noted. Related Data Home Medications ?Medication ?Instructions ?Recorded ?Confirmed rosuvastatin 10 mg tablet 10 mg PO HS 11/15/21 01/18/25 warfarin 2 mg tablet 2 mg PO DAILY 05/22/22 01/18/25 escitalopram oxalate 5 mg tablet 5 mg PO DAILY 06/05/22 01/18/25 flecainide 50 mg tablet 50 mg PO ONCE 01/18/25 01/18/25 Previous Rx's ?Medication ?Instructions ?Recorded cefdinir 300 mg capsule 300 mg PO BID #14 caps 10/20/24 Allergies Allergy/AdvReac Type Severity Reaction Status Date / Time No Known Drug Allergies Allergy Verified 01/18/25 12:20 Review of Systems Status of ROS: Reports: 6 or more systems reviewed and unremarkable except as noted in History and below [facility] Medical History Alcohol use ?Z78.9 - Other specified health status (ICD-10) Cognitive impairment ?R41.89 - Other symptoms and signs involving cognitive functions and awareness (ICD-10) Chronic kidney disease, stage 3b ?N18.32 - Chronic kidney disease, stage 3b (ICD-10) 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 - Rheumatic tricuspid insufficiency (ICD-10) Paroxysmal atrial fibrillation with rapid ventricular response ?I48.0 - Paroxysmal atrial fibrillation (ICD-10) Emphysema lung ?J43.9 - Emphysema, unspecified (ICD-10) COPD (chronic obstructive pulmonary disease) ?J44.9 - Chronic obstructive pulmonary disease, unspecified (ICD-10) History of smoking 30 or more pack years ?Z87.891 - Personal history of nicotine dependence (ICD-10) Carotid artery aneurysm ?I72.0 - Aneurysm of carotid artery (ICD-10) Paroxysmal supraventricular tachycardia ?I47.1 - Supraventricular tachycardia (ICD-10) 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.528 - Other complication of incontinent external stoma of urinary tract (ICD-10) Chronic kidney disease, stage 3 ?N18.30 - Chronic kidney disease, stage 3 unspecified (ICD-10) Mild cognitive impairment ?G31.84 - Mild cognitive impairment, so stated (ICD-10) Ascending aortic aneurysm ?I71.2 - Thoracic aortic aneurysm, without rupture (ICD-10) Diastolic congestive heart failure ?I50.30 - Unspecified diastolic (congestive) heart failure (ICD-10) Pulmonary nodules ?R91.8 - Other nonspecific abnormal finding of lung field (ICD-10) History of small bowel obstruction ?Z87.19 - Personal history of other diseases of the digestive system (ICD-10) History of bladder cancer ?Z85.51 - Personal history of malignant neoplasm of bladder (ICD-10) History of breast cancer ?Z85.3 - Personal history of malignant neoplasm of breast (ICD-10) History of colon cancer ?Z85.038 - Personal history of other malignant neoplasm of large intestine (ICD-10) Surgical History History of back surgery ?Z98.890 - Other specified postprocedural states (ICD-10) History of urostomy ?Z98.890 - Other specified postprocedural states (ICD-10) History of ileal conduit ?Z98.890 - Other specified postprocedural states (ICD-10) H/O total cystectomy ?Z90.6 - Acquired absence of other parts of urinary tract (ICD-10) History of colectomy ?Z90.49 - Acquired absence of other specified parts of digestive tract (ICD-10) Family History Daughter Diabetes High blood pressure Sister Stroke Social History Highest level of school completed/degree received: some college, no degree Smoking Status: Former smoker What tobacco products do you use: cigarettes Years smoked: 30 Smoking quit date/years: >15 years ago Do you use any of these nicotine containing products: None Second hand tobacco smoke exposure: No How often do you have a drink containing alcohol: 4 or more times a week Alcohol type: beer How many standard drinks containing alcohol do you have on a typical day: 1 or 2 How often do you have six or more drinks on one occasion: Never AUDIT-C Alcohol total score: 4 Non-prescribed substance use: denies use Caffeine: Yes (6 cups) service: No Exam Narrative: Exam Narrative: Pleasant. NAD. Skin is warm and dry. 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 Getting easily. Lungs are clear. Heart in near bradycardic rate and regular rhythm on auscultation. Abdomen is soft nontender. She is actually tender though in the low mid sternum. This is not the discomfort she was feeling prior. No redness or swelling noted here. Extremities with some superficial varicosities distally. No particular edema. Fullness behind the right knee but not with reproducible pain. Const: Vital Signs, click to edit/add: Vital Signs - 24 hr 01/18/25 12:23 01/18/25 12:38 01/18/25 12:38 Temperature 98.3 F Pulse Rate 54 L 54 L Pulse Rate [Pulse Oximeter] 58 L Respiratory Rate 16 16 16 Blood Pressure 137/65 137/65 Blood Pressure [Ri ght Upper Arm] 119/64 Pulse Oximetry 94 97 97 Oxygen Delivery Me thod Room Air 01/18/25 12:39 01/18/25 12:45 01/18/25 13:00 Temperature Pulse Rate 52 L 50 L Pulse Rate [Pulse Oximeter] Respiratory Rate 16 14 11 L Blood Pressure Blood Pressure [Ri ght Upper Arm] Pulse Oximetry 98 97 Oxygen Delivery Me thod 01/18/25 13:02 Temperature Pulse Rate Pulse Rate [Pulse Oximeter] Respiratory Rate 21 Blood Pressure 140/66 H Blood Pressure [Ri ght Upper Arm] Pulse Oximetry Oxygen Delivery Me thod Documenting provider has reviewed patient's vital signs: yes Course Vital Signs Vital signs: Initial Vital Signs Temperature 98.3 F 01/18/25 12:23 Temperature Source Temporal Artery Scan 01/18/25 12:23 Pulse Rate 58 L 01/18/25 12:23 Respiratory Rate 16 01/18/25 12:23 Blood Pressure 119/64 01/18/25 12:23 Blood Pressure Mean 82 01/18/25 12:23 Pulse Oximetry 94 01/18/25 12:23 Oxygen Delivery Method Room Air 01/18/25 12:23 Vital Signs Temperature 98.3 F 01/18/25 12:23 Pulse Rate 58 L 01/18/25 12:23 Respiratory Rate 16 01/18/25 12:23 Blood Pressure 119/64 01/18/25 12:23 Pulse Oximetry 94 01/18/25 12:23 Oxygen Delivery Method Room Air 01/18/25 12:23 Temperature 98.3 F 01/18/25 12:23 Pulse Rate 50 L 01/18/25 12:45 Respiratory Rate 21 01/18/25 13:02 Blood Pressure 140/66 H 01/18/25 13:02 Pulse Oximetry 97 01/18/25 12:45 Oxygen Delivery Method Room Air 01/18/25 12:23 Medical Decision Making MDM Narrative Medical decision making narrative: Without or symptoms thing unlikely that she had atrial fibrillation causing pain as would probably necessitated a significant tachycardia. May have been arrhythmia. Certainly may have been ischemic cardiovascular event. Valve rupture but without persistent symptoms. Doubtful pulmonary embolus without persistence of symptoms. This leg pain may have represented muscle cramp. Seems like it is less likely be arthritic. Might be a Quintanilla cyst. She does not feel like she needs any treatment for symptoms currently. Monitor on mold yard crane operator. Standard labs. One-view chest x-ray independently reviewed by me does show some mild congestion. Cardiomegaly noted as well looks to have been present prior. No effusion. Labs are generally reassuring. Has been drifting down little bit in sodium today of 132. Does have a history of hyponatremia however. ProBNP is a little elevated at 1490. Do not have recent prior for comparison at this time. I do not see that she is in overt heart failure here today however. Radiology over-read below INDICATION: Midsternal chest pain TECHNIQUE: Chest 1 views. COMPARISON: February 15, 2024 FINDINGS: Tubes and devices: None. Lungs: Lungs are clear. Pulmonary venous congestion. No airspace infiltrates or mass lesions. No sign of infiltrate or mass. Pleura: No pleural effusion. No pneumothorax. Heart: Moderate cardiomegaly similar to previous study with CT ratio 18.4/26.2. Audra and Mediastinum: No enlargement. Bones and soft tissues: No significant findings. IMPRESSION: Stable moderate cardiomegaly with pulmonary venous congestion. Dictated by Mariano Lutz MD @ 01/18/2025 3:16:13 PM Did request an ultrasound of the left leg focus though the knee 1st looking for possible Quintanilla's cyst. Did review findings with variety lathe operator. Confirming 3.3 cm popliteal cyst and knee joint effusion. Indication: Knee and popliteal fossa pain. Technique: Routine color Doppler protocol about the knee Comparison: None. Findings: A popliteal fossa cyst is present measuring 3.3 x 1.3 x 1.2 centimeter. Normal appearance of the popliteal artery and vein. No mass lesions. Fluid collection superior and medial to the knee consistent with a large knee joint effusion measures 3.6 x 2.5 x 2.2 centimeters. Impression: Large knee joint effusion with 3.3 centimeter popliteal cyst. Dictated by Mariano Lutz MD @ 01/18/2025 3:20:25 PM Overall well during time in the emergency department without further event. She was requesting departure from the ER. See patient discharge plan for further discussion Reassuring is some reproducibility of your chest pain to palpation. I do not know what exactly though caused your flare of pain. I have not been able to show that it was any injury to your heart at this point. You do have a cyst in your left knee that might be leaking. This can be contributing to the pain in your knee. I would consider icing your knee a few times daily over the next few days. Otherwise take up to 1000 mg of acetaminophen per dose. If your knee is continuing to bug you after this week, I would follow-up with primary care provider who does more orthopedics or Orthopedics themselves phone number [phone] to be considered for further evaluation and possible treatment of this popliteal cyst and/or knee effusion. Medical Records Medical records reviewed: Yes I reviewed the patient's medical records Lab Data Lab results reviewed: Yes I reviewed the patient's lab results Labs: Lab Results 01/18/25 01/18/25 01/18/25 Range/Units 12:46 13:00 14:47 WBC 5.34 (4.50-11.00) K/uL RBC 3.23 L (4.00-5.20) m/uL Hgb 10.3 L (12.0-16.0) gm/dL Hct 32.4 L (33.0-51.0) % MCV 100 (80-100) fL MCH 32 (26-34) pg MCHC 32 (32-36) gm/dL RDW Coeff of Gayle 13.2 (11.5-15.5) % Plt Count 160 (140-440) K/uL Neut % (Auto) 66.5 (42.0-72.0) % Lymph % (Auto) 15.2 L (20-44) % Sebastian % (Auto) 17.2 H (0.0-11.0) % Eos % (Auto) 0.7 (0.0-7.0) % Baso % (Auto) 0.4 (0.0-3.0) % Neut # (Auto) 3.55 (1.7-7.0) K/uL Lymph # (Auto) 0.80 L (0.90-2.90) K/uL Sebastian # (Auto) 0.90 (0.00-0.90) K/UL Eos # (Auto) 0.04 (0.00-0.50) K/uL Baso # (Auto) 0.02 (0.00-0.30) K/uL Abs Immat Gran (auto) 0.00 (0.00-0.30) K/uL Imm/Tot Granulo (auto) 0.0 % D-Dimer Quant (PE/DVT) < 0.27 (0.00-0.50) ug/ml Sodium 132 L (135-149) mmol/L Potassium 4.2 (3.6-5.1) mmol/L Chloride 103 (96-114) mmol/L Carbon Dioxide 24 (20-32) mmol/L Anion Gap 5 L (7-15) mEq/L BUN 22 (7-30) mg/dL Creatinine 1.4 (0.5-1.5) mg/dL Estimated Creat Clear 22.81 Estimated GFR 37 ml/min Glucose 114 (60-115) mg/dL Calcium 8.8 (8.4-10.6) mg/dL Troponin I < 0.01 (0.01-0.04) ng/mL C-Reactive Protein < 0.5 L (0.5-1.0) mg/dL NT-Pro-B Natriuret Pep 1490 H (See Note) pg/mL POC Troponin I 0.01 0.01 (0.01-0.04) ng/ml ECG Data Attestation: I personally reviewed and interpreted this ECG as follows: (Sinus bradycardia. Rate 50.) Discharge Plan Discharge Clinical Impression: Atypical chest pain, Chest wall pain, Rupture of popliteal cyst Patient Disposition: Home w/ Parent or Adult Condition: Stable Additional Instructions: Reassuring is some reproducibility of your chest pain to palpation. I do not know what exactly though caused your flare of pain. I have not been able to show that it was any injury to your heart at this point. You do have a cyst in your left knee that might be leaking. This can be contributing to the pain in your knee. I would consider icing your knee a few times daily over the next few days. Otherwise take up to 1000 mg of acetaminophen per dose. If your knee is continuing to bug you after this week, I would follow-up with primary care provider who does more orthopedics or Orthopedics themselves phone number [phone] to be considered for further evaluation and possible treatment of this popliteal cyst and/or knee effusion. Prescriptions: No Action rosuvastatin 10 mg tablet 10 mg PO HS Patient Comments: TAKE ONE TABLET BY MOUTH ONE TIME DAILY AT BEDTIME escitalopram oxalate 5 mg tablet 5 mg PO DAILY flecainide 50 mg Tablet 50 mg PO ONCE warfarin 2 mg tablet 2 mg PO DAILY cefdinir 300 mg capsule 300 mg PO BID Qty: 14 0RF Follow Up/Referrals: Teressa Malave DO [Primary Care Provider, Family Practice] [facility]
[2025-01-18 12:38] VITALS: BP 137/65; PULSE 54; RESP 16; O2SAT 97
[2025-01-18 12:39] VITALS: PULSE 52; RESP 16; O2SAT 98
[2025-01-18 12:45] VITALS: PULSE 50; RESP 14; O2SAT 97
[2025-01-18 13:00] VITALS: RESP 11
[2025-01-18 13:02] VITALS: BP 140/66; RESP 21
[2025-01-18 13:19] LABS: Hematocrit* 32.4 % (33.0-51.0); Hemoglobin* 10.3 gm/dL (12.0-16.0); Immature Granulocytes Abs Auto 0.00 K/uL (0.00-0.30); Immature Granulocytes Pct Auto 0.0 %; Mean Corpuscular HGB Conc 32 gm/dL (32-36); Mean Corpuscular Hemoglobin 32 pg (26-34); Mean Corpuscular Volume 100 fL (80-100); RDW Coefficient of Variation % 13.2 % (11.5-15.5); Red Blood Count* 3.23 m/uL (4.00-5.20); White Blood Count* 5.34 K/uL (4.50-11.00)
[2025-01-18 13:21] LABS: Lymphocytes Absolute Auto 0.80 K/uL (0.90-2.90); Slide Review Reflex No
--- NOTE | 2025-01-18 13:22 | CRLHL7_ITS ---
For Patients: As a result of the Century Cures Act, medical imaging exams and procedure reports are released immediately into your electronic medical record. You may view this report before your referring provider. If you have questions, please contact your health care provider. Indication: Knee and popliteal fossa pain. Technique: Routine color Doppler protocol about the knee Comparison: None. Findings: A popliteal fossa cyst is present measuring 3.3 x 1.3 x 1.2 centimeter. Normal appearance of the popliteal artery and vein. No mass lesions. Fluid collection superior and medial to the knee consistent with a large knee joint effusion measures 3.6 x 2.5 x 2.2 centimeters. Impression: Large knee joint effusion with 3.3 centimeter popliteal cyst. Dictated by Mariano Lutz MD @ 01/18/2025 3:20:25 PM (Electronically Signed)
[2025-01-18 13:27] LABS: Troponin, Point-of-Care* 0.01 ng/ml (0.01-0.04)
[2025-01-18 13:33] LABS: Chloride* 103 mmol/L (96-114); Potassium* 4.2 mmol/L (3.6-5.1); Sodium* 132 mmol/L (135-149)
[2025-01-18 13:36] LABS: Anion Gap 5 mEq/L (7-15); Blood Urea Nitrogen* 22 mg/dL (7-30); Calcium* 8.8 mg/dL (8.4-10.6); Carbon Dioxide* 24 mmol/L (20-32); Creatinine* 1.4 mg/dL (0.5-1.5); Est. Creatinine Clearance* 22.81; Estimated Glomerular Filt Rate 37 ml/min; Glucose* 114 mg/dL (60-115)
[2025-01-18 13:47] LABS: NT Pro B Type NatriureticPept* 1490 pg/mL (See Note)
[2025-01-18 13:51] LABS: D Dimer Quantitative* < 0.27 ug/ml (0.00-0.50)
--- NOTE | 2025-01-18 14:42 | CRLHL7_ITS ---
For Patients: As a result of the Century Cures Act, medical imaging exams and procedure reports are released immediately into your electronic medical record. You may view this report before your referring provider. If you have questions, please contact your health care provider. INDICATION: Midsternal chest pain TECHNIQUE: Chest 1 views. COMPARISON: February 15, 2024 FINDINGS: Tubes and devices: None. Lungs: Lungs are clear. Pulmonary venous congestion. No airspace infiltrates or mass lesions. No sign of infiltrate or mass. Pleura: No pleural effusion. No pneumothorax. Heart: Moderate cardiomegaly similar to previous study with CT ratio 18.4/26.2. Audra and Mediastinum: No enlargement. Bones and soft tissues: No significant findings. IMPRESSION: Stable moderate cardiomegaly with pulmonary venous congestion. Dictated by Mariano Lutz MD @ 01/18/2025 3:16:13 PM (Electronically Signed)
[2025-01-18 15:12] LABS: Troponin, Point-of-Care* 0.01 ng/ml (0.01-0.04)
== END 2025-01-18 15:33 | disposition home or self-care (01) ==
PROVIDERS: Emergency Provider Family Medicine; PCP Family Medicine
DX: R07.89 Other chest pain (principal); M66.0 Rupture of popliteal cyst; I51.7 Cardiomegaly
CPT/HCPCS: 36415; 71045; 76882; 80048; 83880; 84484; 85025; 85379; 86140; 93005; 99284; 99285